=== PATIENT | male | born 1965 | race Caucasian/White ===

== ENCOUNTER 2017-12-31 22:58 | Emergency (ER) | payer OTHER ==
[2017-12-31] MEDS ORDERED: NITROGLYCERIN SL TABS 0.4 MG TAB SUBLINGUAL STA (23:22)
[2017-12-31] MEDS ORDERED: SODIUM CHLORIDE 0.9% 1,000 ML IV STA (23:22)
[2017-12-31] MEDS ORDERED: METOCLOPRAMIDE 5 MG/ML 2 ML VIAL IVP STA (23:22)
[2017-12-31] MEDS ORDERED: GLUCAGON 1 MG/ML VIAL IVP STA (23:23)
--- NOTE | 2017-12-31 23:31 | ED ---
General Adult HPI - General Chief complaint: ENT Stated complaint: food in throat Time Seen by Provider: 12/31/17 23:09 Source: patient, RN notes reviewed Mode of arrival: ambulatory Limitations: no limitations - History of Present Illness Initial comments: Patient is a pleasant 52-year-old male presenting to the emergency department with concern for food being stuck. Patient was eating dinner around 5 PM, chicken. Patient feels like a piece has been stuck since that time. Patient has had similar symptoms previously however generally resolves on its own. Patient has a history of chronic reflux and has had to have scopes and dilation done previously. Patient is unable to drink fluids at this time. Patient is unable to swallow his own secretions without emesis. - Related Data Home Medications Medication Instructions Recorded Confirmed Fluticasone Propionate [Flovent 2 puff INHALATION BID PRN 12/31/17 12/31/17 Hfa 220MCG] Omeprazole [PriLOSEC] 10 mg PO BID 12/31/17 12/31/17 Allergies Allergy/AdvReac Type Severity Reaction Status Date / Time codeine Allergy Unknown Verified 12/31/17 23:18 Review of Systems ROS Statement: Those systems with pertinent positive or pertinent negative responses have been documented in the HPI. ROS Other: All systems not noted in ROS Statement are negative. Constitutional: Denies: fever Eyes: Denies: eye pain ENT: Denies: ear pain Respiratory: Denies: cough, dyspnea Cardiovascular: Denies: palpitations Endocrine: Denies: fatigue Gastrointestinal: Denies: abdominal pain Genitourinary: Denies: dysuria Musculoskeletal: Denies: back pain Skin: Denies: rash Neurological: Denies: weakness Past Medical History Past Medical History: Asthma, GERD/Reflux History of Any Multi-Drug Resistant Organisms: None Reported Past Surgical History: Orthopedic Surgery Past Psychological History: No Psychological Hx Reported Smoking Status: Never smoker Past Alcohol Use History: None Reported Past Drug Use History: None Reported General Exam Limitations: no limitations General appearance: alert, in no apparent distress Head exam: Present: atraumatic ENT exam: Present: normal oropharynx Neck exam: Present: normal inspection Respiratory exam: Present: normal lung sounds bilaterally Cardiovascular Exam: Present: regular rate, normal rhythm GI/Abdominal exam: Present: soft. Absent: distended, tenderness Extremities exam: Present: normal inspection. Absent: calf tenderness Neurological exam: Present: alert Psychiatric exam: Present: normal affect, normal mood Skin exam: Present: normal color Course Vital Signs 12/31/17 01/01/18 01/01/18 23:04 00:47 01:15 Temperature 97.2 F L Pulse Rate 71 74 78 Respiratory 18 15 18 Rate Blood Pressure 160/88 152/68 98/55 O2 Sat by Pulse 96 95 96 Oximetry 01/01/18 01:27 Temperature Pulse Rate 80 Respiratory 18 Rate Blood Pressure 100/61 O2 Sat by Pulse 96 Oximetry - Reevaluation(s) Reevaluation #1: 01/01/18 00:02 No improvement of symptoms with medications. Case was discussed with gastroenterology, Dr. Hammer who will come in. 01/01/18 01:35 Patient underwent endoscopy with removal of foreign body in the esophagus. Patient was reevaluated and alert and appropriate and symptom-free. Patient updated. Disposition Clinical Impression: Esophageal foreign body Disposition: HOME SELF-CARE Condition: Stable Instructions: Esophageal Foreign Body (ED) Additional Instructions: Please follow-up with your primary care physician in the next couple days for recheck. Please also follow-up in the next couple of days with either your ep technologist or Dr. Hammer, number provided. Return for chest pain, difficulty breathing, not tolerating fluids, worsening symptoms or other concerns. Referrals: Cata Amor MD [Primary Care Provider] - 1-2 days Shari Garcia MD [STAFF PHYSICIAN] - 1-2 days Time of Disposition: 01:36
[2018-01-01] MEDS ORDERED: PROPOFOL 10 MG/ML 20 ML VIAL IV ONE (00:57)
[2018-01-01] MEDS ORDERED: LACTATED RINGERS 1,000 ML IV ONE (01:02)
[2018-01-01 01:29] VITALS: RESP 18
[2018-01-01 02:24] VITALS: BP 125/83; PULSE 77; TEMP 97.5
--- NOTE | 2018-01-01 09:18 | PCN ---
PROCEDURE NOTE DATE PROCEDURE PERFORMED: 01/01/2018 REQUESTING PHYSICIAN: Dr. Amor. BRIEF HISTORY: The patient is a 52-year-old white male came into the emergency room with acute food dysphagia. He was eating chicken for dinner, could not swallow any further. He had similar episodes in the past. Last one was 5 years ago at which time he had an upper endoscopy with dilation done at [facility]. He is scheduled for an upper endoscopy on an emergency basis. PROCEDURE PERFORMED: EGD with foreign body removal. PREOPERATIVE DIAGNOSIS: Acute food dysphagia. ANESTHESIA: IV sedation per Anesthesia. PROCEDURE: After informed consent was obtained from the patient, he was brought into the endoscopy unit. IV conscious sedation was administered by Anesthesia under continuous monitoring. Initially the Olympus ITD635 video endoscope was inserted in the mouth. Esophagus intubated without any difficulty and was gradually advanced to the distal esophagus. There was a large piece of meat impacted in the distal esophagus. Using a snare, I was able to remove the piece of meat out of the mouth. Esophagus was re- intubated without any difficulty and was gradually advanced to the distal esophagus. At 42 cm from incisors, there was an esophageal stricture identified, which did not impede the passage of the scope. At this time, I was able to advance the scope into the stomach and duodenum. Bulb and 2nd part of the duodenum appeared normal. The scope was then withdrawn to the stomach, adequately insufflated with air and upon careful examination antrum, body, cardia and fundus appeared normal. Scope was then withdrawn to the esophagus. Once again, the distal esophageal stricture was identified. The rest of the esophagus appeared normal and the patient tolerated the procedure well. IMPRESSION: 1. Impacted food bolus, status post removal as described above. 2. Distal esophageal stricture. RECOMMENDATIONS: Findings of this examination were discussed with the patient briefly. At this time, he will be on a soft diet. He will continue with Protonix 40 mg daily and he will be seen in the office in 2 to 3 weeks for an upper endoscopy with possible dilation on active basis. MMODL / IJN: [id number] /
== END 2018-01-01 02:25 | disposition home or self-care (01) ==
LOC: EC 22:58
DX: T18.128A Food in esophagus causing other injury, initial encounter (principal); K21.9 Gastro-esophageal reflux disease without esophagitis; Z79.899 Other long term (current) drug therapy; Z88.5 Allergy status to narcotic agent; W61.32XA Struck by chicken, initial encounter; Y93.89 Activity, other specified
CPT/HCPCS: 99283 ×2; 96365 ×2; 96375 ×3; 96361 ×2; 43247; J1610; J2765; J2704

== ENCOUNTER 2018-01-09 04:56 | Emergency (ER) | payer OTHER ==
[2018-01-09 05:03] VITALS: RESP 18
[2018-01-09] MEDS ORDERED: IPRATROPIUM-ALBUTEROL 3 ML NEB INHALATION STA (05:27)
--- NOTE | 2018-01-09 05:56 | XR ---
EXAM: XR Chest, 2 Views CLINICAL HISTORY: Reason: cough TECHNIQUE: Frontal and lateral views of the chest. COMPARISON: 01/07/2010 FINDINGS: Lungs: Unremarkable. No consolidation. Pleural space: Unremarkable. No pneumothorax. Heart: Unremarkable. No cardiomegaly. Mediastinum: Unremarkable. Bones/joints: Unremarkable. IMPRESSION: No evidence of acute cardiopulmonary disease.
[2018-01-09 05:59] LABS: Basophils % (A) 1 %; Eosinophils # (A) 0.1 k/uL (0-0.7); Eosinophils % (A) 1 %; HGB 15.3 gm/dL (13.0-17.5); Lymphocytes # (A) 1.6 k/uL (1.0-4.8); Lymphocytes % (A) 36 %; MCH 28.8 pg (25.0-35.0); MCV 84.7 fL (80.0-100.0); Mean Platelet Volume 7.1; Monocytes # (A) 0.4 k/uL (0-1.0); Monocytes % (A) 9 %; Neutrophils # (A) 2.3 k/uL (1.3-7.7); Neutrophils % (A) 51 %; Platelet Count 205 k/uL (150-450); RBC 5.32 m/uL (4.30-5.90); RDW 12.4 % (11.5-15.5); WBC 4.5 k/uL (3.8-10.6)
[2018-01-09 06:13] LABS: ALT 67 U/L (21-72); AST 37 U/L (17-59); Albumin 3.5 g/dL (3.5-5.0); Alkaline Phosphatase 66 U/L (38-126); Amylase 46 U/L (30-110); Anion Gap 11 mmol/L; Blood Urea Nitrogen 17 mg/dL (9-20); Calcium 9.1 mg/dL (8.4-10.2); Carbon Dioxide 28 mmol/L (22-30); Chloride 103 mmol/L (98-107); Glucose 98 mg/dL (74-99); Lipase 62 U/L (23-300); Potassium 4.1 mmol/L (3.5-5.1); Sodium 142 mmol/L (137-145); Total Bilirubin 0.4 mg/dL (0.2-1.3); Total Protein 6.3 g/dL (6.3-8.2)
[2018-01-09 06:15] LABS: Appearance,Urine Clear (Clear); Bilirubin,Urine Negative (Negative); Blood,Urine Negative (Negative); Color,Urine Yellow; Glucose,Urine (UA) Negative (Negative); Ketones,Urine Negative (Negative); Leukocyte Esterase,Urine Negative (Negative); Nitrite,Urine Negative (Negative); PH, Urine 5.5 (5.0-8.0); Protein,Urine Trace (Negative); Specific Gravity,Urine 1.029 (1.001-1.035); Urobilinogen,Urine <2.0 mg/dL (<2.0)
--- NOTE | 2018-01-09 07:00 | ED ---
General Adult HPI - General Source: patient Mode of arrival: ambulatory Limitations: no limitations - History of Present Illness Onset/Timin -: days(s) Location: back, abdomen Radiation: non-radiation Quality: aching Consistency: constant Improves with: none Worsens with: other (Lying supine or palpation) Associated Symptoms: cough, shortness of breath Treatments Prior to Arrival: none <aLne Vargas - Last Filed: 01/09/18 07:00> <Jam Streeter - Last Filed: 01/09/18 07:52> - General Chief complaint: Upper Respiratory Infection Stated complaint: Pnuemonia Time Seen by Provider: 01/09/18 05:04 - History of Present Illness Initial comments: This patient's 52-year-old man who presents to be evaluated for what he suspects is pneumonia. He is complaining of pain to the right flank area that gets worse when he tries to lie supine. He states that he also has been coughing. He relates that the symptoms have been coming on for about 3-4 days. Prior to this he had been seen in the emergency department for having a food impaction. He is not having the symptoms then and states that they started couple days after that procedure. He has not had fevers or chills. No productive cough. He indicates that the pain was preventing him from sleeping tonight so he came to be seen here. Prior to that he was seen by his primary physician who was also concerned that he may have pneumonia and had given him a course of azithromycin. He has taken 2 days of that without any improvement. ( Lane Vargas) - Related Data Home Medications Medication Instructions Recorded Confirmed Fluticasone Propionate [Flovent 2 puff INHALATION BID PRN 12/31/17 12/31/17 Hfa 220MCG] Omeprazole [PriLOSEC] 10 mg PO BID 12/31/17 12/31/17 Allergies Allergy/AdvReac Type Severity Reaction Status Date / Time codeine Allergy Unknown Verified 12/31/17 23:18 Review of Systems ROS Other: All systems not noted in ROS Statement are negative. Constitutional: Denies: fever, chills Respiratory: Reports: cough, dyspnea, wheezes. Denies: hemoptysis Cardiovascular: Denies: chest pain, palpitations, orthopnea, edema, syncope Gastrointestinal: Denies: abdominal pain, nausea, vomiting, diarrhea, constipation Genitourinary: Denies: dysuria, hematuria Musculoskeletal: Reports: back pain Skin: Denies: rash Neurological: Denies: headache <JessicaLane mcfadden - Last Filed: 01/09/18 07:00> ROS Other: All systems not noted in ROS Statement are negative. <Jam Streetre - Last Filed: 01/09/18 07:52> ROS Statement: Those systems with pertinent positive or pertinent negative responses have been documented in the HPI. Past Medical History Past Medical History: Asthma, GERD/Reflux History of Any Multi-Drug Resistant Organisms: None Reported Past Surgical History: Orthopedic Surgery Past Psychological History: No Psychological Hx Reported Smoking Status: Never smoker Past Alcohol Use History: None Reported Past Drug Use History: None Reported <JessicaLane mcfadden - Last Filed: 01/09/18 07:00> General Exam Limitations: no limitations General appearance: alert, in no apparent distress Head exam: Present: atraumatic, normocephalic Eye exam: Present: normal appearance. Absent: scleral icterus, conjunctival injection ENT exam: Present: normal oropharynx Neck exam: Present: normal inspection, full ROM Respiratory exam: Present: wheezes. Absent: respiratory distress, rales, rhonchi, stridor Cardiovascular Exam: Present: regular rate, normal rhythm, normal heart sounds. Absent: systolic murmur, diastolic murmur, rubs, gallop GI/Abdominal exam: Present: soft. Absent: distended, tenderness, guarding, rebound, rigid, mass Extremities exam: Present: normal inspection, normal capillary refill. Absent: pedal edema, calf tenderness Back exam: Present: normal inspection. Absent: CVA tenderness (R), CVA tenderness (L) Neurological exam: Present: alert Skin exam: Present: warm, dry, intact, normal color. Absent: rash <AliciaLane - Last Filed: 01/09/18 07:00> Vital Signs 01/09/18 01/09/18 01/09/18 05:00 05:14 05:44 Temperature 97.7 F Pulse Rate 75 72 Respiratory 18 18 Rate Blood Pressure 161/106 O2 Sat by Pulse 97 Oximetry 01/09/18 01/09/18 01/09/18 05:57 06:42 06:48 Temperature 97.4 F L Pulse Rate 76 78 81 Respiratory 18 18 Rate Blood Pressure 131/80 143/87 O2 Sat by Pulse 97 96 Oximetry 01/09/18 07:47 Temperature Pulse Rate 65 Respiratory 18 Rate Blood Pressure 116/77 O2 Sat by Pulse 95 Oximetry Medical Decision Making - Lab Data Result diagrams: 01/09/18 05:45 01/09/18 05:45 <JessicalesaLane - Last Filed: 01/09/18 07:00> - Lab Data Result diagrams: 01/09/18 05:45 01/09/18 05:45 <aJm Streeter - Last Filed: 01/09/18 07:52> - Medical Decision Making 52-year-old male presenting with right flank pain and cough. Currently being treated for asthma attack and upper respiratory infection. On steroids and antibiotics. Patient's case was signed out at shift change awaiting complete workup. I did reevaluate the patient, pain in his right flank, it is reproducible on exam. He is feeling better at the time of my evaluation. Vital signs are stable. Chest x-ray negative for pneumonia. CBC CMP and urinalysis are all unremarkable , no hematuria. CT is obtained there is some arthritis in the lumbar spine, no nephrolithiasis, no hydronephrosis, no definitive finding to explain the patient 's pain. He will continue his steroids and antibiotics for his upper respiratory tract infection. Follow-up with the primary care physician and return with any worsening or changing symptoms. (Jam Streeter) - Lab Data Lab Results 01/09/18 01/09/18 01/09/18 Range/Units 05:12 05:45 05:45 WBC 4.5 (3.8-10.6) k/uL RBC 5.32 (4.30-5.90) m/uL Hgb 15.3 (13.0-17.5) gm/dL Hct 45.0 (39.0-53.0) % MCV 84.7 (80.0-100.0) fL MCH 28.8 (25.0-35.0) pg MCHC 34.0 (31.0-37.0) g/dL RDW 12.4 (11.5-15.5) % Plt Count 205 (150-450) k/uL Neutrophils % 51 % Lymphocytes % 36 % Monocytes % 9 % Eosinophils % 1 % Basophils % 1 % Neutrophils # 2.3 (1.3-7.7) k/uL Lymphocytes # 1.6 (1.0-4.8) k/uL Monocytes # 0.4 (0-1.0) k/uL Eosinophils # 0.1 (0-0.7) k/uL Basophils # 0.0 (0-0.2) k/uL Sodium 142 (137-145) mmol/L Potassium 4.1 (3.5-5.1) mmol/L Chloride 103 (98-107) mmol/L Carbon Dioxide 28 (22-30) mmol/L Anion Gap 11 mmol/L BUN 17 (9-20) mg/dL Creatinine 0.90 (0.66-1.25) mg/dL Est GFR (CKD-EPI)AfAm >90 (>60 ml/min/1.73 sqM) Est GFR (CKD-EPI)NonAf >90 (>60 ml/min/1.73 sqM) Glucose 98 (74-99) mg/dL Calcium 9.1 (8.4-10.2) mg/dL Total Bilirubin 0.4 (0.2-1.3) mg/dL AST 37 (17-59) U/L ALT 67 (21-72) U/L Alkaline Phosphatase 66 (38-126) U/L Total Protein 6.3 (6.3-8.2) g/dL Albumin 3.5 (3.5-5.0) g/dL Amylase 46 (30-110) U/L Lipase 62 (23-300) U/L Urine Color Urine Appearance (Clear) Urine pH (5.0-8.0) Ur Specific [place] (1.001-1.035) Urine Protein (Negative) Urine Glucose (UA) (Negative) Urine Ketones (Negative) Urine Blood (Negative) Urine Nitrite (Negative) Urine Bilirubin (Negative) Urine Urobilinogen (<2.0) mg/dL Ur Leukocyte Esterase (Negative) Influenza Type A RNA Not Detected (Not Detectd) Influenza Type B (PCR) Not Detected (Not Detectd) 01/09/18 Range/Units 06:00 WBC (3.8-10.6) k/uL RBC (4.30-5.90) m/uL Hgb (13.0-17.5) gm/dL Hct (39.0-53.0) % MCV (80.0-100.0) fL MCH (25.0-35.0) pg MCHC (31.0-37.0) g/dL RDW (11.5-15.5) % Plt Count (150-450) k/uL Neutrophils % % Lymphocytes % % Monocytes % % Eosinophils % % Basophils % % Neutrophils # (1.3-7.7) k/uL Lymphocytes # (1.0-4.8) k/uL Monocytes # (0-1.0) k/uL Eosinophils # (0-0.7) k/uL Basophils # (0-0.2) k/uL Sodium (137-145) mmol/L Potassium (3.5-5.1) mmol/L Chloride (98-107) mmol/L Carbon Dioxide (22-30) mmol/L Anion Gap mmol/L BUN (9-20) mg/dL Creatinine (0.66-1.25) mg/dL Est GFR (CKD-EPI)AfAm (>60 ml/min/1.73 sqM) Est GFR (CKD-EPI)NonAf (>60 ml/min/1.73 sqM) Glucose (74-99) mg/dL Calcium (8.4-10.2) mg/dL Total Bilirubin (0.2-1.3) mg/dL AST (17-59) U/L ALT (21-72) U/L Alkaline Phosphatase (38-126) U/L Total Protein (6.3-8.2) g/dL Albumin (3.5-5.0) g/dL Amylase (30-110) U/L Lipase (23-300) U/L Urine Color Yellow Urine Appearance Clear (Clear) Urine pH 5.5 (5.0-8.0) Ur Specific [place] 1.029 (1.001-1.035) Urine Protein Trace H (Negative) Urine Glucose (UA) Negative (Negative) Urine Ketones Negative (Negative) Urine Blood Negative (Negative) Urine Nitrite Negative (Negative) Urine Bilirubin Negative (Negative) Urine Urobilinogen <2.0 (<2.0) mg/dL Ur Leukocyte Esterase Negative (Negative) Influenza Type A RNA (Not Detectd) Influenza Type B (PCR) (Not Detectd) Disposition <Lane Vargas - Last Filed: 01/09/18 07:00> Time of Disposition: 07:51 <Jam Streeter - Last Filed: 01/09/18 07:52> Clinical Impression: Asthmatic bronchitis, Lumbar strain Disposition: HOME SELF-CARE Condition: Good Instructions: Upper Respiratory Infection (ED), Low Back Strain (ED) Referrals: Cata Amor MD [Primary Care Provider] - 1-2 days
--- NOTE | 2018-01-09 07:34 | CT ---
EXAMINATION TYPE: CT abdomen pelvis wo con DATE OF EXAM: 01/09/2018 COMPARISON: NONE HISTORY: Right flank pain and Pneumonia CT DLP: 952 mGycm Automated exposure control for dose reduction was used. FINDINGS: The visualized portions of the lungs are clear. There is no pleural or pericardial fluid. T he heart is not enlarged. There is a small hiatal hernia. Within the abdomen, the liver is normal in size. There is some increased density in the fundus of the gallbladder. This may represent some sludge. The spleen is normal. Both adrenal glands are normal. There is no evidence of hydronephrosis or nephrolithiasis. Limited views of the pancreas are normal. There is no significant retroperitoneal, iliac or inguinal adenopathy. The bladder is unremarkable. There are scattered diverticula along the left side of the colon. There is no radiographic evidence o f diverticulitis. The appendix is normal. Small bowel loops are normal. There is no free fluid and no free air. There is some fullness in the right inguinal canal without a definite hernia. There is mild hypertrophic spondylosis within the spine. IMPRESSION: 1. NO EVIDENCE OF NEPHROLITHIASIS OR HYDRONEPHROSIS. 2. SMALL HIATAL HERNIA. 3. MILD, UNCOMPLICATED DIVERTICULOSIS OF THE LEFT SIDE OF THE COLON. 4. FULLNESS IN THE RIGHT INGUINAL CANAL WITHOUT A DEFINITE HERNIA. 5. MILD DEGENERATIVE CHANGE WITHIN THE SPINE.
[2018-01-09 07:47] VITALS: BP 116/77; PULSE 65
[2018-01-09 08:06] VITALS: TEMP 97.6
== END 2018-01-09 08:06 | disposition home or self-care (01) ==
LOC: EC 04:56
DX: S39.012A Strain of muscle, fascia and tendon of lower back, initial encounter (principal); J45.909 Unspecified asthma, uncomplicated; M47.896 Other spondylosis, lumbar region; R10.9 Unspecified abdominal pain; K21.9 Gastro-esophageal reflux disease without esophagitis; Z79.899 Other long term (current) drug therapy; Z88.5 Allergy status to narcotic agent
CPT/HCPCS: 36415; 71046; 74176; 80053; 81003; 82150; 83690; 85025; 87502; 94640; 99284

== ENCOUNTER 2020-10-14 09:48 | Inpatient (IN) | payer OTHER ==
[2020-10-14] MEDS ORDERED: ACETAMINOPHEN TAB 500 MG TAB PO STA (10:13)
[2020-10-14] MEDS ORDERED: SODIUM CHLORIDE 0.9% 1,000 ML IV STA (10:14)
[2020-10-14] MEDS ORDERED: ONDANSETRON 4 MG/2 ML VIAL IVP STA (10:16)
--- NOTE | 2020-10-14 10:20 | ED ---
SOB HPI - General Chief Complaint: Shortness of Breath Stated Complaint: COVID+/increased SOB Time Seen by Provider: 10/14/20 10:04 Source: patient Mode of arrival: ambulatory Limitations: no limitations - History of Present Illness Initial Comments: Patient is a 55-year-old male presenting to emergency Department with complaints of increasing shortness of breath over the past week. Patient was diagnosed with Covid 6 days ago. He has completed a course of steroids as well as Z-Douglas. Patient states over the past week he's been fighting fevers, body aches, chills and nausea. Patient states his shortness of breath has been steadily increasing. He gets winded with just walking around his house. He does admit to some chest pain when he is coughing. He does have some production with his cough. He does admit to history of asthma, denies heart disease. He states his last dose of Tylenol was last night. He denies any vomiting, no dysuria. P atient is febrile 100.4, pulse is 96, he is satting 88% on room air. - Related Data Home Medications Medication Instructions Recorded Confirmed Fluticasone Propionate [Flovent 2 puff INHALATION RT-BID 12/31/17 10/14/20 Hfa 220MCG] Albuterol Inhaler [Ventolin Hfa 2 puff INHALATION RT-QID PRN 10/14/20 10/14/20 Inhaler] Albuterol Nebulized [Ventolin 2.5 mg INHALATION RT-QID PRN 10/14/20 10/14/20 Nebulized] Atorvastatin [Lipitor] 40 mg PO DAILY 10/14/20 10/14/20 Azithromycin [Zithromax Z-pack (6 See Taper PO DIRECTED 10/14/20 10/14/20 tabs)] Cholecalciferol [Vitamin D3 (25 2,000 unit PO DAILY 10/14/20 10/14/20 Mcg = 1000 Iu)] Meloxicam 7.5 mg PO DAILY 10/14/20 10/14/20 Montelukast Sodium [Singulair] 10 mg PO HS 10/14/20 10/14/20 Omeprazole 20 mg PO BID 10/14/20 10/14/20 predniSONE 10 mg PO DIRECTED 10/14/20 10/14/20 Allergies Allergy/AdvReac Type Severity Reaction Status Date / Time codeine Allergy Unknown Verified 10/14/20 11:24 Review of Systems ROS Statement: Those systems with pertinent positive or pertinent negative responses have been documented in the HPI. ROS Other: All systems not noted in ROS Statement are negative. Past Medical History Past Medical History: Asthma, GERD/Reflux History of Any Multi-Drug Resistant Organisms: None Reported Past Surgical History: Orthopedic Surgery Past Psychological History: No Psychological Hx Reported Smoking Status: Never smoker Past Alcohol Use History: None Reported Past Drug Use History: None Reported General Exam - General Exam Comments Initial Comments: GENERAL: Patient is well-developed and well-nourished. Patient looks sick, in mild distress. HEAD: Atraumatic, normocephalic. EYES: Pupils equal round and reactive to light, extraocular movements intact, sclera anicteric, conjunctiva are normal. Eyelids were unremarkable. ENT: TMs normal, nares patent, oropharynx clear without exudates. Moist mucous membranes. NECK: Normal range of motion, supple without lymphadenopathy or JVD. LUNGS: Exertion with speaking full sentences, Breath sounds clear to auscultation bilaterally and equal. No wheezes rales or rhonchi. HEART: Tachycardia rate and rhythm without murmurs, rubs or gallops. ABDOMEN: Soft, nontender, normoactive bowel sounds. No guarding, no rebound. No masses appreciated. : Deferred MUSCULOSKELETAL: Normal extremities with adequate strength and normal range of motion, no pitting or edema. No clubbing or cyanosis. NEUROLOGICAL: Patient is alert and oriented x 3. Motor and sensory are also intact. Cranial nerves II through XII grossly intact. Symmetrical smile. Normal speech, normal gait. PSYCH: Normal mood, normal affect. SKIN: Warm, Dry, normal turgor, no rashes or lesions noted. Limitations: no limitations Course Vital Signs 10/14/20 10/14/20 09:56 11:09 Temperature 99.4 F Pulse Rate 96 90 Respiratory 18 18 Rate Blood Pressure 130/80 130/87 O2 Sat by Pulse 88 L 93 L Oximetry Medical Decision Making - Medical Decision Making Patient is a 55-year-old male presenting with increasing shortness breath over the past week. He was diagnosed with Covid 6 days ago. He has completed a course of Z-Douglas and steroids with no improvement of symptoms. He did arrive febrile, tachycardia and satting 88% on room air. EKG shows no acute process. Labs show a normal white count, d-dimer is normal, LDH is 777, troponin is negative, CRP is 134. X-ray shows diffuse bilateral pneumonia. Patient was 88% on room air, he's been satting at 93-94% on 2 L. Patient will be admitted for covert pneumonia, hypoxia. He was given fluids, dose of Decadron, Zofran andTylenol. Patient accepted by Dr. Hauser. Case discussed with Dr. Gallardo. - Lab Data Result diagrams: 10/14/20 10:20 10/14/20 10:20 Lab Results 10/14/20 10/14/20 10/14/20 Range/Units 10:20 10:20 10:20 WBC 4.9 (3.8-10.6) k/uL RBC 4.74 (4.30-5.90) m/uL Hgb 13.9 (13.0-17.5) gm/dL Hct 40.6 (39.0-53.0) % MCV 85.6 (80.0-100.0) fL MCH 29.2 (25.0-35.0) pg MCHC 34.2 (31.0-37.0) g/dL RDW 12.3 (11.5-15.5) % Plt Count 157 (150-450) k/uL MPV 7.0 Neutrophils % 82 % Lymphocytes % 13 % Monocytes % 3 % Eosinophils % 0 % Basophils % 1 % Neutrophils # 4.0 (1.3-7.7) k/uL Lymphocytes # 0.6 L (1.0-4.8) k/uL Monocytes # 0.1 (0-1.0) k/uL Eosinophils # 0.0 (0-0.7) k/uL Basophils # 0.0 (0-0.2) k/uL PT 10.8 (9.0-12.0) sec INR 1.0 (<1.2) APTT 26.1 (22.0-30.0) sec D-Dimer 0.38 (<0.60) mg/L FEU Sodium 134 L (137-145) mmol/L Potassium 3.7 (3.5-5.1) mmol/L Chloride 99 (98-107) mmol/L Carbon Dioxide 31 H (22-30) mmol/L Anion Gap 4 mmol/L BUN 16 (9-20) mg/dL Creatinine 0.79 (0.66-1.25) mg/dL Est GFR (CKD-EPI)AfAm >90 (>60 ml/min/1.73 sqM) Est GFR (CKD-EPI)NonAf >90 (>60 ml/min/1.73 sqM) Glucose 110 H (74-99) mg/dL Plasma Lactic Acid Se (0.7-2.0) mmol/L Calcium 8.1 L (8.4-10.2) mg/dL Magnesium 1.7 (1.6-2.3) mg/dL Total Bilirubin 0.6 (0.2-1.3) mg/dL AST 56 (17-59) U/L ALT 45 (4-49) U/L Alkaline Phosphatase 50 (38-126) U/L Lactate Dehydrogenase 777 H (313-618) U/L Troponin I (0.000-0.034) ng/mL C-Reactive Protein 133.8 H (<10.0) mg/L Total Protein 6.0 L (6.3-8.2) g/dL Albumin 3.1 L (3.5-5.0) g/dL 10/14/20 10/14/20 Range/Units 10:20 10:25 WBC (3.8-10.6) k/uL RBC (4.30-5.90) m/uL Hgb (13.0-17.5) gm/dL Hct (39.0-53.0) % MCV (80.0-100.0) fL MCH (25.0-35.0) pg MCHC (31.0-37.0) g/dL RDW (11.5-15.5) % Plt Count (150-450) k/uL MPV Neutrophils % % Lymphocytes % % Monocytes % % Eosinophils % % Basophils % % Neutrophils # (1.3-7.7) k/uL Lymphocytes # (1.0-4.8) k/uL Monocytes # (0-1.0) k/uL Eosinophils # (0-0.7) k/uL Basophils # (0-0.2) k/uL PT (9.0-12.0) sec INR (<1.2) APTT (22.0-30.0) sec D-Dimer (<0.60) mg/L FEU Sodium (137-145) mmol/L Potassium (3.5-5.1) mmol/L Chloride (98-107) mmol/L Carbon Dioxide (22-30) mmol/L Anion Gap mmol/L BUN (9-20) mg/dL Creatinine (0.66-1.25) mg/dL Est GFR (CKD-EPI)AfAm (>60 ml/min/1.73 sqM) Est GFR (CKD-EPI)NonAf (>60 ml/min/1.73 sqM) Glucose (74-99) mg/dL Plasma Lactic Acid Se 1.2 (0.7-2.0) mmol/L Calcium (8.4-10.2) mg/dL Magnesium (1.6-2.3) mg/dL Total Bilirubin (0.2-1.3) mg/dL AST (17-59) U/L ALT (4-49) U/L Alkaline Phosphatase (38-126) U/L Lactate Dehydrogenase (313-618) U/L Troponin I <0.012 (0.000-0.034) ng/mL C-Reactive Protein (<10.0) mg/L Total Protein (6.3-8.2) g/dL Albumin (3.5-5.0) g/dL - EKG Data EKG Comments: Normal sinus rhythm, left axis deviation, no signs of an acute process. Ventricular rate 97, MI interval 148, QT 330. Disposition Clinical Impression: Pneumonia due to COVID-19 virus, Hypoxia Disposition: ADMITTED IP TO THIS HOSP Condition: Stable Is patient prescribed a controlled substance at d/c from ED?: No Referrals: Bryan Valero DO [Primary Care Provider] - 1-2 days Decision Date: 10/14/20 Decision Time: 11:43
[2020-10-14] MEDS: DEXAMETHASONE SOD PHOSPHATE 10 MG/ML 1 ML VIAL IV SCH (10:27)
[2020-10-14 10:41] LABS: Basophils % (A) 1 %; Eosinophils % (A) 0 %; HCT 40.6 % (39.0-53.0); HGB 13.9 gm/dL (13.0-17.5); Lymphocytes # (A) 0.6 k/uL (1.0-4.8); Lymphocytes % (A) 13 %; MCH 29.2 pg (25.0-35.0); MCHC 34.2 g/dL (31.0-37.0); MCV 85.6 fL (80.0-100.0); Monocytes # (A) 0.1 k/uL (0-1.0); Monocytes % (A) 3 %; Neutrophils % (A) 82 %; Platelet Count 157 k/uL (150-450); RBC 4.74 m/uL (4.30-5.90); RDW 12.3 % (11.5-15.5); WBC 4.9 k/uL (3.8-10.6)
[2020-10-14 10:51] LABS: ALT 45 U/L (4-49); AST 56 U/L (17-59); African American GFR (CKD) >90 (>60 ml/min/1.73 sqM); Albumin 3.1 g/dL (3.5-5.0); Alkaline Phosphatase 50 U/L (38-126); Anion Gap 4 mmol/L; Blood Urea Nitrogen 16 mg/dL (9-20); Calcium 8.1 mg/dL (8.4-10.2); Carbon Dioxide 31 mmol/L (22-30); Chloride 99 mmol/L (98-107); Glucose 110 mg/dL (74-99); LDH 777 U/L (313-618); Magnesium 1.7 mg/dL (1.6-2.3); Non-African American GFR(CKD) >90 (>60 ml/min/1.73 sqM); Potassium 3.7 mmol/L (3.5-5.1); Sodium 134 mmol/L (137-145); Total Bilirubin 0.6 mg/dL (0.2-1.3)
--- NOTE | 2020-10-14 10:54 | XR ---
EXAMINATION TYPE: XR chest 1V portable DATE OF EXAM: 10/14/2020 COMPARISON: 01/09/2018 HISTORY: Versus shortness of breath TECHNIQUE: Single frontal view of the chest is obtained. FINDINGS: Diffuse multifocal areas of bilateral consolidation. No pneumothorax or sizable pleural ef fusion. Heart size at the upper limits of normal. IMPRESSION: Diffuse bilateral pneumonia
[2020-10-14 10:59] LABS: D-Dimer 0.38 mg/L FEU (<0.60); Partial Thromboplastin Time 26.1 sec (22.0-30.0); Prothrombin Time 10.8 sec (9.0-12.0)
[2020-10-14 11:07] LABS: C Reactive Protein 133.8 mg/L (<10.0)
[2020-10-14] MEDS ORDERED: ONDANSETRON 4 MG/2 ML VIAL IVP PRN (11:40)
[2020-10-14] MEDS ORDERED: NALOXONE 0.4 MG/ML 1 ML VIAL IV PRN (11:40)
[2020-10-14] MEDS ORDERED: ACETAMINOPHEN TAB 500 MG TAB PO PRN (11:40)
--- NOTE | 2020-10-14 11:50 | P.HPIM ---
History of Present Illness Patient is a 55-year-old male came in with complaints of increasing shortness of breath over the past week. Patient was diagnosed with Covid 6 days ago. He has completed a course of steroids as well as Z-Douglas. Patient states over the past week he's been fighting fevers, body aches, chills and nausea. Patient states his shortness of breath has been steadily increasing. He gets winded with just walking around his house. He does admit to some chest pain when he is coughing. He does have some production with his cough. He does admit to history of asthma, denies heart disease. He states his last dose of Tylenol was last n ight. He denies any vomiting, no dysuria. Patient is febrile 100.4, pulse is 96, he is satting 88% on room air. Patient had a chest x-ray which showed diffuse bilateral infiltrates. Patient is presently on 2 L of oxygen saturating 93% patient was having fevers at home patient had a low-grade fever here. Patient has elevated inflammatory markers along with the low sodium of 34 Review of Systems REVIEW OF SYSTEMS: CONSTITUTIONAL: As mentioned in HPI HEENT: No recent visual problems or hearing problems. Denied any sore throat. CARDIOVASCULAR: No chest pain, orthopnea, PND, no palpitations, no syncope. PULMONARY: no hemoptysis. GASTROINTESTINAL: No diarrhea, no nausea, no vomiting, no abdominal pain. NEUROLOGICAL: No headaches, no weakness, no numbness. HEMATOLOGICAL: Denies any bleeding or petechiae. GENITOURINARY: Denies any burning micturition, frequency, or urgency. MUSCULOSKELETAL/RHEUMATOLOGICAL: Denies any joint pain, swelling, or any muscle pain. ENDOCRINE: Denies any polyuria or polydipsia. The rest of the 14-point review of systems is negative. Past Medical History Past Medical History: Asthma, GERD/Reflux History of Any Multi-Drug Resistant Organisms: None Reported Past Surgical History: Orthopedic Surgery Past Psychological History: No Psychological Hx Reported Smoking Status: Never smoker Past Alcohol Use History: None Reported Past Drug Use History: None Reported Medications and Allergies Home Medications Medication Instructions Recorded Confirmed Type Fluticasone Propionate [Flovent 2 puff INHALATION RT-BID 12/31/10/14/20 History Hfa 220MCG] Albuterol Inhaler [Ventolin Hfa 2 puff INHALATION RT-QID PRN 10/14/20 10/14/20 History Inhaler] Albuterol Nebulized [Ventolin 2.5 mg INHALATION RT-QID PRN 10/14/20 10/14/20 History Nebulized] Atorvastatin [Lipitor] 40 mg PO DAILY 10/14/20 10/14/20 History Azithromycin [Zithromax Z-pack (6 See Taper PO DIRECTED 10/14/20 10/14/20 History tabs)] Cholecalciferol [Vitamin D3 (25 2,000 unit PO DAILY 10/14/20 10/14/20 History Mcg = 1000 Iu)] Meloxicam 7.5 mg PO DAILY 10/14/20 10/14/20 History Montelukast Sodium [Singulair] 10 mg PO HS 10/14/20 10/14/20 History Omeprazole 20 mg PO BID 10/14/20 10/14/20 History predniSONE 10 mg PO DIRECTED 10/14/20 10/14/20 History Allergies Allergy/AdvReac Type Severity Reaction Status Date / Time codeine Allergy Unknown Verified 10/14/20 11:24 Physical Exam Vitals: Vital Signs Temp Pulse Resp BP Pulse Ox 10/14/20 11:09 90 18 130/87 93 L 10/14/20 09:56 99.4 F 96 18 130/80 88 L Intake and Output 10/13/20 10/14/20 10/14/20 22:59 06:59 14:59 Other: Weight 77.111 kg PHYSICAL EXAMINATION: GENERAL: The patient is alert and oriented x3, is in distress because of severe generalized body aches Well developed, well nourished. HEENT: Pupils are round and equally reacting to light. EOMI. No scleral icterus. No conjunctival pallor. Normocephalic, atraumatic. No pharyngeal erythema. No thyromegaly. CARDIOVASCULAR: S1 and S2 present. No murmurs, rubs, or gallops. PULMONARY: Diffuse bilateral rhonchi in the posterior lung werner. Good air entry into bilateral lung werner. ABDOMEN: Soft, nontender, nondistended, normoactive bowel sounds. No palpable organomegaly. MUSCULOSKELETAL: No joint swelling or deformity. EXTREMITIES: No cyanosis, clubbing, or pedal edema. NEUROLOGICAL: Gross neurological examination did not reveal any focal deficits. SKIN: No rashes. Results CBC & Chem 7: 10/14/20 10:20 10/14/20 10:20 Labs: Abnormal Lab Results - Last 24 Hours (Table) 10/14/20 10/14/20 Range/Units 10:20 10:20 Lymphocytes # 0.6 L (1.0-4.8) k/uL Sodium 134 L (137-145) mmol/L Carbon Dioxide 31 H (22-30) mmol/L Glucose 110 H (74-99) mg/dL Calcium 8.1 L (8.4-10.2) mg/dL Lactate Dehydrogenase 777 H (313-618) U/L C-Reactive Protein 133.8 H (<10.0) mg/L Total Protein 6.0 L (6.3-8.2) g/dL Albumin 3.1 L (3.5-5.0) g/dL Assessment and Plan Plan: - acute hypoxic respiratory failure: Secondary to colvid 19 pneumonia. Patient will be started on Decadron patient will need Remdesivir, patient will be started on Lovenox, patient d-dimer is only 0.38. Pulmonary was consulted. Patient may benefit from plasma -Hyponatremia: Hypotonic hyponatremia patient was started on IV fluids -Asthma without any acute exacerbation at this time gastroesophageal reflux disease -DVT prophylaxis as mentioned above
[2020-10-14] MEDS: SODIUM CHLORIDE 0.9% 1,000 ML IV SCH (12:04)
[2020-10-14] MEDS: ENOXAPARIN 40 MG/0.4 ML SYRINGE SQ SCH (12:04)
[2020-10-14] MEDS: ALBUTEROL HFA INHALER INHALATION PRN ×2 (16:10→20:06)
[2020-10-14 16:28] LABS: Ferritin 592.8 ng/mL (22.0-322.0)
[2020-10-14] MEDS: FLUTICASONE 220 MCG INHALER INHALATION SCH (20:07)
[2020-10-14] MEDS: MONTELUKAST 10 MG TAB PO SCH (20:46)
[2020-10-15] MEDS: SODIUM CHLORIDE 0.9% 1,000 ML IV SCH ×2 (01:43→15:43)
[2020-10-15] MEDS: ALBUTEROL HFA INHALER INHALATION PRN ×3 (05:43→19:50)
[2020-10-15] MEDS: FLUTICASONE 220 MCG INHALER INHALATION SCH ×2 (05:44→19:50)
[2020-10-15] MEDS ORDERED: PANTOPRAZOLE 40 MG TABLET PO SCH (07:30)
[2020-10-15] MEDS ORDERED: PROPOFOL 10 MG/ML 20 ML VIAL IV ONE (08:09)
[2020-10-15] MEDS ORDERED: MIDAZOLAM 1 MG/ML 5 ML VIAL ONE (08:09)
[2020-10-15] MEDS ORDERED: SUCCINYLCHOLINE CHLORIDE VIAL 200 MG/10 ML VIAL IV ONE (08:09)
[2020-10-15] MEDS: ACETAMINOPHEN IV (For NPO) 1,000 MG in EMPTY BAG 1 BAG IVPB SCH ×2 (09:17→15:34)
[2020-10-15 09:38] LABS: HGB 14.7 gm/dL (13.0-17.5); Lymphocytes % (A) 12 %; MCH 28.8 pg (25.0-35.0); MCHC 32.7 g/dL (31.0-37.0); MCV 87.9 fL (80.0-100.0); Mean Platelet Volume 7.4; Neutrophils % (A) 84 %; Platelet Count 162 k/uL (150-450); RBC 5.12 m/uL (4.30-5.90); RDW 12.9 % (11.5-15.5); WBC 6.1 k/uL (3.8-10.6)
[2020-10-15 09:39] LABS: Basophils % (A) 0 %; Eosinophils % (A) 0 %; Lymphocytes # (A) 0.7 k/uL (1.0-4.8); Monocytes # (A) 0.2 k/uL (0-1.0); Monocytes % (A) 3 %; Neutrophils # (A) 5.2 k/uL (1.3-7.7)
[2020-10-15 09:46] LABS: Glucose,Whole Blood 92 mg/dL (75-99)
[2020-10-15] MEDS: DEXAMETHASONE SOD PHOSPHATE 10 MG/ML 1 ML VIAL IV SCH (09:47)
[2020-10-15] MEDS ORDERED: REMDESIVIR 200 MG in SODIUM CHLORIDE 0.9% 250 ML IVPB ONE (10:00)
[2020-10-15] MEDS ORDERED: propofoL 100 ML IV ONE (10:17)
[2020-10-15 10:20] LABS: ALT 39 U/L (4-49); AST 51 U/L (17-59); African American GFR (CKD) >90 (>60 ml/min/1.73 sqM); Albumin 2.9 g/dL (3.5-5.0); Alkaline Phosphatase 53 U/L (38-126); Anion Gap 3 mmol/L; Blood Urea Nitrogen 17 mg/dL (9-20); Calcium 8.2 mg/dL (8.4-10.2); Carbon Dioxide 28 mmol/L (22-30); Chloride 102 mmol/L (98-107); Glucose 99 mg/dL (74-99); LDH 1062 U/L (313-618); Magnesium 1.5 mg/dL (1.6-2.3); Non-African American GFR(CKD) >90 (>60 ml/min/1.73 sqM); Potassium 4.6 mmol/L (3.5-5.1); Sodium 133 mmol/L (137-145); Total Bilirubin 0.6 mg/dL (0.2-1.3); Total Protein 5.6 g/dL (6.3-8.2)
[2020-10-15 10:24] LABS: C Reactive Protein 130.8 mg/L (<10.0)
[2020-10-15 10:40] LABS: ABG Base Excess 1.5 mmol/L; ABG HCO3 25 mmol/L (21-25); ABG Oxygen Saturation 92.8 % (94-97); ABG PCO2 35 mmHg (35-45); ABG PH 7.47 (7.35-7.45); ABG TCO2 26 mmol/L (19-24); Allen Test Performed? Yes
[2020-10-15 10:42] LABS: ABG PO2 58 mmHg (83-108)
[2020-10-15] MEDS ORDERED: CISATRACURIUM 2 MG/ML 5 ML VIAL IV ONE (10:44)
[2020-10-15] MEDS ORDERED: NOREPINEPHRIN 4 MG-0.9% NS PMX 4 MG/250 ML ML IV ONE (11:06)
[2020-10-15 11:54] LABS: ABG HCO3 27 mmol/L (21-25); ABG Oxygen Saturation 87.6 % (94-97); ABG PCO2 44 mmHg (35-45); ABG PH 7.39 (7.35-7.45); ABG TCO2 28 mmol/L (19-24); Allen Test Performed? Yes
[2020-10-15 11:56] LABS: ABG PO2 52 mmHg (83-108)
--- NOTE | 2020-10-15 12:37 | XR ---
EXAMINATION TYPE: XR chest 1V portable DATE OF EXAM: 10/15/2020 COMPARISON: Prior chest x-ray dated 10/14/2020 HISTORY: Endotracheal tube placement TECHNIQUE: Single frontal view of the chest is obtained. FINDINGS: Endotracheal tube is overlying the tracheal air column, distal tip is approximately 1 cm f rom the shirley. Left jugular central venous catheter has been placed in the distal tips in the right atrium. There is an orogastric tube, distal tip is not included on the exam however tube is coursing towards the stomach. There are overlying leads. Bilateral airspace disease is noted. There is no evid ent pneumothorax, there are overlying leads. No evident pleural effusion. Heart size is likely stable . IMPRESSION: Interval tubes and line placement as described
--- NOTE | 2020-10-15 12:44 | CONS ---
CONSULTATION PULMONARY/CRITICAL CARE CONSULTATION: DATE OF CONSULTATION: October 15, 2020. REASON FOR CONSULTATION: Shortness of breath and COVID-19 pneumonia. A 55-year-old male who presents to the emergency department with complaints of increasing shortness of breath over the past week or so. He apparently was diagnosed as having COVID-19 infection maybe 6 days ago on the or . The patient apparently tried to tough it out at home, but he has been getting worse and worse. He apparently completed a course of steroids and a Z-Douglas, but despite that, he just started getting worse. His symptoms included body aches, chills, nausea, fever, and shortness of breath. His shortness of breath especially has gotten much more severe. He was initially admitted to the floor. He came down to the ICU. Dr. Brody moved him down sometime early this morning. He is placed on BiPAP at 20/6 at 100%. He is still quite tachypneic and saturations are in the high 80s. He may end up on the mechanical ventilator. I did discuss that with him. The patient will have a blood gas done in about 45 to 60 minutes and will decide on mechanical ventilation at that time. In the emergency room, his saturations were 88% on room air, his pulse was 96 and his temperature was 100.4. MEDICATIONS: His home medications were reviewed. He is on Flovent inhaler, albuterol inhaler, albuterol updrafts, Lipitor, Zithromax, which he completed, vitamin D3, Mobic, montelukast, omeprazole and prednisone. ALLERGIES: CODEINE. MEDICAL HISTORY: Medical history includes asthma and gastroesophageal reflux disease. He also has a history of hyperlipidemia. SURGICAL HISTORY: Surgical history includes some orthopedic procedures. SOCIAL HISTORY: Negative for tobacco use. Denies any alcohol use or illicit drug use. FAMILY HISTORY: Not noted. REVIEW OF SYSTEMS: CONSTITUTIONAL: Fever, chills, muscle aches, joint aches, weakness. NEUROLOGIC: Negative. HEENT: Negative. CARDIOVASCULAR: Negative. PULMONARY: Shortness of breath, cough. GI: Negative. : Negative. RHEUMATOLOGIC: Negative. IMMUNOLOGIC: Negative. ENDOCRINOLOGIC: Negative. DERMATOLOGIC: Negative. PHYSICAL EXAMINATION: VITAL SIGNS: Current vital signs are reviewed. Temperature is 103.2, heart rate 109, respiratory rate 25-30 breaths per minute, blood pressure 150/94, mean 112 and saturations are in the low 90s and high 80s, that is on BiPAP at 20/6 at 100%. GENERAL: Appears quite tachypneic and dyspneic. HEENT: Examination is grossly unremarkable. BiPAP mask in place. NECK: Supple. Full range of motion. No adenopathy. Neck veins are flat. CARDIOVASCULAR: Examination reveals tachycardia. Heart rate 109. S1, S2 normal. LUNGS: Reveal diffuse coarse rhonchi. Breath sounds equal but diminished. A few scattered crackles. ABDOMEN: Soft. Bowel sounds are heard. EXTREMITIES: Are intact. No cyanosis, clubbing, or edema. SKIN: Without rash. NEUROLOGIC: Examination is nonfocal. LABS: Labs are reviewed. White count 6.1, hemoglobin 14.7, hematocrit 45.0, platelet count is 162,000. PT, INR, PTT normal. D-dimer initially 0.38. Repeat 1.02. Sodium 133, potassium 4.6, chloride 102, CO2 of 28. Anion gap is 3. BUN and creatinine were 17 and 0.79. Calcium 8.2, magnesium 1.5. LDH was 1062. C-reactive protein 131 and procalcitonin 0.14. Microbiology is pending or negative. A chest x-ray shows diffuse infiltrates, greater in the right lung than on the left. MEDICATIONS: Medications are reviewed. He is on Tylenol, albuterol inhaler, Lipitor, vitamin D3, Lovenox, famotidine, Flovent inhaler, Solu-Medrol, Singulair, Narcan, Zofran, remdesivir, and saline IV. ASSESSMENT: 1. Acute hypoxemic respiratory failure secondary to COVID-19 pneumonia. 2. History of hyperlipidemia. 3. History of chronic bronchial asthma. 4. History of gastroesophageal reflux disease. PLAN: The patient may be heading towards intubation and mechanical ventilation. He is currently on BiPAP at 20/6 and 100%. Saturations are in the low 90s, high 80s. He is quite tachypneic and dyspneic. Additional recommendations and suggestions are forthcoming. We will give him some remdesivir and convalescent plasma. We will do a blood gas. We will follow closely. MMODL / IJN: [id number] /
[2020-10-15] MEDS ORDERED: SODIUM CHLORIDE 0.9% 1,000 ML IV ONE ×2 (12:47→13:55)
[2020-10-15] MEDS: CHOLECALCIFEROL 1,000 UNIT TAB PO SCH (12:51)
[2020-10-15] MEDS: ATORVASTATIN 40 MG TAB PO SCH (12:51)
[2020-10-15] MEDS: FAMOTIDINE 20 MG/2 ML VIAL IV SCH ×2 (12:52→20:24)
[2020-10-15] MEDS: ENOXAPARIN 40 MG/0.4 ML SYRINGE SQ SCH (12:52)
[2020-10-15] MEDS: methylPREDNISolone SOD SUCCI 125 MG/2 ML VIAL IV SCH ×2 (12:57→18:09)
[2020-10-15] MEDS ORDERED: NOREPINEPHRINE 8 MG in SODIUM CHLORIDE 0.9% 250 ML IV SCH (13:00)
--- NOTE | 2020-10-15 13:23 | PCN ---
PROCEDURE NOTE PROCEDURE: Left internal jugular triple-lumen catheter. PREOPERATIVE DIAGNOSIS: Administration of fluids and pressors. POSTOPERATIVE DIAGNOSIS: Administration of fluids and pressors. OPERATORS: Dr. Renteria with assistance from Dr. Buenrostro. TRIPLE LUMEN CATHETER PLACEMENT: Indication: Hemodynamic monitoring/Intravenous access. A time-out was completed verifying correct patient, procedure, site, positioning, and implant(s) or special equipment if applicable. The patient was placed in a dependent position appropriate for triple lumen catheter placement based on the vein to be cannulated. The patient's left neck was prepped and draped in sterile fashion. 1% Lidocaine was used to anesthetize the surrounding skin area. A triple lumen 9F Cordis catheter was introduced into the left internal jugular vein using Seldinger technique. The catheter was threaded smoothly over the guide wire and appropriate blood return was obtained. Each lumen of the catheter was evacuated of air and flushed with sterile saline. The catheter was then sutured in place to the skin and a sterile dressing applied. Perfusion to the extremity distal to the point of catheter insertion was checked and found to be adequate. We used the left internal jugular site. We used a posterior approach. There was no immediate complication. There was good blood return from all 3 ports. The patient tolerated the procedure well. The catheter was sutured in place. Sterile dressing was applied by the nurse. The tip of the catheter was seen in the right atrium. A chest x- ray was ordered. There was no immediate complication. MMODL / IJN: [id number] /
--- NOTE | 2020-10-15 13:29 | PCN ---
PROCEDURE NOTE PROCEDURE: Right radial art line. PREOPERATIVE DIAGNOSIS: Frequent blood draws and blood gas monitoring. POSTOPERATIVE DIAGNOSIS: Frequent blood draws and blood gas monitoring. OPERATORS: Dr. Renteria and Dr. Buenrostro. ARTERIAL LINE PLACEMENT: Indications: Hemodynamic monitoring. A time-out was completed verifying correct patient, procedure, site, positioning, and implant(s) or special equipment if applicable. Marco Antonio's test was performed to ensure adequate perfusion. The patient's right wrist was prepped and draped in sterile fashion. 1% Lidocaine was used to anesthetize the area. An 18G Arrow arterial line was introduced into the right radial artery. The catheter was threaded over the guide wire and the needle was removed with appropriate pulsatile blood return. Blood loss was minimal. The catheter was then sutured in place to the skin and a sterile dressing applied. Perfusion to the extremity distal to the point of catheter insertion was checked and found to be adequate. The patient tolerated the procedure well and there were no complications. We used a right radial light site arterial site. There was no immediate complication. The catheter was sutured in place. A sterile dressing applied by the nurse. There was no immediate complication. The patient tolerated procedure well. There was informed consent and universal timeout. MMODL / IJN: [id number] /
[2020-10-15] MEDS ORDERED: ACETAMINOPHEN IV (For NPO) 1,000 MG in EMPTY BAG 1 BAG IVPB ONE (15:45)
[2020-10-15 15:57] LABS: Appearance,Urine Clear (Clear); Bacteria,Urine Rare /hpf; Bilirubin,Urine Negative (Negative); Blood,Urine Negative (Negative); Color,Urine Colorless; Glucose,Urine (UA) Negative (Negative); Ketones,Urine Trace (Negative); Leukocyte Esterase,Urine Small (Negative); Nitrite,Urine Negative (Negative); PH, Urine 5.5 (5.0-8.0); Protein,Urine Negative (Negative); RBC,Urine 2 /hpf (0-5); Specific Gravity,Urine 1.003 (1.001-1.035); Urobilinogen,Urine <2.0 mg/dL (<2.0); WBC,Urine 9 /hpf (0-5)
[2020-10-15 17:03] LABS: Ferritin 624.6 ng/mL (22.0-322.0)
--- NOTE | 2020-10-15 17:47 | P.PN ---
Subjective Progress Note Date: 10/15/20 Principal diagnosis: Acute hypoxic respiratory failure secondary to COVID pneumonia HPI - Patient is a 55-year-old male came in with complaints of increasing shortness of breath over the past week. Patient was diagnosed with Covid 6 days ago. He has completed a course of steroids as well as Z-Douglas. Patient states over the past week he's been fighting fevers, body aches, chills and nausea. Patient states his shortness of breath has been steadily increasing. He gets winded with just walking around his house. He does admit to some chest pain when he is coughing. He does have some production with his cough. He does admit to history of asthma, denies heart disease. He states his last dose of Tylenol was last night. He denies any vomiting, no dysuria. Patient is febrile 100.4, pulse is 96, he is satting 88% on room air. Patient had a chest x-ray which showed diffuse bilateral infiltrates. Patient is presently on 2 L of oxygen saturating 93% patient was having fevers at home patient had a low-grade fever here. Patient has elevated inflammatory markers along with the low sodium. On 10/15/2020 - last night patient became more short of breath, so he was sh ifted to the ICU. Initially the patient was placed on BiPAP, patient was staffed neck and saturating in the high 80s and so eventually he had to be intubated around noon. Currently he is mechanically ventilated and sedated. Reviewing the vitals patient is tachycardic between 100-110, saturating in the low 80s on 100% FiO2, blood pressure 1 50 x 92. Patient has been started on Solu-Medrol, Remdesivir, Lovenox and breathing treatments. On reviewing the labs white count of 6.1, hemoglobin 14.7, platelets 162. Sodium 133, potassium 4.2, chloride 102, bicarb 28, BUN 17, creatinine 0.79. Ferritin 624, magnesium 1.5, albumin 2.9. Active Medications Albuterol Sulfate (Albuterol Hfa Inhaler) 2 puff INHALATION RT-QID PRN PRN Reason: Shortness Of Breath Last Admin: 10/15/20 15:59 Dose: 2 puff Documented by: Atorvastatin Calcium (Atorvastatin 40 Mg Tab) 40 mg PO DAILY [facility] Last Admin: 10/15/20 12:51 Dose: 40 mg Documented by: Chlorhexidine Gluconate (Chlorhexidine Gluconate 15 Ml Cup) 15 ml MUCOUS MEM BID [facility] Cholecalciferol (Cholecalciferol 1,000 Unit Tab) 2,000 unit PO DAILY [facility] Last Admin: 10/15/20 12:51 Dose: 2,000 unit Documented by: Enoxaparin Sodium (Enoxaparin 40 Mg/0.4 Ml Syringe) 40 mg SQ DAILY [facility] Last Admin: 10/15/20 12:52 Dose: 40 mg Documented by: Famotidine (Famotidine 20 Mg/2 Ml Vial) 20 mg IV Q12HR [facility] Last Admin: 10/15/20 12:52 Dose: 20 mg Documented by: Fluticasone Propionate (Fluticasone 220 Mcg Inhaler) 2 puff INHALATION RT-BID [facility] Last Admin: 10/15/20 05:44 Dose: 2 puff Documented by: Sodium Chloride (Saline 0.9%) 1,000 mls @ 75 mls/hr IV .[id number] [facility] Last Admin: 10/15/20 15:43 Dose: 75 mls/hr Documented by: Remdesivir 100 mg/ Sodium (Chloride) 250 mls @ 250 mls/hr IVPB DAILY@1000 [facility] Stop: 10/19/20 10:59 Norepinephrine Bitartrate 8 mg (/ Sodium Chloride) 258 mls @ 11.937 mls/hr IV .[id number] [facility]; Protocol Propofol 1,000 mg/ IV Solution 100 mls @ 0 mls/hr IV .Q0M [facility]; Protocol Last Titration: 10/15/20 17:08 Dose: 65 mcg/kg/min, 30.073 mls/hr Documented by: Methylprednisolone Sodium Succinate (Methylprednisolone Sod Succi 125 Mg/2 Ml Vial) 60 mg IV Q6HR [facility] Last Admin: 10/15/20 12:57 Dose: 60 mg Documented by: Montelukast Sodium (Montelukast 10 Mg Tab) 10 mg PO HS [facility] Last Admin: 10/14/20 20:46 Dose: 10 mg Documented by: Naloxone HCl (Naloxone 0.4 Mg/Ml 1 Ml Vial) 0.2 mg IV Q2M PRN PRN Reason: Opioid Reversal Ondansetron HCl (Ondansetron 4 Mg/2 Ml Vial) 4 mg IVP Q8HR PRN PRN Reason: Nausea And Vomiting Objective - Vital Signs Vital signs: Vital Signs Temp 99 F 10/15/20 12:45 Pulse 71 10/15/20 15:15 Resp 24 10/15/20 15:15 BP 99/58 10/15/20 15:15 Pulse Ox 93 L 10/15/20 15:15 Intake & Output 10/14/20 10/15/20 10/15/20 18:59 06:59 18:59 Intake Total 600 2450 Output Total 675 Balance 600 1775 Weight 77.111 kg Intake: IV 2450 Sodium Chloride 0.9% 1, 2450 000 ml @ 75 mls/hr IV . [id number] [facility] Rx#:[id number] Intake, IV Titration 600 Amount Sodium Chloride 0.9% 1, 600 000 ml @ 75 mls/hr IV . [id number] [facility] Rx#:[id number] Output: Urine 675 Other: Voiding Method Toilet Toilet Indwelling Catheter ABP, PAP, CO, CI - Last Documented Arterial Blood Pressure 107/49 - Exam PHYSICAL EXAMINATION: GENERAL: Intubated and mechanically ventilated. He is sedated HEENT: Pupils are round and equally reacting to light. EOMI. No scleral icterus. No conjunctival pallor. ET tube in place. PULMONARY: Diffuse bilateral rhonchi in all lung werner. ABDOMEN: Soft, nontender, nondistended, normoactive bowel sounds. EXTREMITIES: No cyanosis, clubbing, or pedal edema. NEUROLOGICAL: sedated SKIN: No rashes. - Labs CBC & Chem 7: 10/15/20 09:10 10/15/20 09:10 Labs: Abnormal Lab Results - Last 24 Hours (Table) 10/14/20 10/14/20 10/15/20 Range/Units 10:20 10:20 09:10 Lymphocytes # 0.7 L (1.0-4.8) k/uL D-Dimer (<0.60) mg/L FEU ABG pH (7.35-7.45) ABG pO2 (83-108) mmHg ABG HCO3 (21-25) mmol/L ABG Total CO2 (19-24) mmol/L ABG O2 Saturation (94-97) % Sodium (137-145) mmol/L Calcium (8.4-10.2) mg/dL Magnesium (1.6-2.3) mg/dL Ferritin 592.8 H (22.0-322.0) ng/mL Lactate Dehydrogenase (313-618) U/L C-Reactive Protein (<10.0) mg/L Total Protein (6.3-8.2) g/dL Albumin (3.5-5.0) g/dL Procalcitonin 0.14 H (0.02-0.09) ng/mL 10/15/20 10/15/20 10/15/20 Range/Units 09:10 09:10 10:38 Lymphocytes # (1.0-4.8) k/uL D-Dimer 1.02 H (<0.60) mg/L FEU ABG pH 7.47 H (7.35-7.45) ABG pO2 58 L* (83-108) mmHg ABG HCO3 (21-25) mmol/L ABG Total CO2 26 H (19-24) mmol/L ABG O2 Saturation 92.8 L (94-97) % Sodium 133 L (137-145) mmol/L Calcium 8.2 L (8.4-10.2) mg/dL Magnesium 1.5 L (1.6-2.3) mg/dL Ferritin (22.0-322.0) ng/mL Lactate Dehydrogenase 1062 H (313-618) U/L C-Reactive Protein 130.8 H (<10.0) mg/L Total Protein 5.6 L (6.3-8.2) g/dL Albumin 2.9 L (3.5-5.0) g/dL Procalcitonin (0.02-0.09) ng/mL 10/15/20 Range/Units 11:52 Lymphocytes # (1.0-4.8) k/uL D-Dimer (<0.60) mg/L FEU ABG pH (7.35-7.45) ABG pO2 52 L* (83-108) mmHg ABG HCO3 27 H (21-25) mmol/L ABG Total CO2 28 H (19-24) mmol/L ABG O2 Saturation 87.6 L (94-97) % Sodium (137-145) mmol/L Calcium (8.4-10.2) mg/dL Magnesium (1.6-2.3) mg/dL Ferritin (22.0-322.0) ng/mL Lactate Dehydrogenase (313-618) U/L C-Reactive Protein (<10.0) mg/L Total Protein (6.3-8.2) g/dL Albumin (3.5-5.0) g/dL Procalcitonin (0.02-0.09) ng/mL Microbiology - Last 24 Hours (Table) 10/14/20 10:40 Blood Culture - Preliminary Blood No Growth after 24 hours 10/14/20 10:25 Blood Culture - Preliminary Blood No Growth after 24 hours Assessment and Plan Assessment: ASSESSMENT Acute hypoxic respiratory failure secondary to COVID pneumonia Mechanically ventilated Hypotonic hyponatremia History of asthma GERD GI DVT prophylaxis PLAN: Patient is intubated and mechanically ventilated. He has been started on Decadron, Remdesevir. Patient is maintained on 100% FiO2, his sats are still in the high 80s to low 90s. Overall prognosis seems to be poor. Further recommendations to follow depending on the progress of the patient.
[2020-10-15 18:23] LABS: Glucose,Whole Blood 133 mg/dL (75-99)
[2020-10-15] MEDS: MAGNESIUM SULFATE-D5W PMX 1 GM in DEXTROSE/WATER 1 100ML.BAG IVPB SCH ×2 (20:23→21:58)
[2020-10-15] MEDS: CHLORHEXIDINE GLUCONATE 15 ML CUP MUCOUS MEM SCH (20:24)
[2020-10-15] MEDS: MONTELUKAST 10 MG TAB PO SCH (20:24)
[2020-10-16] MEDS: methylPREDNISolone SOD SUCCI 125 MG/2 ML VIAL IV SCH ×4 (00:17→20:32)
[2020-10-16 00:37] LABS: Glucose,Whole Blood 144 mg/dL (75-99)
[2020-10-16] MEDS: SODIUM CHLORIDE 0.9% 1,000 ML IV SCH (04:00)
[2020-10-16 04:13] LABS: Basophils % (A) 0 %; Eosinophils % (A) 0 %; HCT 38.4 % (39.0-53.0); HGB 13.1 gm/dL (13.0-17.5); Lymphocytes # (A) 0.4 k/uL (1.0-4.8); Lymphocytes % (A) 10 %; MCH 29.5 pg (25.0-35.0); MCHC 34.1 g/dL (31.0-37.0); MCV 86.5 fL (80.0-100.0); Mean Platelet Volume 7.1; Monocytes # (A) 0.2 k/uL (0-1.0); Monocytes % (A) 4 %; Neutrophils # (A) 3.3 k/uL (1.3-7.7); Neutrophils % (A) 85 %; Platelet Count 177 k/uL (150-450); RBC 4.44 m/uL (4.30-5.90); RDW 12.6 % (11.5-15.5); WBC 3.9 k/uL (3.8-10.6)
[2020-10-16 05:13] LABS: ABG Base Excess -0.5 mmol/L; ABG HCO3 25 mmol/L (21-25); ABG Oxygen Saturation 94.7 % (94-97); ABG PCO2 42 mmHg (35-45); ABG PH 7.38 (7.35-7.45); ABG PO2 73 mmHg (83-108); ABG TCO2 26 mmol/L (19-24); Allen Test Performed? Yes
[2020-10-16 06:09] LABS: Glucose,Whole Blood 138 mg/dL (75-99)
[2020-10-16 07:08] LABS: ALT 35 U/L (4-49); AST 45 U/L (17-59); African American GFR (CKD) >90 (>60 ml/min/1.73 sqM); Albumin 2.3 g/dL (3.5-5.0); Alkaline Phosphatase 48 U/L (38-126); Anion Gap 2 mmol/L; Blood Urea Nitrogen 19 mg/dL (9-20); Calcium 7.6 mg/dL (8.4-10.2); Carbon Dioxide 26 mmol/L (22-30); Chloride 110 mmol/L (98-107); Glucose 149 mg/dL (74-99); Non-African American GFR(CKD) >90 (>60 ml/min/1.73 sqM); Potassium 4.3 mmol/L (3.5-5.1); Sodium 138 mmol/L (137-145); Total Bilirubin 0.5 mg/dL (0.2-1.3); Total Protein 4.9 g/dL (6.3-8.2)
[2020-10-16] MEDS: ALBUTEROL HFA INHALER INHALATION PRN ×5 (07:12→19:40)
[2020-10-16] MEDS: FAMOTIDINE 20 MG/2 ML VIAL IV SCH ×2 (08:55→20:30)
[2020-10-16] MEDS: ENOXAPARIN 40 MG/0.4 ML SYRINGE SQ SCH (08:55)
[2020-10-16] MEDS: ATORVASTATIN 40 MG TAB PO SCH (08:55)
[2020-10-16] MEDS: CHLORHEXIDINE GLUCONATE 15 ML CUP MUCOUS MEM SCH ×2 (08:55→20:30)
[2020-10-16] MEDS: CHOLECALCIFEROL 1,000 UNIT TAB PO SCH (08:56)
--- NOTE | 2020-10-16 09:39 | XR ---
EXAMINATION TYPE: XR chest 1V portable DATE OF EXAM: 10/16/2020 Comparison: 10/15/2020 Clinical History: 55-year-old male Tube placement Findings: ET tube satisfactory. NG tube courses below the diaphragm. Left CVC tip in the right atrium. Heart no rmal size. Bilateral multifocal consolidation, right greater left is slightly improving. Impression: 1. ET tube repositioned, now satisfactory. 2. Persistent bilateral consolidation is now showing slight improvement.
[2020-10-16] MEDS: REMDESIVIR 100 MG in SODIUM CHLORIDE 0.9% 250 ML IVPB SCH (10:33)
--- NOTE | 2020-10-16 10:38 | P.PN ---
Subjective Progress Note Date: 10/16/20 Principal diagnosis: COVID 19 pneumonia 55-year-old male who was admitted to the ICU yesterday. He came down to the ICU for acute hypoxemic respiratory failure secondary to COVID 19 pneumonia. Initially, we attempted to maintain him on BiPAP, but unfortunately, the patient's respiratory failure worsened and he required intubation and mechanical ventilation. He was intubated on October 15 and had an arterial line placed and a central line placed on the same day. Remains in the intensive care unit in room 250. Currently, he is on the volume assist control mode with the mechanical ventilation, with a respiratory rate of 24, tidal volume of 450, FiO2 of 80%, and PEEP of 15. The patient is currently getting saline at 75 mL an hour, propofol at 72 mcg/kg/m, norepinephrine 1 mcg/m, and he will start with enteral nutrition today. His arterial blood gases show a PaO2 of 73, PaCO2 of 42, and a pH is 7.38. His peak airway pressure is 35 cm water and his plateau pressure is 33 cm water. His chest x-ray appears to be a bit improved but likely is from the positive pressure ventilation. He received 1 dose of, convalescent plasma, and 1 dose of rendesivir. Objective - Vital Signs Vital signs: Vital Signs Temp 97.2 F L 10/16/20 04:00 Pulse 52 L 10/16/20 09:00 Resp 24 10/16/20 09:00 BP 98/63 10/16/20 09:00 Pulse Ox 90 L 10/16/20 09:00 Intake & Output 10/15/20 10/16/20 10/16/20 18:59 06:59 18:59 Intake Total 2805.453 1494.867 225 Output Total 1470 1043 75 Balance 1335.453 451.867 150 Weight 78.8 kg 78.8 kg Intake: IV 2675 1100 225 Magnesium Sulfate 1gram 200 Sodium Chloride 0.9% 1 2675 900 225 000 ml @ 75 mls/hr IV . [id number] [facility] Rx#:[id number] Intake, IV Titration 130.453 394.867 Amount Norepinephrine 8 mg In 1.691 37.574 Sodium Chloride 0.9% 250 ml @ 0.08 MCG/KG/MIN 11. 937 mls/hr IV .[id number] [facility] Rx#:[id number] propofoL 1,000 mg In 128.762 357.293 Empty Bag 1 bag @ Titrate IV .Q0M [facility] Rx#: [id number] Blood Product 0 Ffp Pher Conval Covid19 0 Acda 2 Unit [id number] Output: Gastric Drainage 50 Urine 1470 993 75 Other: Voiding Method Indwelling Catheter Indwelling Catheter Indwelling Catheter ABP, PAP, CO, CI - Last Documented Arterial Blood Pressure 112/60 - Exam No acute distress, sedated, with an orally placed endotracheal tube and nasogastric tube. HEENT examination is grossly unremarkable. Mucous membranes are moist. The p atient does have a orally placed endotracheal tube. Neck supple. Full range of motion. No adenopathy thyromegaly or neck vein distention. A left internal jugular triple-lumen catheter is noted. Cardiovascular examination reveals regular rhythm rate. S1-S2 normal. No S3 or S4. No discernible murmur noted. Heart rate is 100 bpm and heart sounds are distant. Lungs reveal coarse bilateral inspiratory and expiratory rhonchi and crackles. No wheezes. Breath sounds equal bilaterally but diminished throughout. Abdomen is soft without bowel sounds. No masses are noted. Extremities are intact. No cyanosis clubbing or edema. Skin is without rash or lesion. Neurologic examination is difficult to assess given his current level of sedation. - Labs CBC & Chem 7: 10/16/20 03:55 10/16/20 03:55 Labs: Abnormal Lab Results - Last 24 Hours (Table) 10/15/20 10/15/20 10/15/20 Range/Units 09:10 09:10 10:38 Hct (39.0-53.0) % Lymphocytes # (1.0-4.8) k/uL ABG pH 7.47 H (7.35-7.45) ABG pO2 58 L* (83-108) mmHg ABG HCO3 (21-25) mmol/L ABG Total CO2 26 H (19-24) mmol/L ABG O2 Saturation 92.8 L (94-97) % Sodium 133 L (137-145) mmol/L Chloride (98-107) mmol/L Glucose (74-99) mg/dL POC Glucose (mg/dL) (75-99) mg/dL Calcium 8.2 L (8.4-10.2) mg/dL Magnesium 1.5 L (1.6-2.3) mg/dL Ferritin 624.6 H (22.0-322.0) ng/mL Lactate Dehydrogenase 1062 H (313-618) U/L Total Protein 5.6 L (6.3-8.2) g/dL Albumin 2.9 L (3.5-5.0) g/dL Procalcitonin 0.20 H (0.02-0.09) ng/mL Urine Ketones (Negative) Ur Leukocyte Esterase (Negative) Urine WBC (0-5) /hpf Urine Bacteria (None) /hpf 10/15/20 10/15/20 10/15/20 Range/Units 11:52 15:40 18:22 Hct (39.0-53.0) % Lymphocytes # (1.0-4.8) k/uL ABG pH (7.35-7.45) ABG pO2 52 L* (83-108) mmHg ABG HCO3 27 H (21-25) mmol/L ABG Total CO2 28 H (19-24) mmol/L ABG O2 Saturation 87.6 L (94-97) % Sodium (137-145) mmol/L Chloride (98-107) mmol/L Glucose (74-99) mg/dL POC Glucose (mg/dL) 133 H (75-99) mg/dL Calcium (8.4-10.2) mg/dL Magnesium (1.6-2.3) mg/dL Ferritin (22.0-322.0) ng/mL Lactate Dehydrogenase (313-618) U/L Total Protein (6.3-8.2) g/dL Albumin (3.5-5.0) g/dL Procalcitonin (0.02-0.09) ng/mL Urine Ketones Trace H (Negative) Ur Leukocyte Esterase Small H (Negative) Urine WBC 9 H (0-5) /hpf Urine Bacteria Rare H (None) /hpf 10/16/20 10/16/20 10/16/20 Range/Units 00:33 03:55 03:55 Hct 38.4 L (39.0-53.0) % Lymphocytes # 0.4 L (1.0-4.8) k/uL ABG pH (7.35-7.45) ABG pO2 (83-108) mmHg ABG HCO3 (21-25) mmol/L ABG Total CO2 (19-24) mmol/L ABG O2 Saturation (94-97) % Sodium (137-145) mmol/L Chloride (98-107) mmol/L Glucose (74-99) mg/dL POC Glucose (mg/dL) 144 H (75-99) mg/dL Calcium (8.4-10.2) mg/dL Magnesium 2.6 H (1.6-2.3) mg/dL Ferritin (22.0-322.0) ng/mL Lactate Dehydrogenase (313-618) U/L Total Protein (6.3-8.2) g/dL Albumin (3.5-5.0) g/dL Procalcitonin (0.02-0.09) ng/mL Urine Ketones (Negative) Ur Leukocyte Esterase (Negative) Urine WBC (0-5) /hpf Urine Bacteria (None) /hpf 10/16/20 10/16/20 10/16/20 Range/Units 03:55 05:07 06:05 Hct (39.0-53.0) % Lymphocytes # (1.0-4.8) k/uL ABG pH (7.35-7.45) ABG pO2 73 L (83-108) mmHg ABG HCO3 (21-25) mmol/L ABG Total CO2 26 H (19-24) mmol/L ABG O2 Saturation (94-97) % Sodium (137-145) mmol/L Chloride 110 H (98-107) mmol/L Glucose 149 H (74-99) mg/dL POC Glucose (mg/dL) 138 H (75-99) mg/dL Calcium 7.6 L (8.4-10.2) mg/dL Magnesium (1.6-2.3) mg/dL Ferritin (22.0-322.0) ng/mL Lactate Dehydrogenase (313-618) U/L Total Protein 4.9 L (6.3-8.2) g/dL Albumin 2.3 L (3.5-5.0) g/dL Procalcitonin (0.02-0.09) ng/mL Urine Ketones (Negative) Ur Leukocyte Esterase (Negative) Urine WBC (0-5) /hpf Urine Bacteria (None) /hpf Microbiology - Last 24 Hours (Table) 10/15/20 20:54 Sputum Culture - Preliminary Sputum 10/14/20 10:40 Blood Culture - Preliminary Blood No Growth after 24 hours 10/14/20 10:25 Blood Culture - Preliminary Blood No Growth after 24 hours Assessment and Plan Assessment: Acute hypoxemic respiratory failure secondary to COVID 19 pneumonia. Intubation and mechanical ventilation secondary to #1, on 10/15/2020. History of hyperlipidemia. History of chronic bronchial asthma. History of gastroesophageal reflux disease. Placement of radial art line and central line on 10/15/2020. Plan dated 10/16/2020. Currently, the patient remains on the mechanical ventilator. We will attempt to prone him today for 16 hours. Also, we will talk to dietary about starting enteral nutrition on the patient today. His current medications are reviewed. Everything appears to be appropriate. We will also attempt to wean his FiO2 down to 50%, before a PEEP changes made. Lines were placed yesterday. His overall prognosis remains guarded. We'll continue to follow closely. Respiratory mechanics are stable. Critical care time greater than 30 minutes Time with Patient: Greater than 30
[2020-10-16 12:22] LABS: Glucose,Whole Blood 124 mg/dL (75-99)
--- NOTE | 2020-10-16 19:50 | P.PN ---
Subjective HPI - Patient is a 55-year-old male came in with complaints of increasing shortness of breath over the past week. Patient was diagnosed with Covid 6 days ago. He has completed a course of steroids as well as Z-Douglas. Patient states over the past week he's been fighting fevers, body aches, chills and nausea. Patient states his shortness of breath has been steadily increasing. He gets winded with just walking around his house. He does admit to some chest pain when he is coughing. He does have some production with his cough. He does admit to history of asthma, denies heart disease. He states his last dose of Tylenol was last night. He denies any vomiting, no dysuria. Patient is febrile 100.4, pulse is 96, he is satting 88% on room air. Patient had a chest x-ray which showed diffuse bilateral infiltrates. Patient is presently on 2 L of oxygen saturating 93% patient was having fevers at home patient had a low-grade fever here. Patient has elevated inflammatory markers along with the low sodium. On 10/15/2020 - last night patient became more short of breath, so he was shifted to the ICU. Initially the patient was placed on BiPAP, patient was staffed neck and saturating in the high 80s and so eventually he had to be intu bated around noon. Currently he is mechanically ventilated and sedated. Reviewing the vitals patient is tachycardic between 100-110, saturating in the low 80s on 100% FiO2, blood pressure 1 50 x 92. Patient has been started on Solu-Medrol, Remdesivir, Lovenox and breathing treatments. On reviewing the labs white count of 6.1, hemoglobin 14.7, platelets 162. Sodium 133, potassium 4.2, chloride 102, bicarb 28, BUN 17, creatinine 0.79. Ferritin 624, magnesium 1.5, albumin 2.9. 10/16/2020 Patient is seen and examined in the ICU. He was admitted for Covid bilateral pneumonia. These with acute hypoxic respiratory failure needing intubation and mechanical ventilation with pulmonary/critical care team following the patient closely. He's undergoing prone position for 16 hours per day. Also he is getting Remidsivir and he is a status post convalescent plasma . Patient does not need pressors as his vitals are stable. And he is on tube feeding. Patient is currently sedated. Labs reviewed Objective - Vital Signs Vital signs: Vital Signs Temp 97.2 F L 10/16/20 04:00 Pulse 54 L 10/16/20 12:00 Resp 24 10/16/20 12:00 BP 103/68 10/16/20 12:00 Pulse Ox 95 10/16/20 12:00 Intake & Output 10/15/20 10/16/20 10/16/20 18:59 06:59 18:59 Intake Total 2805.453 1494.867 608.853 Output Total 1470 1043 280 Balance 1335.453 451.867 328.853 Weight 78.8 kg 78.8 kg Intake: IV 2675 1100 450 Magnesium Sulfate 1gram 200 Sodium Chloride 0.9% 1, 2675 900 450 000 ml @ 75 mls/hr IV . [id number] [facility] Rx#:[id number] Intake, IV Titration 130.453 394.867 108.853 Amount Norepinephrine 8 mg In 1.691 37.574 8.853 Sodium Chloride 0.9% 250 ml @ 0.08 MCG/KG/MIN 11. 937 mls/hr IV .[id number] [facility] Rx#:[id number] propofoL 1,000 mg In 128.762 357.293 100 Empty Bag 1 bag @ Titrate IV .Q0M [facility] Rx#: [id number] Tube Feeding 20 Blood Product 0 Ffp Pher Conval Covid19 0 Acda 2 Unit [id number] Other 30 Output: Gastric Drainage 50 Urine 1470 993 280 Other: Voiding Method Indwelling Catheter Indwelling Catheter Indwelling Catheter ABP, PAP, CO, CI - Last Documented Arterial Blood Pressure 117/66 - Exam -GENERAL: The patient is intubated and sedated HEENT: Pupils are round and equally reacting to light. EOMI. No scleral icterus. No conjunctival pallor. Normocephalic, atraumatic. No pharyngeal erythema. No thyromegaly. CARDIOVASCULAR: S1 and S2 present. No murmurs, rubs, or gallops. PULMONARY: Chest is clear to auscultation, no wheezing or crackles. ABDOMEN: Soft, nontender, nondistended, normoactive bowel sounds. No palpable organomegaly. MUSCULOSKELETAL: No joint swelling or deformity. EXTREMITIES: No cyanosis, clubbing, or pedal edema. NEUROLOGICAL: Gross neurological examination did not reveal any focal deficits. SKIN: No rashes. no petechiae. - Labs CBC & Chem 7: 10/16/20 03:55 10/16/20 03:55 Labs: Abnormal Lab Results - Last 24 Hours (Table) 10/15/20 10/15/20 10/15/20 Range/Units 09:10 09:10 15:40 Hct (39.0-53.0) % Lymphocytes # (1.0-4.8) k/uL ABG pO2 (83-108) mmHg ABG Total CO2 (19-24) mmol/L Chloride (98-107) mmol/L Glucose (74-99) mg/dL POC Glucose (mg/dL) (75-99) mg/dL Calcium (8.4-10.2) mg/dL Magnesium (1.6-2.3) mg/dL Ferritin 624.6 H (22.0-322.0) ng/mL Total Protein (6.3-8.2) g/dL Albumin (3.5-5.0) g/dL Procalcitonin 0.20 H (0.02-0.09) ng/mL Urine Ketones Trace H (Negative) Ur Leukocyte Esterase Small H (Negative) Urine WBC 9 H (0-5) /hpf Urine Bacteria Rare H (None) /hpf 10/15/20 10/16/20 10/16/20 Range/Units 18:22 00:33 03:55 Hct 38.4 L (39.0-53.0) % Lymphocytes # 0.4 L (1.0-4.8) k/uL ABG pO2 (83-108) mmHg ABG Total CO2 (19-24) mmol/L Chloride (98-107) mmol/L Glucose (74-99) mg/dL POC Glucose (mg/dL) 133 H 144 H (75-99) mg/dL Calcium (8.4-10.2) mg/dL Magnesium (1.6-2.3) mg/dL Ferritin (22.0-322.0) ng/mL Total Protein (6.3-8.2) g/dL Albumin (3.5-5.0) g/dL Procalcitonin (0.02-0.09) ng/mL Urine Ketones (Negative) Ur Leukocyte Esterase (Negative) Urine WBC (0-5) /hpf Urine Bacteria (None) /hpf 10/16/20 10/16/20 10/16/20 Range/Units 03:55 03:55 05:07 Hct (39.0-53.0) % Lymphocytes # (1.0-4.8) k/uL ABG pO2 73 L (83-108) mmHg ABG Total CO2 26 H (19-24) mmol/L Chloride 110 H (98-107) mmol/L Glucose 149 H (74-99) mg/dL POC Glucose (mg/dL) (75-99) mg/dL Calcium 7.6 L (8.4-10.2) mg/dL Magnesium 2.6 H (1.6-2.3) mg/dL Ferritin (22.0-322.0) ng/mL Total Protein 4.9 L (6.3-8.2) g/dL Albumin 2.3 L (3.5-5.0) g/dL Procalcitonin (0.02-0.09) ng/mL Urine Ketones (Negative) Ur Leukocyte Esterase (Negative) Urine WBC (0-5) /hpf Urine Bacteria (None) /hpf 10/16/20 10/16/20 Range/Units 06:05 12:21 Hct (39.0-53.0) % Lymphocytes # (1.0-4.8) k/uL ABG pO2 (83-108) mmHg ABG Total CO2 (19-24) mmol/L Chloride (98-107) mmol/L Glucose (74-99) mg/dL POC Glucose (mg/dL) 138 H 124 H (75-99) mg/dL Calcium (8.4-10.2) mg/dL Magnesium (1.6-2.3) mg/dL Ferritin (22.0-322.0) ng/mL Total Protein (6.3-8.2) g/dL Albumin (3.5-5.0) g/dL Procalcitonin (0.02-0.09) ng/mL Urine Ketones (Negative) Ur Leukocyte Esterase (Negative) Urine WBC (0-5) /hpf Urine Bacteria (None) /hpf Microbiology - Last 24 Hours (Table) 10/14/20 10:40 Blood Culture - Preliminary Blood No Growth after 48 hours 10/14/20 10:25 Blood Culture - Preliminary Blood No Growth after 48 hours 10/15/20 20:54 Sputum Culture - Preliminary Sputum Assessment and Plan Assessment: Acute hypoxic respiratory failure secondary to COVID pneumonia Mechanically ventilated Hypotonic hyponatremia History of asthma GERD Plan: This is a pleasant 55 years old male admitted with bilateral covid pneumonia. Continue with intubation and mechanical ventilation as per pulmonary/critical care team. Continue with steroids, gentle hydration and remdisvir as per pulmonary consultation and recommendation . Labs and medication were reviewed.. Continue same treatment. Continue with symptomatic treatment. Resume home medication. Monitor lytes and vitals. DVT and GI prophylaxis. Further recommendationsas per clinical course of the patient DVT prophylaxis: Subcutaneous Lovenox GI Prophylaxis: Pepcid Prognosis is guarded
[2020-10-17] MEDS: methylPREDNISolone SOD SUCCI 125 MG/2 ML VIAL IV SCH ×4 (00:01→18:44)
[2020-10-17 00:15] LABS: Glucose,Whole Blood 146 mg/dL (75-99)
[2020-10-17 04:43] LABS: ABG Base Excess 0.3 mmol/L; ABG HCO3 25 mmol/L (21-25); ABG Oxygen Saturation 95.7 % (94-97); ABG PCO2 41 mmHg (35-45); ABG PH 7.39 (7.35-7.45); ABG PO2 76 mmHg (83-108); ABG TCO2 27 mmol/L (19-24); Allen Test Performed? Yes
[2020-10-17 04:51] LABS: Basophils % (A) 0 %; Eosinophils % (A) 0 %; HCT 36.2 % (39.0-53.0); HGB 12.4 gm/dL (13.0-17.5); Lymphocytes # (A) 0.4 k/uL (1.0-4.8); Lymphocytes % (A) 6 %; MCH 29.8 pg (25.0-35.0); MCHC 34.3 g/dL (31.0-37.0); MCV 86.8 fL (80.0-100.0); Mean Platelet Volume 7.6; Monocytes # (A) 0.3 k/uL (0-1.0); Monocytes % (A) 5 %; Neutrophils # (A) 5.9 k/uL (1.3-7.7); Neutrophils % (A) 88 %; Platelet Count 183 k/uL (150-450); RBC 4.17 m/uL (4.30-5.90); RDW 12.6 % (11.5-15.5); WBC 6.7 k/uL (3.8-10.6)
[2020-10-17 05:02] LABS: Magnesium 2.6 mg/dL (1.6-2.3)
[2020-10-17 05:13] LABS: C Reactive Protein 125.2 mg/L (<10.0)
[2020-10-17 05:14] LABS: D-Dimer 1.21 mg/L FEU (<0.60); Partial Thromboplastin Time 23.9 sec (22.0-30.0); Prothrombin Time 10.5 sec (9.0-12.0)
[2020-10-17 05:22] LABS: ALT 33 U/L (4-49); AST 41 U/L (17-59); African American GFR (CKD) >90 (>60 ml/min/1.73 sqM); Albumin 2.1 g/dL (3.5-5.0); Alkaline Phosphatase 45 U/L (38-126); Anion Gap 2 mmol/L; Blood Urea Nitrogen 28 mg/dL (9-20); Calcium 7.6 mg/dL (8.4-10.2); Carbon Dioxide 25 mmol/L (22-30); Chloride 111 mmol/L (98-107); Glucose 167 mg/dL (74-99); Non-African American GFR(CKD) >90 (>60 ml/min/1.73 sqM); Potassium 4.4 mmol/L (3.5-5.1); Sodium 138 mmol/L (137-145); Total Bilirubin 0.4 mg/dL (0.2-1.3); Total Protein 4.6 g/dL (6.3-8.2)
[2020-10-17 06:04] LABS: Glucose,Whole Blood 186 mg/dL (75-99)
[2020-10-17] MEDS: ALBUTEROL HFA INHALER INHALATION PRN ×3 (07:23→14:39)
--- NOTE | 2020-10-17 07:53 | XR ---
EXAMINATION TYPE: XR chest 1V portable DATE OF EXAM: 10/17/2020 Comparison: 10/16/2020 Clinical History: 55-year-old male Tube placement Findings: ET tube satisfactory. NG tube present below the diaphragm. Left CVC tip in the right atrium. Heart up per limits of normal in size. Bilateral patchy confluent consolidation, right greater than left relat ively unchanged. No sizable effusion. Impression: Bilateral patchy and confluent consolidation, right greater than left, not significantly changed.
[2020-10-17] MEDS: ATORVASTATIN 40 MG TAB PO SCH (09:15)
[2020-10-17] MEDS: CHLORHEXIDINE GLUCONATE 15 ML CUP MUCOUS MEM SCH ×2 (09:15→22:28)
[2020-10-17] MEDS: CHOLECALCIFEROL 1,000 UNIT TAB PO SCH (09:15)
[2020-10-17] MEDS: ENOXAPARIN 40 MG/0.4 ML SYRINGE SQ SCH (09:15)
[2020-10-17] MEDS: FAMOTIDINE 20 MG/2 ML VIAL IV SCH ×2 (09:15→22:28)
--- NOTE | 2020-10-17 09:30 | P.PN ---
Subjective Progress Note Date: 10/17/20 Principal diagnosis: COVID 19 pneumonia 55-year-old male who was admitted to the ICU yesterday. He came down to the ICU for acute hypoxemic respiratory failure secondary to COVID 19 pneumonia. Initially, we attempted to maintain him on BiPAP, but unfortunately, the patient's respiratory failure worsened and he required intubation and mechanical ventilation. He was intubated on October 15 and had an arterial line placed and a central line placed on the same day. Remains in the intensive care unit in room 250. Currently, he is on the volume assist control mode with the mechanical ventilation, with a respiratory rate of 24, tidal volume of 450, FiO2 of 80%, and PEEP of 15. The patient is currently getting saline at 75 mL an hour, propofol at 72 mcg/kg/m, norepinephrine 1 mcg/m, and he will start with enteral nutrition today. His arterial blood gases show a PaO2 of 73, PaCO2 of 42, and a pH is 7.38. His peak airway pressure is 35 cm water and his plateau pressure is 33 cm water. His chest x-ray appears to be a bit improved but likely is from the positive pressure ventilation. He received 1 dose of, convalescent plasma, and 1 dose of rendesivir. Progress note dated 10/17/2020. 55-year-old male admitted couple days ago in to the ICU. He came down from the floor. He developed acute hypoxemic respiratory failure, secondary to COVID 19 pneumonia. Initially, we attempted BiPAP therapy on him but unfortunate, his hypoxemia worsened, his respiratory status declined, and he was intubated and mechanically ventilated on 10/15/2020. On that same day, we placed a right radial art line and a left internal jugular triple-lumen catheter. Currently, he remains on the mechanical ventilator. He is on the volume assist control modality, rate 24, tidal volume 450, FiO2 65%, 15. Arterial blood gases show a PaO2 of 76, a PaCO2 of 41 and a pH of 7.39. The blood gases were actually done on 70%. Yesterday, he was prone for 16 hours. He is getting propofol at 60 g per kilogram per minute, normal saline at 75 mL an hour, and vital high protein at 33 mL an hour which is goal. The goal today, is to hopefully get him down to 50% at which time, we can consider making PEEP changes. Thus far microbiology is negative. Chest x-ray continues to show bilateral patchy infiltrates. The patient did receive 1 unit convalescent plasma, and 1 dose of remdesivir. Objective - Vital Signs Vital signs: Vital Signs Temp 97.9 F 10/17/20 08:00 Pulse 55 L 10/17/20 08:00 Resp 26 H 10/17/20 08:00 BP 106/63 10/17/20 08:00 Pulse Ox 89 L 10/17/20 08:00 Intake & Output 10/16/20 10/17/20 10/17/20 18:59 06:59 18:59 Intake Total 3479.734 7810.916 246 Output Total 600 422 90 Balance 962.705 0428.916 156 Weight 78.8 kg 78.5 kg Intake: IV 900 900 150 Sodium Chloride 0.9% 1, 900 900 150 000 ml @ 75 mls/hr IV . [id number] [facility] Rx#:[id number] Intake, IV Titration 291.561 395.916 Amount Norepinephrine 8 mg In 8.853 Sodium Chloride 0.9% 250 ml @ 0.08 MCG/KG/MIN 11. 937 mls/hr IV .[id number] [facility] Rx#:[id number] propofoL 1,000 mg In 282.708 395.916 Empty Bag 1 bag @ Titrate IV .Q0M [facility] Rx#: [id number] Tube Feeding 100 370 66 Other 60 90 30 Output: Urine 600 422 90 Other: Voiding Method Indwelling Catheter Indwelling Catheter ABP, PAP, CO, CI - Last Documented Arterial Blood Pressure 115/57 - Exam No acute distress, sedated, with an orally placed endotracheal tube and nasogastric tube. HEENT examination is grossly unremarkable. Mucous membranes are moist. The patient does have a orally placed endotracheal tube. Neck supple. Full range of motion. No adenopathy thyromegaly or neck vein distention. A left internal jugular triple-lumen catheter is noted. Cardiovascular examination reveals regular rhythm rate. S1-S2 normal. No S3 or S4. No discernible murmur noted. Heart rate is 52 bpm and heart sounds are distant. Lungs reveal diminished breath sounds bilaterally. Breath sounds are coarse. Crackles are noted. There are no wheezes. Abdomen is soft without bowel sounds. No masses are noted. Extremities are intact. No cyanosis clubbing or edema. Skin is without rash or lesion. Neurologic examination is difficult to assess given his current level of sedatio n. - Labs CBC & Chem 7: 10/17/20 04:30 10/17/20 04:30 Labs: Abnormal Lab Results - Last 24 Hours (Table) 10/16/20 10/17/20 10/17/20 Range/Units 12: 00: 04:30 RBC 4.17 L (4.30-5.90) m/uL Hgb 12.4 L (13.0-17.5) gm/dL Hct 36.2 L (39.0-53.0) % Lymphocytes # 0.4 L (1.0-4.8) k/uL Fibrinogen (200-500) mg/dL D-Dimer (<0.60) mg/L FEU ABG pO2 (83-108) mmHg ABG Total CO2 (19-24) mmol/L Chloride (98-107) mmol/L BUN (9-20) mg/dL Creatinine (0.66-1.25) mg/dL Glucose (74-99) mg/dL POC Glucose (mg/dL) 124 H 146 H (75-99) mg/dL Calcium (8.4-10.2) mg/dL Magnesium (1.6-2.3) mg/dL Lactate Dehydrogenase (313-618) U/L Creatine Kinase (55-170) U/L C-Reactive Protein (<10.0) mg/L Total Protein (6.3-8.2) g/dL Albumin (3.5-5.0) g/dL 10/17/20 10/17/20 10/17/20 Range/Units 04:30 04:30 04:30 RBC (4.30-5.90) m/uL Hgb (13.0-17.5) gm/dL Hct (39.0-53.0) % Lymphocytes # (1.0-4.8) k/uL Fibrinogen 523 H (200-500) mg/dL D-Dimer 1.21 H (<0.60) mg/L FEU ABG pO2 (83-108) mmHg ABG Total CO2 (19-24) mmol/L Chloride 111 H (98-107) mmol/L BUN 28 H (9-20) mg/dL Creatinine 0.65 L (0.66-1.25) mg/dL Glucose 167 H (74-99) mg/dL POC Glucose (mg/dL) (75-99) mg/dL Calcium 7.6 L (8.4-10.2) mg/dL Magnesium 2.6 H (1.6-2.3) mg/dL Lactate Dehydrogenase 1240 H (313-618) U/L Creatine Kinase 218 H (55-170) U/L C-Reactive Protein 125.2 H (<10.0) mg/L Total Protein 4.6 L (6.3-8.2) g/dL Albumin 2.1 L (3.5-5.0) g/dL 10/17/20 10/17/20 Range/Units 04:38 06:02 RBC (4.30-5.90) m/uL Hgb (13.0-17.5) gm/dL Hct (39.0-53.0) % Lymphocytes # (1.0-4.8) k/uL Fibrinogen (200-500) mg/dL D-Dimer (<0.60) mg/L FEU ABG pO2 76 L (83-108) mmHg ABG Total CO2 27 H (19-24) mmol/L Chloride (98-107) mmol/L BUN (9-20) mg/dL Creatinine (0.66-1.25) mg/dL Glucose (74-99) mg/dL POC Glucose (mg/dL) 186 H (75-99) mg/dL Calcium (8.4-10.2) mg/dL Magnesium (1.6-2.3) mg/dL Lactate Dehydrogenase (313-618) U/L Creatine Kinase (55-170) U/L C-Reactive Protein (<10.0) mg/L Total Protein (6.3-8.2) g/dL Albumin (3.5-5.0) g/dL Microbiology - Last 24 Hours (Table) 10/14/20 10:40 Blood Culture - Preliminary Blood No Growth after 48 hours 10/14/20 10:25 Blood Culture - Preliminary Blood No Growth after 48 hours Assessment and Plan Assessment: Acute hypoxemic respiratory failure secondary to COVID 19 pneumonia. Intubation and mechanical ventilation secondary to #1, on 10/15/2020. History of hyperlipidemia. History of chronic bronchial asthma. History of gastroesophageal reflux disease. Placement of radial art line and central line on 10/15/2020. Plan: Plan dated 10/17/2020. The patient remains on enteral nutrition at goal. No ventilator changes at this time. The arterial blood gases were done on 70%. The respiratory therapist drop the FiO2 down to 65%. The patient is being sedated with propofol. We will again prone the patient for 16 hours today. Additional recommendations and suggestions are forthcoming. Prognosis is guarded. The patient does have a right radial art line and a left internal jugular triple-lumen catheter. No additional recommendations are made. Prognosis again is guarded. Time with Patient: Greater than 30
[2020-10-17] MEDS: SODIUM CHLORIDE 0.9% 1,000 ML IV SCH ×2 (09:31→22:10)
[2020-10-17 10:14] LABS: Ferritin 1248.7 ng/mL (22.0-322.0)
[2020-10-17] MEDS: REMDESIVIR 100 MG in SODIUM CHLORIDE 0.9% 250 ML IVPB SCH (11:27)
[2020-10-17 13:15] LABS: Glucose,Whole Blood 162 mg/dL (75-99)
[2020-10-17] MEDS: INSULIN ASPART (NovoLOG) 100 UNIT/ML VIAL SQ SCH ×2 (13:34→18:44)
--- NOTE | 2020-10-17 18:13 | P.PN ---
Subjective HPI - Patient is a 55-year-old male came in with complaints of increasing shortness of breath over the past week. Patient was diagnosed with Covid 6 days ago. He has completed a course of steroids as well as Z-Douglas. Patient states over the past week he's been fighting fevers, body aches, chills and nausea. Patient states his shortness of breath has been steadily increasing. He gets winded with just walking around his house. He does admit to some chest pain when he is coughing. He does have some production with his cough. He does admit to history of asthma, denies heart disease. He states his last dose of Tylenol was last night. He denies any vomiting, no dysuria. Patient is febrile 100.4, pulse is 96, he is satting 88% on room air. Patient had a chest x-ray which showed diffuse bilateral infiltrates. Patient is presently on 2 L of oxygen saturating 93% patient was having fevers at home patient had a low-grade fever here. Patient has elevated inflammatory markers along with the low sodium. On 10/15/2020 - last night patient became more short of breath, so he was shifted to the ICU. Initially the patient was placed on BiPAP, patient was staffed neck and saturating in the high 80s and so eventually he had to be intu bated around noon. Currently he is mechanically ventilated and sedated. Reviewing the vitals patient is tachycardic between 100-110, saturating in the low 80s on 100% FiO2, blood pressure 1 50 x 92. Patient has been started on Solu-Medrol, Remdesivir, Lovenox and breathing treatments. On reviewing the labs white count of 6.1, hemoglobin 14.7, platelets 162. Sodium 133, potassium 4.2, chloride 102, bicarb 28, BUN 17, creatinine 0.79. Ferritin 624, magnesium 1.5, albumin 2.9. 10/16/2020 Patient is seen and examined in the ICU. He was admitted for Covid bilateral pneumonia. These with acute hypoxic respiratory failure needing intubation and mechanical ventilation with pulmonary/critical care team following the patient closely. He's undergoing prone position for 16 hours per day. Also he is getting Remidsivir and he is a status post convalescent plasma . Patient does not need pressors as his vitals are stable. And he is on tube feeding. Patient is currently sedated. Labs reviewed 10/17/2020 Patient remains in the ICU sedated and intubated. He is undergoing prone position with the goal 16 hours per day. He is febrile but tachypneic. Labs reviewed including CBC and BMP showing no significant changes. And sputum culture is growing Kay albicans. Chest x-ray showing the same bilateral infiltrates with right more than left related to his covid pneumonia. And he remains on Solu-Medrol 60 mg, remdisvir and normal saline at 75 mL/h. Pulmonary/critical care team R following the patient closely and the recommend to continue the current management and keep monitoring Objective - Vital Signs Vital signs: Vital Signs Temp 97.9 F 10/17/20 08:00 Pulse 52 L 10/17/20 09:00 Resp 28 H 10/17/20 09:00 BP 106/66 10/17/20 09:00 Pulse Ox 90 L 10/17/20 09:00 Intake & Output 10/16/20 10/17/20 10/17/20 18:59 06:59 18:59 Intake Total 9768.100 8510.916 354 Output Total 600 422 123 Balance 931.458 4404.916 231 Weight 78.8 kg 78.5 kg Intake: IV 900 900 225 Sodium Chloride 0.9% 1, 900 900 225 000 ml @ 75 mls/hr IV . [id number] [facility] Rx#:[id number] Intake, IV Titration 291.561 395.916 Amount Norepinephrine 8 mg In 8.853 Sodium Chloride 0.9% 250 ml @ 0.08 MCG/KG/MIN 11. 937 mls/hr IV .[id number] [facility] Rx#:[id number] propofoL 1,000 mg In 282.708 395.916 Empty Bag 1 bag @ Titrate IV .Q0M [facility] Rx#: [id number] Tube Feeding 100 370 99 Other 60 90 30 Output: Urine 600 422 123 Other: Voiding Method Indwelling Catheter Indwelling Catheter Indwelling Catheter ABP, PAP, CO, CI - Last Documented Arterial Blood Pressure 126/52 - Exam -GENERAL: The patient is intubated and sedated HEENT: Pupils are round and equally reacting to light. EOMI. No scleral icterus. No conjunctival pallor. Normocephalic, atraumatic. No pharyngeal erythema. No thyromegaly. CARDIOVASCULAR: S1 and S2 present. No murmurs, rubs, or gallops. PULMONARY: Chest is clear to auscultation, no wheezing or crackles. ABDOMEN: Soft, nontender, nondistended, normoactive bowel sounds. No palpable organomegaly. MUSCULOSKELETAL: No joint swelling or deformity. EXTREMITIES: No cyanosis, clubbing, or pedal edema. NEUROLOGICAL: Gross neurological examination did not reveal any focal deficits. SKIN: No rashes. no petechiae. - Labs CBC & Chem 7: 10/17/20 04:30 10/17/20 04:30 Labs: Abnormal Lab Results - Last 24 Hours (Table) 10/16/20 10/17/20 10/17/20 Range/Units 12:: 04:30 RBC 4.17 L (4.30-5.90) m/uL Hgb 12.4 L (13.0-17.5) gm/dL Hct 36.2 L (39.0-53.0) % Lymphocytes # 0.4 L (1.0-4.8) k/uL Fibrinogen (200-500) mg/dL D-Dimer (<0.60) mg/L FEU ABG pO2 (83-108) mmHg ABG Total CO2 (19-24) mmol/L Chloride (98-107) mmol/L BUN (9-20) mg/dL Creatinine (0.66-1.25) mg/dL Glucose (74-99) mg/dL POC Glucose (mg/dL) 124 H 146 H (75-99) mg/dL Calcium (8.4-10.2) mg/dL Magnesium (1.6-2.3) mg/dL Ferritin (22.0-322.0) ng/mL Lactate Dehydrogenase (313-618) U/L Creatine Kinase (55-170) U/L C-Reactive Protein (<10.0) mg/L Total Protein (6.3-8.2) g/dL Albumin (3.5-5.0) g/dL 10/17/20 10/17/20 10/17/20 Range/Units 04:30 04:30 04:30 RBC (4.30-5.90) m/uL Hgb (13.0-17.5) gm/dL Hct (39.0-53.0) % Lymphocytes # (1.0-4.8) k/uL Fibrinogen 523 H (200-500) mg/dL D-Dimer 1.21 H (<0.60) mg/L FEU ABG pO2 (83-108) mmHg ABG Total CO2 (19-24) mmol/L Chloride 111 H (98-107) mmol/L BUN 28 H (9-20) mg/dL Creatinine 0.65 L (0.66-1.25) mg/dL Glucose 167 H (74-99) mg/dL POC Glucose (mg/dL) (75-99) mg/dL Calcium 7.6 L (8.4-10.2) mg/dL Magnesium 2.6 H (1.6-2.3) mg/dL Ferritin 1248.7 H (22.0-322.0) ng/mL Lactate Dehydrogenase 1240 H (313-618) U/L Creatine Kinase 218 H (55-170) U/L C-Reactive Protein 125.2 H (<10.0) mg/L Total Protein 4.6 L (6.3-8.2) g/dL Albumin 2.1 L (3.5-5.0) g/dL 10/17/20 10/17/20 Range/Units 04:38 06:02 RBC (4.30-5.90) m/uL Hgb (13.0-17.5) gm/dL Hct (39.0-53.0) % Lymphocytes # (1.0-4.8) k/uL Fibrinogen (200-500) mg/dL D-Dimer (<0.60) mg/L FEU ABG pO2 76 L (83-108) mmHg ABG Total CO2 27 H (19-24) mmol/L Chloride (98-107) mmol/L BUN (9-20) mg/dL Creatinine (0.66-1.25) mg/dL Glucose (74-99) mg/dL POC Glucose (mg/dL) 186 H (75-99) mg/dL Calcium (8.4-10.2) mg/dL Magnesium (1.6-2.3) mg/dL Ferritin (22.0-322.0) ng/mL Lactate Dehydrogenase (313-618) U/L Creatine Kinase (55-170) U/L C-Reactive Protein (<10.0) mg/L Total Protein (6.3-8.2) g/dL Albumin (3.5-5.0) g/dL Microbiology - Last 24 Hours (Table) 10/14/20 10:40 Blood Culture - Preliminary Blood No Growth after 48 hours 10/14/20 10:25 Blood Culture - Preliminary Blood No Growth after 48 hours Assessment and Plan Assessment: Acute hypoxic respiratory failure secondary to COVID pneumonia Mechanically ventilated Hypotonic hyponatremia History of asthma GERD Plan: This is a pleasant 55 years old male admitted with bilateral covid pneumonia. Continue with intubation and mechanical ventilation as per pulmonary/critical care team. Continue with steroids, gentle hydration and remdisvir as per pulmonary consultation and recommendation . Labs and medication were reviewed.. Continue same treatment. Continue with symptomatic treatment. Resume home medication. Monitor lytes and vitals. DVT and GI prophylaxis. Further recommendationsas per clinical course of the patient DVT prophylaxis: Subcutaneous Lovenox GI Prophylaxis: Pepcid Prognosis is guarded
[2020-10-17 18:37] LABS: Glucose,Whole Blood 143 mg/dL (75-99)
[2020-10-18 00:04] LABS: Glucose,Whole Blood 140 mg/dL (75-99)
[2020-10-18] MEDS: INSULIN ASPART (NovoLOG) 100 UNIT/ML VIAL SQ SCH ×4 (01:29→17:26)
[2020-10-18] MEDS: methylPREDNISolone SOD SUCCI 125 MG/2 ML VIAL IV SCH ×4 (01:29→17:27)
[2020-10-18 04:42] LABS: Basophils % (A) 0 %; Eosinophils % (A) 0 %; HCT 37.4 % (39.0-53.0); HGB 12.6 gm/dL (13.0-17.5); Lymphocytes # (A) 0.4 k/uL (1.0-4.8); Lymphocytes % (A) 4 %; MCH 29.4 pg (25.0-35.0); MCHC 33.8 g/dL (31.0-37.0); MCV 87.1 fL (80.0-100.0); Mean Platelet Volume 7.8; Monocytes # (A) 0.4 k/uL (0-1.0); Monocytes % (A) 3 %; Neutrophils # (A) 9.6 k/uL (1.3-7.7); Neutrophils % (A) 92 %; Platelet Count 185 k/uL (150-450); RBC 4.29 m/uL (4.30-5.90); RDW 12.7 % (11.5-15.5); WBC 10.4 k/uL (3.8-10.6)
[2020-10-18 05:00] LABS: ABG Base Excess 1.3 mmol/L; ABG HCO3 26 mmol/L (21-25); ABG Oxygen Saturation 92.4 % (94-97); ABG PCO2 40 mmHg (35-45); ABG PH 7.42 (7.35-7.45); ABG PO2 61 mmHg (83-108); ABG TCO2 27 mmol/L (19-24); Allen Test Performed? Yes
[2020-10-18 05:14] LABS: ALT 57 U/L (4-49); AST 62 U/L (17-59); African American GFR (CKD) >90 (>60 ml/min/1.73 sqM); Albumin 2.2 g/dL (3.5-5.0); Alkaline Phosphatase 58 U/L (38-126); Anion Gap 0 mmol/L; Blood Urea Nitrogen 32 mg/dL (9-20); Calcium 7.5 mg/dL (8.4-10.2); Carbon Dioxide 27 mmol/L (22-30); Chloride 114 mmol/L (98-107); Glucose 160 mg/dL (74-99); Non-African American GFR(CKD) >90 (>60 ml/min/1.73 sqM); Potassium 4.8 mmol/L (3.5-5.1); Sodium 141 mmol/L (137-145); Total Bilirubin 0.5 mg/dL (0.2-1.3); Total Protein 4.6 g/dL (6.3-8.2)
[2020-10-18 05:59] LABS: Glucose,Whole Blood 162 mg/dL (75-99)
--- NOTE | 2020-10-18 07:11 | XR ---
EXAMINATION TYPE: XR chest 1V portable DATE OF EXAM: 10/18/2020 CLINICAL HISTORY: Difficulty breathing progress study. TECHNIQUE: Single AP portable semiupright view of the chest is obtained. COMPARISON: Chest x-ray from one day earlier and older studies. FINDINGS: Stable endotracheal and orogastric tubes. Stable left internal jugular central venous cath eter. Heart size stable and upper limits of normal. Persistent bilateral multifocal opacities and armando ewhat low lung volumes. Tiny bilateral pleural effusions are present currently. Osseous structures ar e intact. IMPRESSION: New tiny bilateral pleural effusions otherwise no significant interval change. Low lung v olumes with multifocal bilateral acute infiltrates and organizing basilar consolidations consistent w ith known covid-19 infection.
[2020-10-18] MEDS: ALBUTEROL HFA INHALER INHALATION PRN ×4 (07:39→18:57)
[2020-10-18] MEDS ORDERED: FUROSEMIDE 10 MG/ML 4 ML VIAL IV STA (07:58)
[2020-10-18] MEDS: SODIUM CHLORIDE 0.9% 1,000 ML IV SCH ×3 (08:49→09:01)
[2020-10-18] MEDS: CHOLECALCIFEROL 1,000 UNIT TAB PO SCH (08:57)
[2020-10-18] MEDS: ENOXAPARIN 40 MG/0.4 ML SYRINGE SQ SCH (08:57)
[2020-10-18] MEDS: CHLORHEXIDINE GLUCONATE 15 ML CUP MUCOUS MEM SCH ×2 (08:57→21:25)
[2020-10-18] MEDS: FAMOTIDINE 20 MG/2 ML VIAL IV SCH ×2 (08:58→21:25)
[2020-10-18] MEDS: ATORVASTATIN 40 MG TAB PO SCH (08:58)
[2020-10-18] MEDS: REMDESIVIR 100 MG in SODIUM CHLORIDE 0.9% 250 ML IVPB SCH (09:03)
--- NOTE | 2020-10-18 10:10 | P.PN ---
Subjective Progress Note Date: 10/18/20 Principal diagnosis: COVID 19 pneumonia 55-year-old male who was admitted to the ICU yesterday. He came down to the ICU for acute hypoxemic respiratory failure secondary to COVID 19 pneumonia. Initially, we attempted to maintain him on BiPAP, but unfortunately, the patient's respiratory failure worsened and he required intubation and mechanical ventilation. He was intubated on October 15 and had an arterial line placed and a central line placed on the same day. Remains in the intensive care unit in room 250. Currently, he is on the volume assist control mode with the mechanical ventilation, with a respiratory rate of 24, tidal volume of 450, FiO2 of 80%, and PEEP of 15. The patient is currently getting saline at 75 mL an hour, propofol at 72 mcg/kg/m, norepinephrine 1 mcg/m, and he will start with enteral nutrition today. His arterial blood gases show a PaO2 of 73, PaCO2 of 42, and a pH is 7.38. His peak airway pressure is 35 cm water and his plateau pressure is 33 cm water. His chest x-ray appears to be a bit improved but likely is from the positive pressure ventilation. He received 1 dose of, convalescent plasma, and 1 dose of rendesivir. Progress note dated 10/17/2020. 55-year-old male admitted couple days ago in to the ICU. He came down from the floor. He developed acute hypoxemic respiratory failure, secondary to COVID 19 pneumonia. Initially, we attempted BiPAP therapy on him but unfortunate, his hypoxemia worsened, his respiratory status declined, and he was intubated and mechanically ventilated on 10/15/2020. On that same day, we placed a right radial art line and a left internal jugular triple-lumen catheter. Currently, he remains on the mechanical ventilator. He is on the volume assist control modality, rate 24, tidal volume 450, FiO2 65%, 15. Arterial blood gases show a PaO2 of 76, a PaCO2 of 41 and a pH of 7.39. The blood gases were actually done on 70%. Yesterday, he was prone for 16 hours. He is getting propofol at 60 g per kilogram per minute, normal saline at 75 mL an hour, and vital high protein at 33 mL an hour which is goal. The goal today, is to hopefully get him down to 50% at which time, we can consider making PEEP changes. Thus far microbiology is negative. Chest x-ray continues to show bilateral patchy infiltrates. The patient did receive 1 unit convalescent plasma, and 1 dose of remdesivir. Progress note dated 10/18/2020. 55-year-old male who was admitted to the intensive care unit on October 15. He was intubated and mechanically ventilated on the same day for COVID 19 p neumonia, with acute hypoxemic respiratory failure. Currently, he remains on the mechanical ventilator. He is on the volume assist control mode, with a rate of 24, tidal volume 450, FiO2 50%, and PEEP of 15. Arterial blood gases show a PaO2 of 61, a PaCO2 of 40, pH 7.42. The patient's on propofol at 70 mcg/kg/m, normal saline at 75 mL an hour, and vital high protein at goal, which is 33 mL an hour. Today's plan is to give the patient Lasix 40 mg IV push, the IV back to 40 mL an hour, and prone the patient again for 16 hours a day. His chest x- rays essentially unchanged. His oxygenation has improved. We have been able to wean him down from 100% down to 50%. He still remains on PEEP of 15. No PEEP changes until oxygenation improves. Objective - Vital Signs Vital signs: Vital Signs Temp 98 F 10/18/20 08:00 Pulse 62 10/18/20 10:00 Resp 31 H 10/18/20 10:00 BP 129/86 10/18/20 10:00 Pulse Ox 90 L 10/18/20 10:00 Intake & Output 10/17/20 10/18/20 10/18/20 18:59 06:59 18:59 Intake Total 1573 1773.92 289 Output Total 673 500 150 Balance 900 1273.92 139 Intake: IV 1150 900 190 Remdesivir 100 mg In 325 75 Sodium Chloride 0.9% 250 ml @ 250 mls/hr IVPB DAILY@1000 [facility] Rx#: [id number] Sodium Chloride 0.9% 1, 825 825 190 000 ml @ 75 mls/hr IV . [id number] [facility] Rx#:[id number] Intake, IV Titration 387.92 Amount propofoL 1,000 mg In 387.92 Empty Bag 1 bag @ Titrate IV .Q0M [facility] Rx#: [id number] Tube Feeding 363 396 99 Other 60 90 Output: Urine 673 500 150 Other: Voiding Method Indwelling Catheter Indwelling Catheter Indwelling Catheter ABP, PAP, CO, CI - Last Documented Arterial Blood Pressure 155/86 - Exam No acute distress, sedated, with an orally placed endotracheal tube and nasogastric tube. HEENT examination is grossly unremarkable. Mucous membranes are moist. The patient does have a orally placed endotracheal tube. Neck supple. Full range of motion. No adenopathy thyromegaly or neck vein distention. A left internal jugular triple-lumen catheter is noted. Cardiovascular examination reveals regular rhythm rate. S1-S2 normal. No S3 or S4. No discernible murmur noted. Heart rate is 62 bpm and heart sounds are distant. Lungs reveal diminished breath sounds bilaterally. Breath sounds are coarse. Crackles are noted. Breath sounds are equal bilaterally. No wheezes are appreciated.. Abdomen is soft without bowel sounds. No masses are noted. Extremities are intact. No cyanosis clubbing or edema. Skin is without rash or lesion. Neurologic examination is difficult to assess given his current level of sedation. - Labs CBC & Chem 7: 10/18/20 04:30 10/18/20 04:30 Labs: Abnormal Lab Results - Last 24 Hours (Table) 10/17/20 10/17/20 10/17/20 Range/Units 04:30 13:12 18:35 RBC (4.30-5.90) m/uL Hgb (13.0-17.5) gm/dL Hct (39.0-53.0) % Neutrophils # (1.3-7.7) k/uL Lymphocytes # (1.0-4.8) k/uL ABG pO2 (83-108) mmHg ABG HCO3 (21-25) mmol/L ABG Total CO2 (19-24) mmol/L ABG O2 Saturation (94-97) % Chloride (98-107) mmol/L BUN (9-20) mg/dL Creatinine (0.66-1.25) mg/dL Glucose (74-99) mg/dL POC Glucose (mg/dL) 162 H 143 H (75-99) mg/dL Calcium (8.4-10.2) mg/dL Ferritin 1248.7 H (22.0-322.0) ng/mL AST (17-59) U/L ALT (4-49) U/L Total Protein (6.3-8.2) g/dL Albumin (3.5-5.0) g/dL 10/18/20 10/18/20 10/18/20 Range/Units 00:02 04:30 04:30 RBC 4.29 L (4.30-5.90) m/uL Hgb 12.6 L (13.0-17.5) gm/dL Hct 37.4 L (39.0-53.0) % Neutrophils # 9.6 H (1.3-7.7) k/uL Lymphocytes # 0.4 L (1.0-4.8) k/uL ABG pO2 (83-108) mmHg ABG HCO3 (21-25) mmol/L ABG Total CO2 (19-24) mmol/L ABG O2 Saturation (94-97) % Chloride 114 H (98-107) mmol/L BUN 32 H (9-20) mg/dL Creatinine 0.59 L (0.66-1.25) mg/dL Glucose 160 H (74-99) mg/dL POC Glucose (mg/dL) 140 H (75-99) mg/dL Calcium 7.5 L (8.4-10.2) mg/dL Ferritin (22.0-322.0) ng/mL AST 62 H (17-59) U/L ALT 57 H (4-49) U/L Total Protein 4.6 L (6.3-8.2) g/dL Albumin 2.2 L (3.5-5.0) g/dL 10/18/20 10/18/20 Range/Units 04:57 05:58 RBC (4.30-5.90) m/uL Hgb (13.0-17.5) gm/dL Hct (39.0-53.0) % Neutrophils # (1.3-7.7) k/uL Lymphocytes # (1.0-4.8) k/uL ABG pO2 61 L (83-108) mmHg ABG HCO3 26 H (21-25) mmol/L ABG Total CO2 27 H (19-24) mmol/L ABG O2 Saturation 92.4 L (94-97) % Chloride (98-107) mmol/L BUN (9-20) mg/dL Creatinine (0.66-1.25) mg/dL Glucose (74-99) mg/dL POC Glucose (mg/dL) 162 H (75-99) mg/dL Calcium (8.4-10.2) mg/dL Ferritin (22.0-322.0) ng/mL AST (17-59) U/L ALT (4-49) U/L Total Protein (6.3-8.2) g/dL Albumin (3.5-5.0) g/dL Microbiology - Last 24 Hours (Table) 10/15/20 20:54 Gram Stain - Preliminary Sputum Sputum Culture - Preliminary Kay albicans 10/14/20 10:25 Blood Culture - Preliminary Blood No Growth after 72 hours 10/14/20 10:40 Blood Culture - Preliminary Blood No Growth after 72 hours Assessment and Plan Assessment: Acute hypoxemic respiratory failure secondary to COVID 19 pneumonia. Intubation and mechanical ventilation secondary to #1, on 10/15/2020. Acute respiratory distress syndrome (ARDS). History of hyperlipidemia. History of chronic bronchial asthma. History of gastroesophageal reflux disease. Placement of radial art line and central line on 10/15/2020. Plan: Plan dated 10/18/2020. The patient will again be prolonged for 16 hours. In addition, we reduce his IV down to 40 mL now her. He is being enterally nurse at goal. We'll give him Lasix 40 mg IV push times one. Additional recommendations and suggestions are forthcoming. No PEEP changes at this time, we need to see an improvement in the patient's level of oxygenation. His overall prognosis is guarded. We will continue to follow. Medications are reviewed. Everything seems appropriate. Current microbiology is negative. The patient remains on Lovenox, and high-dose corticosteroids. Time with Patient: Greater than 30
[2020-10-18 11:51] LABS: Glucose,Whole Blood 156 mg/dL (75-99)
[2020-10-18 12:17] LABS: Hemoglobin A1C 6.2 % (4.0-6.0)
[2020-10-18] MEDS ORDERED: CISATRACURIUM 2 MG/ML 5 ML VIAL IV ONE (13:13)
[2020-10-18] MEDS: CISATRACURIUM 200 MG in SODIUM CHLORIDE 0.9% 180 ML IV SCH (13:56)
[2020-10-18 17:25] LABS: Glucose,Whole Blood 116 mg/dL (75-99)
[2020-10-18] MEDS: ARTIFICIAL TEARS-HYPROMELLOSE DROPS 15 ML BTL BOTH EYES SCH ×2 (17:25→20:10)
--- NOTE | 2020-10-18 18:16 | P.PN ---
Subjective HPI - Patient is a 55-year-old male came in with complaints of increasing shortness of breath over the past week. Patient was diagnosed with Covid 6 days ago. He has completed a course of steroids as well as Z-Douglas. Patient states over the past week he's been fighting fevers, body aches, chills and nausea. Patient states his shortness of breath has been steadily increasing. He gets winded with just walking around his house. He does admit to some chest pain when he is coughing. He does have some production with his cough. He does admit to history of asthma, denies heart disease. He states his last dose of Tylenol was last night. He denies any vomiting, no dysuria. Patient is febrile 100.4, pulse is 96, he is satting 88% on room air. Patient had a chest x-ray which showed diffuse bilateral infiltrates. Patient is presently on 2 L of oxygen saturating 93% patient was having fevers at home patient had a low-grade fever here. Patient has elevated inflammatory markers along with the low sodium. On 10/15/2020 - last night patient became more short of breath, so he was shifted to the ICU. Initially the patient was placed on BiPAP, patient was staffed neck and saturating in the high 80s and so eventually he had to be intu bated around noon. Currently he is mechanically ventilated and sedated. Reviewing the vitals patient is tachycardic between 100-110, saturating in the low 80s on 100% FiO2, blood pressure 1 50 x 92. Patient has been started on Solu-Medrol, Remdesivir, Lovenox and breathing treatments. On reviewing the labs white count of 6.1, hemoglobin 14.7, platelets 162. Sodium 133, potassium 4.2, chloride 102, bicarb 28, BUN 17, creatinine 0.79. Ferritin 624, magnesium 1.5, albumin 2.9. 10/16/2020 Patient is seen and examined in the ICU. He was admitted for Covid bilateral pneumonia. These with acute hypoxic respiratory failure needing intubation and mechanical ventilation with pulmonary/critical care team following the patient closely. He's undergoing prone position for 16 hours per day. Also he is getting Remidsivir and he is a status post convalescent plasma . Patient does not need pressors as his vitals are stable. And he is on tube feeding. Patient is currently sedated. Labs reviewed 10/17/2020 Patient remains in the ICU sedated and intubated. He is undergoing prone position with the goal 16 hours per day. He is febrile but tachypneic. Labs reviewed including CBC and BMP showing no significant changes. And sputum culture is growing Kay albicans. Chest x-ray showing the same bilateral infiltrates with right more than left related to his covid pneumonia. And he remains on Solu-Medrol 60 mg, remdisvir and normal saline at 75 mL/h. Pulmonary/critical care team R following the patient closely and the recommend to continue the current management and keep monitoring 10/18/2020 pt jana in ICU intubated sedated , with critical care team following him closely and adjusting his vent setting, he is currently needing high doseo f PEEP at 15 cxr from today showing small new bilateral pleural effusion , with basilar consolidation consistent wiht known covid 19 infection tomorrow is last dose of Remdisvir he remains on solumedrol 60 mg and gentl hydration Objective - Vital Signs Vital signs: Vital Signs Temp 98 F 10/18/20 08:00 Pulse 62 10/18/20 10:00 Resp 31 H 10/18/20 10:00 BP 129/86 10/18/20 10:00 Pulse Ox 90 L 10/18/20 10:00 Intake & Output 10/17/20 10/18/20 10/18/20 18:59 06:59 18:59 Intake Total 1573 1773.92 429 Output Total 716 153 4203 Balance 900 1273.92 -821 Intake: IV 1150 900 230 Remdesivir 100 mg In 325 75 Sodium Chloride 0.9% 250 ml @ 250 mls/hr IVPB DAILY@1000 [facility] Rx#: [id number] Sodium Chloride 0.9% 1, 825 825 230 000 ml @ 75 mls/hr IV . [id number] [facility] Rx#:[id number] Intake, IV Titration 387.92 100 Amount propofoL 1,000 mg In 387.92 100 Empty Bag 1 bag @ Titrate IV .Q0M [facility] Rx#: [id number] Tube Feeding 363 396 99 Other 60 90 Output: Urine 625 087 1865 Other: Voiding Method Indwelling Catheter Indwelling Catheter Indwelling Catheter ABP, PAP, CO, CI - Last Documented Arterial Blood Pressure 155/86 - Exam -GENERAL: The patient is intubated and sedated HEENT: Pupils are round and equally reacting to light. EOMI. No scleral icterus. No conjunctival pallor. Normocephalic, atraumatic. No pharyngeal erythema. No thyromegaly. CARDIOVASCULAR: S1 and S2 present. No murmurs, rubs, or gallops. PULMONARY: Chest is clear to auscultation, no wheezing or crackles. ABDOMEN: Soft, nontender, nondistended, normoactive bowel sounds. No palpable organomegaly. MUSCULOSKELETAL: No joint swelling or deformity. EXTREMITIES: No cyanosis, clubbing, or pedal edema. NEUROLOGICAL: Gross neurological examination did not reveal any focal deficits. SKIN: No rashes. no petechiae. - Labs CBC & Chem 7: 10/18/20 04:30 10/18/20 04:30 Labs: Abnormal Lab Results - Last 24 Hours (Table) 10/17/20 10/17/20 10/18/20 Range/Units 13:12 18:35 00:02 RBC (4.30-5.90) m/uL Hgb (13.0-17.5) gm/dL Hct (39.0-53.0) % Neutrophils # (1.3-7.7) k/uL Lymphocytes # (1.0-4.8) k/uL ABG pO2 (83-108) mmHg ABG HCO3 (21-25) mmol/L ABG Total CO2 (19-24) mmol/L ABG O2 Saturation (94-97) % Chloride (98-107) mmol/L BUN (9-20) mg/dL Creatinine (0.66-1.25) mg/dL Glucose (74-99) mg/dL POC Glucose (mg/dL) 162 H 143 H 140 H (75-99) mg/dL Calcium (8.4-10.2) mg/dL AST (17-59) U/L ALT (4-49) U/L Total Protein (6.3-8.2) g/dL Albumin (3.5-5.0) g/dL 10/18/20 10/18/20 10/18/20 Range/Units 04:30 04:30 04:57 RBC 4.29 L (4.30-5.90) m/uL Hgb 12.6 L (13.0-17.5) gm/dL Hct 37.4 L (39.0-53.0) % Neutrophils # 9.6 H (1.3-7.7) k/uL Lymphocytes # 0.4 L (1.0-4.8) k/uL ABG pO2 61 L (83-108) mmHg ABG HCO3 26 H (21-25) mmol/L ABG Total CO2 27 H (19-24) mmol/L ABG O2 Saturation 92.4 L (94-97) % Chloride 114 H (98-107) mmol/L BUN 32 H (9-20) mg/dL Creatinine 0.59 L (0.66-1.25) mg/dL Glucose 160 H (74-99) mg/dL POC Glucose (mg/dL) (75-99) mg/dL Calcium 7.5 L (8.4-10.2) mg/dL AST 62 H (17-59) U/L ALT 57 H (4-49) U/L Total Protein 4.6 L (6.3-8.2) g/dL Albumin 2.2 L (3.5-5.0) g/dL 10/18/20 10/18/20 Range/Units 05:58 11:48 RBC (4.30-5.90) m/uL Hgb (13.0-17.5) gm/dL Hct (39.0-53.0) % Neutrophils # (1.3-7.7) k/uL Lymphocytes # (1.0-4.8) k/uL ABG pO2 (83-108) mmHg ABG HCO3 (21-25) mmol/L ABG Total CO2 (19-24) mmol/L ABG O2 Saturation (94-97) % Chloride (98-107) mmol/L BUN (9-20) mg/dL Creatinine (0.66-1.25) mg/dL Glucose (74-99) mg/dL POC Glucose (mg/dL) 162 H 156 H (75-99) mg/dL Calcium (8.4-10.2) mg/dL AST (17-59) U/L ALT (4-49) U/L Total Protein (6.3-8.2) g/dL Albumin (3.5-5.0) g/dL Microbiology - Last 24 Hours (Table) 10/15/20 20:54 Gram Stain - Preliminary Sputum Sputum Culture - Preliminary Kay albicans 10/14/20 10:25 Blood Culture - Preliminary Blood No Growth after 72 hours 10/14/20 10:40 Blood Culture - Preliminary Blood No Growth after 72 hours Assessment and Plan Assessment: Acute hypoxic respiratory failure secondary to COVID pneumonia Mechanically ventilated Hypotonic hyponatremia History of asthma GERD Plan: This is a pleasant 55 years old male admitted with bilateral covid pneumonia. Continue with intubation and mechanical ventilation as per pulmonary/critical care team. Continue with steroids, gentle hydration and remdisvir as per pulmonary consultation and recommendation . Labs and medication were reviewed.. Continue same treatment. Continue with sym ptomatic treatment. Resume home medication. Monitor lytes and vitals. DVT and GI prophylaxis. Further recommendationsas per clinical course of the patient DVT prophylaxis: Subcutaneous Lovenox GI Prophylaxis: Pepcid Prognosis is guarded
[2020-10-19] MEDS: methylPREDNISolone SOD SUCCI 125 MG/2 ML VIAL IV SCH ×4 (00:42→17:22)
[2020-10-19] MEDS: ARTIFICIAL TEARS-HYPROMELLOSE DROPS 15 ML BTL BOTH EYES SCH ×6 (00:43→20:15)
[2020-10-19 01:50] LABS: Glucose,Whole Blood 127 mg/dL (75-99)
[2020-10-19] MEDS: INSULIN ASPART (NovoLOG) 100 UNIT/ML VIAL SQ SCH ×4 (03:57→17:45)
[2020-10-19 05:27] LABS: ABG Base Excess 3.2 mmol/L; ABG HCO3 28 mmol/L (21-25); ABG Oxygen Saturation 96.2 % (94-97); ABG PCO2 43 mmHg (35-45); ABG PH 7.42 (7.35-7.45); ABG PO2 78 mmHg (83-108); ABG TCO2 29 mmol/L (19-24); Allen Test Performed? Yes
[2020-10-19 05:45] LABS: C Reactive Protein 40.1 mg/L (<10.0); Magnesium 2.6 mg/dL (1.6-2.3)
[2020-10-19 05:48] LABS: Glucose,Whole Blood 140 mg/dL (75-99)
[2020-10-19 05:53] LABS: D-Dimer >34.10 mg/L FEU (<0.60); Fibrinogen 311 mg/dL (200-500); INR 1.1 (<1.2); Prothrombin Time 11.2 sec (9.0-12.0)
[2020-10-19 06:05] LABS: Partial Thromboplastin Time 21.4 sec (22.0-30.0)
[2020-10-19] MEDS: ALBUTEROL HFA INHALER INHALATION PRN ×3 (08:01→18:49)
--- NOTE | 2020-10-19 08:03 | XR ---
EXAMINATION TYPE: XR chest 1V portable DATE OF EXAM: 10/19/2020 CLINICAL HISTORY: Difficulty breathing progress study. TECHNIQUE: Single AP portable upright view of the chest is obtained. COMPARISON: Chest x-ray from one day earlier and older studies. FINDINGS: Stable endotracheal and orogastric tubes. Stable left internal jugular central venous cath eter. Heart size stable and upper limits of normal. Persistent bilateral multifocal opacities greatest in t he lower lumbar lungs. Tiny left pleural effusion redemonstrated. Osseous structures remain intact. IMPRESSION: Multifocal bilateral acute infiltrates and organizing basilar consolidations consistent w ith known covid-19 infection redemonstrated. Slight improvement from most recent x-ray noted.
[2020-10-19] MEDS: CHOLECALCIFEROL 1,000 UNIT TAB PO SCH (09:40)
[2020-10-19] MEDS: FAMOTIDINE 20 MG/2 ML VIAL IV SCH ×2 (09:40→20:15)
[2020-10-19] MEDS: ENOXAPARIN 80 MG/0.8 ML SYRINGE SQ SCH ×2 (09:40→20:14)
[2020-10-19] MEDS: CHLORHEXIDINE GLUCONATE 15 ML CUP MUCOUS MEM SCH ×2 (09:40→20:14)
[2020-10-19] MEDS: ATORVASTATIN 40 MG TAB PO SCH (09:40)
[2020-10-19] MEDS: CISATRACURIUM 200 MG in SODIUM CHLORIDE 0.9% 180 ML IV SCH (09:40)
[2020-10-19] MEDS: REMDESIVIR 100 MG in SODIUM CHLORIDE 0.9% 250 ML IVPB SCH (09:42)
[2020-10-19] MEDS: SODIUM CHLORIDE 0.9% 1,000 ML IV SCH (09:42)
[2020-10-19 09:48] LABS: HGB 12.9 gm/dL (13.0-17.5); MCH 29.7 pg (25.0-35.0); MCHC 33.9 g/dL (31.0-37.0); MCV 87.8 fL (80.0-100.0); Mean Platelet Volume 7.6; Platelet Count 128 k/uL (150-450); RBC 4.33 m/uL (4.30-5.90); WBC 12.2 k/uL (3.8-10.6)
--- NOTE | 2020-10-19 09:48 | PCN ---
PROCEDURE NOTE PROCEDURE: Left radial arterial line placement. PREOPERATIVE DIAGNOSIS: COVID-19 pneumonitis, hypoxic respiratory failure. POSTOPERATIVE DIAGNOSIS: COVID-19 pneumonitis, hypoxic respiratory failure. ARTERIAL LINE PLACEMENT: Indications: Hemodynamic monitoring. A time-out was completed verifying correct patient, procedure, site, positioning, and implant(s) or special equipment if applicable. Amrco Antonio's test was performed to ensure adequate perfusion. The patient's left wrist was prepped and draped in sterile fashion. 1% Lidocaine was used to anesthetize the area. An 18G Arrow arterial line was introduced into the left radial artery. The catheter was threaded over the guide wire and the needle was removed with appropriate pulsatile blood return. Blood loss was minimal. The catheter was then sutured in place to the skin and a sterile dressing applied. Perfusion to the extremity distal to the point of catheter insertion was checked and found to be adequate. The patient tolerated the procedure well and there were no complications. The patient tolerated the procedure well. A left radial arterial line was inserted. A good waveform was noted. Line was flushed, sutured in place. Sterile dressing was applied by the nursing staff. No immediate complications. MMODL / IJN: [id number] /
[2020-10-19 09:52] LABS: Ferritin 1033.1 ng/mL (22.0-322.0)
[2020-10-19 09:59] LABS: ALT 92 U/L (4-49); AST 63 U/L (17-59); African American GFR (CKD) >90 (>60 ml/min/1.73 sqM); Albumin 2.3 g/dL (3.5-5.0); Alkaline Phosphatase 63 U/L (38-126); Anion Gap 1 mmol/L; Blood Urea Nitrogen 45 mg/dL (9-20); Calcium 7.5 mg/dL (8.4-10.2); Carbon Dioxide 29 mmol/L (22-30); Chloride 112 mmol/L (98-107); Glucose 202 mg/dL (74-99); Non-African American GFR(CKD) >90 (>60 ml/min/1.73 sqM); Potassium 4.7 mmol/L (3.5-5.1); Sodium 142 mmol/L (137-145); Total Bilirubin 0.9 mg/dL (0.2-1.3); Total Protein 4.9 g/dL (6.3-8.2)
--- NOTE | 2020-10-19 10:53 | P.PN ---
Subjective Progress Note Date: 10/19/20 Principal diagnosis: COVID 19 pneumonia 55-year-old male who was admitted to the ICU yesterday. He came down to the ICU for acute hypoxemic respiratory failure secondary to COVID 19 pneumonia. Initially, we attempted to maintain him on BiPAP, but unfortunately, the patient's respiratory failure worsened and he required intubation and mechanical ventilation. He was intubated on October 15 and had an arterial line placed and a central line placed on the same day. Remains in the intensive care unit in room 250. Currently, he is on the volume assist control mode with the mechanical ventilation, with a respiratory rate of 24, tidal volume of 450, FiO2 of 80%, and PEEP of 15. The patient is currently getting saline at 75 mL an hour, propofol at 72 mcg/kg/m, norepinephrine 1 mcg/m, and he will start with enteral nutrition today. His arterial blood gases show a PaO2 of 73, PaCO2 of 42, and a pH is 7.38. His peak airway pressure is 35 cm water and his plateau pressure is 33 cm water. His chest x-ray appears to be a bit improved but likely is from the positive pressure ventilation. He received 1 dose of, convalescent plasma, and 1 dose of rendesivir. Progress note dated 10/17/2020. 55-year-old male admitted couple days ago in to the ICU. He came down from the floor. He developed acute hypoxemic respiratory failure, secondary to COVID 19 pneumonia. Initially, we attempted BiPAP therapy on him but unfortunate, his hypoxemia worsened, his respiratory status declined, and he was intubated and mechanically ventilated on 10/15/2020. On that same day, we placed a right radial art line and a left internal jugular triple-lumen catheter. Currently, he remains on the mechanical ventilator. He is on the volume assist control modality, rate 24, tidal volume 450, FiO2 65%, 15. Arterial blood gases show a PaO2 of 76, a PaCO2 of 41 and a pH of 7.39. The blood gases were actually done on 70%. Yesterday, he was prone for 16 hours. He is getting propofol at 60 g per kilogram per minute, normal saline at 75 mL an hour, and vital high protein at 33 mL an hour which is goal. The goal today, is to hopefully get him down to 50% at which time, we can consider making PEEP changes. Thus far microbiology is negative. Chest x-ray continues to show bilateral patchy infiltrates. The patient did receive 1 unit convalescent plasma, and 1 dose of remdesivir. Progress note dated 10/18/2020. 55-year-old male who was admitted to the intensive care unit on October 15. He was intubated and mechanically ventilated on the same day for COVID 19 p neumonia, with acute hypoxemic respiratory failure. Currently, he remains on the mechanical ventilator. He is on the volume assist control mode, with a rate of 24, tidal volume 450, FiO2 50%, and PEEP of 15. Arterial blood gases show a PaO2 of 61, a PaCO2 of 40, pH 7.42. The patient's on propofol at 70 mcg/kg/m, normal saline at 75 mL an hour, and vital high protein at goal, which is 33 mL an hour. Today's plan is to give the patient Lasix 40 mg IV push, the IV back to 40 mL an hour, and prone the patient again for 16 hours a day. His chest x- rays essentially unchanged. His oxygenation has improved. We have been able to wean him down from 100% down to 50%. He still remains on PEEP of 15. No PEEP changes until oxygenation improves. Progress note dated 10/19/2020. 55-year-old male, who was admitted to the intensive care unit on October 15. He was intubated and mechanically ventilated on the same day for COVID 19 pneumonia. The patient had developed acute hypoxemic respiratory failure. Currently, he is on the volume assist control modality, rate 24, tidal volume 450, FiO2 50%, and a PEEP of 15. Arterial blood gases show a PaO2 of 78, a PaCO2 of 43, and a pH is 7.42. We are going to drop his PEEP from 15 to 12 today. Over the last couple of days, he has been prone to up to 16 hours per day. He does need a new radial art line. The other one came out. We've incre ase his Lovenox up to 80 mg subcu twice a day because of an elevated dimer. In addition, the patient's getting saline at 80 mL an hour, propofol at 70 mcg/kg/m, Nimbex at 1.5 mcg/kg/m, with [id number] monitoring, and vital high protein at 45 mL an hour with a goal of 64 mL an hour. The patient has made improvements over the last couple of days, and my opinion, related to being proned 16 hours a day. Objective - Vital Signs Vital signs: Vital Signs Temp 98.2 F 10/19/20 08:00 Pulse 58 L 10/19/20 10:00 Resp 29 H 10/19/20 10:00 BP 159/90 10/19/20 10:00 Pulse Ox 94 L 10/19/20 10:00 Intake & Output 10/18/20 10/19/20 10/19/20 18:59 06:59 18:59 Intake Total 1165.673 987.612 596.491 Output Total 2475 795 130 Balance -1309.327 192.612 466.491 Weight 78.5 kg 81.1 kg Intake: IV 760 480 166 0.9 Normal Saline 6 Pressure Bag @ 3mL/hr Remdesivir 100 mg In 250 Sodium Chloride 0.9% 250 ml @ 250 mls/hr IVPB DAILY@1000 [facility] Rx#: [id number] Sodium Chloride 0.9% 1, 440 160 000 ml @ 40 mls/hr IV . Q24H [facility] Rx#:[id number] Sodium Chloride 0.9% 1, 510 40 000 ml @ 75 mls/hr IV . [id number] [facility] Rx#:[id number] Intake, IV Titration 306.673 417.612 220.491 Amount Cisatracurium 200 mg In 6.673 138.474 28.967 Sodium Chloride 0.9% 180 ml @ 1 MCG/KG/MIN 4.71 mls/hr IV .Q24H [facility] Rx#: [id number] propofoL 1,000 mg In 300 279.138 191.524 Empty Bag 1 bag @ Titrate IV .Q0M [facility] Rx#: [id number] Tube Feeding 99 90 180 Other 30 Output: Urine 2475 795 130 Other: Voiding Method Indwelling Catheter Indwelling Catheter # Bowel Movements 1 ABP, PAP, CO, CI - Last Documented Arterial Blood Pressure 125/72 - Exam No acute distress, sedated and paralyzed, with an orally placed endotracheal tube and nasogastric tube. HEENT examination is grossly unremarkable. Mucous membranes are moist. The patient does have a orally placed endotracheal tube. Neck supple. Full range of motion. No adenopathy thyromegaly or neck vein distention. A left internal jugular triple-lumen catheter is noted. Cardiovascular examination reveals regular rhythm rate. S1-S2 normal. No S3 or S4. No discernible murmur noted. Heart rate is 58 bpm and heart sounds are distant. Lungs reveal diminished breath sounds bilaterally. Breath sounds are coarse. Crackles are noted. Breath sounds are equal bilaterally. No wheezes are appreciated.. Abdomen is soft without bowel sounds. No masses are noted. Extremities are intact. No cyanosis clubbing or edema. He now has a left radial arterial line. Skin is without rash or lesion. Neurologic examination is difficult to assess given his current level of sedation and paralysis. - Labs CBC & Chem 7: 10/19/20 09:30 10/19/20 09:30 Labs: Abnormal Lab Results - Last 24 Hours (Table) 10/18/20 10/18/20 10/18/20 Range/Units 04:30 11:48 17:24 WBC (3.8-10.6) k/uL Hgb (13.0-17.5) gm/dL Hct (39.0-53.0) % Plt Count (150-450) k/uL APTT (22.0-30.0) sec D-Dimer (<0.60) mg/L FEU ABG pO2 (83-108) mmHg ABG HCO3 (21-25) mmol/L ABG Total CO2 (19-24) mmol/L Chloride (98-107) mmol/L BUN (9-20) mg/dL Glucose (74-99) mg/dL POC Glucose (mg/dL) 156 H 116 H (75-99) mg/dL Hemoglobin A1c 6.2 H (4.0-6.0) % Calcium (8.4-10.2) mg/dL Magnesium (1.6-2.3) mg/dL Ferritin (22.0-322.0) ng/mL AST (17-59) U/L ALT (4-49) U/L Lactate Dehydrogenase (313-618) U/L Creatine Kinase (55-170) U/L C-Reactive Protein (<10.0) mg/L Total Protein (6.3-8.2) g/dL Albumin (3.5-5.0) g/dL 10/19/20 10/19/20 10/19/20 Range/Units 01:48 05:05 05:05 WBC (3.8-10.6) k/uL Hgb (13.0-17.5) gm/dL Hct (39.0-53.0) % Plt Count (150-450) k/uL APTT 21.4 L (22.0-30.0) sec D-Dimer >34.10 H (<0.60) mg/L FEU ABG pO2 (83-108) mmHg ABG HCO3 (21-25) mmol/L ABG Total CO2 (19-24) mmol/L Chloride (98-107) mmol/L BUN (9-20) mg/dL Glucose (74-99) mg/dL POC Glucose (mg/dL) 127 H (75-99) mg/dL Hemoglobin A1c (4.0-6.0) % Calcium (8.4-10.2) mg/dL Magnesium 2.6 H (1.6-2.3) mg/dL Ferritin 1033.1 H (22.0-322.0) ng/mL AST (17-59) U/L ALT (4-49) U/L Lactate Dehydrogenase 1455 H (313-618) U/L Creatine Kinase 244 H (55-170) U/L C-Reactive Protein 40.1 H (<10.0) mg/L Total Protein (6.3-8.2) g/dL Albumin (3.5-5.0) g/dL 10/19/20 10/19/20 10/19/20 Range/Units 05:25 05:46 09:30 WBC 12.2 H (3.8-10.6) k/uL Hgb 12.9 L (13.0-17.5) gm/dL Hct 38.0 L (39.0-53.0) % Plt Count 128 L (150-450) k/uL APTT (22.0-30.0) sec D-Dimer (<0.60) mg/L FEU ABG pO2 78 L (83-108) mmHg ABG HCO3 28 H (21-25) mmol/L ABG Total CO2 29 H (19-24) mmol/L Chloride (98-107) mmol/L BUN (9-20) mg/dL Glucose (74-99) mg/dL POC Glucose (mg/dL) 140 H (75-99) mg/dL Hemoglobin A1c (4.0-6.0) % Calcium (8.4-10.2) mg/dL Magnesium (1.6-2.3) mg/dL Ferritin (22.0-322.0) ng/mL AST (17-59) U/L ALT (4-49) U/L Lactate Dehydrogenase (313-618) U/L Creatine Kinase (55-170) U/L C-Reactive Protein (<10.0) mg/L Total Protein (6.3-8.2) g/dL Albumin (3.5-5.0) g/dL 10/19/20 Range/Units 09:30 WBC (3.8-10.6) k/uL Hgb (13.0-17.5) gm/dL Hct (39.0-53.0) % Plt Count (150-450) k/uL APTT (22.0-30.0) sec D-Dimer (<0.60) mg/L FEU ABG pO2 (83-108) mmHg ABG HCO3 (21-25) mmol/L ABG Total CO2 (19-24) mmol/L Chloride 112 H (98-107) mmol/L BUN 45 H (9-20) mg/dL Glucose 202 H (74-99) mg/dL POC Glucose (mg/dL) (75-99) mg/dL Hemoglobin A1c (4.0-6.0) % Calcium 7.5 L (8.4-10.2) mg/dL Magnesium (1.6-2.3) mg/dL Ferritin (22.0-322.0) ng/mL AST 63 H (17-59) U/L ALT 92 H (4-49) U/L Lactate Dehydrogenase (313-618) U/L Creatine Kinase (55-170) U/L C-Reactive Protein (<10.0) mg/L Total Protein 4.9 L (6.3-8.2) g/dL Albumin 2.3 L (3.5-5.0) g/dL Microbiology - Last 24 Hours (Table) 10/14/20 10:25 Blood Culture - Preliminary Blood No Growth after 96 hours 10/14/20 10:40 Blood Culture - Preliminary Blood No Growth after 96 hours 10/15/20 20:54 Gram Stain - Preliminary Sputum Sputum Culture - Preliminary Kay albicans Assessment and Plan Assessment: Acute hypoxemic respiratory failure secondary to COVID 19 pneumonia. Intubation and mechanical ventilation secondary to #1, on 10/15/2020. Acute respiratory distress syndrome (ARDS). History of hyperlipidemia. History of chronic bronchial asthma. History of gastroesophageal reflux disease. Placement of radial art line and central line on 10/15/2020. New left radial arterial line placed on 10/19/2020. Plan: Plan dated 10/19/2020. Currently, the patient seems be doing a bit better. He had a new left radial art line placed today. The other R line went back. His Lovenox was increased to 80 mg subcutaneously, twice a day, because his d-dimer was elevated. Because his arterial blood gases were improved, we dropped his peak level from 15 down to 12. He remains on propofol at 70 mcg/kg/m, and Nimbex at 1.5 g kilogram per minute, with [id number] monitoring. He is getting enteral nutrition. We'll advance it to goal levels. Additional recommendations suggestions are forthcoming. Prognosis is guarded. The patient will be proned for 16 hours today again. Time with Patient: Greater than 30
[2020-10-19 13:01] LABS: Glucose,Whole Blood 156 mg/dL (75-99)
[2020-10-19 17:43] LABS: Glucose,Whole Blood 137 mg/dL (75-99)
--- NOTE | 2020-10-19 21:48 | P.PN ---
Subjective HPI - Patient is a 55-year-old male came in with complaints of increasing shortness of breath over the past week. Patient was diagnosed with Covid 6 days ago. He has completed a course of steroids as well as Z-Douglas. Patient states over the past week he's been fighting fevers, body aches, chills and nausea. Patient states his shortness of breath has been steadily increasing. He gets winded with just walking around his house. He does admit to some chest pain when he is coughing. He does have some production with his cough. He does admit to history of asthma, denies heart disease. He states his last dose of Tylenol was last night. He denies any vomiting, no dysuria. Patient is febrile 100.4, pulse is 96, he is satting 88% on room air. Patient had a chest x-ray which showed diffuse bilateral infiltrates. Patient is presently on 2 L of oxygen saturating 93% patient was having fevers at home patient had a low-grade fever here. Patient has elevated inflammatory markers along with the low sodium. On 10/15/2020 - last night patient became more short of breath, so he was shifted to the ICU. Initially the patient was placed on BiPAP, patient was staffed neck and saturating in the high 80s and so eventually he had to be intu bated around noon. Currently he is mechanically ventilated and sedated. Reviewing the vitals patient is tachycardic between 100-110, saturating in the low 80s on 100% FiO2, blood pressure 1 50 x 92. Patient has been started on Solu-Medrol, Remdesivir, Lovenox and breathing treatments. On reviewing the labs white count of 6.1, hemoglobin 14.7, platelets 162. Sodium 133, potassium 4.2, chloride 102, bicarb 28, BUN 17, creatinine 0.79. Ferritin 624, magnesium 1.5, albumin 2.9. 10/16/2020 Patient is seen and examined in the ICU. He was admitted for Covid bilateral pneumonia. These with acute hypoxic respiratory failure needing intubation and mechanical ventilation with pulmonary/critical care team following the patient closely. He's undergoing prone position for 16 hours per day. Also he is getting Remidsivir and he is a status post convalescent plasma . Patient does not need pressors as his vitals are stable. And he is on tube feeding. Patient is currently sedated. Labs reviewed 10/17/2020 Patient remains in the ICU sedated and intubated. He is undergoing prone position with the goal 16 hours per day. He is febrile but tachypneic. Labs reviewed including CBC and BMP showing no significant changes. And sputum culture is growing Kay albicans. Chest x-ray showing the same bilateral infiltrates with right more than left related to his covid pneumonia. And he remains on Solu-Medrol 60 mg, remdisvir and normal saline at 75 mL/h. Pulmonary/critical care team R following the patient closely and the recommend to continue the current management and keep monitoring 10/18/2020 pt jana in ICU intubated sedated , with critical care team following him closely and adjusting his vent setting, he is currently needing high doseo f PEEP at 15 cxr from today showing small new bilateral pleural effusion , with basilar consolidation consistent wiht known covid 19 infection tomorrow is last dose of Remdisvir he remains on solumedrol 60 mg and gentl hydration Objective - Vital Signs Vital signs: Vital Signs Temp 98.2 F 10/19/20 12:00 Pulse 69 10/19/20 19:00 Resp 25 H 10/19/20 19:00 BP 150/86 10/19/20 19:00 Pulse Ox 95 10/19/20 19:00 Intake & Output 10/19/20 10/19/20 10/20/20 06:59 18:59 06:59 Intake Total 762.714 7502.020 43 Output Total 795 605 40 Balance 192.612 616.020 3 Weight 81.1 kg 81.1 kg Intake: IV 480 510 43 0.9 Normal Saline 30 3 Pressure Bag @ 3mL/hr Sodium Chloride 0.9% 1, 440 480 40 000 ml @ 40 mls/hr IV . Q24H [facility] Rx#:[id number] Sodium Chloride 0.9% 1, 40 000 ml @ 75 mls/hr IV . [id number] [facility] Rx#:[id number] Intake, IV Titration 417.612 501.020 Amount Cisatracurium 200 mg In 138.474 28.967 Sodium Chloride 0.9% 180 ml @ 1 MCG/KG/MIN 4.71 mls/hr IV .Q24H [facility] Rx#: [id number] propofoL 1,000 mg In 279.138 472.053 Empty Bag 1 bag @ Titrate IV .Q0M [facility] Rx#: [id number] Tube Feeding 90 180 Other 30 Output: Urine 795 605 40 Other: Voiding Method Indwelling Catheter Indwelling Catheter # Bowel Movements 1 ABP, PAP, CO, CI - Last Documented Arterial Blood Pressure 103/93 - Labs CBC & Chem 7: 10/19/20 09:30 10/19/20 09:30 Labs: Abnormal Lab Results - Last 24 Hours (Table) 10/19/20 10/19/20 10/19/20 Range/Units 01:48 05:05 05:05 WBC (3.8-10.6) k/uL Hgb (13.0-17.5) gm/dL Hct (39.0-53.0) % Plt Count (150-450) k/uL APTT 21.4 L (22.0-30.0) sec D-Dimer >34.10 H (<0.60) mg/L FEU ABG pO2 (83-108) mmHg ABG HCO3 (21-25) mmol/L ABG Total CO2 (19-24) mmol/L Chloride (98-107) mmol/L BUN (9-20) mg/dL Glucose (74-99) mg/dL POC Glucose (mg/dL) 127 H (75-99) mg/dL Calcium (8.4-10.2) mg/dL Magnesium 2.6 H (1.6-2.3) mg/dL Ferritin 1033.1 H (22.0-322.0) ng/mL AST (17-59) U/L ALT (4-49) U/L Lactate Dehydrogenase 1455 H (313-618) U/L Creatine Kinase 244 H (55-170) U/L C-Reactive Protein 40.1 H (<10.0) mg/L Total Protein (6.3-8.2) g/dL Albumin (3.5-5.0) g/dL 10/19/20 10/19/20 10/19/20 Range/Units 05:25 05:46 09:30 WBC 12.2 H (3.8-10.6) k/uL Hgb 12.9 L (13.0-17.5) gm/dL Hct 38.0 L (39.0-53.0) % Plt Count 128 L (150-450) k/uL APTT (22.0-30.0) sec D-Dimer (<0.60) mg/L FEU ABG pO2 78 L (83-108) mmHg ABG HCO3 28 H (21-25) mmol/L ABG Total CO2 29 H (19-24) mmol/L Chloride (98-107) mmol/L BUN (9-20) mg/dL Glucose (74-99) mg/dL POC Glucose (mg/dL) 140 H (75-99) mg/dL Calcium (8.4-10.2) mg/dL Magnesium (1.6-2.3) mg/dL Ferritin (22.0-322.0) ng/mL AST (17-59) U/L ALT (4-49) U/L Lactate Dehydrogenase (313-618) U/L Creatine Kinase (55-170) U/L C-Reactive Protein (<10.0) mg/L Total Protein (6.3-8.2) g/dL Albumin (3.5-5.0) g/dL 10/19/20 10/19/20 10/19/20 Range/Units 09:30 12:59 17:42 WBC (3.8-10.6) k/uL Hgb (13.0-17.5) gm/dL Hct (39.0-53.0) % Plt Count (150-450) k/uL APTT (22.0-30.0) sec D-Dimer (<0.60) mg/L FEU ABG pO2 (83-108) mmHg ABG HCO3 (21-25) mmol/L ABG Total CO2 (19-24) mmol/L Chloride 112 H (98-107) mmol/L BUN 45 H (9-20) mg/dL Glucose 202 H (74-99) mg/dL POC Glucose (mg/dL) 156 H 137 H (75-99) mg/dL Calcium 7.5 L (8.4-10.2) mg/dL Magnesium (1.6-2.3) mg/dL Ferritin (22.0-322.0) ng/mL AST 63 H (17-59) U/L ALT 92 H (4-49) U/L Lactate Dehydrogenase (313-618) U/L Creatine Kinase (55-170) U/L C-Reactive Protein (<10.0) mg/L Total Protein 4.9 L (6.3-8.2) g/dL Albumin 2.3 L (3.5-5.0) g/dL Microbiology - Last 24 Hours (Table) 10/14/20 10:25 Blood Culture - Preliminary Blood No Growth after 120 hours 10/14/20 10:40 Blood Culture - Preliminary Blood No Growth after 120 hours Assessment and Plan Assessment: Acute hypoxic respiratory failure secondary to COVID pneumonia Mechanically ventilated Hypotonic hyponatremia History of asthma GERD Plan: This is a pleasant 55 years old male admitted with bilateral covid pneumonia. Continue with intubation and mechanical ventilation as per pulmonary/critical care team. Continue with steroids, gentle hydration and Lovenox as per pulmonary consultation and recommendation . He finished remdesivir Labs and medication were reviewed.. Continue same treatment. Continue with symptomatic treatment. Resume home medication. Monitor lytes and vitals. DVT and GI prophylaxis. Further recommendations as per clinical course of the patient DVT prophylaxis: Subcutaneous Lovenox GI Prophylaxis: Pepcid Prognosis is guarded
[2020-10-20 00:11] LABS: Glucose,Whole Blood 139 mg/dL (75-99)
[2020-10-20] MEDS: INSULIN ASPART (NovoLOG) 100 UNIT/ML VIAL SQ SCH ×5 (00:11→23:57)
[2020-10-20] MEDS: methylPREDNISolone SOD SUCCI 125 MG/2 ML VIAL IV SCH ×5 (00:12→23:50)
[2020-10-20] MEDS: ARTIFICIAL TEARS-HYPROMELLOSE DROPS 15 ML BTL BOTH EYES SCH ×7 (00:12→23:50)
[2020-10-20] MEDS: SODIUM CHLORIDE 0.9% 1,000 ML IV SCH (01:09)
[2020-10-20] MEDS: CISATRACURIUM 200 MG in SODIUM CHLORIDE 0.9% 180 ML IV SCH (03:05)
[2020-10-20 05:07] LABS: HCT 37.1 % (39.0-53.0); HGB 12.8 gm/dL (13.0-17.5); MCHC 34.5 g/dL (31.0-37.0); Mean Platelet Volume 8.3; Platelet Count 143 k/uL (150-450); RBC 4.26 m/uL (4.30-5.90); RDW 13.1 % (11.5-15.5); WBC 13.1 k/uL (3.8-10.6)
[2020-10-20 05:16] LABS: ALT 76 U/L (4-49); AST 37 U/L (17-59); African American GFR (CKD) >90 (>60 ml/min/1.73 sqM); Albumin 2.2 g/dL (3.5-5.0); Alkaline Phosphatase 62 U/L (38-126); Anion Gap 0 mmol/L; Blood Urea Nitrogen 44 mg/dL (9-20); Calcium 7.5 mg/dL (8.4-10.2); Carbon Dioxide 27 mmol/L (22-30); Chloride 113 mmol/L (98-107); Glucose 151 mg/dL (74-99); Non-African American GFR(CKD) >90 (>60 ml/min/1.73 sqM); Potassium 5.1 mmol/L (3.5-5.1); Sodium 140 mmol/L (137-145); Total Bilirubin 0.8 mg/dL (0.2-1.3); Total Protein 4.9 g/dL (6.3-8.2)
[2020-10-20 05:37] LABS: ABG Base Excess 2.9 mmol/L; ABG HCO3 27 mmol/L (21-25); ABG Oxygen Saturation 96.8 % (94-97); ABG PCO2 41 mmHg (35-45); ABG PH 7.43 (7.35-7.45); ABG PO2 87 mmHg (83-108); ABG TCO2 29 mmol/L (19-24); Allen Test Performed? Yes
[2020-10-20] MEDS: ALBUTEROL HFA INHALER INHALATION PRN ×4 (07:33→20:00)
--- NOTE | 2020-10-20 07:46 | XR ---
EXAMINATION TYPE: XR chest 1V portable DATE OF EXAM: 10/20/2020 COMPARISON: Prior chest x-ray 10/19/2020 HISTORY: Intubated TECHNIQUE: Single frontal view of the chest is obtained. FINDINGS: Endotracheal tube, orogastric tube, left jugular central venous catheter are stable and ov erlying appropriate positions. Bilateral groundglass opacity, airspace disease again noted. No eviden t pneumothorax or pleural effusion. Cardiac mediastinal silhouette is stable. IMPRESSION: Stable findings consistent with edema versus pneumonia.
[2020-10-20] MEDS ORDERED: FUROSEMIDE 10 MG/ML 4 ML VIAL IV STA (08:07)
[2020-10-20] MEDS: ENOXAPARIN 80 MG/0.8 ML SYRINGE SQ SCH ×2 (08:42→20:26)
[2020-10-20] MEDS: FAMOTIDINE 20 MG/2 ML VIAL IV SCH ×2 (08:42→20:25)
[2020-10-20] MEDS: CHLORHEXIDINE GLUCONATE 15 ML CUP MUCOUS MEM SCH ×2 (08:42→20:25)
[2020-10-20] MEDS: CHOLECALCIFEROL 1,000 UNIT TAB PO SCH (08:42)
[2020-10-20] MEDS: ATORVASTATIN 40 MG TAB PO SCH (08:42)
[2020-10-20 12:17] LABS: Glucose,Whole Blood 190 mg/dL (75-99)
[2020-10-20] MEDS: fentaNYL (PF) 1,000 MCG in SODIUM CHLORIDE 0.9% 80 ML IV SCH (12:40)
--- NOTE | 2020-10-20 12:41 | P.PN ---
Subjective Progress Note Date: 10/20/20 Principal diagnosis: COVID 19 pneumonia 55-year-old male who was admitted to the ICU yesterday. He came down to the ICU for acute hypoxemic respiratory failure secondary to COVID 19 pneumonia. Initially, we attempted to maintain him on BiPAP, but unfortunately, the patient's respiratory failure worsened and he required intubation and mechanical ventilation. He was intubated on October 15 and had an arterial line placed and a central line placed on the same day. Remains in the intensive care unit in room 250. Currently, he is on the volume assist control mode with the mechanical ventilation, with a respiratory rate of 24, tidal volume of 450, FiO2 of 80%, and PEEP of 15. The patient is currently getting saline at 75 mL an hour, propofol at 72 mcg/kg/m, norepinephrine 1 mcg/m, and he will start with enteral nutrition today. His arterial blood gases show a PaO2 of 73, PaCO2 of 42, and a pH is 7.38. His peak airway pressure is 35 cm water and his plateau pressure is 33 cm water. His chest x-ray appears to be a bit improved but likely is from the positive pressure ventilation. He received 1 dose of, convalescent plasma, and 1 dose of rendesivir. Progress note dated 10/17/2020. 55-year-old male admitted couple days ago in to the ICU. He came down from the floor. He developed acute hypoxemic respiratory failure, secondary to COVID 19 pneumonia. Initially, we attempted BiPAP therapy on him but unfortunate, his hypoxemia worsened, his respiratory status declined, and he was intubated and mechanically ventilated on 10/15/2020. On that same day, we placed a right radial art line and a left internal jugular triple-lumen catheter. Currently, he remains on the mechanical ventilator. He is on the volume assist control modality, rate 24, tidal volume 450, FiO2 65%, 15. Arterial blood gases show a PaO2 of 76, a PaCO2 of 41 and a pH of 7.39. The blood gases were actually done on 70%. Yesterday, he was prone for 16 hours. He is getting propofol at 60 g per kilogram per minute, normal saline at 75 mL an hour, and vital high protein at 33 mL an hour which is goal. The goal today, is to hopefully get him down to 50% at which time, we can consider making PEEP changes. Thus far microbiology is negative. Chest x-ray continues to show bilateral patchy infiltrates. The patient did receive 1 unit convalescent plasma, and 1 dose of remdesivir. Progress note dated 10/18/2020. 55-year-old male who was admitted to the intensive care unit on October 15. He was intubated and mechanically ventilated on the same day for COVID 19 p neumonia, with acute hypoxemic respiratory failure. Currently, he remains on the mechanical ventilator. He is on the volume assist control mode, with a rate of 24, tidal volume 450, FiO2 50%, and PEEP of 15. Arterial blood gases show a PaO2 of 61, a PaCO2 of 40, pH 7.42. The patient's on propofol at 70 mcg/kg/m, normal saline at 75 mL an hour, and vital high protein at goal, which is 33 mL an hour. Today's plan is to give the patient Lasix 40 mg IV push, the IV back to 40 mL an hour, and prone the patient again for 16 hours a day. His chest x- rays essentially unchanged. His oxygenation has improved. We have been able to wean him down from 100% down to 50%. He still remains on PEEP of 15. No PEEP changes until oxygenation improves. Progress note dated 10/19/2020. 55-year-old male, who was admitted to the intensive care unit on October 15. He was intubated and mechanically ventilated on the same day for COVID 19 pneumonia. The patient had developed acute hypoxemic respiratory failure. Currently, he is on the volume assist control modality, rate 24, tidal volume 450, FiO2 50%, and a PEEP of 15. Arterial blood gases show a PaO2 of 78, a PaCO2 of 43, and a pH is 7.42. We are going to drop his PEEP from 15 to 12 today. Over the last couple of days, he has been prone to up to 16 hours per day. He does need a new radial art line. The other one came out. We've incre ase his Lovenox up to 80 mg subcu twice a day because of an elevated dimer. In addition, the patient's getting saline at 80 mL an hour, propofol at 70 mcg/kg/m, Nimbex at 1.5 mcg/kg/m, with [id number] monitoring, and vital high protein at 45 mL an hour with a goal of 64 mL an hour. The patient has made improvements over the last couple of days, and my opinion, related to being proned 16 hours a day. Progress note dated 10/20/2020. 55-year-old male, who was admitted to the intensive care unit on October 15. He was intubated and mechanically ventilated on the same day, for acute hypoxemic respiratory failure, secondary to COVID 19 pneumonia. Initially, the patient required a PEEP of 15, and 100%, but, with proning, 16 hours a day, the patient has been weaned down to 50% FiO2, and we will drop his PEEP from 12 to 8 cm water. We will discontinue his Nimbex today. He will not have proning today. He will get Lasix 40 mg IV push today. In addition, we will start the patient on a fentanyl drip. He is on the volume assist control modality, rate 24, tidal volume 450, FiO2 50%, and a PEEP of 12, which be dropped to 8 cm water. His blood gases show a PaO2 of 87, PaCO2 41, and a pH is 7.43. He is getting saline at 40 mL an hour, Nimbex, at 2 mcg/kg/m, propofol 70 mcg/kg/m, and vital high protein at goal, which is 64 mL an hour. We will discontinue his Nimbex today in favor of fentanyl. His chest x-ray continues to show bilateral patchy infiltrates. Objective - Vital Signs Vital signs: Vital Signs Temp 97.9 F 10/20/20 12:00 Pulse 61 10/20/20 12:00 Resp 29 H 10/20/20 12:00 BP 136/80 10/20/20 12:00 Pulse Ox 92 L 10/20/20 12:00 Intake & Output 10/19/20 10/20/20 10/20/20 18:59 06:59 18:59 Intake Total 1680.810 5697.512 991.723 Output Total 408 834 4109 Balance 616.020 507.512 -1358.277 Weight 81.1 kg 80.9 kg Intake: IV 510 516 258 0.9 Normal Saline 30 36 18 Pressure Bag @ 3mL/hr Sodium Chloride 0.9% 1, 480 480 240 000 ml @ 40 mls/hr IV . Q24H [facility] Rx#:[id number] Intake, IV Titration 501.020 459.512 185.723 Amount Cisatracurium 200 mg In 28.967 159.512 Sodium Chloride 0.9% 180 ml @ 1 MCG/KG/MIN 4.71 mls/hr IV .Q24H [facility] Rx#: [id number] propofoL 1,000 mg In 472.053 300 185.723 Empty Bag 1 bag @ Titrate IV .Q0M [facility] Rx#: [id number] Tube Feeding 180 192 448 Other 30 30 100 Output: Urine 601 631 5120 Other: Voiding Method Indwelling Catheter Indwelling Catheter Indwelling Catheter # Bowel Movements 1 ABP, PAP, CO, CI - Last Documented Arterial Blood Pressure 103/93 - Exam No acute distress, sedated and paralyzed, with an orally placed endotracheal tube and nasogastric tube. HEENT examination is grossly unremarkable. Mucous membranes are moist. The patient does have a orally placed endotracheal tube. Neck supple. Full range of motion. No adenopathy thyromegaly or neck vein distention. A left internal jugular triple-lumen catheter is noted. Cardiovascular examination reveals regular rhythm rate. S1-S2 normal. No S3 or S4. No discernible murmur noted. Heart rate is 61 bpm and heart sounds are distant. Lungs reveal diminished breath sounds bilaterally. Breath sounds are coarse. Crackles are noted. Breath sounds are equal bilaterally. No wheezes are appreciated.. Abdomen is soft without bowel sounds. No masses are noted. Extremities are intact. No cyanosis clubbing or edema. He now has a left radial arterial line. Skin is without rash or lesion. Neurologic examination is difficult to assess given his current level of sedation and paralysis. - Labs CBC & Chem 7: 10/20/20 04:16 10/20/20 04:16 Labs: Abnormal Lab Results - Last 24 Hours (Table) 10/19/20 10/19/20 10/20/20 Range/Units 12:59 17:42 00:09 WBC (3.8-10.6) k/uL RBC (4.30-5.90) m/uL Hgb (13.0-17.5) gm/dL Hct (39.0-53.0) % Plt Count (150-450) k/uL ABG HCO3 (21-25) mmol/L ABG Total CO2 (19-24) mmol/L Chloride (98-107) mmol/L BUN (9-20) mg/dL Creatinine (0.66-1.25) mg/dL Glucose (74-99) mg/dL POC Glucose (mg/dL) 156 H 137 H 139 H (75-99) mg/dL Calcium (8.4-10.2) mg/dL ALT (4-49) U/L Total Protein (6.3-8.2) g/dL Albumin (3.5-5.0) g/dL 10/20/20 10/20/20 10/20/20 Range/Units 04:16 04:16 05:32 WBC 13.1 H (3.8-10.6) k/uL RBC 4.26 L (4.30-5.90) m/uL Hgb 12.8 L (13.0-17.5) gm/dL Hct 37.1 L (39.0-53.0) % Plt Count 143 L (150-450) k/uL ABG HCO3 27 H (21-25) mmol/L ABG Total CO2 29 H (19-24) mmol/L Chloride 113 H (98-107) mmol/L BUN 44 H (9-20) mg/dL Creatinine 0.49 L (0.66-1.25) mg/dL Glucose 151 H (74-99) mg/dL POC Glucose (mg/dL) (75-99) mg/dL Calcium 7.5 L (8.4-10.2) mg/dL ALT 76 H (4-49) U/L Total Protein 4.9 L (6.3-8.2) g/dL Albumin 2.2 L (3.5-5.0) g/dL 10/20/20 Range/Units 12:15 WBC (3.8-10.6) k/uL RBC (4.30-5.90) m/uL Hgb (13.0-17.5) gm/dL Hct (39.0-53.0) % Plt Count (150-450) k/uL ABG HCO3 (21-25) mmol/L ABG Total CO2 (19-24) mmol/L Chloride (98-107) mmol/L BUN (9-20) mg/dL Creatinine (0.66-1.25) mg/dL Glucose (74-99) mg/dL POC Glucose (mg/dL) 190 H (75-99) mg/dL Calcium (8.4-10.2) mg/dL ALT (4-49) U/L Total Protein (6.3-8.2) g/dL Albumin (3.5-5.0) g/dL Microbiology - Last 24 Hours (Table) 10/15/20 20:54 Gram Stain - Final Sputum Sputum Culture - Final Kay albicans 10/14/20 10:25 Blood Culture - Preliminary Blood No Growth after 120 hours 10/14/20 10:40 Blood Culture - Preliminary Blood No Growth after 120 hours Assessment and Plan Assessment: Acute hypoxemic respiratory failure secondary to COVID 19 pneumonia. Intubation and mechanical ventilation secondary to #1, on 10/15/2020. Acute respiratory distress syndrome (ARDS). History of hyperlipidemia. History of chronic bronchial asthma. History of gastroesophageal reflux disease. Placement of radial art line and central line on 10/15/2020. New left radial arterial line placed on 10/19/2020. Plan: Plan dated 10/20/2020. The patient's PEEP level we drop from 12 cm water to 8 cm water. His blood gases today show a PaO2 of 87, a PaCO2 41, and a pH is 7.43. We will discontinue the Nimbex, in favor of fentanyl. The patient will continue on propofol at 70 mcg/kg/m. He is getting enterally nourished. In addition, the patient will not have any proning today. The patient will get Lasix 40 mg IV push today. Chest x-ray is essentially unchanged. His overall prognosis remains guarded. He has shown improvement which is positive. Additional recommendations and suggestions are forthcoming. We will continue to follow him closely. Time with Patient: Greater than 30
[2020-10-20 18:30] LABS: Glucose,Whole Blood 195 mg/dL (75-99)
--- NOTE | 2020-10-20 22:17 | P.PN ---
Subjective HPI - Patient is a 55-year-old male came in with complaints of increasing shortness of breath over the past week. Patient was diagnosed with Covid 6 days ago. He has completed a course of steroids as well as Z-Douglas. Patient states over the past week he's been fighting fevers, body aches, chills and nausea. Patient states his shortness of breath has been steadily increasing. He gets winded with just walking around his house. He does admit to some chest pain when he is coughing. He does have some production with his cough. He does admit to history of asthma, denies heart disease. He states his last dose of Tylenol was last night. He denies any vomiting, no dysuria. Patient is febrile 100.4, pulse is 96, he is satting 88% on room air. Patient had a chest x-ray which showed diffuse bilateral infiltrates. Patient is presently on 2 L of oxygen saturating 93% patient was having fevers at home patient had a low-grade fever here. Patient has elevated inflammatory markers along with the low sodium. On 10/15/2020 - last night patient became more short of breath, so he was shifted to the ICU. Initially the patient was placed on BiPAP, patient was staffed neck and saturating in the high 80s and so eventually he had to be intu bated around noon. Currently he is mechanically ventilated and sedated. Reviewing the vitals patient is tachycardic between 100-110, saturating in the low 80s on 100% FiO2, blood pressure 1 50 x 92. Patient has been started on Solu-Medrol, Remdesivir, Lovenox and breathing treatments. On reviewing the labs white count of 6.1, hemoglobin 14.7, platelets 162. Sodium 133, potassium 4.2, chloride 102, bicarb 28, BUN 17, creatinine 0.79. Ferritin 624, magnesium 1.5, albumin 2.9. 10/16/2020 Patient is seen and examined in the ICU. He was admitted for Covid bilateral pneumonia. These with acute hypoxic respiratory failure needing intubation and mechanical ventilation with pulmonary/critical care team following the patient closely. He's undergoing prone position for 16 hours per day. Also he is getting Remidsivir and he is a status post convalescent plasma . Patient does not need pressors as his vitals are stable. And he is on tube feeding. Patient is currently sedated. Labs reviewed 10/17/2020 Patient remains in the ICU sedated and intubated. He is undergoing prone position with the goal 16 hours per day. He is febrile but tachypneic. Labs reviewed including CBC and BMP showing no significant changes. And sputum culture is growing Kay albicans. Chest x-ray showing the same bilateral infiltrates with right more than left related to his covid pneumonia. And he remains on Solu-Medrol 60 mg, remdisvir and normal saline at 75 mL/h. Pulmonary/critical care team R following the patient closely and the recommend to continue the current management and keep monitoring 10/18/2020 pt jana in ICU intubated sedated , with critical care team following him closely and adjusting his vent setting, he is currently needing high doseo f PEEP at 15 cxr from today showing small new bilateral pleural effusion , with basilar consolidation consistent wiht known covid 19 infection tomorrow is last dose of Remdisvir he remains on solumedrol 60 mg and gentl hydration 10/20/2020 Patient in ICU intubated on mechanical ventilation for several days now with pulmonary/critical care team managing the patient and monitoring him closely. Patient under going weaning for his PEEP and FiO2 down to 8 cm and 50% Chest x-ray showing stable findings consistent with edema versus pneumonia Patient on the same treatment of submental 60 mg normal saline at 50 mg and Lovenox 80 mg twice daily Review of systems: N/a Active Medications Generic Name Dose Route Start Last Admin Trade Name Freq PRN Reason Stop Dose Admin Albuterol Sulfate 2 puff 10/14/20 11:44 10/20/20 20:00 Albuterol Hfa Inhaler INHALATION 2 puff RT-QID PRN Administration Shortness Of Breath Artificial Tears 2 drops 10/18/20 16:00 10/20/20 20:25 Artificial Tears-Hypromellose Drops 15 Ml Btl BOTH EYES 2 drops Q4HR VINNY Administration Atorvastatin Calcium 40 mg 10/15/20 09:00 10/20/20 08:42 Atorvastatin 40 Mg Tab PO 40 mg DAILY VINNY Administration Chlorhexidine Gluconate 15 ml 10/15/20 21:00 10/20/20 20:25 Chlorhexidine Gluconate 15 Ml Cup MUCOUS MEM 15 ml BID VINNY Administration Cholecalciferol 2,000 unit 10/15/20 09:00 10/20/20 08:42 Cholecalciferol 1,000 Unit Tab PO 2,000 unit DAILY VINNY Administration Enoxaparin Sodium 80 mg 10/19/20 09:00 10/20/20 20:26 Enoxaparin 80 Mg/0.8 Ml Syringe SQ 80 mg BID VINNY Administration Famotidine 20 mg 10/15/20 10:00 10/20/20 20:25 Famotidine 20 Mg/2 Ml Vial IV 20 mg Q12HR VINNY Administration Propofol 1,000 mg/ IV Solution 100 mls @ 0 mls/hr 10/15/20 14:00 10/20/20 21:51 IV 60 mcg/kg/min .Q0M VINNY 29.124 mls/hr Administration Protocol Titrate Sodium Chloride 1,000 mls @ 40 mls/hr 10/18/20 07:58 10/20/20 01:09 Saline 0.9% IV 40 mls/hr .Q24H VINNY Administration Cisatracurium Besylate 200 mg/ 200 mls @ 4.71 mls/hr 10/18/20 13:15 10/20/20 09:05 Sodium Chloride IV 0 mcg/kg/min .Q24H VINNY 0 mls/hr Titration Protocol 1 MCG/KG/MIN Fentanyl Citrate 1,000 mcg/ 100 mls @ 0 mls/hr 10/20/20 12:15 10/20/20 12:40 Sodium Chloride IV 0.5 mcg/min .Q0M VINNY 3 mls/hr Administration Protocol Per Protocol Insulin Aspart 0 unit 10/17/20 13:30 10/20/20 18:32 Insulin Aspart (Novolog) 100 Unit/Ml Vial SQ 5 unit Q6HR VINNY Administration Protocol Methylprednisolone Sodium Succinate 60 mg 10/15/20 12:00 10/20/20 18:11 Methylprednisolone Sod Succi 125 Mg/2 Ml Vial IV 60 mg Q6HR VINNY Administration Naloxone HCl 0.2 mg 10/14/20 11:40 Naloxone 0.4 Mg/Ml 1 Ml Vial IV Q2M PRN Opioid Reversal Ondansetron HCl 4 mg 10/14/20 11:40 Ondansetron 4 Mg/2 Ml Vial IVP Q8HR PRN Nausea And Vomiting Objective - Vital Signs Vital signs: Vital Signs Temp 97.8 F 10/20/20 16:00 Pulse 51 L 10/20/20 18:00 Resp 24 10/20/20 18:00 BP 124/72 10/20/20 18:00 Pulse Ox 89 L 10/20/20 18:00 Intake & Output 10/19/20 10/20/20 10/20/20 18:59 06:59 18:59 Intake Total 9699.641 5419.512 1978.815 Output Total 015 741 3387 Balance 616.020 507.512 -846.185 Weight 81.1 kg 80.9 kg Intake: IV 510 516 516 0.9 Normal Saline 30 36 36 Pressure Bag @ 3mL/hr Sodium Chloride 0.9% 1, 480 480 480 000 ml @ 40 mls/hr IV . Q24H VINNY Rx#:[id number] Intake, IV Titration 501.020 459.512 436.815 Amount Cisatracurium 200 mg In 28.967 159.512 56.52 Sodium Chloride 0.9% 180 ml @ 1 MCG/KG/MIN 4.71 mls/hr IV .Q24H VINNY Rx#: [id number] propofoL 1,000 mg In 472.053 300 380.295 Empty Bag 1 bag @ Titrate IV .Q0M VINNY Rx#: [id number] Tube Feeding 180 192 896 Other 30 30 130 Output: Urine 231 209 2054 Other: Voiding Method Indwelling Catheter Indwelling Catheter Indwelling Catheter # Bowel Movements 1 ABP, PAP, CO, CI - Last Documented Arterial Blood Pressure 103/93 - Exam -GENERAL: The patient is intubated and sedated HEENT: Pupils are round and equally reacting to light. EOMI. No scleral icterus. No conjunctival pallor. Normocephalic, atraumatic. No pharyngeal erythema. No thyromegaly. CARDIOVASCULAR: S1 and S2 present. No murmurs, rubs, or gallops. PULMONARY: Chest is clear to auscultation, no wheezing or crackles. ABDOMEN: Soft, nontender, nondistended, normoactive bowel sounds. No palpable organomegaly. MUSCULOSKELETAL: No joint swelling or deformity. EXTREMITIES: No cyanosis, clubbing, or pedal edema. NEUROLOGICAL: Gross neurological examination did not reveal any focal deficits. SKIN: No rashes. no petechiae. - Labs CBC & Chem 7: 10/20/20 04:16 10/20/20 04:16 Labs: Abnormal Lab Results - Last 24 Hours (Table) 10/20/20 10/20/20 10/20/20 Range/Units 00:09 04:16 04:16 WBC 13.1 H (3.8-10.6) k/uL RBC 4.26 L (4.30-5.90) m/uL Hgb 12.8 L (13.0-17.5) gm/dL Hct 37.1 L (39.0-53.0) % Plt Count 143 L (150-450) k/uL ABG HCO3 (21-25) mmol/L ABG Total CO2 (19-24) mmol/L Chloride 113 H (98-107) mmol/L BUN 44 H (9-20) mg/dL Creatinine 0.49 L (0.66-1.25) mg/dL Glucose 151 H (74-99) mg/dL POC Glucose (mg/dL) 139 H (75-99) mg/dL Calcium 7.5 L (8.4-10.2) mg/dL ALT 76 H (4-49) U/L Total Protein 4.9 L (6.3-8.2) g/dL Albumin 2.2 L (3.5-5.0) g/dL 10/20/20 10/20/20 10/20/20 Range/Units 05:32 12:15 18:28 WBC (3.8-10.6) k/uL RBC (4.30-5.90) m/uL Hgb (13.0-17.5) gm/dL Hct (39.0-53.0) % Plt Count (150-450) k/uL ABG HCO3 27 H (21-25) mmol/L ABG Total CO2 29 H (19-24) mmol/L Chloride (98-107) mmol/L BUN (9-20) mg/dL Creatinine (0.66-1.25) mg/dL Glucose (74-99) mg/dL POC Glucose (mg/dL) 190 H 195 H (75-99) mg/dL Calcium (8.4-10.2) mg/dL ALT (4-49) U/L Total Protein (6.3-8.2) g/dL Albumin (3.5-5.0) g/dL Microbiology - Last 24 Hours (Table) 10/14/20 10:40 Blood Culture - Final Blood No Growth after 144 hours 10/14/20 10:25 Blood Culture - Final Blood No Growth after 144 hours 10/15/20 20:54 Gram Stain - Final Sputum Sputum Culture - Final Kay albicans Assessment and Plan Assessment: Acute hypoxic respiratory failure secondary to COVID pneumonia Mechanically ventilated Hypotonic hyponatremia History of asthma GERD Plan: This is a pleasant 55 years old male admitted with bilateral covid pneumonia. Continue with intubation and mechanical ventilation as per pulmonary/critical care team. Continue with steroids, gentle hydration and Lovenox as per pulmonary consultation and recommendation . He finished remdesivir Labs and medication were reviewed.. Continue same treatment. Continue with symptomatic treatment. Resume home medication. Monitor lytes and vitals. DVT and GI prophylaxis. Further recommendations as per clinical course of the patient DVT prophylaxis: Subcutaneous Lovenox GI Prophylaxis: Pepcid Prognosis is guarded
[2020-10-20 23:56] LABS: Glucose,Whole Blood 204 mg/dL (75-99)
[2020-10-21] MEDS: ARTIFICIAL TEARS-HYPROMELLOSE DROPS 15 ML BTL BOTH EYES SCH ×3 (04:15→11:59)
[2020-10-21 04:52] LABS: ABG Base Excess 5.6 mmol/L; ABG HCO3 30 mmol/L (21-25); ABG Oxygen Saturation 91.5 % (94-97); ABG PCO2 46 mmHg (35-45); ABG PH 7.43 (7.35-7.45); ABG PO2 61 mmHg (83-108); ABG TCO2 31 mmol/L (19-24)
[2020-10-21 05:43] LABS: Glucose,Whole Blood 229 mg/dL (75-99)
[2020-10-21 05:48] LABS: Allen Test Performed? no
[2020-10-21] MEDS: INSULIN ASPART (NovoLOG) 100 UNIT/ML VIAL SQ SCH ×4 (05:50→23:36)
[2020-10-21] MEDS: methylPREDNISolone SOD SUCCI 125 MG/2 ML VIAL IV SCH ×4 (05:50→23:36)
[2020-10-21 06:02] LABS: HCT 39.1 % (39.0-53.0); HGB 12.8 gm/dL (13.0-17.5); MCHC 32.6 g/dL (31.0-37.0); Mean Platelet Volume 8.1; Platelet Count 158 k/uL (150-450); RBC 4.39 m/uL (4.30-5.90); RDW 13.2 % (11.5-15.5); WBC 14.5 k/uL (3.8-10.6)
[2020-10-21] MEDS: fentaNYL (PF) 1,000 MCG in SODIUM CHLORIDE 0.9% 80 ML IV SCH (06:20)
[2020-10-21 06:21] LABS: ALT 58 U/L (4-49); AST 26 U/L (17-59); African American GFR (CKD) >90 (>60 ml/min/1.73 sqM); Albumin 2.2 g/dL (3.5-5.0); Alkaline Phosphatase 62 U/L (38-126); Anion Gap 0 mmol/L; Blood Urea Nitrogen 47 mg/dL (9-20); C Reactive Protein 33.4 mg/L (<10.0); Calcium 7.5 mg/dL (8.4-10.2); Carbon Dioxide 30 mmol/L (22-30); Chloride 110 mmol/L (98-107); Creatine Kinase 82 U/L (55-170); Glucose 232 mg/dL (74-99); LDH 1282 U/L (313-618); Magnesium 2.6 mg/dL (1.6-2.3); Non-African American GFR(CKD) >90 (>60 ml/min/1.73 sqM); Potassium 4.6 mmol/L (3.5-5.1); Sodium 140 mmol/L (137-145); Total Bilirubin 0.7 mg/dL (0.2-1.3); Total Protein 4.9 g/dL (6.3-8.2)
[2020-10-21] MEDS: ALBUTEROL HFA INHALER INHALATION PRN ×3 (07:38→16:42)
--- NOTE | 2020-10-21 08:14 | XR ---
EXAMINATION TYPE: XR chest 1V portable DATE OF EXAM: 10/21/2020 COMPARISON: Chest x-ray 10/20/2020 HISTORY: Intubated TECHNIQUE: Single frontal view of the chest is obtained. FINDINGS: Endotracheal tube and NG tube, left jugular central venous catheter are stable. Bilateral airspace disease is noted, there is an interval obscured left hemidiaphragm. There is overlying cardi ac leads. Heart size is likely stable. IMPRESSION: Correlate for pneumonia, edema, ARDS.
[2020-10-21] MEDS: ENOXAPARIN 80 MG/0.8 ML SYRINGE SQ SCH ×2 (08:19→20:42)
[2020-10-21] MEDS: CHOLECALCIFEROL 1,000 UNIT TAB PO SCH (08:20)
[2020-10-21] MEDS: ATORVASTATIN 40 MG TAB PO SCH (08:20)
[2020-10-21] MEDS: FAMOTIDINE 20 MG/2 ML VIAL IV SCH ×2 (08:20→20:22)
[2020-10-21] MEDS: CHLORHEXIDINE GLUCONATE 15 ML CUP MUCOUS MEM SCH ×2 (08:20→20:22)
[2020-10-21] MEDS: SODIUM CHLORIDE 0.9% 1,000 ML IV SCH (08:24)
[2020-10-21 08:40] LABS: ABG Base Excess 5.3 mmol/L; ABG HCO3 30 mmol/L (21-25); ABG Oxygen Saturation 85.8 % (94-97); ABG PCO2 45 mmHg (35-45); ABG PH 7.43 (7.35-7.45); ABG TCO2 31 mmol/L (19-24)
[2020-10-21 08:43] LABS: ABG PO2 51 mmHg (83-108); Allen Test Performed? no
[2020-10-21 09:44] LABS: Ferritin 737.9 ng/mL (22.0-322.0)
[2020-10-21 11:52] LABS: Glucose,Whole Blood 189 mg/dL (75-99)
--- NOTE | 2020-10-21 12:59 | P.PN ---
Subjective Progress Note Date: 10/21/20 Principal diagnosis: COVID 19 pneumonia 55-year-old male who was admitted to the ICU yesterday. He came down to the ICU for acute hypoxemic respiratory failure secondary to COVID 19 pneumonia. Initially, we attempted to maintain him on BiPAP, but unfortunately, the patient's respiratory failure worsened and he required intubation and mechanical ventilation. He was intubated on October 15 and had an arterial line placed and a central line placed on the same day. Remains in the intensive care unit in room 250. Currently, he is on the volume assist control mode with the mechanical ventilation, with a respiratory rate of 24, tidal volume of 450, FiO2 of 80%, and PEEP of 15. The patient is currently getting saline at 75 mL an hour, propofol at 72 mcg/kg/m, norepinephrine 1 mcg/m, and he will start with enteral nutrition today. His arterial blood gases show a PaO2 of 73, PaCO2 of 42, and a pH is 7.38. His peak airway pressure is 35 cm water and his plateau pressure is 33 cm water. His chest x-ray appears to be a bit improved but likely is from the positive pressure ventilation. He received 1 dose of, convalescent plasma, and 1 dose of rendesivir. Progress note dated 10/17/2020. 55-year-old male admitted couple days ago in to the ICU. He came down from the floor. He developed acute hypoxemic respiratory failure, secondary to COVID 19 pneumonia. Initially, we attempted BiPAP therapy on him but unfortunate, his hypoxemia worsened, his respiratory status declined, and he was intubated and mechanically ventilated on 10/15/2020. On that same day, we placed a right radial art line and a left internal jugular triple-lumen catheter. Currently, he remains on the mechanical ventilator. He is on the volume assist control modality, rate 24, tidal volume 450, FiO2 65%, 15. Arterial blood gases show a PaO2 of 76, a PaCO2 of 41 and a pH of 7.39. The blood gases were actually done on 70%. Yesterday, he was prone for 16 hours. He is getting propofol at 60 g per kilogram per minute, normal saline at 75 mL an hour, and vital high protein at 33 mL an hour which is goal. The goal today, is to hopefully get him down to 50% at which time, we can consider making PEEP changes. Thus far microbiology is negative. Chest x-ray continues to show bilateral patchy infiltrates. The patient did receive 1 unit convalescent plasma, and 1 dose of remdesivir. Progress note dated 10/18/2020. 55-year-old male who was admitted to the intensive care unit on October 15. He was intubated and mechanically ventilated on the same day for COVID 19 p neumonia, with acute hypoxemic respiratory failure. Currently, he remains on the mechanical ventilator. He is on the volume assist control mode, with a rate of 24, tidal volume 450, FiO2 50%, and PEEP of 15. Arterial blood gases show a PaO2 of 61, a PaCO2 of 40, pH 7.42. The patient's on propofol at 70 mcg/kg/m, normal saline at 75 mL an hour, and vital high protein at goal, which is 33 mL an hour. Today's plan is to give the patient Lasix 40 mg IV push, the IV back to 40 mL an hour, and prone the patient again for 16 hours a day. His chest x- rays essentially unchanged. His oxygenation has improved. We have been able to wean him down from 100% down to 50%. He still remains on PEEP of 15. No PEEP changes until oxygenation improves. Progress note dated 10/19/2020. 55-year-old male, who was admitted to the intensive care unit on October 15. He was intubated and mechanically ventilated on the same day for COVID 19 pneumonia. The patient had developed acute hypoxemic respiratory failure. Currently, he is on the volume assist control modality, rate 24, tidal volume 450, FiO2 50%, and a PEEP of 15. Arterial blood gases show a PaO2 of 78, a PaCO2 of 43, and a pH is 7.42. We are going to drop his PEEP from 15 to 12 today. Over the last couple of days, he has been prone to up to 16 hours per day. He does need a new radial art line. The other one came out. We've incre ase his Lovenox up to 80 mg subcu twice a day because of an elevated dimer. In addition, the patient's getting saline at 80 mL an hour, propofol at 70 mcg/kg/m, Nimbex at 1.5 mcg/kg/m, with [id number] monitoring, and vital high protein at 45 mL an hour with a goal of 64 mL an hour. The patient has made improvements over the last couple of days, and my opinion, related to being proned 16 hours a day. Progress note dated 10/20/2020. 55-year-old male, who was admitted to the intensive care unit on October 15. He was intubated and mechanically ventilated on the same day, for acute hypoxemic respiratory failure, secondary to COVID 19 pneumonia. Initially, the patient required a PEEP of 15, and 100%, but, with proning, 16 hours a day, the patient has been weaned down to 50% FiO2, and we will drop his PEEP from 12 to 8 cm water. We will discontinue his Nimbex today. He will not have proning today. He will get Lasix 40 mg IV push today. In addition, we will start the patient on a fentanyl drip. He is on the volume assist control modality, rate 24, tidal volume 450, FiO2 50%, and a PEEP of 12, which be dropped to 8 cm water. His blood gases show a PaO2 of 87, PaCO2 41, and a pH is 7.43. He is getting saline at 40 mL an hour, Nimbex, at 2 mcg/kg/m, propofol 70 mcg/kg/m, and vital high protein at goal, which is 64 mL an hour. We will discontinue his Nimbex today in favor of fentanyl. His chest x-ray continues to show bilateral patchy infiltrates. Progress note dated 10/21/2020. 55-year-old male admitted to the hospital on October 14, 2020, and transferred to the intensive care unit on October 15. The patient came in with acute hypoxemic respiratory failure, secondary to COVID 19 pneumonia. The patient was intubated on October 15 remains on mechanical ventilator. He is on the volume assist control modality, rate 24, tidal volume 450, FiO2 50%, and PEEP of 12. His blood gases show a pO2 of 61, PaCO2 of 46, and a pH of 7.43. He is getting saline at 40 mL an hour, a fentanyl drip at 0.5 mcg/kg/h, propofol at 60 mcg/kg/m, and vital high protein at 64 mL an hour which is goal. The patient is doing reasonably well and has made progress since coming to the intensive care unit. The patient's white count is 14.5, hemoglobin 12.8, hematocrit 39.1, and platelet count 158,000. Sodium 140, potassium 4.6, chloride 110, CO2 30, and BUN and creatinine were 47 and 0.59. The patient was paralyzed with Nimbex up until October 20. Objective - Vital Signs Vital signs: Vital Signs Temp 98.1 F 10/21/20 08:00 Pulse 56 L 10/21/20 12:00 Resp 24 10/21/20 12:00 BP 133/74 10/21/20 12:00 Pulse Ox 90 L 10/21/20 12:00 Intake & Output 10/20/20 10/21/20 10/21/20 18:59 06:59 18:59 Intake Total 9367.214 0002.595 635.985 Output Total 2825 650 475 Balance -487.140 9116.595 160.985 Weight 78.7 kg 78.7 kg Intake: IV 516 516 243 0.9 Normal Saline 36 36 3 Pressure Bag @ 3mL/hr Sodium Chloride 0.9% 1, 480 480 240 000 ml @ 40 mls/hr IV . Q24H VINNY Rx#:[id number] Intake, IV Titration 436.815 349.595 166.985 Amount Cisatracurium 200 mg In 56.52 Sodium Chloride 0.9% 180 ml @ 1 MCG/KG/MIN 4.71 mls/hr IV .Q24H VINNY Rx#: [id number] fentaNYL (PF) 1,000 mcg 53 In Sodium Chloride 0.9% 80 ml @ Per Protocol IV . Q0M VINNY Rx#:[id number] propofoL 1,000 mg In 380.295 296.595 166.985 Empty Bag 1 bag @ Titrate IV .Q0M VINNY Rx#: [id number] Tube Feeding 896 832 196 Other 130 90 30 Output: Urine 2825 650 475 Other: Voiding Method Indwelling Catheter Indwelling Catheter Indwelling Catheter ABP, PAP, CO, CI - Last Documented Arterial Blood Pressure 103/93 - Exam No acute distress, sedated, with an orally placed endotracheal tube and NG tube. HEENT examination is grossly unremarkable. Mucous membranes are moist. The patient does have a orally placed endotracheal tube. Neck supple. Full range of motion. No adenopathy thyromegaly or neck vein distention. A left internal jugular triple-lumen catheter is noted. Cardiovascular examination reveals regular rhythm rate. S1-S2 normal. No S3 or S4. No discernible murmur noted. Heart rate is 56 bpm and heart sounds are distant. Lungs reveal diminished breath sounds bilaterally. Breath sounds are coarse. Crackles are noted. Breath sounds are equal bilaterally. No wheezes are appreciated.. Abdomen is soft without bowel sounds. No masses are noted. Extremities are intact. No cyanosis clubbing or edema. He now has a left radial arterial line. Skin is without rash or lesion. Neurologic examination is difficult to assess given his current level of sedation. - Labs CBC & Chem 7: 10/21/20 05:45 10/21/20 05:45 Labs: Abnormal Lab Results - Last 24 Hours (Table) 10/20/20 10/20/20 10/21/20 Range/Units 18:28 23:54 04:51 WBC (3.8-10.6) k/uL Hgb (13.0-17.5) gm/dL ABG pCO2 46 H (35-45) mmHg ABG pO2 61 L (83-108) mmHg ABG HCO3 30 H (21-25) mmol/L ABG Total CO2 31 H (19-24) mmol/L ABG O2 Saturation 91.5 L (94-97) % Chloride (98-107) mmol/L BUN (9-20) mg/dL Creatinine (0.66-1.25) mg/dL Glucose (74-99) mg/dL POC Glucose (mg/dL) 195 H 204 H (75-99) mg/dL Calcium (8.4-10.2) mg/dL Magnesium (1.6-2.3) mg/dL Ferritin (22.0-322.0) ng/mL ALT (4-49) U/L Lactate Dehydrogenase (313-618) U/L C-Reactive Protein (<10.0) mg/L Total Protein (6.3-8.2) g/dL Albumin (3.5-5.0) g/dL 10/21/20 10/21/20 10/21/20 Range/Units 05:41 05:45 05:45 WBC 14.5 H (3.8-10.6) k/uL Hgb 12.8 L (13.0-17.5) gm/dL ABG pCO2 (35-45) mmHg ABG pO2 (83-108) mmHg ABG HCO3 (21-25) mmol/L ABG Total CO2 (19-24) mmol/L ABG O2 Saturation (94-97) % Chloride 110 H (98-107) mmol/L BUN 47 H (9-20) mg/dL Creatinine 0.59 L (0.66-1.25) mg/dL Glucose 232 H (74-99) mg/dL POC Glucose (mg/dL) 229 H (75-99) mg/dL Calcium 7.5 L (8.4-10.2) mg/dL Magnesium 2.6 H (1.6-2.3) mg/dL Ferritin 737.9 H (22.0-322.0) ng/mL ALT 58 H (4-49) U/L Lactate Dehydrogenase 1282 H (313-618) U/L C-Reactive Protein 33.4 H (<10.0) mg/L Total Protein 4.9 L (6.3-8.2) g/dL Albumin 2.2 L (3.5-5.0) g/dL 10/21/20 10/21/20 Range/Units 08:38 11:50 WBC (3.8-10.6) k/uL Hgb (13.0-17.5) gm/dL ABG pCO2 (35-45) mmHg ABG pO2 51 L* (83-108) mmHg ABG HCO3 30 H (21-25) mmol/L ABG Total CO2 31 H (19-24) mmol/L ABG O2 Saturation 85.8 L (94-97) % Chloride (98-107) mmol/L BUN (9-20) mg/dL Creatinine (0.66-1.25) mg/dL Glucose (74-99) mg/dL POC Glucose (mg/dL) 189 H (75-99) mg/dL Calcium (8.4-10.2) mg/dL Magnesium (1.6-2.3) mg/dL Ferritin (22.0-322.0) ng/mL ALT (4-49) U/L Lactate Dehydrogenase (313-618) U/L C-Reactive Protein (<10.0) mg/L Total Protein (6.3-8.2) g/dL Albumin (3.5-5.0) g/dL Microbiology - Last 24 Hours (Table) 10/14/20 10:40 Blood Culture - Final Blood No Growth after 144 hours 10/14/20 10:25 Blood Culture - Final Blood No Growth after 144 hours 10/15/20 20:54 Gram Stain - Final Sputum Sputum Culture - Final Kay albicans Assessment and Plan Assessment: Acute hypoxemic respiratory failure secondary to COVID 19 pneumonia. Intubation and mechanical ventilation secondary to #1, on 10/15/2020. Acute respiratory distress syndrome (ARDS). History of hyperlipidemia. History of chronic bronchial asthma. History of gastroesophageal reflux disease. Placement of radial art line and central line on 10/15/2020. New left radial arterial line placed on 10/19/2020. Plan: Plan dated 10/21/2020. The patient appears to be reasonable he stable. He still very critically ill. The patient remains on the mechanical ventilator. His PEEP was increased from 8-12 today. This was based on the morning blood gas. He remains on propofol 60 mcg/kg/m, and fentanyl 0.5 mcg/kg/h. He is getting enteral nutrition at goal, which is 64 mL an hour. Microbiologic studies have been negative. Chest x-ray continues to show diffuse bilateral patchy infiltrates consistent with COVID 19 pneumonia. Medications are reviewed. They are appropriate. He remains on vitamin C, vitamin D3, zinc, and high-dose corticosteroids. In addition, he remains on Lovenox, at 80 mg subcu twice a day. Prognosis is guarded. We will continue to follow. Time with Patient: Greater than 30
--- NOTE | 2020-10-21 13:29 | P.PN ---
Subjective HPI - Patient is a 55-year-old male came in with complaints of increasing shortness of breath over the past week. Patient was diagnosed with Covid 6 days ago. He has completed a course of steroids as well as Z-Douglas. Patient states over the past week he's been fighting fevers, body aches, chills and nausea. Patient states his shortness of breath has been steadily increasing. He gets winded with just walking around his house. He does admit to some chest pain when he is coughing. He does have some production with his cough. He does admit to history of asthma, denies heart disease. He states his last dose of Tylenol was last night. He denies any vomiting, no dysuria. Patient is febrile 100.4, pulse is 96, he is satting 88% on room air. Patient had a chest x-ray which showed diffuse bilateral infiltrates. Patient is presently on 2 L of oxygen saturating 93% patient was having fevers at home patient had a low-grade fever here. Patient has elevated inflammatory markers along with the low sodium. On 10/15/2020 - last night patient became more short of breath, so he was shifted to the ICU. Initially the patient was placed on BiPAP, patient was staffed neck and saturating in the high 80s and so eventually he had to be intu bated around noon. Currently he is mechanically ventilated and sedated. Reviewing the vitals patient is tachycardic between 100-110, saturating in the low 80s on 100% FiO2, blood pressure 1 50 x 92. Patient has been started on Solu-Medrol, Remdesivir, Lovenox and breathing treatments. On reviewing the labs white count of 6.1, hemoglobin 14.7, platelets 162. Sodium 133, potassium 4.2, chloride 102, bicarb 28, BUN 17, creatinine 0.79. Ferritin 624, magnesium 1.5, albumin 2.9. 10/16/2020 Patient is seen and examined in the ICU. He was admitted for Covid bilateral pneumonia. These with acute hypoxic respiratory failure needing intubation and mechanical ventilation with pulmonary/critical care team following the patient closely. He's undergoing prone position for 16 hours per day. Also he is getting Remidsivir and he is a status post convalescent plasma . Patient does not need pressors as his vitals are stable. And he is on tube feeding. Patient is currently sedated. Labs reviewed 10/17/2020 Patient remains in the ICU sedated and intubated. He is undergoing prone position with the goal 16 hours per day. He is febrile but tachypneic. Labs reviewed including CBC and BMP showing no significant changes. And sputum culture is growing Kay albicans. Chest x-ray showing the same bilateral infiltrates with right more than left related to his covid pneumonia. And he remains on Solu-Medrol 60 mg, remdisvir and normal saline at 75 mL/h. Pulmonary/critical care team R following the patient closely and the recommend to continue the current management and keep monitoring 10/18/2020 pt jana in ICU intubated sedated , with critical care team following him closely and adjusting his vent setting, he is currently needing high doseo f PEEP at 15 cxr from today showing small new bilateral pleural effusion , with basilar consolidation consistent wiht known covid 19 infection tomorrow is last dose of Remdisvir he remains on solumedrol 60 mg and gentl hydration 10/20/2020 Patient in ICU intubated on mechanical ventilation for several days now with pulmonary/critical care team managing the patient and monitoring him closely. Patient under going weaning for his PEEP and FiO2 down to 8 cm and 50% Chest x-ray showing stable findings consistent with edema versus pneumonia Patient on the same treatment of submental 60 mg normal saline at 50 mg and Lovenox 80 mg twice daily 10/21/2020 Patient remains in the ICU intubated and sedated, distal and a critical condition. Pulmonary/critical team R following the case closely and managing his vent. His PEEP was increased today to 12 from 8 because was desaturating during the night. FiO2 was kept at 50%. Blood pressure is 133/74, oxygen saturation is 90%, breathing rates 24 and is still slightly bradycardic at 56. Creatinine is normal at 0.5, magnesium 2.6, inflammatory markers including ferritin, LDH, C-reactive protein are slightly trending down He is on therapeutic dose of Lovenox for high d-dimer i called the and discussed the case her and all her question were answered and tried to explain the situation for her in a language she can understand Review of systems: N/a Active Medications Generic Name Dose Route Start Last Admin Trade Name Freq PRN Reason Stop Dose Admin Albuterol Sulfate 2 puff 10/14/20 11:44 10/21/20 11:30 Albuterol Hfa Inhaler INHALATION 2 puff RT-QID PRN Administration Shortness Of Breath Atorvastatin Calcium 40 mg 10/15/20 09:00 10/21/20 08:20 Atorvastatin 40 Mg Tab PO 40 mg DAILY VINNY Administration Chlorhexidine Gluconate 15 ml 10/15/20 21:00 10/21/20 08:20 Chlorhexidine Gluconate 15 Ml Cup MUCOUS MEM 15 ml BID VINNY Administration Cholecalciferol 2,000 unit 10/15/20 09:00 10/21/20 08:20 Cholecalciferol 1,000 Unit Tab PO 2,000 unit DAILY VINNY Administration Enoxaparin Sodium 80 mg 10/19/20 09:00 10/21/20 08:19 Enoxaparin 80 Mg/0.8 Ml Syringe SQ 80 mg BID VINNY Administration Famotidine 20 mg 10/15/20 10:00 10/21/20 08:20 Famotidine 20 Mg/2 Ml Vial IV 20 mg Q12HR VINNY Administration Propofol 1,000 mg/ IV Solution 100 mls @ 0 mls/hr 10/15/20 14:00 10/21/20 11:58 IV 60 mcg/kg/min .Q0M VINNY 28.332 mls/hr Administration Protocol Titrate Sodium Chloride 1,000 mls @ 40 mls/hr 10/18/20 07:58 10/21/20 08:24 Saline 0.9% IV 40 mls/hr .Q24H VINNY Administration Fentanyl Citrate 1,000 mcg/ 100 mls @ 0 mls/hr 10/20/20 12:15 10/21/20 06:20 Sodium Chloride IV 0.5 mcg/min .Q0M VINNY 3 mls/hr Administration Protocol Per Protocol Insulin Aspart 0 unit 10/17/20 13:30 10/21/20 12:03 Insulin Aspart (Novolog) 100 Unit/Ml Vial SQ 4 unit Q6HR VINNY Administration Protocol Methylprednisolone Sodium Succinate 60 mg 10/15/20 12:00 10/21/20 12:03 Methylprednisolone Sod Succi 125 Mg/2 Ml Vial IV 60 mg Q6HR VINNY Administration Naloxone HCl 0.2 mg 10/14/20 11:40 Naloxone 0.4 Mg/Ml 1 Ml Vial IV Q2M PRN Opioid Reversal Ondansetron HCl 4 mg 10/14/20 11:40 Ondansetron 4 Mg/2 Ml Vial IVP Q8HR PRN Nausea And Vomiting Objective - Vital Signs Vital signs: Vital Signs Temp 98.1 F 10/21/20 08:00 Pulse 56 L 10/21/20 12:00 Resp 24 10/21/20 12:00 BP 133/74 10/21/20 12:00 Pulse Ox 90 L 10/21/20 12:00 Intake & Output 10/20/20 10/21/20 10/21/20 18:59 06:59 18:59 Intake Total 2633.104 6114.595 635.985 Output Total 2825 650 475 Balance -748.116 1457.595 160.985 Weight 78.7 kg 78.7 kg Intake: IV 516 516 243 0.9 Normal Saline 36 36 3 Pressure Bag @ 3mL/hr Sodium Chloride 0.9% 1, 480 480 240 000 ml @ 40 mls/hr IV . Q24H VINNY Rx#:[id number] Intake, IV Titration 436.815 349.595 166.985 Amount Cisatracurium 200 mg In 56.52 Sodium Chloride 0.9% 180 ml @ 1 MCG/KG/MIN 4.71 mls/hr IV .Q24H VINNY Rx#: [id number] fentaNYL (PF) 1,000 mcg 53 In Sodium Chloride 0.9% 80 ml @ Per Protocol IV . Q0M VINNY Rx#:[id number] propofoL 1,000 mg In 380.295 296.595 166.985 Empty Bag 1 bag @ Titrate IV .Q0M VINNY Rx#: [id number] Tube Feeding 896 832 196 Other 130 90 30 Output: Urine 2825 650 475 Other: Voiding Method Indwelling Catheter Indwelling Catheter Indwelling Catheter ABP, PAP, CO, CI - Last Documented Arterial Blood Pressure 103/93 - Exam -GENERAL: The patient is intubated and sedated HEENT: Pupils are round and equally reacting to light. EOMI. No scleral icterus. No conjunctival pallor. Normocephalic, atraumatic. No pharyngeal erythema. No thyromegaly. CARDIOVASCULAR: S1 and S2 present. No murmurs, rubs, or gallops. PULMONARY: Chest is clear to auscultation, no wheezing or crackles. ABDOMEN: Soft, nontender, nondistended, normoactive bowel sounds. No palpable organomegaly. MUSCULOSKELETAL: No joint swelling or deformity. EXTREMITIES: No cyanosis, clubbing, or pedal edema. NEUROLOGICAL: Gross neurological examination did not reveal any focal deficits. SKIN: No rashes. no petechiae. - Labs CBC & Chem 7: 10/21/20 05:45 10/21/20 05:45 Labs: Abnormal Lab Results - Last 24 Hours (Table) 10/20/20 10/20/20 10/21/20 Range/Units 18:28 23:54 04:51 WBC (3.8-10.6) k/uL Hgb (13.0-17.5) gm/dL ABG pCO2 46 H (35-45) mmHg ABG pO2 61 L (83-108) mmHg ABG HCO3 30 H (21-25) mmol/L ABG Total CO2 31 H (19-24) mmol/L ABG O2 Saturation 91.5 L (94-97) % Chloride (98-107) mmol/L BUN (9-20) mg/dL Creatinine (0.66-1.25) mg/dL Glucose (74-99) mg/dL POC Glucose (mg/dL) 195 H 204 H (75-99) mg/dL Calcium (8.4-10.2) mg/dL Magnesium (1.6-2.3) mg/dL Ferritin (22.0-322.0) ng/mL ALT (4-49) U/L Lactate Dehydrogenase (313-618) U/L C-Reactive Protein (<10.0) mg/L Total Protein (6.3-8.2) g/dL Albumin (3.5-5.0) g/dL 10/21/20 10/21/20 10/21/20 Range/Units 05:41 05:45 05:45 WBC 14.5 H (3.8-10.6) k/uL Hgb 12.8 L (13.0-17.5) gm/dL ABG pCO2 (35-45) mmHg ABG pO2 (83-108) mmHg ABG HCO3 (21-25) mmol/L ABG Total CO2 (19-24) mmol/L ABG O2 Saturation (94-97) % Chloride 110 H (98-107) mmol/L BUN 47 H (9-20) mg/dL Creatinine 0.59 L (0.66-1.25) mg/dL Glucose 232 H (74-99) mg/dL POC Glucose (mg/dL) 229 H (75-99) mg/dL Calcium 7.5 L (8.4-10.2) mg/dL Magnesium 2.6 H (1.6-2.3) mg/dL Ferritin 737.9 H (22.0-322.0) ng/mL ALT 58 H (4-49) U/L Lactate Dehydrogenase 1282 H (313-618) U/L C-Reactive Protein 33.4 H (<10.0) mg/L Total Protein 4.9 L (6.3-8.2) g/dL Albumin 2.2 L (3.5-5.0) g/dL 10/21/20 10/21/20 Range/Units 08:38 11:50 WBC (3.8-10.6) k/uL Hgb (13.0-17.5) gm/dL ABG pCO2 (35-45) mmHg ABG pO2 51 L* (83-108) mmHg ABG HCO3 30 H (21-25) mmol/L ABG Total CO2 31 H (19-24) mmol/L ABG O2 Saturation 85.8 L (94-97) % Chloride (98-107) mmol/L BUN (9-20) mg/dL Creatinine (0.66-1.25) mg/dL Glucose (74-99) mg/dL POC Glucose (mg/dL) 189 H (75-99) mg/dL Calcium (8.4-10.2) mg/dL Magnesium (1.6-2.3) mg/dL Ferritin (22.0-322.0) ng/mL ALT (4-49) U/L Lactate Dehydrogenase (313-618) U/L C-Reactive Protein (<10.0) mg/L Total Protein (6.3-8.2) g/dL Albumin (3.5-5.0) g/dL Microbiology - Last 24 Hours (Table) 10/14/20 10:40 Blood Culture - Final Blood No Growth after 144 hours 10/14/20 10:25 Blood Culture - Final Blood No Growth after 144 hours 01/11/21 20:54 Gram Stain - Final Sputum Sputum Culture - Final Kay albicans Assessment and Plan Assessment: Acute hypoxic respiratory failure secondary to COVID pneumonia possible acute respiratory distress syndrome ARDS, per pulmonary team Acute hypoxic respiratory failure needing Mechanically ventilated Hyperlipidemia History of asthma GERD Plan: This is a pleasant 55 years old male admitted with bilateral covid pneumonia. Continue with intubation and mechanical ventilation as per pulmonary/critical care team. Continue with steroids, gentle hydration and Lovenox as per pulmonary team consultation and recommendation . He finished remdesivir therapy Labs and medication were reviewed.. Continue same treatment. Continue with symptomatic treatment. Resume home medication. Monitor lytes and vitals. DVT and GI prophylaxis. Further recommendations as per clinical course of the patient DVT prophylaxis: Subcutaneous Lovenox GI Prophylaxis: Pepcid Prognosis is guarded
[2020-10-21 18:10] LABS: Glucose,Whole Blood 180 mg/dL (75-99)
[2020-10-21 23:35] LABS: Glucose,Whole Blood 148 mg/dL (75-99)
[2020-10-22 05:02] LABS: ABG Base Excess 6.1 mmol/L; ABG HCO3 30 mmol/L (21-25); ABG Oxygen Saturation 97.1 % (94-97); ABG PCO2 42 mmHg (35-45); ABG PH 7.46 (7.35-7.45); ABG PO2 81 mmHg (83-108); ABG TCO2 31 mmol/L (19-24); Allen Test Performed? Yes
[2020-10-22] MEDS: fentaNYL (PF) 1,000 MCG in SODIUM CHLORIDE 0.9% 80 ML IV SCH (05:16)
[2020-10-22 05:25] LABS: Glucose,Whole Blood 151 mg/dL (75-99)
[2020-10-22] MEDS: methylPREDNISolone SOD SUCCI 125 MG/2 ML VIAL IV SCH ×4 (05:43→23:54)
[2020-10-22] MEDS: INSULIN ASPART (NovoLOG) 100 UNIT/ML VIAL SQ SCH ×4 (05:43→23:54)
[2020-10-22 05:49] LABS: HCT 37.3 % (39.0-53.0); HGB 12.3 gm/dL (13.0-17.5); Mean Platelet Volume 8.1; Platelet Count 168 k/uL (150-450); RBC 4.24 m/uL (4.30-5.90); WBC 13.6 k/uL (3.8-10.6)
[2020-10-22 06:00] LABS: ALT 47 U/L (4-49); AST 23 U/L (17-59); African American GFR (CKD) >90 (>60 ml/min/1.73 sqM); Albumin 2.1 g/dL (3.5-5.0); Alkaline Phosphatase 55 U/L (38-126); Anion Gap -2 mmol/L; Blood Urea Nitrogen 44 mg/dL (9-20); Calcium 7.6 mg/dL (8.4-10.2); Carbon Dioxide 31 mmol/L (22-30); Chloride 110 mmol/L (98-107); Creatine Kinase 57 U/L (55-170); Glucose 166 mg/dL (74-99); LDH 1214 U/L (313-618); Non-African American GFR(CKD) >90 (>60 ml/min/1.73 sqM); Potassium 4.8 mmol/L (3.5-5.1); Sodium 139 mmol/L (137-145); Total Bilirubin 0.7 mg/dL (0.2-1.3); Total Protein 4.9 g/dL (6.3-8.2)
[2020-10-22 06:04] LABS: D-Dimer 6.2 mg/L FEU (<0.60); Prothrombin Time 11.1 sec (9.0-12.0)
[2020-10-22 06:33] LABS: Glucose,Whole Blood 144 mg/dL (75-99)
[2020-10-22] MEDS: ALBUTEROL HFA INHALER INHALATION PRN ×4 (07:49→19:16)
--- NOTE | 2020-10-22 08:12 | P.PN ---
Subjective Progress Note Date: 10/22/20 55-year-old male who was admitted to the ICU yesterday. He came down to the ICU for acute hypoxemic respiratory failure secondary to COVID 19 pneumonia. Initially, we attempted to maintain him on BiPAP, but unfortunately, the patient's respiratory failure worsened and he required intubation and mechanical ventilation. He was intubated on 10/15/2020.. He is on the volume assist control modality, rate 24, tidal volume 450, FiO2 50%, and PEEP of 12. His blood gases show a pO2 of 81, PaCO2 of 42, and a pH of 7.46. He is getting saline at 40 mL an hour, a fentanyl drip at 0.5 mcg/kg/h, propofol at 60 mcg/kg/m, and vital high protein at 64 mL an hour which is goal. He was also paralyzed and is currently off paralytics.. He received 1 dose of, convalescent plasma, and 1 dose of remdesivir. He is receiving Solumedrol at 60 mg IV q 6 hours. On today's evaluation, the patient is being seen on follow-up. The patient's peak airway pressures around 30 on the above-mentioned ventilator setting. The patient is afebrile. The white cell count today is 13.6 with a hemoglobin of 12. Rest of the blood work and electrodes are all within normal limits. The chest x-ray from today still showing diffuse bilateral pulmonary infiltrates ET tube is in a good location. The patient also has a left IJ triple-lumen catheter in place. The patient's hemodynamically stable. He is on no pressors. He is producing adequate amount of urine output. He is on Lovenox 80 mg subcu every 12 hours.A d-dimer level is up to 2 and this is essentially gone compared to few days back with a d-dimer was up to 34.. Objective - Vital Signs Vital signs: Vital Signs Temp 98.1 F 10/22/20 04:00 Pulse 45 L 10/22/20 07:00 Resp 24 10/22/20 07:00 BP 145/85 10/22/20 07:00 Pulse Ox 93 L 10/22/20 07:00 Intake & Output 10/21/20 10/22/20 10/22/20 18:59 06:59 18:59 Intake Total 0816.861 1668.513 Output Total 925 685 Balance 290.176 542.513 Weight 78.7 kg 83.5 kg Intake: IV 483 556 0.9 Normal Saline 3 36 Pressure Bag @ 3mL/hr Sodium Chloride 0.9% 1, 480 520 000 ml @ 40 mls/hr IV . Q24H VINNY Rx#:[id number] Intake, IV Titration 340.176 360.513 Amount fentaNYL (PF) 1,000 mcg 68.8 In Sodium Chloride 0.9% 80 ml @ Per Protocol IV . Q0M VINNY Rx#:[id number] propofoL 1,000 mg In 340.176 291.713 Empty Bag 1 bag @ Titrate IV .Q0M VINNY Rx#: [id number] Tube Feeding 332 221 Other 60 90 Output: Urine 925 685 Other: Voiding Method Indwelling Catheter Indwelling Catheter ABP, PAP, CO, CI - Last Documented Arterial Blood Pressure 103/93 - Exam No acute distress, sedated, with an orally placed endotracheal tube and NG tube. HEENT examination is grossly unremarkable. Mucous membranes are moist. The patient does have a orally placed endotracheal tube. Neck supple. Full range of motion. No adenopathy thyromegaly or neck vein distention. A left internal jugular triple-lumen catheter is noted. Cardiovascular examination reveals regular rhythm rate. S1-S2 normal. No S3 or S4. No discernible murmur noted. Heart rate is 56 bpm and heart sounds are distant. Lungs reveal diminished breath sounds bilaterally. Breath sounds are coarse. Crackles are noted. Breath sounds are equal bilaterally. No wheezes are appreciated.. Abdomen is soft without bowel sounds. No masses are noted. Extremities are intact. No cyanosis clubbing or edema. He now has a left radial arterial line. Skin is without rash or lesion. Neurologic examination is difficult to assess given his current level of sedation. - Labs CBC & Chem 7: 10/22/20 05:00 10/22/20 05:00 Labs: Abnormal Lab Results - Last 24 Hours (Table) 10/21/20 10/21/20 10/21/20 Range/Units 05:45 08:38 11:50 WBC (3.8-10.6) k/uL RBC (4.30-5.90) m/uL Hgb (13.0-17.5) gm/dL Hct (39.0-53.0) % D-Dimer (<0.60) mg/L FEU ABG pH (7.35-7.45) ABG pO2 51 L* (83-108) mmHg ABG HCO3 30 H (21-25) mmol/L ABG Total CO2 31 H (19-24) mmol/L ABG O2 Saturation 85.8 L (94-97) % Chloride (98-107) mmol/L Carbon Dioxide (22-30) mmol/L BUN (9-20) mg/dL Creatinine (0.66-1.25) mg/dL Glucose (74-99) mg/dL POC Glucose (mg/dL) 189 H (75-99) mg/dL Calcium (8.4-10.2) mg/dL Ferritin 737.9 H (22.0-322.0) ng/mL Lactate Dehydrogenase (313-618) U/L C-Reactive Protein (<10.0) mg/L Total Protein (6.3-8.2) g/dL Albumin (3.5-5.0) g/dL 10/21/20 10/21/20 10/22/20 Range/Units 18:09 23:23 04:54 WBC (3.8-10.6) k/uL RBC (4.30-5.90) m/uL Hgb (13.0-17.5) gm/dL Hct (39.0-53.0) % D-Dimer (<0.60) mg/L FEU ABG pH 7.46 H (7.35-7.45) ABG pO2 81 L (83-108) mmHg ABG HCO3 30 H (21-25) mmol/L ABG Total CO2 31 H (19-24) mmol/L ABG O2 Saturation 97.1 H (94-97) % Chloride (98-107) mmol/L Carbon Dioxide (22-30) mmol/L BUN (9-20) mg/dL Creatinine (0.66-1.25) mg/dL Glucose (74-99) mg/dL POC Glucose (mg/dL) 180 H 148 H (75-99) mg/dL Calcium (8.4-10.2) mg/dL Ferritin (22.0-322.0) ng/mL Lactate Dehydrogenase (313-618) U/L C-Reactive Protein (<10.0) mg/L Total Protein (6.3-8.2) g/dL Albumin (3.5-5.0) g/dL 10/22/20 10/22/20 10/22/20 Range/Units 05:00 05:00 05:00 WBC 13.6 H (3.8-10.6) k/uL RBC 4.24 L (4.30-5.90) m/uL Hgb 12.3 L (13.0-17.5) gm/dL Hct 37.3 L (39.0-53.0) % D-Dimer 6.20 H (<0.60) mg/L FEU ABG pH (7.35-7.45) ABG pO2 (83-108) mmHg ABG HCO3 (21-25) mmol/L ABG Total CO2 (19-24) mmol/L ABG O2 Saturation (94-97) % Chloride 110 H (98-107) mmol/L Carbon Dioxide 31 H (22-30) mmol/L BUN 44 H (9-20) mg/dL Creatinine 0.55 L (0.66-1.25) mg/dL Glucose 166 H (74-99) mg/dL POC Glucose (mg/dL) (75-99) mg/dL Calcium 7.6 L (8.4-10.2) mg/dL Ferritin (22.0-322.0) ng/mL Lactate Dehydrogenase 1214 H (313-618) U/L C-Reactive Protein 33.0 H (<10.0) mg/L Total Protein 4.9 L (6.3-8.2) g/dL Albumin 2.1 L (3.5-5.0) g/dL 10/22/20 10/22/20 Range/Units 05:24 06:32 WBC (3.8-10.6) k/uL RBC (4.30-5.90) m/uL Hgb (13.0-17.5) gm/dL Hct (39.0-53.0) % D-Dimer (<0.60) mg/L FEU ABG pH (7.35-7.45) ABG pO2 (83-108) mmHg ABG HCO3 (21-25) mmol/L ABG Total CO2 (19-24) mmol/L ABG O2 Saturation (94-97) % Chloride (98-107) mmol/L Carbon Dioxide (22-30) mmol/L BUN (9-20) mg/dL Creatinine (0.66-1.25) mg/dL Glucose (74-99) mg/dL POC Glucose (mg/dL) 151 H 144 H (75-99) mg/dL Calcium (8.4-10.2) mg/dL Ferritin (22.0-322.0) ng/mL Lactate Dehydrogenase (313-618) U/L C-Reactive Protein (<10.0) mg/L Total Protein (6.3-8.2) g/dL Albumin (3.5-5.0) g/dL Assessment and Plan Plan: 1 Acute hypoxemic respiratory failure secondary to COVID 19 pneumonia, Intubation and mechanical ventilation on 10/15/2020. The patient received convalescent plasma. The patient received Remdesivir the patient is also on IV Solu Medrol 60 mg every 6 hours. Remains intubated on mechanical ventilator. He remains sedated. No paralytics for now. The blood gases from today shows adequate oxygenation with a pO2 of 81 which is improved compared to yesterday. 2 Acute respiratory distress syndrome (ARDS) secondary to above and the patient currently is in a non-thrombotic position. He was being phoned earlier. He is currently on a PEEP of 12 and airway pressures are not significantly elevated. 3 History of hyperlipidemia. 4 History of chronic bronchial asthma. 5 History of gastroesophageal reflux disease. Plan: The patient remains on the mechanical ventilator. Drop the PEEP down to 7 later on down to a possible Continue vitamin C, vitamin D3, zinc, and high-dose corticosteroids. Lovenox, at 80 mg subcu twice a day. Repeat D-dimer test tomorrow Check triglyceride levels She is a combination of sedation with propofol and fentanyl Check fluid balance, and given a dose of Lasix 40 mg IV push 1, and then 40 every 24 hours Continue the supportive care including the enteral feeding for nutritional support Prognosis is guarded. We will continue to follow. Critically care evaluation was done and more than 30 minutes. Time with Patient: Greater than 30
[2020-10-22] MEDS: FUROSEMIDE 10 MG/ML 4 ML VIAL IV SCH (08:18)
[2020-10-22] MEDS: ATORVASTATIN 40 MG TAB PO SCH (08:19)
[2020-10-22] MEDS: FAMOTIDINE 20 MG/2 ML VIAL IV SCH ×2 (08:19→20:49)
[2020-10-22] MEDS: ENOXAPARIN 80 MG/0.8 ML SYRINGE SQ SCH ×2 (08:19→20:13)
[2020-10-22] MEDS: CHOLECALCIFEROL 1,000 UNIT TAB PO SCH (08:19)
[2020-10-22] MEDS: CHLORHEXIDINE GLUCONATE 15 ML CUP MUCOUS MEM SCH ×2 (08:19→20:13)
--- NOTE | 2020-10-22 08:19 | XR ---
EXAMINATION TYPE: XR chest 1V portable DATE OF EXAM: 10/22/2020 Comparison: 10/21/2020 Clinical History: 55 year-old male tube placement Findings: ET and NG tubes are satisfactory. Heart upper limits of normal in size. Continued diffuse interstitia l opacity and dense retrocardiac opacity. Progressive consolidation in the right lower lobe. No sizab le effusion. Left IJ CVC tip at the cavoatrial junction. Impression: Continued bilateral diffuse interstitial infiltrates and retrocardiac opacity. Developing consolidati on in the right lower lobe suggests overall worsening.
[2020-10-22 09:43] LABS: Ferritin 667.1 ng/mL (22.0-322.0)
[2020-10-22 11:51] LABS: Glucose,Whole Blood 153 mg/dL (75-99)
[2020-10-22] MEDS: SODIUM CHLORIDE 0.9% 1,000 ML IV SCH (11:56)
[2020-10-22 17:54] LABS: Glucose,Whole Blood 152 mg/dL (75-99)
--- NOTE | 2020-10-22 21:07 | P.PN ---
Subjective HPI - Patient is a 55-year-old male came in with complaints of increasing shortness of breath over the past week. Patient was diagnosed with Covid 6 days ago. He has completed a course of steroids as well as Z-Douglas. Patient states over the past week he's been fighting fevers, body aches, chills and nausea. Patient states his shortness of breath has been steadily increasing. He gets winded with just walking around his house. He does admit to some chest pain when he is coughing. He does have some production with his cough. He does admit to history of asthma, denies heart disease. He states his last dose of Tylenol was last night. He denies any vomiting, no dysuria. Patient is febrile 100.4, pulse is 96, he is satting 88% on room air. Patient had a chest x-ray which showed diffuse bilateral infiltrates. Patient is presently on 2 L of oxygen saturating 93% patient was having fevers at home patient had a low-grade fever here. Patient has elevated inflammatory markers along with the low sodium. On 10/15/2020 - last night patient became more short of breath, so he was shifted to the ICU. Initially the patient was placed on BiPAP, patient was staffed neck and saturating in the high 80s and so eventually he had to be intu bated around noon. Currently he is mechanically ventilated and sedated. Reviewing the vitals patient is tachycardic between 100-110, saturating in the low 80s on 100% FiO2, blood pressure 1 50 x 92. Patient has been started on Solu-Medrol, Remdesivir, Lovenox and breathing treatments. On reviewing the labs white count of 6.1, hemoglobin 14.7, platelets 162. Sodium 133, potassium 4.2, chloride 102, bicarb 28, BUN 17, creatinine 0.79. Ferritin 624, magnesium 1.5, albumin 2.9. 10/16/2020 Patient is seen and examined in the ICU. He was admitted for Covid bilateral pneumonia. These with acute hypoxic respiratory failure needing intubation and mechanical ventilation with pulmonary/critical care team following the patient closely. He's undergoing prone position for 16 hours per day. Also he is getting Remidsivir and he is a status post convalescent plasma . Patient does not need pressors as his vitals are stable. And he is on tube feeding. Patient is currently sedated. Labs reviewed 10/17/2020 Patient remains in the ICU sedated and intubated. He is undergoing prone position with the goal 16 hours per day. He is febrile but tachypneic. Labs reviewed including CBC and BMP showing no significant changes. And sputum culture is growing Kay albicans. Chest x-ray showing the same bilateral infiltrates with right more than left related to his covid pneumonia. And he remains on Solu-Medrol 60 mg, remdisvir and normal saline at 75 mL/h. Pulmonary/critical care team R following the patient closely and the recommend to continue the current management and keep monitoring 10/18/2020 pt jana in ICU intubated sedated , with critical care team following him closely and adjusting his vent setting, he is currently needing high doseo f PEEP at 15 cxr from today showing small new bilateral pleural effusion , with basilar consolidation consistent wiht known covid 19 infection tomorrow is last dose of Remdisvir he remains on solumedrol 60 mg and gentl hydration 10/20/2020 Patient in ICU intubated on mechanical ventilation for several days now with pulmonary/critical care team managing the patient and monitoring him closely. Patient under going weaning for his PEEP and FiO2 down to 8 cm and 50% Chest x-ray showing stable findings consistent with edema versus pneumonia Patient on the same treatment of submental 60 mg normal saline at 50 mg and Lovenox 80 mg twice daily 10/21/2020 Patient remains in the ICU intubated and sedated, distal and a critical condition. Pulmonary/critical team R following the case closely and managing his vent. His PEEP was increased today to 12 from 8 because was desaturating during the night. FiO2 was kept at 50%. Blood pressure is 133/74, oxygen saturation is 90%, breathing rates 24 and is still slightly bradycardic at 56. Creatinine is normal at 0.5, magnesium 2.6, inflammatory markers including ferritin, LDH, C-reactive protein are slightly trending down He is on therapeutic dose of Lovenox for high d-dimer i called the and discussed the case her and all her question were answered and tried to explain the situation for her in a language she can understand 10/22/2020 Patient remains in the ICU intubated and sedated, today his PEEP was lowered to 10 in the morning, he remains on FiO2 of 50% He is hemodynamically stable. Sugar is controlled. WBC stable at 13.6 K results of CBC is unremarkable. Creatinine is normal at 0.5. Repeat chest x- ray today showing continued bilateral diffuse interstitial infiltrates and retrocardiac opacity. Development consolidation in the right lower lobe suggestive overall worsening Medications salmeterol 60 mg of normal saline at 40, continue with Lovenox with the same dose Prognosis remains guarded Review of systems: N/a Active Medications Albuterol Sulfate (Albuterol Hfa Inhaler) 2 puff INHALATION RT-QID PRN Atorvastatin Calcium (Atorvastatin 40 Mg Tab) 40 mg PO DAILY VINNY Chlorhexidine Gluconate (Chlorhexidine Gluconate 15 Ml Cup) 15 ml MUCOUS MEM BID VINNY Cholecalciferol (Cholecalciferol 1,000 Unit Tab) 2,000 unit PO DAILY VINNY Enoxaparin Sodium (Enoxaparin 80 Mg/0.8 Ml Syringe) 80 mg SQ BID VINNY Famotidine (Famotidine 20 Mg/2 Ml Vial) 20 mg IV Q12HR [facility]NY Furosemide (Furosemide 10 Mg/Ml 4 Ml Vial) 40 mg IV DAILY VINNY Propofol 1,000 mg/ IV Solution 100 mls @ 0 mls/hr IV .Q0M VINNY; Protocol Sodium Chloride (Saline 0.9%) 1,000 mls @ 40 mls/hr IV .Q24H V[facility]NY Fentanyl Citrate 1,000 mcg/ (Sodium Chloride) 100 mls @ 0 mls/hr IV .Q0M VINNY; Protocol Insulin Aspart (Insulin Aspart (Novolog) 100 Unit/Ml Vial) 0 unit SQ Q6HR VINNY; Protocol Methylprednisolone Sodium Succinate (Methylprednisolone Sod Succi 125 Mg/2 Ml Vial) 60 mg IV Q6HR VINNY Naloxone HCl (Naloxone 0.4 Mg/Ml 1 Ml Vial) 0.2 mg IV Q2M PRN Ondansetron HCl (Ondansetron 4 Mg/2 Ml Vial) 4 mg IVP Q8HR PRN Objective - Vital Signs Vital signs: Vital Signs Temp 98 F 10/22/20 12:00 Pulse 63 10/22/20 13:00 Resp 24 10/22/20 13:00 BP 163/100 10/22/20 13:00 Pulse Ox 90 L 10/22/20 13:00 Intake & Output 10/21/20 10/22/20 10/22/20 18:59 06:59 18:59 Intake Total 0339.018 2869.513 685.393 Output Total 637 398 1395 Balance 290.176 542.513 -789.607 Weight 78.7 kg 83.5 kg Intake: IV 483 556 301 0.9 Normal Saline 3 36 21 Pressure Bag @ 3mL/hr Sodium Chloride 0.9% 1, 480 520 280 000 ml @ 40 mls/hr IV . Q24H [facility] Rx#:[id number] Intake, IV Titration 340.176 360.513 171.393 Amount fentaNYL (PF) 1,000 mcg 68.8 In Sodium Chloride 0.9% 80 ml @ Per Protocol IV . Q0M [facility] Rx#:[id number] propofoL 1,000 mg In 340.176 291.713 171.393 Empty Bag 1 bag @ Titrate IV .Q0M [facility] Rx#: [id number] Tube Feeding 332 221 153 Other 60 90 60 Output: Urine 625 025 7697 Other: Voiding Method Indwelling Catheter Indwelling Catheter Indwelling Catheter ABP, PAP, CO, CI - Last Documented Arterial Blood Pressure 103/93 - Exam -GENERAL: The patient is intubated and sedated HEENT: Pupils are round and equally reacting to light. EOMI. No scleral icterus. No conjunctival pallor. Normocephalic, atraumatic. No pharyngeal erythema. No thyromegaly. CARDIOVASCULAR: S1 and S2 present. No murmurs, rubs, or gallops. PULMONARY: Chest is clear to auscultation, no wheezing or crackles. ABDOMEN: Soft, nontender, nondistended, normoactive bowel sounds. No palpable organomegaly. MUSCULOSKELETAL: No joint swelling or deformity. EXTREMITIES: No cyanosis, clubbing, or pedal edema. NEUROLOGICAL: Gross neurological examination did not reveal any focal deficits. SKIN: No rashes. no petechiae. - Labs CBC & Chem 7: 10/22/20 05:00 10/22/20 05:00 Labs: Abnormal Lab Results - Last 24 Hours (Table) 10/21/20 10/21/20 10/22/20 Range/Units 18:09 23:23 04:54 WBC (3.8-10.6) k/uL RBC (4.30-5.90) m/uL Hgb (13.0-17.5) gm/dL Hct (39.0-53.0) % D-Dimer (<0.60) mg/L FEU ABG pH 7.46 H (7.35-7.45) ABG pO2 81 L (83-108) mmHg ABG HCO3 30 H (21-25) mmol/L ABG Total CO2 31 H (19-24) mmol/L ABG O2 Saturation 97.1 H (94-97) % Chloride (98-107) mmol/L Carbon Dioxide (22-30) mmol/L BUN (9-20) mg/dL Creatinine (0.66-1.25) mg/dL Glucose (74-99) mg/dL POC Glucose (mg/dL) 180 H 148 H (75-99) mg/dL Calcium (8.4-10.2) mg/dL Ferritin (22.0-322.0) ng/mL Lactate Dehydrogenase (313-618) U/L C-Reactive Protein (<10.0) mg/L Total Protein (6.3-8.2) g/dL Albumin (3.5-5.0) g/dL Triglycerides (<150) mg/dL 10/22/20 10/22/20 10/22/20 Range/Units 05:00 05:00 05:00 WBC 13.6 H (3.8-10.6) k/uL RBC 4.24 L (4.30-5.90) m/uL Hgb 12.3 L (13.0-17.5) gm/dL Hct 37.3 L (39.0-53.0) % D-Dimer 6.20 H (<0.60) mg/L FEU ABG pH (7.35-7.45) ABG pO2 (83-108) mmHg ABG HCO3 (21-25) mmol/L ABG Total CO2 (19-24) mmol/L ABG O2 Saturation (94-97) % Chloride 110 H (98-107) mmol/L Carbon Dioxide 31 H (22-30) mmol/L BUN 44 H (9-20) mg/dL Creatinine 0.55 L (0.66-1.25) mg/dL Glucose 166 H (74-99) mg/dL POC Glucose (mg/dL) (75-99) mg/dL Calcium 7.6 L (8.4-10.2) mg/dL Ferritin 667.1 H (22.0-322.0) ng/mL Lactate Dehydrogenase 1214 H (313-618) U/L C-Reactive Protein 33.0 H (<10.0) mg/L Total Protein 4.9 L (6.3-8.2) g/dL Albumin 2.1 L (3.5-5.0) g/dL Triglycerides (<150) mg/dL 10/22/20 10/22/20 10/22/20 Range/Units 05:24 06:32 11:49 WBC (3.8-10.6) k/uL RBC (4.30-5.90) m/uL Hgb (13.0-17.5) gm/dL Hct (39.0-53.0) % D-Dimer (<0.60) mg/L FEU ABG pH (7.35-7.45) ABG pO2 (83-108) mmHg ABG HCO3 (21-25) mmol/L ABG Total CO2 (19-24) mmol/L ABG O2 Saturation (94-97) % Chloride (98-107) mmol/L Carbon Dioxide (22-30) mmol/L BUN (9-20) mg/dL Creatinine (0.66-1.25) mg/dL Glucose (74-99) mg/dL POC Glucose (mg/dL) 151 H 144 H 153 H (75-99) mg/dL Calcium (8.4-10.2) mg/dL Ferritin (22.0-322.0) ng/mL Lactate Dehydrogenase (313-618) U/L C-Reactive Protein (<10.0) mg/L Total Protein (6.3-8.2) g/dL Albumin (3.5-5.0) g/dL Triglycerides (<150) mg/dL 10/22/20 Range/Units 14:05 WBC (3.8-10.6) k/uL RBC (4.30-5.90) m/uL Hgb (13.0-17.5) gm/dL Hct (39.0-53.0) % D-Dimer (<0.60) mg/L FEU ABG pH (7.35-7.45) ABG pO2 (83-108) mmHg ABG HCO3 (21-25) mmol/L ABG Total CO2 (19-24) mmol/L ABG O2 Saturation (94-97) % Chloride (98-107) mmol/L Carbon Dioxide (22-30) mmol/L BUN (9-20) mg/dL Creatinine (0.66-1.25) mg/dL Glucose (74-99) mg/dL POC Glucose (mg/dL) (75-99) mg/dL Calcium (8.4-10.2) mg/dL Ferritin (22.0-322.0) ng/mL Lactate Dehydrogenase (313-618) U/L C-Reactive Protein (<10.0) mg/L Total Protein (6.3-8.2) g/dL Albumin (3.5-5.0) g/dL Triglycerides 300 H (<150) mg/dL Assessment and Plan Assessment: Acute hypoxic respiratory failure secondary to COVID pneumonia possible acute respiratory distress syndrome ARDS, per pulmonary team Acute hypoxic respiratory failure needing Mechanically ventilated Hyperlipidemia History of asthma GERD Plan: This is a pleasant 55 years old male admitted with bilateral covid pneumonia. Continue with intubation and mechanical ventilation as per pulmonary/critical care team. Continue with steroids, gentle hydration and Lovenox as per pulmonary team consultation and recommendation . He finished remdesivir therapy Labs and medication were reviewed.. Continue same treatment. Continue with symptomatic treatment. Resume home medication. Monitor lytes and vitals. DVT and GI prophylaxis. Further recommendations as per clinical course of the patient DVT prophylaxis: Subcutaneous Lovenox GI Prophylaxis: Pepcid Prognosis is guarded
[2020-10-22 23:46] LABS: Glucose,Whole Blood 140 mg/dL (75-99)
[2020-10-23 03:48] LABS: Basophils % (A) 0 %; Eosinophils % (A) 0 %; HCT 37.4 % (39.0-53.0); HGB 12.8 gm/dL (13.0-17.5); Lymphocytes # (A) 0.5 k/uL (1.0-4.8); Lymphocytes % (A) 4 %; MCH 29.8 pg (25.0-35.0); MCHC 34.3 g/dL (31.0-37.0); MCV 86.9 fL (80.0-100.0); Mean Platelet Volume 8.4; Monocytes # (A) 0.6 k/uL (0-1.0); Monocytes % (A) 5 %; Neutrophils # (A) 11.8 k/uL (1.3-7.7); Neutrophils % (A) 90 %; Platelet Count 193 k/uL (150-450); WBC 13.1 k/uL (3.8-10.6)
[2020-10-23 04:17] LABS: Chloride 108 mmol/L (98-107)
[2020-10-23 04:18] LABS: Potassium 4.7 mmol/L (3.5-5.1); Sodium 139 mmol/L (137-145)
[2020-10-23 04:22] LABS: ALT 50 U/L (4-49); AST 27 U/L (17-59); African American GFR (CKD) >90 (>60 ml/min/1.73 sqM); Albumin 2.2 g/dL (3.5-5.0); Alkaline Phosphatase 57 U/L (38-126); Anion Gap 0 mmol/L; Blood Urea Nitrogen 45 mg/dL (9-20); C Reactive Protein 28.7 mg/L (<10.0); Calcium 7.8 mg/dL (8.4-10.2); Carbon Dioxide 31 mmol/L (22-30); Creatine Kinase 55 U/L (55-170); Glucose 159 mg/dL (74-99); LDH 1179 U/L (313-618); Non-African American GFR(CKD) >90 (>60 ml/min/1.73 sqM); Total Bilirubin 0.9 mg/dL (0.2-1.3)
[2020-10-23 04:56] LABS: ABG Base Excess 7.4 mmol/L; ABG HCO3 31 mmol/L (21-25); ABG Oxygen Saturation 95.8 % (94-97); ABG PCO2 40 mmHg (35-45); ABG PH 7.49 (7.35-7.45); ABG PO2 74 mmHg (83-108); ABG TCO2 32 mmol/L (19-24); Allen Test Performed? Yes
[2020-10-23 05:12] LABS: Glucose,Whole Blood 141 mg/dL (75-99)
[2020-10-23] MEDS: INSULIN ASPART (NovoLOG) 100 UNIT/ML VIAL SQ SCH ×3 (05:13→19:04)
[2020-10-23] MEDS: methylPREDNISolone SOD SUCCI 125 MG/2 ML VIAL IV SCH ×3 (05:13→19:04)
[2020-10-23] MEDS: SODIUM CHLORIDE 0.9% 1,000 ML IV SCH (05:15)
--- NOTE | 2020-10-23 07:25 | XR ---
EXAMINATION TYPE: XR chest 1V portable DATE OF EXAM: 10/23/2020 COMPARISON: Prior chest x-ray 10/22/2020 HISTORY: Intubated TECHNIQUE: Single frontal view of the chest is obtained. FINDINGS: Endotracheal tube, NG tube, left jugular central venous catheter are overlying appropriate positions, patient is rotated. No evident pneumothorax or pleural effusion. Bilateral airspace disea se persists. IMPRESSION: Correlate for pneumonia, edema, ARDS
[2020-10-23] MEDS: ALBUTEROL HFA INHALER INHALATION PRN ×3 (07:44→15:26)
--- NOTE | 2020-10-23 07:59 | P.PN ---
Subjective Progress Note Date: 10/23/20 55-year-old male who was admitted to the ICU yesterday. He came down to the ICU for acute hypoxemic respiratory failure secondary to COVID 19 pneumonia. Initially, we attempted to maintain him on BiPAP, but unfortunately, the patient's respiratory failure worsened and he required intubation and mechanical ventilation. He was intubated on 10/15/2020.. He is on the volume assist control modality, rate 24, tidal volume 450, FiO2 50%, and PEEP of 12. His blood gases show a pO2 of 81, PaCO2 of 42, and a pH of 7.46. He is getting saline at 40 mL an hour, a fentanyl drip at 0.5 mcg/kg/h, propofol at 60 mcg/kg/m, and vital high protein at 64 mL an hour which is goal. He was also paralyzed and is currently off paralytics.. He received 1 dose of, convalescent plasma, and 1 dose of remdesivir. He is receiving Solumedrol at 60 mg IV q 6 hours. On today's evaluation, the patient is being seen on follow-up. The patient's peak airway pressures around 30 on the above-mentioned ventilator setting. The patient is afebrile. The white cell count today is 13.6 with a hemoglobin of 12. Rest of the blood work and electrodes are all within normal limits. The chest x-ray from today still showing diffuse bilateral pulmonary infiltrates ET tube is in a good location. The patient also has a left IJ triple-lumen catheter in place. The patient's hemodynamically stable. He is on no pressors. He is producing adequate amount of urine output. He is on Lovenox 80 mg subcu every 12 hours.A d-dimer level is up to 2 and this is essentially gone compared to few days back with a d-dimer was up to 34.. On today's evaluation of 10/23/2020 seeing the patient for a follow-up. The patient remains sedated and the patient is on propofol running at 50 mcg/kg per minute and the patient is also on fentanyl at 1.0 mcg/kg/h. She remains on a mechanical ventilator and essentially the ventilator settings currently is at a rate of 24 with a tidal volume of 450, an FiO2 of 50% with a PEEP of 8. His is improved compared to yesterday. The blood gases from today shows a pH of 7.49 with a pCO2 of 40 and pO2 of 74. Chest x-ray stable, probably some improvement in the right lower lobe area. ET tube is in a good location. NG tube is in also good location. He is afebrile. Note that the patient has received convalescent plasma, Remrukhsanaivir is also on IV Solu Medrol 60 mg every 6 hours. His inflammatory markers show a drop in his CRP down to 28 and his LDH is also dropping down to 1179. His net fluid balance has been -68 mL and the patient is receiving Lasix 40 mg IV on a daily basis. His triglyceride level is at 300. Is tolerating enteral feeding for nutritional support. The d-dimer today is at X.2 from yesterday and the repeat levels are pending for today. Meanwhile, the patient remains on therapeutic dose of Lovenox at a dose of 80 mg subcu every 12 hours. Objective - Vital Signs Vital signs: Vital Signs Temp 97.8 F 10/23/20 04:00 Pulse 46 L 10/23/20 07:00 Resp 24 10/23/20 07:00 BP 154/85 10/23/20 07:00 Pulse Ox 92 L 10/23/20 07:00 Intake & Output 10/22/20 10/23/20 10/23/20 18:59 06:59 18:59 Intake Total 3899.612 6491.211 126.045 Output Total 1675 610 35 Balance -554.485 486.211 91.045 Weight 71.4 kg Intake: IV 473 516 43 0.9 Normal Saline 33 36 3 Pressure Bag @ 3mL/hr Sodium Chloride 0.9% 1, 440 480 40 000 ml @ 40 mls/hr IV . Q24H [facility] Rx#:[id number] Intake, IV Titration 336.515 320.211 66.045 Amount fentaNYL (PF) 1,000 mcg 57.05 In Sodium Chloride 0.9% 80 ml @ Per Protocol IV . Q0M [facility] Rx#:[id number] propofoL 1,000 mg In 336.515 263.161 66.045 Empty Bag 1 bag @ Titrate IV .Q0M [facility] Rx#: [id number] Tube Feeding 221 170 17 Other 90 90 Output: Urine 1675 610 35 Other: Voiding Method Indwelling Catheter Indwelling Catheter Indwelling Catheter ABP, PAP, CO, CI - Last Documented Arterial Blood Pressure 103/93 - Exam No acute distress, sedated, with an orally placed endotracheal tube and NG tube . HEENT examination is grossly unremarkable. Mucous membranes are moist. The patient does have a orally placed endotracheal tube. Neck supple. Full range of motion. No adenopathy thyromegaly or neck vein distention. A left internal jugular triple-lumen catheter is noted. Cardiovascular examination reveals regular rhythm rate. S1-S2 normal. No S3 or S4. No discernible murmur noted. Heart rate is 56 bpm and heart sounds are distant. Lungs reveal diminished breath sounds bilaterally. Breath sounds are coarse. Crackles are noted. Breath sounds are equal bilaterally. No wheezes are appreciated.. Abdomen is soft without bowel sounds. No masses are noted. Extremities are intact. No cyanosis clubbing or edema. He now has a left radial arterial line. Skin is without rash or lesion. Neurologic examination is difficult to assess given his current level of sedation. - Labs CBC & Chem 7: 10/23/20 03:35 10/23/20 03:35 Labs: Abnormal Lab Results - Last 24 Hours (Table) 10/22/20 10/22/20 10/22/20 Range/Units 05:00 11:49 14:05 WBC (3.8-10.6) k/uL Hgb (13.0-17.5) gm/dL Hct (39.0-53.0) % Neutrophils # (1.3-7.7) k/uL Lymphocytes # (1.0-4.8) k/uL ABG pH (7.35-7.45) ABG pO2 (83-108) mmHg ABG HCO3 (21-25) mmol/L ABG Total CO2 (19-24) mmol/L Chloride (98-107) mmol/L Carbon Dioxide (22-30) mmol/L BUN (9-20) mg/dL Creatinine (0.66-1.25) mg/dL Glucose (74-99) mg/dL POC Glucose (mg/dL) 153 H (75-99) mg/dL Calcium (8.4-10.2) mg/dL Ferritin 667.1 H (22.0-322.0) ng/mL ALT (4-49) U/L Lactate Dehydrogenase (313-618) U/L C-Reactive Protein (<10.0) mg/L Total Protein (6.3-8.2) g/dL Albumin (3.5-5.0) g/dL Triglycerides 300 H (<150) mg/dL 10/22/20 10/22/20 10/23/20 Range/Units 17:53 23:45 03:35 WBC (3.8-10.6) k/uL Hgb (13.0-17.5) gm/dL Hct (39.0-53.0) % Neutrophils # (1.3-7.7) k/uL Lymphocytes # (1.0-4.8) k/uL ABG pH (7.35-7.45) ABG pO2 (83-108) mmHg ABG HCO3 (21-25) mmol/L ABG Total CO2 (19-24) mmol/L Chloride 108 H (98-107) mmol/L Carbon Dioxide 31 H (22-30) mmol/L BUN 45 H (9-20) mg/dL Creatinine 0.52 L (0.66-1.25) mg/dL Glucose 159 H (74-99) mg/dL POC Glucose (mg/dL) 152 H 140 H (75-99) mg/dL Calcium 7.8 L (8.4-10.2) mg/dL Ferritin (22.0-322.0) ng/mL ALT 50 H (4-49) U/L Lactate Dehydrogenase 1179 H (313-618) U/L C-Reactive Protein 28.7 H (<10.0) mg/L Total Protein 5.0 L (6.3-8.2) g/dL Albumin 2.2 L (3.5-5.0) g/dL Triglycerides (<150) mg/dL 10/23/20 10/23/20 10/23/20 Range/Units 03:35 04:52 05:10 WBC 13.1 H (3.8-10.6) k/uL Hgb 12.8 L (13.0-17.5) gm/dL Hct 37.4 L (39.0-53.0) % Neutrophils # 11.8 H (1.3-7.7) k/uL Lymphocytes # 0.5 L (1.0-4.8) k/uL ABG pH 7.49 H (7.35-7.45) ABG pO2 74 L (83-108) mmHg ABG HCO3 31 H (21-25) mmol/L ABG Total CO2 32 H (19-24) mmol/L Chloride (98-107) mmol/L Carbon Dioxide (22-30) mmol/L BUN (9-20) mg/dL Creatinine (0.66-1.25) mg/dL Glucose (74-99) mg/dL POC Glucose (mg/dL) 141 H (75-99) mg/dL Calcium (8.4-10.2) mg/dL Ferritin (22.0-322.0) ng/mL ALT (4-49) U/L Lactate Dehydrogenase (313-618) U/L C-Reactive Protein (<10.0) mg/L Total Protein (6.3-8.2) g/dL Albumin (3.5-5.0) g/dL Triglycerides (<150) mg/dL Assessment and Plan Plan: 1 Acute hypoxemic respiratory failure secondary to COVID 19 pneumonia, Intubation and mechanical ventilation on 10/15/2020. The patient received convalescent plasma. The patient received Remdesivir the patient is also on IV Solu Medrol 60 mg every 6 hours. Remains intubated on mechanical ventilator. Able to cut down the PEEP down to 8 and earlier this morning a consent PEEP down to 6 and the patient's FiO2 to 50% and a peak airway pressures is in the mid 20s . I think overall, the patient's condition is improving and he may be potentially extubated but over the next 24-48 hours depending on his progress. 2 Acute respiratory distress syndrome (ARDS) secondary to above and the patient currently is in a non-thrombotic position. He was being phoned earlier. He is currently on a PEEP of 7 and airway pressures are not significantly elevated. 3 History of hyperlipidemia. The triglyceride level is at 300 while on propofol 4 History of chronic bronchial asthma. 5 History of gastroesophageal reflux disease. 6 elevated d-dimer, currently on therapeutic dose of Lovenox 7 Deep tissue injury to her left cheek related to [place] and pronating. Si milarly, tissue injury is also present on the tip of his Plan: The patient remains on the mechanical ventilator. Drop the PEEP down to 6, proceed with spontaneous awakening trial and spontaneous breathing trial today, with the goal of extubation, may need BiPAP support extubation. Also need high flow oxygen post extubation and this will largely depend on his progress, weaning parameters and post extubation status Continue vitamin C, vitamin D3, zinc, and high-dose corticosteroids. Inflammatory markers are improving, d-dimer is improving, Lovenox, at 80 mg subcu twice a day. D-dimer and Lovenox dose adjusted accordingly. Check triglyceride levels and the level is at 300. We'll continue the propofol for now and hopefully the patient will come off the propofol over the next 24 hours She is a combination of sedation with propofol and fentanyl Continue with Lasix 40 every 24 hours him IV Continue the supportive care including the enteral feeding for nutritional support Prognosis is guarded. We will continue to follow. Critically care evaluation was done and more than 30 minutes. Time with Patient: Greater than 30 Time with Patient: Greater than 30
[2020-10-23] MEDS: CHLORHEXIDINE GLUCONATE 15 ML CUP MUCOUS MEM SCH (08:02)
[2020-10-23] MEDS: FUROSEMIDE 10 MG/ML 4 ML VIAL IV SCH (08:02)
[2020-10-23] MEDS: CHOLECALCIFEROL 1,000 UNIT TAB PO SCH (08:02)
[2020-10-23] MEDS: FAMOTIDINE 20 MG/2 ML VIAL IV SCH ×2 (08:02→21:32)
[2020-10-23] MEDS: ENOXAPARIN 80 MG/0.8 ML SYRINGE SQ SCH ×2 (08:02→21:32)
[2020-10-23] MEDS: ATORVASTATIN 40 MG TAB PO SCH (08:02)
[2020-10-23 09:41] LABS: Ferritin 742.9 ng/mL (22.0-322.0)
[2020-10-23 13:02] LABS: Glucose,Whole Blood 126 mg/dL (75-99)
[2020-10-23] MEDS: CLEVIDIPINE BUTYRATE 25 MG in EMPTY BAG 1 BAG IV SCH (15:51)
[2020-10-23 17:31] LABS: Glucose,Whole Blood 105 mg/dL (75-99)
[2020-10-23 23:40] LABS: Glucose,Whole Blood 96 mg/dL (75-99)
[2020-10-24] MEDS: INSULIN ASPART (NovoLOG) 100 UNIT/ML VIAL SQ SCH ×4 (00:03→17:23)
[2020-10-24] MEDS: CLEVIDIPINE BUTYRATE 25 MG in EMPTY BAG 1 BAG IV SCH ×2 (00:16→05:51)
[2020-10-24] MEDS: methylPREDNISolone SOD SUCCI 125 MG/2 ML VIAL IV SCH ×4 (00:16→17:23)
--- NOTE | 2020-10-24 01:07 | P.PN ---
Subjective HPI - Patient is a 55-year-old male came in with complaints of increasing shortness of breath over the past week. Patient was diagnosed with Covid 6 days ago. He has completed a course of steroids as well as Z-Douglas. Patient states over the past week he's been fighting fevers, body aches, chills and nausea. Patient states his shortness of breath has been steadily increasing. He gets winded with just walking around his house. He does admit to some chest pain when he is coughing. He does have some production with his cough. He does admit to history of asthma, denies heart disease. He states his last dose of Tylenol was last night. He denies any vomiting, no dysuria. Patient is febrile 100.4, pulse is 96, he is satting 88% on room air. Patient had a chest x-ray which showed diffuse bilateral infiltrates. Patient is presently on 2 L of oxygen saturating 93% patient was having fevers at home patient had a low-grade fever here. Patient has elevated inflammatory markers along with the low sodium. On 10/15/2020 - last night patient became more short of breath, so he was shifted to the ICU. Initially the patient was placed on BiPAP, patient was staffed neck and saturating in the high 80s and so eventually he had to be intu bated around noon. Currently he is mechanically ventilated and sedated. Reviewing the vitals patient is tachycardic between 100-110, saturating in the low 80s on 100% FiO2, blood pressure 1 50 x 92. Patient has been started on Solu-Medrol, Remdesivir, Lovenox and breathing treatments. On reviewing the labs white count of 6.1, hemoglobin 14.7, platelets 162. Sodium 133, potassium 4.2, chloride 102, bicarb 28, BUN 17, creatinine 0.79. Ferritin 624, magnesium 1.5, albumin 2.9. 10/16/2020 Patient is seen and examined in the ICU. He was admitted for Covid bilateral pneumonia. These with acute hypoxic respiratory failure needing intubation and mechanical ventilation with pulmonary/critical care team following the patient closely. He's undergoing prone position for 16 hours per day. Also he is getting Remidsivir and he is a status post convalescent plasma . Patient does not need pressors as his vitals are stable. And he is on tube feeding. Patient is currently sedated. Labs reviewed 10/17/2020 Patient remains in the ICU sedated and intubated. He is undergoing prone position with the goal 16 hours per day. He is febrile but tachypneic. Labs reviewed including CBC and BMP showing no significant changes. And sputum culture is growing Kay albicans. Chest x-ray showing the same bilateral infiltrates with right more than left related to his covid pneumonia. And he remains on Solu-Medrol 60 mg, remdisvir and normal saline at 75 mL/h. Pulmonary/critical care team R following the patient closely and the recommend to continue the current management and keep monitoring 10/18/2020 pt jana in ICU intubated sedated , with critical care team following him closely and adjusting his vent setting, he is currently needing high doseo f PEEP at 15 cxr from today showing small new bilateral pleural effusion , with basilar consolidation consistent wiht known covid 19 infection tomorrow is last dose of Remdisvir he remains on solumedrol 60 mg and gentl hydration 10/20/2020 Patient in ICU intubated on mechanical ventilation for several days now with pulmonary/critical care team managing the patient and monitoring him closely. Patient under going weaning for his PEEP and FiO2 down to 8 cm and 50% Chest x-ray showing stable findings consistent with edema versus pneumonia Patient on the same treatment of submental 60 mg normal saline at 50 mg and Lovenox 80 mg twice daily 10/21/2020 Patient remains in the ICU intubated and sedated, distal and a critical condition. Pulmonary/critical team R following the case closely and managing his vent. His PEEP was increased today to 12 from 8 because was desaturating during the night. FiO2 was kept at 50%. Blood pressure is 133/74, oxygen saturation is 90%, breathing rates 24 and is still slightly bradycardic at 56. Creatinine is normal at 0.5, magnesium 2.6, inflammatory markers including ferritin, LDH, C-reactive protein are slightly trending down He is on therapeutic dose of Lovenox for high d-dimer i called the and discussed the case her and all her question were answered and tried to explain the situation for her in a language she can understand 10/22/2020 Patient remains in the ICU intubated and sedated, today his PEEP was lowered to 10 in the morning, he remains on FiO2 of 50% He is hemodynamically stable. Sugar is controlled. WBC stable at 13.6 K results of CBC is unremarkable. Creatinine is normal at 0.5. Repeat chest x- ray today showing continued bilateral diffuse interstitial infiltrates and retrocardiac opacity. Development consolidation in the right lower lobe suggestive overall worsening Medications salmeterol 60 mg of normal saline at 40, continue with Lovenox with the same dose Prognosis remains guarded 10/23/2020 This is a pleasant 74 years old male who presents with bilateral: With pneumonia and his been in the ICU intubated and sedated, pulmonary/critical care team helped with vent management, it looks like his respiratory function is improving as there is a troponin PEEP down to 67 and he's undergoing sedation holiday and possible when in a trial with the call to get him extubated. WBC count 13,000, creatinine normal 0.500 glucose control. Elevated inflammatory markers Patient remains on Solu-Medrol, normocephalic 40 mL/h and Lovenox 80 mg twice daily, he was started on Lasix 40 mg daily Review of systems: N/a Active Medications Albuterol Sulfate (Albuterol Hfa Inhaler) 2 puff INHALATION RT-QID PRN Atorvastatin Calcium (Atorvastatin 40 Mg Tab) 40 mg PO DAILY VINNY Chlorhexidine Gluconate (Chlorhexidine Gluconate 15 Ml Cup) 15 ml MUCOUS MEM BID VINNY Cholecalciferol (Cholecalciferol 1,000 Unit Tab) 2,000 unit PO DAILY VINNY Enoxaparin Sodium (Enoxaparin 80 Mg/0.8 Ml Syringe) 80 mg SQ BID VINNY Famotidine (Famotidine 20 Mg/2 Ml Vial) 20 mg IV Q12HR VINNY Furosemide (Furosemide 10 Mg/Ml 4 Ml Vial) 40 mg IV DAILY VINNY Propofol 1,000 mg/ IV Solution 100 mls @ 0 mls/hr IV .Q0M VINNY; Protocol Sodium Chloride (Saline 0.9%) 1,000 mls @ 40 mls/hr IV .Q24H VINNY Fentanyl Citrate 1,000 mcg/ (Sodium Chloride) 100 mls @ 0 mls/hr IV .Q0M VINNY; Protocol Insulin Aspart (Insulin Aspart (Novolog) 100 Unit/Ml Vial) 0 unit SQ Q6HR VINNY; Protocol Methylprednisolone Sodium Succinate (Methylprednisolone Sod Succi 125 Mg/2 Ml Vial) 60 mg IV Q6HR VINNY Naloxone HCl (Naloxone 0.4 Mg/Ml 1 Ml Vial) 0.2 mg IV Q2M PRN Ondansetron HCl (Ondansetron 4 Mg/2 Ml Vial) 4 mg IVP Q8HR PRN Objective - Vital Signs Vital signs: Vital Signs Temp 97.8 F 10/23/20 16:00 Pulse 82 10/23/20 19:00 Resp 11 L 10/23/20 19:00 BP 142/86 10/23/20 19:00 Pulse Ox 93 L 10/23/20 20:08 Intake & Output 10/23/20 10/23/20 10/24/20 06:59 18:59 06:59 Intake Total 1096.211 884.340 Output Total 610 2455 Balance 486.211 -1570.660 Weight 71.4 kg 71.4 kg Intake: IV 516 559 0.9 Normal Saline 36 39 Pressure Bag @ 3mL/hr Sodium Chloride 0.9% 1, 480 520 000 ml @ 40 mls/hr IV . Q24H [facility] Rx#:[id number] Intake, IV Titration 320.211 176.340 Amount Clevidipine Butyrate 25 1.3 mg In Empty Bag 1 bag @ 1 MG/HR 2 mls/hr IV .Q24H [facility] Rx#:[id number] fentaNYL (PF) 1,000 mcg 57.05 42.95 In Sodium Chloride 0.9% 80 ml @ Per Protocol IV . Q0M [facility] Rx#:[id number] propofoL 1,000 mg In 263.161 132.090 Empty Bag 1 bag @ Titrate IV .Q0M [facility]NY Rx#: [id number] Tube Feeding 170 119 Other 90 30 Output: Urine 610 2455 Other: Voiding Method Indwelling Catheter Indwelling Catheter ABP, PAP, CO, CI - Last Documented Arterial Blood Pressure 103/93 - Exam -GENERAL: The patient is intubated and sedated HEENT: Pupils are round and equally reacting to light. EOMI. No scleral icterus. No conjunctival pallor. Normocephalic, atraumatic. No pharyngeal erythema. No thyromegaly. CARDIOVASCULAR: S1 and S2 present. No murmurs, rubs, or gallops. PULMONARY: Chest is clear to auscultation, no wheezing or crackles. ABDOMEN: Soft, nontender, nondistended, normoactive bowel sounds. No palpable organomegaly. MUSCULOSKELETAL: No joint swelling or deformity. EXTREMITIES: No cyanosis, clubbing, or pedal edema. NEUROLOGICAL: Gross neurological examination did not reveal any focal deficits. SKIN: No rashes. no petechiae. - Labs CBC & Chem 7: 10/23/20 03:35 10/23/20 03:35 Labs: Abnormal Lab Results - Last 24 Hours (Table) 10/22/20 10/23/20 10/23/20 Range/Units 23:45 03:35 03:35 WBC 13.1 H (3.8-10.6) k/uL Hgb 12.8 L (13.0-17.5) gm/dL Hct 37.4 L (39.0-53.0) % Neutrophils # 11.8 H (1.3-7.7) k/uL Lymphocytes # 0.5 L (1.0-4.8) k/uL ABG pH (7.35-7.45) ABG pO2 (83-108) mmHg ABG HCO3 (21-25) mmol/L ABG Total CO2 (19-24) mmol/L Chloride 108 H (98-107) mmol/L Carbon Dioxide 31 H (22-30) mmol/L BUN 45 H (9-20) mg/dL Creatinine 0.52 L (0.66-1.25) mg/dL Glucose 159 H (74-99) mg/dL POC Glucose (mg/dL) 140 H (75-99) mg/dL Calcium 7.8 L (8.4-10.2) mg/dL Ferritin 742.9 H (22.0-322.0) ng/mL ALT 50 H (4-49) U/L Lactate Dehydrogenase 1179 H (313-618) U/L C-Reactive Protein 28.7 H (<10.0) mg/L Total Protein 5.0 L (6.3-8.2) g/dL Albumin 2.2 L (3.5-5.0) g/dL 10/23/20 10/23/20 10/23/20 Range/Units 04:52 05:10 13:00 WBC (3.8-10.6) k/uL Hgb (13.0-17.5) gm/dL Hct (39.0-53.0) % Neutrophils # (1.3-7.7) k/uL Lymphocytes # (1.0-4.8) k/uL ABG pH 7.49 H (7.35-7.45) ABG pO2 74 L (83-108) mmHg ABG HCO3 31 H (21-25) mmol/L ABG Total CO2 32 H (19-24) mmol/L Chloride (98-107) mmol/L Carbon Dioxide (22-30) mmol/L BUN (9-20) mg/dL Creatinine (0.66-1.25) mg/dL Glucose (74-99) mg/dL POC Glucose (mg/dL) 141 H 126 H (75-99) mg/dL Calcium (8.4-10.2) mg/dL Ferritin (22.0-322.0) ng/mL ALT (4-49) U/L Lactate Dehydrogenase (313-618) U/L C-Reactive Protein (<10.0) mg/L Total Protein (6.3-8.2) g/dL Albumin (3.5-5.0) g/dL 10/23/20 Range/Units 17:30 WBC (3.8-10.6) k/uL Hgb (13.0-17.5) gm/dL Hct (39.0-53.0) % Neutrophils # (1.3-7.7) k/uL Lymphocytes # (1.0-4.8) k/uL ABG pH (7.35-7.45) ABG pO2 (83-108) mmHg ABG HCO3 (21-25) mmol/L ABG Total CO2 (19-24) mmol/L Chloride (98-107) mmol/L Carbon Dioxide (22-30) mmol/L BUN (9-20) mg/dL Creatinine (0.66-1.25) mg/dL Glucose (74-99) mg/dL POC Glucose (mg/dL) 105 H (75-99) mg/dL Calcium (8.4-10.2) mg/dL Ferritin (22.0-322.0) ng/mL ALT (4-49) U/L Lactate Dehydrogenase (313-618) U/L C-Reactive Protein (<10.0) mg/L Total Protein (6.3-8.2) g/dL Albumin (3.5-5.0) g/dL Assessment and Plan Assessment: Acute hypoxic respiratory failure secondary to COVID pneumonia possible acute respiratory distress syndrome ARDS, per pulmonary team Acute hypoxic respiratory failure needing Mechanically ventilated Hyperlipidemia History of asthma GERD Plan: This is a pleasant 55 years old male admitted with bilateral covid pneumonia. Continue with intubation and mechanical ventilation as per pulmonary/critical ca re team. Continue with steroids, gentle hydration and Lovenox as per pulmonary team consultation and recommendation . He finished remdesivir therapy Labs and medication were reviewed.. Continue same treatment. Continue with symptomatic treatment. Resume home medication. Monitor lytes and vitals. DVT and GI prophylaxis. Further recommendations as per clinical course of the patient DVT prophylaxis: Subcutaneous Lovenox GI Prophylaxis: Pepcid Prognosis is guarded
[2020-10-24 04:08] LABS: Basophils # (A) 0.1 k/uL (0-0.2); Basophils % (A) 1 %; Eosinophils % (A) 0 %; Lymphocytes # (A) 0.4 k/uL (1.0-4.8); Lymphocytes % (A) 3 %; MCH 29.3 pg (25.0-35.0); MCHC 34.1 g/dL (31.0-37.0); MCV 85.8 fL (80.0-100.0); Mean Platelet Volume 7.9; Monocytes # (A) 0.5 k/uL (0-1.0); Monocytes % (A) 4 %; Neutrophils # (A) 12.4 k/uL (1.3-7.7); Neutrophils % (A) 92 %; Platelet Count 209 k/uL (150-450); RBC 4.78 m/uL (4.30-5.90); RDW 12.8 % (11.5-15.5); WBC 13.5 k/uL (3.8-10.6)
[2020-10-24 04:20] LABS: ALT 61 U/L (4-49); AST 49 U/L (17-59); African American GFR (CKD) >90 (>60 ml/min/1.73 sqM); Albumin 2.3 g/dL (3.5-5.0); Alkaline Phosphatase 68 U/L (38-126); Anion Gap 0 mmol/L; Blood Urea Nitrogen 39 mg/dL (9-20); Calcium 7.9 mg/dL (8.4-10.2); Carbon Dioxide 31 mmol/L (22-30); Chloride 108 mmol/L (98-107); Glucose 110 mg/dL (74-99); Non-African American GFR(CKD) >90 (>60 ml/min/1.73 sqM); Potassium 4.5 mmol/L (3.5-5.1); Sodium 139 mmol/L (137-145); Total Bilirubin 1.6 mg/dL (0.2-1.3); Total Protein 5.5 g/dL (6.3-8.2)
[2020-10-24 04:57] LABS: Glucose,Whole Blood 110 mg/dL (75-99)
[2020-10-24] MEDS: CHOLECALCIFEROL 25 MCG (1000 IU) TABLET PO SCH (08:02)
[2020-10-24] MEDS: ATORVASTATIN 40 MG TAB PO SCH (08:02)
[2020-10-24] MEDS: FAMOTIDINE 20 MG/2 ML VIAL IV SCH ×2 (08:06→21:12)
[2020-10-24] MEDS: ENOXAPARIN 80 MG/0.8 ML SYRINGE SQ SCH ×2 (08:06→21:12)
[2020-10-24] MEDS: SODIUM CHLORIDE 0.9% 1,000 ML IV SCH ×2 (08:07→23:24)
[2020-10-24] MEDS: FUROSEMIDE 10 MG/ML 4 ML VIAL IV SCH (08:07)
[2020-10-24] MEDS: ALBUTEROL HFA INHALER INHALATION PRN ×4 (08:08→19:24)
--- NOTE | 2020-10-24 08:11 | P.PN ---
Subjective Progress Note Date: 10/24/20 55-year-old male who was admitted to the ICU yesterday. He came down to the ICU for acute hypoxemic respiratory failure secondary to COVID 19 pneumonia. Initially, we attempted to maintain him on BiPAP, but unfortunately, the patient's respiratory failure worsened and he required intubation and mechanical ventilation. He was intubated on 10/15/2020.. He is on the volume assist control modality, rate 24, tidal volume 450, FiO2 50%, and PEEP of 12. His blood gases show a pO2 of 81, PaCO2 of 42, and a pH of 7.46. He is getting saline at 40 mL an hour, a fentanyl drip at 0.5 mcg/kg/h, propofol at 60 mcg/kg/m, and vital high protein at 64 mL an hour which is goal. He was also paralyzed and is currently off paralytics.. He received 1 dose of, convalescent plasma, and 1 dose of remdesivir. He is receiving Solumedrol at 60 mg IV q 6 hours. On today's evaluation, the patient is being seen on follow-up. The patient's peak airway pressures around 30 on the above-mentioned ventilator setting. The patient is afebrile. The white cell count today is 13.6 with a hemoglobin of 12. Rest of the blood work and electrodes are all within normal limits. The chest x-ray from today still showing diffuse bilateral pulmonary infiltrates ET tube is in a good location. The patient also has a left IJ triple-lumen catheter in place. The patient's hemodynamically stable. He is on no pressors. He is producing adequate amount of urine output. He is on Lovenox 80 mg subcu every 12 hours.A d-dimer level is up to 2 and this is essentially gone compared to few days back with a d-dimer was up to 34.. On today's evaluation of 10/23/2020 seeing the patient for a follow-up. The patient remains sedated and the patient is on propofol running at 50 mcg/kg per minute and the patient is also on fentanyl at 1.0 mcg/kg/h. She remains on a mechanical ventilator and essentially the ventilator settings currently is at a rate of 24 with a tidal volume of 450, an FiO2 of 50% with a PEEP of 8. His is improved compared to yesterday. The blood gases from today shows a pH of 7.49 with a pCO2 of 40 and pO2 of 74. Chest x-ray stable, probably some improvement in the right lower lobe area. ET tube is in a good location. NG tube is in also good location. He is afebrile. Note that the patient has received convalescent plasma, Larissaivir is also on IV Solu Medrol 60 mg every 6 hours. His inflammatory markers show a drop in his CRP down to 28 and his LDH is also dropping down to 1179. His net fluid balance has been -68 mL and the patient is receiving Lasix 40 mg IV on a daily basis. His triglyceride level is at 300. Is tolerating enteral feeding for nutritional support. The d-dimer today is at X.2 from yesterday and the repeat levels are pending for today. Meanwhile, the patient remains on therapeutic dose of Lovenox at a dose of 80 mg subcu every 12 hours. On 10/24/2020, the patient is extubated. The patient is currently on high flow oxygen at 6 L. His pulse ox is ranging between 90-94%. He is hemodynamically stable on no pressors. His blood pressure was running on the higher side and the patient was given side effects and is currently on 2 mg an hour and he has an adequate blood pressure control. D-dimer remains elevated at 6.67, his CRP is at 28 from yesterday, his LDH was 1179 from yesterday and inflammatory markers are not obtained from today. He is awake. He is following simple commands and answering questions. He is on IV Solu Medrol 60 mg every 6 hours. He is on Lovenox therapeutic doses of 80 mg subcu every 12 hours. He is afebrile. Cultures are all negative other than some Kay and his sputum. As mentioned, the patient was extubated successfully yesterday. He is a week. He has a weak cough. He has generalized motor weakness in all 4 extremities. No other significant events overnight. Neurologically intact and currently on no sedation. The chest x-ray from today showed essentially stable bilateral pulmonary infiltrates, probably slightly worse compared to yesterday, nevertheless this can be an effective positive pressure delivered by the mechanical ventilator. He does have a triple lumen catheter in his left IJ which is still in place. Left hemidiaphragm is slightly elevated. The patient will be encouraged to use incentive spirometer. The patient is in a negative fluid balance of 2.6 hours and the patient remains on IV Lasix 40 mg every 24 hours. Objective - Vital Signs Vital signs: Vital Signs Temp 99.4 F 10/24/20 04:00 Pulse 78 10/24/20 07:00 Resp 16 10/24/20 07:00 BP 145/86 10/24/20 07:00 Pulse Ox 92 L 10/24/20 07:00 Intake & Output 10/23/20 10/24/20 10/24/20 18:59 06:59 18:59 Intake Total 884.340 526.401 43 Output Total 2455 1550 125 Balance -1570.660 -1023.599 -82 Weight 71.4 kg 69 kg Intake: IV 559 473 43 0.9 Normal Saline 39 33 3 Pressure Bag @ 3mL/hr Sodium Chloride 0.9% 1, 520 440 40 000 ml @ 40 mls/hr IV . Q24H [facility] Rx#:[id number] Intake, IV Titration 176.340 53.401 Amount Clevidipine Butyrate 25 1.3 53.401 mg In Empty Bag 1 bag @ 1 MG/HR 2 mls/hr IV .Q24H [facility] Rx#:[id number] fentaNYL (PF) 1,000 mcg 42.95 In Sodium Chloride 0.9% 80 ml @ Per Protocol IV . Q0M [facility] Rx#:[id number] propofoL 1,000 mg In 132.090 Empty Bag 1 bag @ Titrate IV .Q0M [facility] Rx#: [id number] Tube Feeding 119 Other 30 Output: Urine 2455 1550 125 Other: Voiding Method Indwelling Catheter Indwelling Catheter Indwelling Catheter ABP, PAP, CO, CI - Last Documented Arterial Blood Pressure 103/93 - Exam No acute distress, sedated, with an orally placed endotracheal tube and NG tube. HEENT examination is grossly unremarkable. Mucous membranes are moist. The patient is extubated to high flow oxygen at 60 L per minute cannula Neck supple. Full range of motion. No adenopathy thyromegaly or neck vein distention. A left internal jugular triple-lumen catheter is noted. Cardiovascular examination reveals regular rhythm rate. S1-S2 normal. No S3 or S4. No discernible murmur noted. Heart rate is 56 bpm and heart sounds are distant. Lungs reveal diminished breath sounds bilaterally. Breath sounds are coarse. Crackles are noted. Breath sounds are equal bilaterally. No wheezes are appreciated.. Abdomen is soft without bowel sounds. No masses are noted. Extremities are intact. No cyanosis clubbing or edema. He now has a left radial arterial line. Skin is without rash or lesion. Neurologic examination reveals global generalized weakness, and the patient is awake and oriented 3 and is moving all 4 extremities without any limitation. - Labs CBC & Chem 7: 10/24/20 03:35 10/24/20 03:35 Labs: Abnormal Lab Results - Last 24 Hours (Table) 10/23/20 10/23/20 10/23/20 Range/Units 03:35 13:00 17:30 WBC (3.8-10.6) k/uL Neutrophils # (1.3-7.7) k/uL Lymphocytes # (1.0-4.8) k/uL D-Dimer (<0.60) mg/L FEU Chloride (98-107) mmol/L Carbon Dioxide (22-30) mmol/L BUN (9-20) mg/dL Creatinine (0.66-1.25) mg/dL Glucose (74-99) mg/dL POC Glucose (mg/dL) 126 H 105 H (75-99) mg/dL Calcium (8.4-10.2) mg/dL Ferritin 742.9 H (22.0-322.0) ng/mL Total Bilirubin (0.2-1.3) mg/dL ALT (4-49) U/L Total Protein (6.3-8.2) g/dL Albumin (3.5-5.0) g/dL 10/24/20 10/24/20 10/24/20 Range/Units 03:35 03:35 04:45 WBC 13.5 H (3.8-10.6) k/uL Neutrophils # 12.4 H (1.3-7.7) k/uL Lymphocytes # 0.4 L (1.0-4.8) k/uL D-Dimer 6.67 H (<0.60) mg/L FEU Chloride 108 H (98-107) mmol/L Carbon Dioxide 31 H (22-30) mmol/L BUN 39 H (9-20) mg/dL Creatinine 0.57 L (0.66-1.25) mg/dL Glucose 110 H (74-99) mg/dL POC Glucose (mg/dL) (75-99) mg/dL Calcium 7.9 L (8.4-10.2) mg/dL Ferritin (22.0-322.0) ng/mL Total Bilirubin 1.6 H (0.2-1.3) mg/dL ALT 61 H (4-49) U/L Total Protein 5.5 L (6.3-8.2) g/dL Albumin 2.3 L (3.5-5.0) g/dL 10/24/20 Range/Units 04:46 WBC (3.8-10.6) k/uL Neutrophils # (1.3-7.7) k/uL Lymphocytes # (1.0-4.8) k/uL D-Dimer (<0.60) mg/L FEU Chloride (98-107) mmol/L Carbon Dioxide (22-30) mmol/L BUN (9-20) mg/dL Creatinine (0.66-1.25) mg/dL Glucose (74-99) mg/dL POC Glucose (mg/dL) 110 H (75-99) mg/dL Calcium (8.4-10.2) mg/dL Ferritin (22.0-322.0) ng/mL Total Bilirubin (0.2-1.3) mg/dL ALT (4-49) U/L Total Protein (6.3-8.2) g/dL Albumin (3.5-5.0) g/dL Assessment and Plan Plan: 1 Acute hypoxemic respiratory failure secondary to COVID 19 pneumonia, Intubation and mechanical ventilation on 10/15/2020. The patient received convalescent plasma. The patient received Remdesivir the patient is also on IV Solu Medrol 60 mg every 6 hours. The patient was extubated on 10/23/2020 and he is currently on high flow oxygen at 60 L per nasal cannula 2 Acute respiratory distress syndrome (ARDS) secondary to above , extubated and a chest x-ray findings are essentially stable 3 History of hyperlipidemia. The triglyceride level is at 300 while on propofol 4 History of chronic bronchial asthma. 5 History of gastroesophageal reflux disease. 6 elevated d-dimer, currently on therapeutic dose of Lovenox 7 Deep tissue injury to her left cheek related to [place] and pronating. Similarly, tissue injury is also present on the tip of his Plan: Encourage deep breathing and coughing, provide incentive spirometry, with daily dose of Lasix, patient is maintaining negative fluid balance. Continue vitamin C, vitamin D3, zinc, and high-dose corticosteroids. Inflammatory markers are improving, d-dimer is stable, continue the same dose Lovenox Obtain follow-up inflammatory markers tomorrow we will obtain follow-up d-dimer, will adjust lovenox accordingly Past bedside swallow evaluation, we'll start patient on full liquid diet, maintain aspiration precautions, physical therapy consultation. Prognosis is guarded. We will continue to follow. Critically care evaluation was done and more than 30 minutes. Time with Patient: Greater than 30 Time with Patient: Greater than 30
--- NOTE | 2020-10-24 09:17 | XR ---
EXAMINATION TYPE: XR chest 1V DATE OF EXAM: 10/24/2020 COMPARISON: 10/23/2020 INDICATION: Covid TECHNIQUE: Single frontal view of the chest is obtained. Patient is rotated towards the left. FINDINGS: The heart size is normal. The pulmonary vasculature is somewhat prominent. Patchy consolidations are present in the mid and lower lung werner. Left central venous catheter is present with tip in the superior vena cava region. IMPRESSION: 1. Worsening bilateral mid and lower lung field infiltrates can be compatible with atypical pneumonia .
[2020-10-24] MEDS: ALPRAZolam 0.5 MG TAB PO PRN ×2 (10:12→23:24)
[2020-10-24] MEDS: ZINC SULFATE 220 MG CAP PO SCH (10:12)
[2020-10-24] MEDS: ASCORBIC ACID 500 MG TAB PO SCH ×2 (10:12→21:12)
[2020-10-24] MEDS ORDERED: CHLORHEXIDINE GLUCONATE 15 ML CUP MUCOUS MEM ONE ×2 (15:23→16:26)
[2020-10-24 17:20] LABS: Glucose,Whole Blood 93 mg/dL (75-99)
[2020-10-24] MEDS ORDERED: propofoL 100 ML IV ONE (17:53)
[2020-10-24] MEDS: MELATONIN 5 MG TABLET PO SCH (21:11)
[2020-10-24] MEDS: TEMAZEPAM 15 MG CAP PO SCH (21:12)
--- NOTE | 2020-10-24 22:46 | P.PN ---
Subjective HPI - Patient is a 55-year-old male came in with complaints of increasing shortness of breath over the past week. Patient was diagnosed with Covid 6 days ago. He has completed a course of steroids as well as Z-Douglas. Patient states over the past week he's been fighting fevers, body aches, chills and nausea. Patient states his shortness of breath has been steadily increasing. He gets winded with just walking around his house. He does admit to some chest pain when he is coughing. He does have some production with his cough. He does admit to history of asthma, denies heart disease. He states his last dose of Tylenol was last night. He denies any vomiting, no dysuria. Patient is febrile 100.4, pulse is 96, he is satting 88% on room air. Patient had a chest x-ray which showed diffuse bilateral infiltrates. Patient is presently on 2 L of oxygen saturating 93% patient was having fevers at home patient had a low-grade fever here. Patient has elevated inflammatory markers along with the low sodium. On 10/15/2020 - last night patient became more short of breath, so he was shifted to the ICU. Initially the patient was placed on BiPAP, patient was staffed neck and saturating in the high 80s and so eventually he had to be intu bated around noon. Currently he is mechanically ventilated and sedated. Reviewing the vitals patient is tachycardic between 100-110, saturating in the low 80s on 100% FiO2, blood pressure 1 50 x 92. Patient has been started on Solu-Medrol, Remdesivir, Lovenox and breathing treatments. On reviewing the labs white count of 6.1, hemoglobin 14.7, platelets 162. Sodium 133, potassium 4.2, chloride 102, bicarb 28, BUN 17, creatinine 0.79. Ferritin 624, magnesium 1.5, albumin 2.9. 10/16/2020 Patient is seen and examined in the ICU. He was admitted for Covid bilateral pneumonia. These with acute hypoxic respiratory failure needing intubation and mechanical ventilation with pulmonary/critical care team following the patient closely. He's undergoing prone position for 16 hours per day. Also he is getting Remidsivir and he is a status post convalescent plasma . Patient does not need pressors as his vitals are stable. And he is on tube feeding. Patient is currently sedated. Labs reviewed 10/17/2020 Patient remains in the ICU sedated and intubated. He is undergoing prone position with the goal 16 hours per day. He is febrile but tachypneic. Labs reviewed including CBC and BMP showing no significant changes. And sputum culture is growing Kay albicans. Chest x-ray showing the same bilateral infiltrates with right more than left related to his covid pneumonia. And he remains on Solu-Medrol 60 mg, remdisvir and normal saline at 75 mL/h. Pulmonary/critical care team R following the patient closely and the recommend to continue the current management and keep monitoring 10/18/2020 pt jana in ICU intubated sedated , with critical care team following him closely and adjusting his vent setting, he is currently needing high doseo f PEEP at 15 cxr from today showing small new bilateral pleural effusion , with basilar consolidation consistent wiht known covid 19 infection tomorrow is last dose of Remdisvir he remains on solumedrol 60 mg and gentl hydration 10/20/2020 Patient in ICU intubated on mechanical ventilation for several days now with pulmonary/critical care team managing the patient and monitoring him closely. Patient under going weaning for his PEEP and FiO2 down to 8 cm and 50% Chest x-ray showing stable findings consistent with edema versus pneumonia Patient on the same treatment of submental 60 mg normal saline at 50 mg and Lovenox 80 mg twice daily 10/21/2020 Patient remains in the ICU intubated and sedated, distal and a critical condition. Pulmonary/critical team R following the case closely and managing his vent. His PEEP was increased today to 12 from 8 because was desaturating during the night. FiO2 was kept at 50%. Blood pressure is 133/74, oxygen saturation is 90%, breathing rates 24 and is still slightly bradycardic at 56. Creatinine is normal at 0.5, magnesium 2.6, inflammatory markers including ferritin, LDH, C-reactive protein are slightly trending down He is on therapeutic dose of Lovenox for high d-dimer i called the and discussed the case her and all her question were answered and tried to explain the situation for her in a language she can understand 10/22/2020 Patient remains in the ICU intubated and sedated, today his PEEP was lowered to 10 in the morning, he remains on FiO2 of 50% He is hemodynamically stable. Sugar is controlled. WBC stable at 13.6 K results of CBC is unremarkable. Creatinine is normal at 0.5. Repeat chest x- ray today showing continued bilateral diffuse interstitial infiltrates and retrocardiac opacity. Development consolidation in the right lower lobe suggestive overall worsening Medications salmeterol 60 mg of normal saline at 40, continue with Lovenox with the same dose Prognosis remains guarded 10/23/2020 This is a pleasant 74 years old male who presents with bilateral: With pneumonia and his been in the ICU intubated and sedated, pulmonary/critical care team helped with vent management, it looks like his respiratory function is improving as there is a troponin PEEP down to 67 and he's undergoing sedation holiday and possible when in a trial with the call to get him extubated. WBC count 13,000, creatinine normal 0.500 glucose control. Elevated inflammatory markers Patient remains on Solu-Medrol, normocephalic 40 mL/h and Lovenox 80 mg twice daily, he was started on Lasix 40 mg daily 10/24/2020 Patient is a status post extubation and is currently on high flow nasal cannula with an FiO2 of 60-63% saturated on the low 90s. Patient looks dyspneic and could not provide information because of his dyspnea. Chest x-ray showing worsening bilateral middle and lower infiltrates WBC is stable at 13.5 K. BMP is unremarkable. Zinc and vitamin C were added, patient continue on some epidural 60 mg, at 40 and lasix 40 mg daily and lovenox 80 mg twice daily. Physical therapy evaluation is warranted as well as a swallow evaluation Review of systems: N/a, patient looks tired and could not provide information although he is extubated today Active Medications Albuterol Sulfate (Albuterol Hfa Inhaler) 2 puff INHALATION RT-QID PRN Atorvastatin Calcium (Atorvastatin 40 Mg Tab) 40 mg PO DAILY [facility] Chlorhexidine Gluconate (Chlorhexidine Gluconate 15 Ml Cup) 15 ml MUCOUS MEM BID [facility] Cholecalciferol (Cholecalciferol 1,000 Unit Tab) 2,000 unit PO DAILY [facility] Enoxaparin Sodium (Enoxaparin 80 Mg/0.8 Ml Syringe) 80 mg SQ BID [facility] Famotidine (Famotidine 20 Mg/2 Ml Vial) 20 mg IV Q12HR [facility] Furosemide (Furosemide 10 Mg/Ml 4 Ml Vial) 40 mg IV DAILY [facility] Propofol 1,000 mg/ IV Solution 100 mls @ 0 mls/hr IV .Q0M [facility]; Protocol Sodium Chloride (Saline 0.9%) 1,000 mls @ 40 mls/hr IV .Q24H [facility] Fentanyl Citrate 1,000 mcg/ (Sodium Chloride) 100 mls @ 0 mls/hr IV .Q0M [facility]; Protocol Insulin Aspart (Insulin Aspart (Novolog) 100 Unit/Ml Vial) 0 unit SQ Q6HR [facility]; Protocol Methylprednisolone Sodium Succinate (Methylprednisolone Sod Succi 125 Mg/2 Ml Vial) 60 mg IV Q6HR [facility] Naloxone HCl (Naloxone 0.4 Mg/Ml 1 Ml Vial) 0.2 mg IV Q2M PRN Ondansetron HCl (Ondansetron 4 Mg/2 Ml Vial) 4 mg IVP Q8HR PRN Objective - Vital Signs Vital signs: Vital Signs Temp 99.4 F 10/24/20 04:00 Pulse 78 10/24/20 07:00 Resp 16 10/24/20 07:00 BP 145/86 10/24/20 07:00 Pulse Ox 91 L 10/24/20 08:17 Intake & Output 10/23/20 10/24/20 10/24/20 18:59 06:59 18:59 Intake Total 884.340 526.401 43 Output Total 2455 1550 125 Balance -1570.660 -1023.599 -82 Weight 71.4 kg 69 kg Intake: IV 559 473 43 0.9 Normal Saline 39 33 3 Pressure Bag @ 3mL/hr Sodium Chloride 0.9% 1, 520 440 40 000 ml @ 40 mls/hr IV . Q24H [facility] Rx#:[id number] Intake, IV Titration 176.340 53.401 Amount Clevidipine Butyrate 25 1.3 53.401 mg In Empty Bag 1 bag @ 1 MG/HR 2 mls/hr IV .Q24H [facility] Rx#:[id number] fentaNYL (PF) 1,000 mcg 42.95 In Sodium Chloride 0.9% 80 ml @ Per Protocol IV . Q0M [facility] Rx#:[id number] propofoL 1,000 mg In 132.090 Empty Bag 1 bag @ Titrate IV .Q0M [facility] Rx#: [id number] Tube Feeding 119 Other 30 Output: Urine 2455 1550 125 Other: Voiding Method Indwelling Catheter Indwelling Catheter Indwelling Catheter ABP, PAP, CO, CI - Last Documented Arterial Blood Pressure 103/93 - Exam -GENERAL: The patient is awake, he is in respiratory distress and could not provide information HEENT: Pupils are round and equally reacting to light. EOMI. No scleral icterus. No conjunctival pallor. Normocephalic, atraumatic. No pharyngeal erythema. No thyromegaly. CARDIOVASCULAR: S1 and S2 present. No murmurs, rubs, or gallops. -PULMONARY: Chest is clear to auscultation, no wheezing or crackles. Bilateral coarse crepitation ABDOMEN: Soft, nontender, nondistended, normoactive bowel sounds. No palpable organomegaly. MUSCULOSKELETAL: No joint swelling or deformity. EXTREMITIES: No cyanosis, clubbing, or pedal edema. NEUROLOGICAL: Gross neurological examination did not reveal any focal deficits. SKIN: No rashes. no petechiae. - Labs CBC & Chem 7: 10/24/20 03:35 10/24/20 03:35 Labs: Abnormal Lab Results - Last 24 Hours (Table) 10/23/20 10/23/20 10/23/20 Range/Units 03:35 13:00 17:30 WBC (3.8-10.6) k/uL Neutrophils # (1.3-7.7) k/uL Lymphocytes # (1.0-4.8) k/uL D-Dimer (<0.60) mg/L FEU Chloride (98-107) mmol/L Carbon Dioxide (22-30) mmol/L BUN (9-20) mg/dL Creatinine (0.66-1.25) mg/dL Glucose (74-99) mg/dL POC Glucose (mg/dL) 126 H 105 H (75-99) mg/dL Calcium (8.4-10.2) mg/dL Ferritin 742.9 H (22.0-322.0) ng/mL Total Bilirubin (0.2-1.3) mg/dL ALT (4-49) U/L Total Protein (6.3-8.2) g/dL Albumin (3.5-5.0) g/dL 10/24/20 10/24/20 10/24/20 Range/Units 03:35 03:35 04:45 WBC 13.5 H (3.8-10.6) k/uL Neutrophils # 12.4 H (1.3-7.7) k/uL Lymphocytes # 0.4 L (1.0-4.8) k/uL D-Dimer 6.67 H (<0.60) mg/L FEU Chloride 108 H (98-107) mmol/L Carbon Dioxide 31 H (22-30) mmol/L BUN 39 H (9-20) mg/dL Creatinine 0.57 L (0.66-1.25) mg/dL Glucose 110 H (74-99) mg/dL POC Glucose (mg/dL) (75-99) mg/dL Calcium 7.9 L (8.4-10.2) mg/dL Ferritin (22.0-322.0) ng/mL Total Bilirubin 1.6 H (0.2-1.3) mg/dL ALT 61 H (4-49) U/L Total Protein 5.5 L (6.3-8.2) g/dL Albumin 2.3 L (3.5-5.0) g/dL 10/24/20 Range/Units 04:46 WBC (3.8-10.6) k/uL Neutrophils # (1.3-7.7) k/uL Lymphocytes # (1.0-4.8) k/uL D-Dimer (<0.60) mg/L FEU Chloride (98-107) mmol/L Carbon Dioxide (22-30) mmol/L BUN (9-20) mg/dL Creatinine (0.66-1.25) mg/dL Glucose (74-99) mg/dL POC Glucose (mg/dL) 110 H (75-99) mg/dL Calcium (8.4-10.2) mg/dL Ferritin (22.0-322.0) ng/mL Total Bilirubin (0.2-1.3) mg/dL ALT (4-49) U/L Total Protein (6.3-8.2) g/dL Albumin (3.5-5.0) g/dL Assessment and Plan Assessment: Acute hypoxic respiratory failure secondary to COVID pneumonia possible acute respiratory distress syndrome ARDS, per pulmonary team Acute hypoxic respiratory failure needing Mechanically ventilated, status post extubation on 10/23 Hyperlipidemia History of asthma GERD Plan: This is a pleasant 55 years old male admitted with bilateral covid pneumonia. Continue with recommendation. pulmonary/critical care team. Continue with steroids, gentle hydration and Lovenox as per pulmonary team consultation and recommendation . He finished remdesivir therapy Check swallow evaluation at physical therapy evaluation Labs and medication were reviewed.. Continue same treatment. Continue with symptomatic treatment. Resume home medication. Monitor lytes and vitals. DVT and GI prophylaxis. Further recommendations as per clinical course of the patient DVT prophylaxis: Subcutaneous Lovenox GI Prophylaxis: Pepcid Prognosis is guarded
[2020-10-24 23:31] LABS: Glucose,Whole Blood 129 mg/dL (75-99)
[2020-10-25] MEDS: methylPREDNISolone SOD SUCCI 125 MG/2 ML VIAL IV SCH ×4 (00:04→18:08)
[2020-10-25] MEDS: INSULIN ASPART (NovoLOG) 100 UNIT/ML VIAL SQ SCH ×4 (00:13→17:09)
[2020-10-25 05:18] LABS: Basophils % (A) 0 %; Eosinophils % (A) 0 %; HCT 42.2 % (39.0-53.0); HGB 13.7 gm/dL (13.0-17.5); Lymphocytes # (A) 0.5 k/uL (1.0-4.8); Lymphocytes % (A) 5 %; MCH 28.4 pg (25.0-35.0); MCHC 32.4 g/dL (31.0-37.0); MCV 87.8 fL (80.0-100.0); Mean Platelet Volume 8.1; Monocytes # (A) 0.4 k/uL (0-1.0); Monocytes % (A) 4 %; Neutrophils # (A) 9.5 k/uL (1.3-7.7); Neutrophils % (A) 91 %; Platelet Count 195 k/uL (150-450); RBC 4.81 m/uL (4.30-5.90); WBC 10.5 k/uL (3.8-10.6)
[2020-10-25 05:58] LABS: ALT 105 U/L (4-49); AST 55 U/L (17-59); African American GFR (CKD) >90 (>60 ml/min/1.73 sqM); Albumin 2.3 g/dL (3.5-5.0); Alkaline Phosphatase 62 U/L (38-126); Anion Gap -1 mmol/L; Blood Urea Nitrogen 45 mg/dL (9-20); C Reactive Protein 44.4 mg/L (<10.0); Calcium 7.8 mg/dL (8.4-10.2); Carbon Dioxide 31 mmol/L (22-30); Chloride 106 mmol/L (98-107); Glucose 134 mg/dL (74-99); LDH 1924 U/L (313-618); Non-African American GFR(CKD) >90 (>60 ml/min/1.73 sqM); Potassium 4.8 mmol/L (3.5-5.1); Sodium 136 mmol/L (137-145); Total Bilirubin 1.9 mg/dL (0.2-1.3); Total Protein 5.2 g/dL (6.3-8.2)
[2020-10-25 06:12] LABS: Glucose,Whole Blood 109 mg/dL (75-99)
[2020-10-25] MEDS: CLEVIDIPINE BUTYRATE 25 MG in EMPTY BAG 1 BAG IV SCH (06:41)
[2020-10-25] MEDS: ALBUTEROL HFA INHALER INHALATION PRN ×4 (07:12→19:05)
--- NOTE | 2020-10-25 08:01 | XR ---
EXAMINATION TYPE: XR chest 1V DATE OF EXAM: 10/25/2020 COMPARISON: 10/24/2020 INDICATION: Short of breath TECHNIQUE: Single frontal view of the chest is obtained. FINDINGS: The heart size is normal. The pulmonary vasculature is indistinct. Patchy infiltrates are present bilaterally. Correlate for atypical pneumonia. Findings are similar. L eft central venous catheter is present with the tip in the right atrium. IMPRESSION: 1. Scattered infiltrates, stable
[2020-10-25] MEDS: ALPRAZolam 0.5 MG TAB PO PRN ×2 (08:09→21:34)
--- NOTE | 2020-10-25 08:22 | P.PN ---
Subjective Progress Note Date: 10/25/20 55-year-old male who was admitted to the ICU yesterday. He came down to the ICU for acute hypoxemic respiratory failure secondary to COVID 19 pneumonia. Initially, we attempted to maintain him on BiPAP, but unfortunately, the patient's respiratory failure worsened and he required intubation and mechanical ventilation. He was intubated on 10/15/2020.. He is on the volume assist control modality, rate 24, tidal volume 450, FiO2 50%, and PEEP of 12. His blood gases show a pO2 of 81, PaCO2 of 42, and a pH of 7.46. He is getting saline at 40 mL an hour, a fentanyl drip at 0.5 mcg/kg/h, propofol at 60 mcg/kg/m, and vital high protein at 64 mL an hour which is goal. He was also paralyzed and is currently off paralytics.. He received 1 dose of, convalescent plasma, and 1 dose of remdesivir. He is receiving Solumedrol at 60 mg IV q 6 hours. On today's evaluation, the patient is being seen on follow-up. The patient's peak airway pressures around 30 on the above-mentioned ventilator setting. The patient is afebrile. The white cell count today is 13.6 with a hemoglobin of 12. Rest of the blood work and electrodes are all within normal limits. The chest x-ray from today still showing diffuse bilateral pulmonary infiltrates ET tube is in a good location. The patient also has a left IJ triple-lumen catheter in place. The patient's hemodynamically stable. He is on no pressors. He is producing adequate amount of urine output. He is on Lovenox 80 mg subcu every 12 hours.A d-dimer level is up to 2 and this is essentially gone compared to few days back with a d-dimer was up to 34.. On today's evaluation of 10/23/2020 seeing the patient for a follow-up. The patient remains sedated and the patient is on propofol running at 50 mcg/kg per minute and the patient is also on fentanyl at 1.0 mcg/kg/h. She remains on a mechanical ventilator and essentially the ventilator settings currently is at a rate of 24 with a tidal volume of 450, an FiO2 of 50% with a PEEP of 8. His is improved compared to yesterday. The blood gases from today shows a pH of 7.49 with a pCO2 of 40 and pO2 of 74. Chest x-ray stable, probably some improvement in the right lower lobe area. ET tube is in a good location. NG tube is in also good location. He is afebrile. Note that the patient has received convalescent plasma, Larissaivir is also on IV Solu Medrol 60 mg every 6 hours. His inflammatory markers show a drop in his CRP down to 28 and his LDH is also dropping down to 1179. His net fluid balance has been -68 mL and the patient is receiving Lasix 40 mg IV on a daily basis. His triglyceride level is at 300. Is tolerating enteral feeding for nutritional support. The d-dimer today is at X.2 from yesterday and the repeat levels are pending for today. Meanwhile, the patient remains on therapeutic dose of Lovenox at a dose of 80 mg subcu every 12 hours. On 10/24/2020, the patient is extubated. The patient is currently on high flow oxygen at 60 L. His pulse ox is ranging between 90-94%. He is hemodynamically stable on no pressors. His blood pressure was running on the higher side and the patient was given side effects and is currently on 2 mg an hour and he has an adequate blood pressure control. D-dimer remains elevated at 6.67, his CRP is at 28 from yesterday, his LDH was 1179 from yesterday and inflammatory markers are not obtained from today. He is awake. He is following simple commands and answering questions. He is on IV Solu Medrol 60 mg every 6 hours. He is on Lovenox therapeutic doses of 80 mg subcu every 12 hours. He is afebrile. Cultures are all negative other than some Kay and his sputum. As mentioned, the patient was extubated successfully yesterday. He is a week. He has a weak cough. He has generalized motor weakness in all 4 extremities. No other significant events overnight. Neurologically intact and currently on no s edation. The chest x-ray from today showed essentially stable bilateral pulmonary infiltrates, probably slightly worse compared to yesterday, nevertheless this can be an effective positive pressure delivered by the mechanical ventilator. He does have a triple lumen catheter in his left IJ which is still in place. Left hemidiaphragm is slightly elevated. The patient will be encouraged to use incentive spirometer. The patient is in a negative fluid balance of 2.6 hours and the patient remains on IV Lasix 40 mg every 24 hours. On 10/25/2020 patient remains extubated. He currently on the AirVo 60 L and 65% FiO2 also says just above 90% and the patient is also utilizing 100% on a beta facemasks. A chest x-ray from today shows some limited improvement on the right. There is still dense bilateral pulmonary infiltrates. The patient was extubated on 10/23/2020. He remains on IV Solu-Medrol 60 mg every 6 hours. Inflammatory markers from today show a d-dimer of 4.5 which is lower compared to yesterday, he also had a LDH level of 1924, higher and his CRP level is 44, higher. He is afebrile. He is hemodynamically stable. He is taking some limited oral intake mainly in the form of clear liquids. He is weak. He is anxious. He has a decent cough. He remains on IV Lasix every 24 hours in the neck fluid balance has been in the order of 3.1 L. He remains on Lovenox 80 mg subcutaneous every 12 hours. No sedatives. No delirium. No confusion. Family has been updated. He is on Celebrex 100 mg an hour Objective - Vital Signs Vital signs: Vital Signs Temp 98.5 F 10/25/20 04:00 Pulse 85 10/25/20 07:00 Resp 19 10/25/20 07:00 BP 133/84 10/25/20 07:00 Pulse Ox 90 L 10/25/20 07:13 Intake & Output 10/24/20 10/25/20 10/25/20 18:59 06:59 18:59 Intake Total 733 480 40 Output Total 3540 775 55 Balance -2807 -295 -15 Weight 65.8 kg Intake: IV 483 480 40 0.9 Normal Saline 3 Pressure Bag @ 3mL/hr Sodium Chloride 0.9% 1, 480 480 40 000 ml @ 40 mls/hr IV . Q24H [facility] Rx#:[id number] Intake, IV Titration 50 Amount Clevidipine Butyrate 25 50 mg In Empty Bag 1 bag @ 1 MG/HR 2 mls/hr IV .Q24H [facility] Rx#:[id number] Oral 200 Output: Urine 3540 775 55 Other: Voiding Method Indwelling Catheter Indwelling Catheter ABP, PAP, CO, CI - Last Documented Arterial Blood Pressure 103/93 - Exam No acute distress, sedated, with an orally placed endotracheal tube and NG tube. HEENT examination is grossly unremarkable. Mucous membranes are moist. The patient is extubated to high flow oxygen at 60 L per minute cannula and the patient is also utilizing 100% nonrebreather facemask. His communicating. He is awake. He is profoundly weak. His voice is somewhat muffled and he does have areas of dry crust from previous skin aberrations. Neck supple. Full range of motion. No adenopathy thyromegaly or neck vein distention. A left internal jugular triple-lumen catheter is noted. Cardiovascular examination reveals regular rhythm rate. S1-S2 normal. No S3 or S4. No discernible murmur noted. Heart rate is 56 bpm and heart sounds are distant. Lungs reveal diminished breath sounds bilaterally. Breath sounds are coarse. Crackles are noted. Breath sounds are equal bilaterally. No wheezes are appreciated.. Abdomen is soft without bowel sounds. No masses are noted. Extremities are intact. No cyanosis clubbing or edema. He now has a left radial arterial line. Skin is without rash or lesion. Neurologic examination reveals global generalized weakness, and the patient is awake and oriented 3 and is moving all 4 extremities without any limitation. - Labs CBC & Chem 7: 10/25/20 04:50 10/25/20 04:50 Labs: Abnormal Lab Results - Last 24 Hours (Table) 10/24/20 10/25/20 10/25/20 Range/Units 23:29 04:50 04:50 Neutrophils # (1.3-7.7) k/uL Lymphocytes # (1.0-4.8) k/uL D-Dimer 4.50 H (<0.60) mg/L FEU Sodium 136 L (137-145) mmol/L Carbon Dioxide 31 H (22-30) mmol/L BUN 45 H (9-20) mg/dL Creatinine 0.64 L (0.66-1.25) mg/dL Glucose 134 H (74-99) mg/dL POC Glucose (mg/dL) 129 H (75-99) mg/dL Calcium 7.8 L (8.4-10.2) mg/dL Total Bilirubin 1.9 H (0.2-1.3) mg/dL ALT 105 H (4-49) U/L Lactate Dehydrogenase 1924 H (313-618) U/L C-Reactive Protein 44.4 H (<10.0) mg/L Total Protein 5.2 L (6.3-8.2) g/dL Albumin 2.3 L (3.5-5.0) g/dL 10/25/20 10/25/20 Range/Units 04:50 06:10 Neutrophils # 9.5 H (1.3-7.7) k/uL Lymphocytes # 0.5 L (1.0-4.8) k/uL D-Dimer (<0.60) mg/L FEU Sodium (137-145) mmol/L Carbon Dioxide (22-30) mmol/L BUN (9-20) mg/dL Creatinine (0.66-1.25) mg/dL Glucose (74-99) mg/dL POC Glucose (mg/dL) 109 H (75-99) mg/dL Calcium (8.4-10.2) mg/dL Total Bilirubin (0.2-1.3) mg/dL ALT (4-49) U/L Lactate Dehydrogenase (313-618) U/L C-Reactive Protein (<10.0) mg/L Total Protein (6.3-8.2) g/dL Albumin (3.5-5.0) g/dL Assessment and Plan Plan: 1 Acute hypoxemic respiratory failure secondary to COVID 19 pneumonia, Intubation and mechanical ventilation on 10/15/2020. The patient received convalescent plasma. The patient received Remdesivir the patient is also on IV Solu Medrol 60 mg every 6 hours. The patient was extubated on 10/23/2020 and he is currently on high flow oxygen at 60 L per nasal cannula, the patient is also on 100% nonrebreather facemask in addition to the high flow oxygen. Chest x-ray essentially stable, probably slightly improved compared to yesterday. Nevertheless, no further improvement in his oxygenation. He is trying to use incentive spirometer. He is quite debilitated and weak following a prolonged intubation mechanical ventilation. 2 Acute respiratory distress syndrome (ARDS) secondary to above , extubated and a chest x-ray findings are essentially stable 3 History of hyperlipidemia. The triglyceride level is at 300, and the patient is currently off propofol 4 History of chronic bronchial asthma. 5 History of gastroesophageal reflux disease. 6 elevated d-dimer, currently on therapeutic dose of Lovenox in 30 milligrams subcu every 12 hours 7 Deep tissue injury to her left cheek related to Roselia and pronating. Similarly, tissue injury is also present on the tip of his 8 generalized motor weakness, muscle weakness secondary to prolonged intubation mechanical ventilation use of steroids and paralytics. 9 hypertension and patient is currently on clevidipine drip1 mg an hour Plan: Encourage deep breathing and coughing, provide incentive spirometry, with daily dose of Lasix, patient is maintaining negative fluid balance. Continue vitamin C, vitamin D3, zinc, and high-dose corticosteroids. Inflammatory markers are improving, d-dimer is down to 4 going to reduce the Lovenox dose to 30 mg subcu every 12 hours which is half a therapeutic dose Obtain follow-up inflammatory markers tomorrow we will obtain follow-up d-dimer, will adjust lovenox accordingly, unfortunately the d-dimer is still elevated above 4 and the LDH and a CRP are also higher compared to yesterday. We'll continue the IV Solu-Medrol to high-dose. We'll monitor the inflammatory markers. Gradually advance diet as tolerated Discontinue the Plavix prophylaxis with this patient to Norvasc 5 mg by mouth daily Prognosis is guarded. We will continue to follow.
[2020-10-25] MEDS ORDERED: ENOXAPARIN 80 MG/0.8 ML SYRINGE SQ SCH (09:00)
[2020-10-25 09:19] LABS: Ferritin 1103.8 ng/mL (22.0-322.0)
[2020-10-25] MEDS: ATORVASTATIN 40 MG TAB PO SCH (09:52)
[2020-10-25] MEDS: FAMOTIDINE 20 MG/2 ML VIAL IV SCH ×2 (09:52→21:34)
[2020-10-25] MEDS: ASCORBIC ACID 500 MG TAB PO SCH ×2 (09:52→21:35)
[2020-10-25] MEDS: amLODIPine 5 MG TAB PO SCH (09:52)
[2020-10-25] MEDS: ZINC SULFATE 220 MG CAP PO SCH (09:52)
[2020-10-25] MEDS: ENOXAPARIN 30 MG/0.3 ML SYRINGE SQ SCH ×2 (09:52→21:35)
[2020-10-25] MEDS: CHOLECALCIFEROL 25 MCG (1000 IU) TABLET PO SCH (09:52)
[2020-10-25] MEDS: FUROSEMIDE 10 MG/ML 4 ML VIAL IV SCH (09:53)
[2020-10-25 11:59] LABS: Glucose,Whole Blood 109 mg/dL (75-99)
[2020-10-25 17:01] LABS: Glucose,Whole Blood 122 mg/dL (75-99)
--- NOTE | 2020-10-25 18:20 | P.PN ---
Subjective HPI - Patient is a 55-year-old male came in with complaints of increasing shortness of breath over the past week. Patient was diagnosed with Covid 6 days ago. He has completed a course of steroids as well as Z-Douglas. Patient states over the past week he's been fighting fevers, body aches, chills and nausea. Patient states his shortness of breath has been steadily increasing. He gets winded with just walking around his house. He does admit to some chest pain when he is coughing. He does have some production with his cough. He does admit to history of asthma, denies heart disease. He states his last dose of Tylenol was last night. He denies any vomiting, no dysuria. Patient is febrile 100.4, pulse is 96, he is satting 88% on room air. Patient had a chest x-ray which showed diffuse bilateral infiltrates. Patient is presently on 2 L of oxygen saturating 93% patient was having fevers at home patient had a low-grade fever here. Patient has elevated inflammatory markers along with the low sodium. On 10/15/2020 - last night patient became more short of breath, so he was shifted to the ICU. Initially the patient was placed on BiPAP, patient was staffed neck and saturating in the high 80s and so eventually he had to be intu bated around noon. Currently he is mechanically ventilated and sedated. Reviewing the vitals patient is tachycardic between 100-110, saturating in the low 80s on 100% FiO2, blood pressure 1 50 x 92. Patient has been started on Solu-Medrol, Remdesivir, Lovenox and breathing treatments. On reviewing the labs white count of 6.1, hemoglobin 14.7, platelets 162. Sodium 133, potassium 4.2, chloride 102, bicarb 28, BUN 17, creatinine 0.79. Ferritin 624, magnesium 1.5, albumin 2.9. 10/16/2020 Patient is seen and examined in the ICU. He was admitted for Covid bilateral pneumonia. These with acute hypoxic respiratory failure needing intubation and mechanical ventilation with pulmonary/critical care team following the patient closely. He's undergoing prone position for 16 hours per day. Also he is getting Remidsivir and he is a status post convalescent plasma . Patient does not need pressors as his vitals are stable. And he is on tube feeding. Patient is currently sedated. Labs reviewed 10/17/2020 Patient remains in the ICU sedated and intubated. He is undergoing prone position with the goal 16 hours per day. He is febrile but tachypneic. Labs reviewed including CBC and BMP showing no significant changes. And sputum culture is growing Kay albicans. Chest x-ray showing the same bilateral infiltrates with right more than left related to his covid pneumonia. And he remains on Solu-Medrol 60 mg, remdisvir and normal saline at 75 mL/h. Pulmonary/critical care team R following the patient closely and the recommend to continue the current management and keep monitoring 10/18/2020 pt jana in ICU intubated sedated , with critical care team following him closely and adjusting his vent setting, he is currently needing high doseo f PEEP at 15 cxr from today showing small new bilateral pleural effusion , with basilar consolidation consistent wiht known covid 19 infection tomorrow is last dose of Remdisvir he remains on solumedrol 60 mg and gentl hydration 10/20/2020 Patient in ICU intubated on mechanical ventilation for several days now with pulmonary/critical care team managing the patient and monitoring him closely. Patient under going weaning for his PEEP and FiO2 down to 8 cm and 50% Chest x-ray showing stable findings consistent with edema versus pneumonia Patient on the same treatment of submental 60 mg normal saline at 50 mg and Lovenox 80 mg twice daily 10/21/2020 Patient remains in the ICU intubated and sedated, distal and a critical condition. Pulmonary/critical team R following the case closely and managing his vent. His PEEP was increased today to 12 from 8 because was desaturating during the night. FiO2 was kept at 50%. Blood pressure is 133/74, oxygen saturation is 90%, breathing rates 24 and is still slightly bradycardic at 56. Creatinine is normal at 0.5, magnesium 2.6, inflammatory markers including ferritin, LDH, C-reactive protein are slightly trending down He is on therapeutic dose of Lovenox for high d-dimer i called the and discussed the case her and all her question were answered and tried to explain the situation for her in a language she can understand 10/22/2020 Patient remains in the ICU intubated and sedated, today his PEEP was lowered to 10 in the morning, he remains on FiO2 of 50% He is hemodynamically stable. Sugar is controlled. WBC stable at 13.6 K results of CBC is unremarkable. Creatinine is normal at 0.5. Repeat chest x- ray today showing continued bilateral diffuse interstitial infiltrates and retrocardiac opacity. Development consolidation in the right lower lobe suggestive overall worsening Medications salmeterol 60 mg of normal saline at 40, continue with Lovenox with the same dose Prognosis remains guarded 10/23/2020 This is a pleasant 74 years old male who presents with bilateral: With pneumonia and his been in the ICU intubated and sedated, pulmonary/critical care team helped with vent management, it looks like his respiratory function is improving as there is a troponin PEEP down to 67 and he's undergoing sedation holiday and possible when in a trial with the call to get him extubated. WBC count 13,000, creatinine normal 0.500 glucose control. Elevated inflammatory markers Patient remains on Solu-Medrol, normocephalic 40 mL/h and Lovenox 80 mg twice daily, he was started on Lasix 40 mg daily 10/24/2020 Patient is a status post extubation and is currently on high flow nasal cannula with an FiO2 of 60-63% saturated on the low 90s. Patient looks dyspneic and could not provide information because of his dyspnea. Chest x-ray showing worsening bilateral middle and lower infiltrates WBC is stable at 13.5 K. BMP is unremarkable. Zinc and vitamin C were added, patient continue on some epidural 60 mg, at 40 and lasix 40 mg daily and lovenox 80 mg twice daily. Physical therapy evaluation is warranted as well as a swallow evaluation 10/25/2020 Patient is monitored in the ICU currently is status post extubation 2 days ago. He is quite dyspneic and on airvo at 60 L and 65% FiO2. Chest x-ray showing scattered infiltrates but stable. CBC is unremarkable. Creatinine 0.6. But all inflammatory markers including ferritin, LDH and C-reactive protein are increased. His sugar is controlled Medication-lewis he remains on Solu-Medrol 60 mg #40 mg and Lasix 40 mg daily. Lasix was lowered today to 30 mg twice daily as there is trending down and his d-dimer from 6.6 down to 4.5. Review of systems: N/a, patient looks tired and could not provide information although he is extubated today Active Medications Generic Name Dose Route Start Last Admin Trade Name Mera PRN Reason Stop Dose Admin Albuterol Sulfate 2 puff 10/14/20 11:44 10/25/20 11:14 Albuterol Hfa Inhaler INHALATION 2 puff RT-QID PRN Administration Shortness Of Breath Alprazolam 0.5 mg 10/24/20 08:32 10/25/20 08:09 Alprazolam 0.5 Mg Tab PO 0.5 mg TID PRN Administration Anxiety Amlodipine Besylate 5 mg 10/25/20 09:00 10/25/20 09:52 Amlodipine 5 Mg Tab PO 5 mg DAILY VINNY Administration Ascorbic Acid 500 mg 10/24/20 09:00 10/25/20 09:52 Ascorbic Acid 500 Mg Tab PO 500 mg BID VINNY Administration Atorvastatin Calcium 40 mg 10/15/20 09:00 10/25/20 09:52 Atorvastatin 40 Mg Tab PO 40 mg DAILY VINNY Administration Cholecalciferol 50 mcg 10/24/20 09:00 10/25/20 09:52 Cholecalciferol 25 Mcg (1000 Iu) Tablet PO 50 mcg DAILY VINNY Administration Enoxaparin Sodium 30 mg 10/25/20 09:00 10/25/20 09:52 Enoxaparin 30 Mg/0.3 Ml Syringe SQ 30 mg BID VINNY Administration Famotidine 20 mg 10/15/20 10:00 10/25/20 09:52 Famotidine 20 Mg/2 Ml Vial IV 20 mg Q12HR VINNY Administration Furosemide 40 mg 10/22/20 09:00 10/25/20 09:53 Furosemide 10 Mg/Ml 4 Ml Vial IV 40 mg DAILY VINNY Administration Sodium Chloride 1,000 mls @ 40 mls/hr 10/18/20 07:58 10/24/20 23:24 Saline 0.9% IV 40 mls/hr .Q24H VINNY Administration Insulin Aspart 0 unit 10/17/20 13:30 10/25/20 12:12 Insulin Aspart (Novolog) 100 Unit/Ml Vial SQ Not Given Q6HR [facility] Protocol Melatonin 5 mg 10/24/20 21:00 10/24/20 21:11 Melatonin 5 Mg Tablet PO 5 mg HS VINNY Administration Methylprednisolone Sodium Succinate 60 mg 10/15/20 12:00 10/25/20 11:51 Methylprednisolone Sod Succi 125 Mg/2 Ml Vial IV 60 mg Q6HR VINNY Administration Naloxone HCl 0.2 mg 10/14/20 11:40 Naloxone 0.4 Mg/Ml 1 Ml Vial IV Q2M PRN Opioid Reversal Ondansetron HCl 4 mg 10/14/20 11:40 Ondansetron 4 Mg/2 Ml Vial IVP Q8HR PRN Nausea And Vomiting Temazepam 15 mg 10/24/20 21:00 10/24/20 21:12 Temazepam 15 Mg Cap PO 15 mg HS VINNY Administration Zinc Sulfate 220 mg 10/24/20 09:00 10/25/20 09:52 Zinc Sulfate 220 Mg Cap PO 220 mg DAILY VINNY Administration Objective - Vital Signs Vital signs: Vital Signs Temp 99.0 F 10/25/20 12:00 Pulse 85 10/25/20 12:00 Resp 26 H 10/25/20 12:00 BP 127/76 10/25/20 12:00 Pulse Ox 90 L 10/25/20 12:00 Intake & Output 10/24/20 10/25/20 10/25/20 18:59 06:59 18:59 Intake Total 733 480 280 Output Total 3540 775 1405 Balance -2807 -295 -1125 Weight 65.8 kg Intake: IV 483 480 280 0.9 Normal Saline 3 Pressure Bag @ 3mL/hr Sodium Chloride 0.9% 1, 480 480 280 000 ml @ 40 mls/hr IV . Q24H [facility] Rx#:[id number] Intake, IV Titration 50 Amount Clevidipine Butyrate 25 50 mg In Empty Bag 1 bag @ 1 MG/HR 2 mls/hr IV .Q24H [facility] Rx#:[id number] Oral 200 Output: Urine 3540 775 1405 Other: Voiding Method Indwelling Catheter Indwelling Catheter Indwelling Catheter ABP, PAP, CO, CI - Last Documented Arterial Blood Pressure 103/93 - Exam -GENERAL: The patient is awake, he is in respiratory distress and could not provide information HEENT: Pupils are round and equally reacting to light. EOMI. No scleral icterus. No conjunctival pallor. Normocephalic, atraumatic. No pharyngeal erythema. No thyromegaly. CARDIOVASCULAR: S1 and S2 present. No murmurs, rubs, or gallops. -PULMONARY: Chest is clear to auscultation, no wheezing or crackles. Bilateral coarse crepitation ABDOMEN: Soft, nontender, nondistended, normoactive bowel sounds. No palpable organomegaly. MUSCULOSKELETAL: No joint swelling or deformity. EXTREMITIES: No cyanosis, clubbing, or pedal edema. NEUROLOGICAL: Gross neurological examination did not reveal any focal deficits. SKIN: No rashes. no petechiae. - Labs CBC & Chem 7: 10/25/20 04:50 10/25/20 04:50 Labs: Abnormal Lab Results - Last 24 Hours (Table) 10/24/20 10/25/20 10/25/20 Range/Units 23:29 04:50 04:50 Neutrophils # (1.3-7.7) k/uL Lymphocytes # (1.0-4.8) k/uL D-Dimer 4.50 H (<0.60) mg/L FEU Sodium 136 L (137-145) mmol/L Carbon Dioxide 31 H (22-30) mmol/L BUN 45 H (9-20) mg/dL Creatinine 0.64 L (0.66-1.25) mg/dL Glucose 134 H (74-99) mg/dL POC Glucose (mg/dL) 129 H (75-99) mg/dL Calcium 7.8 L (8.4-10.2) mg/dL Ferritin 1103.8 H (22.0-322.0) ng/mL Total Bilirubin 1.9 H (0.2-1.3) mg/dL ALT 105 H (4-49) U/L Lactate Dehydrogenase 1924 H (313-618) U/L C-Reactive Protein 44.4 H (<10.0) mg/L Total Protein 5.2 L (6.3-8.2) g/dL Albumin 2.3 L (3.5-5.0) g/dL 10/25/20 10/25/20 10/25/20 Range/Units 04:50 06:10 11:57 Neutrophils # 9.5 H (1.3-7.7) k/uL Lymphocytes # 0.5 L (1.0-4.8) k/uL D-Dimer (<0.60) mg/L FEU Sodium (137-145) mmol/L Carbon Dioxide (22-30) mmol/L BUN (9-20) mg/dL Creatinine (0.66-1.25) mg/dL Glucose (74-99) mg/dL POC Glucose (mg/dL) 109 H 109 H (75-99) mg/dL Calcium (8.4-10.2) mg/dL Ferritin (22.0-322.0) ng/mL Total Bilirubin (0.2-1.3) mg/dL ALT (4-49) U/L Lactate Dehydrogenase (313-618) U/L C-Reactive Protein (<10.0) mg/L Total Protein (6.3-8.2) g/dL Albumin (3.5-5.0) g/dL Assessment and Plan Assessment: Acute hypoxic respiratory failure secondary to COVID pneumonia possible acute respiratory distress syndrome ARDS, per pulmonary team Acute hypoxic respiratory failure needing Mechanically ventilated, status post extubation on 10/23 Hyperlipidemia History of asthma GERD Plan: This is a pleasant 55 years old male admitted with bilateral covid pneumonia. Continue with recommendation. pulmonary/critical care team. Continue with steroids, gentle hydration and Lovenox as per pulmonary team consultation and recommendation . He finished remdesivir therapy Check swallow evaluation Labs and medication were reviewed.. Continue same treatment. Continue with symptomatic treatment. Resume home medication. Monitor lytes and vitals. DVT and GI prophylaxis. Further recommendations as per clinical course of the patient DVT prophylaxis: Subcutaneous Lovenox GI Prophylaxis: Pepcid Physical therapy rehabilitation recommended subacute rehab versus inpatient rehab Prognosis is guarded
[2020-10-25] MEDS: SODIUM CHLORIDE 0.9% 1,000 ML IV SCH (21:35)
[2020-10-25] MEDS: MELATONIN 5 MG TABLET PO SCH (21:35)
[2020-10-25] MEDS: TEMAZEPAM 15 MG CAP PO SCH (21:35)
[2020-10-26] MEDS: methylPREDNISolone SOD SUCCI 125 MG/2 ML VIAL IV SCH ×5 (00:07→23:11)
[2020-10-26 00:16] LABS: Glucose,Whole Blood 125 mg/dL (75-99)
[2020-10-26] MEDS: INSULIN ASPART (NovoLOG) 100 UNIT/ML VIAL SQ SCH ×4 (00:17→20:04)
[2020-10-26 05:45] LABS: Basophils % (A) 0 %; Eosinophils % (A) 0 %; HCT 40.3 % (39.0-53.0); HGB 13.7 gm/dL (13.0-17.5); Lymphocytes # (A) 0.5 k/uL (1.0-4.8); Lymphocytes % (A) 4 %; MCH 29.2 pg (25.0-35.0); MCHC 34.1 g/dL (31.0-37.0); MCV 85.7 fL (80.0-100.0); Monocytes # (A) 0.4 k/uL (0-1.0); Monocytes % (A) 4 %; Neutrophils # (A) 10.3 k/uL (1.3-7.7); Neutrophils % (A) 92 %; Platelet Count 189 k/uL (150-450); RBC 4.71 m/uL (4.30-5.90); RDW 12.5 % (11.5-15.5); WBC 11.2 k/uL (3.8-10.6)
[2020-10-26 06:03] LABS: ALT 149 U/L (4-49); AST 52 U/L (17-59); African American GFR (CKD) >90 (>60 ml/min/1.73 sqM); Albumin 2.3 g/dL (3.5-5.0); Alkaline Phosphatase 62 U/L (38-126); Anion Gap -1 mmol/L; Blood Urea Nitrogen 47 mg/dL (9-20); C Reactive Protein 24.9 mg/L (<10.0); Carbon Dioxide 30 mmol/L (22-30); Chloride 107 mmol/L (98-107); Glucose 128 mg/dL (74-99); LDH 1676 U/L (313-618); Non-African American GFR(CKD) >90 (>60 ml/min/1.73 sqM); Potassium 4.7 mmol/L (3.5-5.1); Sodium 136 mmol/L (137-145); Total Bilirubin 1.6 mg/dL (0.2-1.3); Total Protein 5.3 g/dL (6.3-8.2)
[2020-10-26 06:13] LABS: Glucose,Whole Blood 111 mg/dL (75-99)
--- NOTE | 2020-10-26 07:12 | XR ---
EXAMINATION TYPE: XR chest 1V DATE OF EXAM: 10/26/2020 COMPARISON: 10/25/2020 HISTORY: Shortness of breath TECHNIQUE: Single frontal view of the chest is obtained. FINDINGS: Central line and heart size stable. Bilateral patchy infiltrate stable. Tiny bilateral eff usions. No pneumothorax. IMPRESSION: Stable patchy bilateral infiltrate.
[2020-10-26] MEDS: ALBUTEROL HFA INHALER INHALATION PRN ×4 (07:38→19:54)
[2020-10-26] MEDS: ALPRAZolam 0.5 MG TAB PO PRN ×2 (08:48→15:52)
[2020-10-26] MEDS: amLODIPine 5 MG TAB PO SCH (08:48)
[2020-10-26] MEDS: ENOXAPARIN 30 MG/0.3 ML SYRINGE SQ SCH ×2 (08:48→20:08)
[2020-10-26] MEDS: CHOLECALCIFEROL 25 MCG (1000 IU) TABLET PO SCH (08:48)
[2020-10-26] MEDS: FAMOTIDINE 20 MG/2 ML VIAL IV SCH (08:48)
[2020-10-26] MEDS: FUROSEMIDE 10 MG/ML 4 ML VIAL IV SCH (08:48)
[2020-10-26] MEDS: ZINC SULFATE 220 MG CAP PO SCH (08:48)
[2020-10-26] MEDS: ASCORBIC ACID 500 MG TAB PO SCH ×2 (08:48→20:08)
[2020-10-26] MEDS: ATORVASTATIN 40 MG TAB PO SCH (08:48)
[2020-10-26 10:39] LABS: Ferritin 968.7 ng/mL (22.0-322.0)
--- NOTE | 2020-10-26 12:08 | P.PN ---
Subjective Progress Note Date: 10/26/20 HPI - Patient is a 55-year-old male came in with complaints of increasing shortness of breath over the past week. Patient was diagnosed with Covid 6 days ago. He has completed a course of steroids as well as Z-Douglas. Patient states over the past week he's been fighting fevers, body aches, chills and nausea. Patient states his shortness of breath has been steadily increasing. He gets winded with just walking around his house. He does admit to some chest pain when he is coughing. He does have some production with his cough. He does admit to history of asthma, denies heart disease. He states his last dose of Tylenol was last night. He denies any vomiting, no dysuria. Patient is febrile 100.4, pulse is 96, he is satting 88% on room air. Patient had a chest x-ray which showed diffuse bilateral infiltrates. Patient is presently on 2 L of oxygen saturating 93% patient was having fevers at home patient had a low-grade fever here. Patient has elevated inflammatory markers along with the low sodium. On 10/15/2020 - last night patient became more short of breath, so he was shifted to the ICU. Initially the patient was placed on BiPAP, patient was staffed neck and saturating in the high 80s and so eventually he had to be intubated around noon. Currently he is mechanically ventilated and sedated. Reviewing the vitals patient is tachycardic between 100-110, saturating in the low 80s on 100% FiO2, blood pressure 1 50 x 92. Patient has been started on Solu-Medrol, Remdesivir, Lovenox and breathing treatments. On reviewing the labs white count of 6.1, hemoglobin 14.7, platelets 162. Sodium 133, potassium 4.2, chloride 102, bicarb 28, BUN 17, creatinine 0.79. Ferritin 624, magnesium 1.5, albumin 2.9. 10/16/2020 Patient is seen and examined in the ICU. He was admitted for Covid bilateral pneumonia. These with acute hypoxic respiratory failure needing intubation and mechanical ventilation with pulmonary/critical care team following the patient closely. He's undergoing prone position for 16 hours per day. Also he is getting Remidsivir and he is a status post convalescent plasma . Patient does not need pressors as his vitals are stable. And he is on tube feeding. Patient is currently sedated. Labs reviewed 10/17/2020 Patient remains in the ICU sedated and intubated. He is undergoing prone position with the goal 16 hours per day. He is febrile but tachypneic. Labs reviewed including CBC and BMP showing no significant changes. And sputum culture is growing Kay albicans. Chest x-ray showing the same bilateral infiltrates with right more than left related to his covid pneumonia. And he remains on Solu-Medrol 60 mg, remdisvir and normal saline at 75 mL/h. Pulmonary/critical care team R following the patient closely and the recommend to continue the current management and keep monitoring 10/18/2020 pt jana in ICU intubated sedated , with critical care team following him closely and adjusting his vent setting, he is currently needing high doseo f PEEP at 15 cxr from today showing small new bilateral pleural effusion , with basilar c onsolidation consistent wiht known covid 19 infection tomorrow is last dose of Remdisvir he remains on solumedrol 60 mg and gentl hydration 10/20/2020 Patient in ICU intubated on mechanical ventilation for several days now with pulmonary/critical care team managing the patient and monitoring him closely. Patient under going weaning for his PEEP and FiO2 down to 8 cm and 50% Chest x-ray showing stable findings consistent with edema versus pneumonia Patient on the same treatment of submental 60 mg normal saline at 50 mg and Lovenox 80 mg twice daily 10/21/2020 Patient remains in the ICU intubated and sedated, distal and a critical condition. Pulmonary/critical team R following the case closely and managing his vent. His PEEP was increased today to 12 from 8 because was desaturating d uring the night. FiO2 was kept at 50%. Blood pressure is 133/74, oxygen saturation is 90%, breathing rates 24 and is still slightly bradycardic at 56. Creatinine is normal at 0.5, magnesium 2.6, inflammatory markers including ferritin, LDH, C-reactive protein are slightly trending down He is on therapeutic dose of Lovenox for high d-dimer i called the and discussed the case her and all her question were answered and tried to explain the situation for her in a language she can un derstand 10/22/2020 Patient remains in the ICU intubated and sedated, today his PEEP was lowered to 10 in the morning, he remains on FiO2 of 50% He is hemodynamically stable. Sugar is controlled. WBC stable at 13.6 K results of CBC is unremarkable. Creatinine is normal at 0.5. Repeat chest x-ray today showing continued bilateral diffuse interstitial infiltrates and retrocardiac opacity. Development consolidation in the right lower lobe suggestive overall worsening Medications salmeterol 60 mg of normal saline at 40, continue with Lovenox with the same dose Prognosis remains guarded 10/23/2020 This is a pleasant 74 years old male who presents with bilateral: With pneumonia and his been in the ICU intubated and sedated, pulmonary/critical care team helped with vent management, it looks like his respiratory function is improving as there is a troponin PEEP down to 67 and he's undergoing sedation holiday and possible when in a trial with the call to get him extubated. WBC count 13,000, creatinine normal 0.500 glucose control. Elevated inflammatory markers Patient remains on Solu-Medrol, normocephalic 40 mL/h and Lovenox 80 mg twice daily, he was started on Lasix 40 mg daily 10/24/2020 Patient is a status post extubation and is currently on high flow nasal cannula with an FiO2 of 60-63% saturated on the low 90s. Patient looks dyspneic and could not provide information because of his dyspnea. Chest x-ray showing worsening bilateral middle and lower infiltrates WBC is stable at 13.5 K. BMP is unremarkable. Zinc and vitamin C were added, patient continue on some epidural 60 mg, at 40 and lasix 40 mg daily and lovenox 80 mg twice daily. Physical therapy evaluation is warranted as well as a swallow evaluation 10/25/2020 Patient is monitored in the ICU currently is status post extubation 2 days ago. He is quite dyspneic and on airvo at 60 L and 65% FiO2. Chest x-ray showing scattered infiltrates but stable. CBC is unremarkable. Creatinine 0.6. But all inflammatory markers including ferritin, LDH and C-reactive protein are increased. His sugar is controlled Medication-lewis he remains on Solu-Medrol 60 mg #40 mg and Lasix 40 mg daily. Lasix was lowered today to 30 mg twice daily as there is trending down and his d-dimer from 6.6 down to 4.5. 10/26/2020 Patient is seen and evaluated and follow-up continues to be closely monitored in the ICU. Patient currently working with physical therapy as he continues to be quite weak and attempts to sit at the bedside and possibility of in the chair. Patient is a 2 person assist due to weakness. Patient continues to be short of breath and dyspneic with exertion and is maintained on airvo at 60 L with an F iO2 of 70%. No real improvement on chest x-ray and infiltrates remain stable. D-dimer elevated at 5.63, sodium is 136, potassium is 4.7, current creatinine is 0.57. Inflammatory markers elevated as well. Patient is maintained on IV Solu- Medrol, vitamin C and D supplements along with zinc and Lovenox and will continue. Patient's blood sugars on the lower end and will continue with Accu- Cheks and every 6 hours sliding scale as needed. Patient is on a full liquid diet and tolerating. Review of systems: Constitutional: reports fatigue, no reports of fever, or chills Cardiovascular: No reports of chest pain or palpitations Respiratory: Reports continued shortness of breath with minimal exertion GI: No reports of nausea, vomiting, or diarrhea : No reports of dysuria or retention Neurovascular: Reports extreme weakness All medications have been reviewed Objective - Vital Signs Vital signs: Vital Signs Temp 98.1 F 10/26/20 04:00 Pulse 61 10/26/20 07:00 Resp 21 10/26/20 07:00 BP 141/93 10/26/20 07:00 Pulse Ox 94 L 10/26/20 07:00 Intake & Output 10/25/20 10/26/20 10/26/20 18:59 06:59 18:59 Intake Total 500 220 20 Output Total 2080 700 45 Balance -1580 -480 -25 Weight 74.5 kg Intake: IV 500 220 20 Sodium Chloride 0.9% 1, 500 220 20 000 ml @ 40 mls/hr IV . Q24H [facility] Rx#:[id number] Output: Urine 0 700 45 Other: Voiding Method Indwelling Catheter Indwelling Catheter ABP, PAP, CO, CI - Last Documented Arterial Blood Pressure 103/93 - Exam GENERAL: The patient is awake, anxious, alert and oriented 3, well-developed, well-nourished, sitting at the bedside with physical therapy HEENT: Pupils are round and equally reacting to light. EOMI. No scleral icterus. No conjunctival pallor. Normocephalic, atraumatic. No pharyngeal erythema. No thyromegaly. Airvo nasal cannula noted on exam CARDIOVASCULAR: S1 and S2 present. No murmurs, rubs, or gallops. PULMONARY: Chest is clear to auscultation, no wheezing or crackles. Bilateral coarse crepitation noted ABDOMEN: Soft, nontender, nondistended, normoactive bowel sounds. No palpable organomegaly. MUSCULOSKELETAL: No joint swelling or deformity. EXTREMITIES: No cyanosis, clubbing, or pedal edema. NEUROLOGICAL: Gross neurological examination did not reveal any focal deficits. Diffuse weakness SKIN: No rashes. no petechiae. - Labs CBC & Chem 7: 10/26/20 05:22 10/26/20 05:22 Labs: Abnormal Lab Results - Last 24 Hours (Table) 10/25/20 10/25/20 10/26/20 Range/Units 11:57 16:59 00:15 WBC (3.8-10.6) k/uL Neutrophils # (1.3-7.7) k/uL Lymphocytes # (1.0-4.8) k/uL D-Dimer (<0.60) mg/L FEU Sodium (137-145) mmol/L BUN (9-20) mg/dL Creatinine (0.66-1.25) mg/dL Glucose (74-99) mg/dL POC Glucose (mg/dL) 109 H 122 H 125 H (75-99) mg/dL Calcium (8.4-10.2) mg/dL Total Bilirubin (0.2-1.3) mg/dL ALT (4-49) U/L Lactate Dehydrogenase (313-618) U/L C-Reactive Protein (<10.0) mg/L Total Protein (6.3-8.2) g/dL Albumin (3.5-5.0) g/dL 10/26/20 10/26/20 10/26/20 Range/Units 05:22 05:22 05:22 WBC 11.2 H (3.8-10.6) k/uL Neutrophils # 10.3 H (1.3-7.7) k/uL Lymphocytes # 0.5 L (1.0-4.8) k/uL D-Dimer 5.63 H (<0.60) mg/L FEU Sodium 136 L (137-145) mmol/L BUN 47 H (9-20) mg/dL Creatinine 0.57 L (0.66-1.25) mg/dL Glucose 128 H (74-99) mg/dL POC Glucose (mg/dL) (75-99) mg/dL Calcium 8.0 L (8.4-10.2) mg/dL Total Bilirubin 1.6 H (0.2-1.3) mg/dL ALT 149 H (4-49) U/L Lactate Dehydrogenase 1676 H (313-618) U/L C-Reactive Protein 24.9 H (<10.0) mg/L Total Protein 5.3 L (6.3-8.2) g/dL Albumin 2.3 L (3.5-5.0) g/dL 10/26/20 Range/Units 06:10 WBC (3.8-10.6) k/uL Neutrophils # (1.3-7.7) k/uL Lymphocytes # (1.0-4.8) k/uL D-Dimer (<0.60) mg/L FEU Sodium (137-145) mmol/L BUN (9-20) mg/dL Creatinine (0.66-1.25) mg/dL Glucose (74-99) mg/dL POC Glucose (mg/dL) 111 H (75-99) mg/dL Calcium (8.4-10.2) mg/dL Total Bilirubin (0.2-1.3) mg/dL ALT (4-49) U/L Lactate Dehydrogenase (313-618) U/L C-Reactive Protein (<10.0) mg/L Total Protein (6.3-8.2) g/dL Albumin (3.5-5.0) g/dL Assessment and Plan Assessment: Acute hypoxic respiratory failure secondary to COVID pneumonia possible acute respiratory distress syndrome ARDS, per pulmonary team Acute hypoxic respiratory failure needing mechanical ventilation, status post e xtubation on 10/23 Hyperlipidemia History of asthma GERD DVT prophylaxis: Subcutaneous Lovenox GI prophylaxis: Pepcid Full code Plan: This is a pleasant 55 years old male admitted with bilateral covid pneumonia. Patient continues to be closely monitored in the ICU and being followed closely by pulmonary/critical care team. Patient is maintained on IV steroids along wi th Lovenox, vitamin C and E supplements, and zinc supplements and will continue at this time. Patient has completed the Remdesivir treatment and currently remains on Airvo with a flow rate of 60 and an FiO2 of 70%. Patient was recently extubated 3 days ago and continues to be closely monitored. Patient's diet has been advanced to full liquids although continues to have poor oral intake requiring assistance with feeding. Will continue to monitor closely and encourage oral intake. D-dimer slightly elevated at 5.63 from previous inflammatory markers elevated as well. Current sodium today is 136 with a potassium of 4.7 and creatinine is 0.57. Patient continues on Accu-Cheks every 6 and will continue with sliding scale as needed. Will continue to monitor vital signs and labs closely and continue to follow along closely with pulmonary. Further recommendations to follow based on the clinical course of the patient. PT/OT is following and continues to recommend subacute rehab once more stable and discharged. Case management and social work is following. Prognosis remains guarded.
[2020-10-26 12:10] LABS: Glucose,Whole Blood 131 mg/dL (75-99)
--- NOTE | 2020-10-26 12:38 | P.PN ---
Subjective Progress Note Date: 10/26/20 55-year-old male who was admitted to the ICU yesterday. He came down to the ICU for acute hypoxemic respiratory failure secondary to COVID 19 pneumonia. Initially, we attempted to maintain him on BiPAP, but unfortunately, the patient's respiratory failure worsened and he required intubation and mechanical ventilation. He was intubated on 10/15/2020.. He is on the volume assist control modality, rate 24, tidal volume 450, FiO2 50%, and PEEP of 12. His blood gases show a pO2 of 81, PaCO2 of 42, and a pH of 7.46. He is getting saline at 40 mL an hour, a fentanyl drip at 0.5 mcg/kg/h, propofol at 60 mcg/kg/m, and vital high protein at 64 mL an hour which is goal. He was also paralyzed and is currently off paralytics.. He received 1 dose of, convalescent plasma, and 1 dose of remdesivir. He is receiving Solumedrol at 60 mg IV q 6 hours. On today's evaluation, the patient is being seen on follow-up. The patient's peak airway pressures around 30 on the above-mentioned ventilator setting. The patient is afebrile. The white cell count today is 13.6 with a hemoglobin of 12. Rest of the blood work and electrodes are all within normal limits. The chest x-ray from today still showing diffuse bilateral pulmonary infiltrates ET tube is in a good location. The patient also has a left IJ triple-lumen catheter in place. The patient's hemodynamically stable. He is on no pressors. He is producing adequate amount of urine output. He is on Lovenox 80 mg subcu every 12 hours.A d-dimer level is up to 2 and this is essentially gone compared to few days back with a d-dimer was up to 34.. On today's evaluation of 10/23/2020 seeing the patient for a follow-up. The patient remains sedated and the patient is on propofol running at 50 mcg/kg per minute and the patient is also on fentanyl at 1.0 mcg/kg/h. She remains on a mechanical ventilator and essentially the ventilator settings currently is at a rate of 24 with a tidal volume of 450, an FiO2 of 50% with a PEEP of 8. His is improved compared to yesterday. The blood gases from today shows a pH of 7.49 with a pCO2 of 40 and pO2 of 74. Chest x-ray stable, probably some improvement in the right lower lobe area. ET tube is in a good location. NG tube is in also good location. He is afebrile. Note that the patient has received convalescent plasma, Larissaivir is also on IV Solu Medrol 60 mg every 6 hours. His inflammatory markers show a drop in his CRP down to 28 and his LDH is also dropping down to 1179. His net fluid balance has been -68 mL and the patient is receiving Lasix 40 mg IV on a daily basis. His triglyceride level is at 300. Is tolerating enteral feeding for nutritional support. The d-dimer today is at X.2 from yesterday and the repeat levels are pending for today. Meanwhile, the patient remains on therapeutic dose of Lovenox at a dose of 80 mg subcu every 12 hours. On 10/24/2020, the patient is extubated. The patient is currently on high flow oxygen at 60 L. His pulse ox is ranging between 90-94%. He is hemodynamically stable on no pressors. His blood pressure was running on the higher side and the patient was given side effects and is currently on 2 mg an hour and he has an adequate blood pressure control. D-dimer remains elevated at 6.67, his CRP is at 28 from yesterday, his LDH was 1179 from yesterday and inflammatory markers are not obtained from today. He is awake. He is following simple commands and answering questions. He is on IV Solu Medrol 60 mg every 6 hours. He is on Lovenox therapeutic doses of 80 mg subcu every 12 hours. He is afebrile. Cultures are all negative other than some Kay and his sputum. As mentioned, the patient was extubated successfully yesterday. He is a week. He has a weak cough. He has generalized motor weakness in all 4 extremities. No other significant events overnight. Neurologically intact and currently on no s edation. The chest x-ray from today showed essentially stable bilateral pulmonary infiltrates, probably slightly worse compared to yesterday, nevertheless this can be an effective positive pressure delivered by the mechanical ventilator. He does have a triple lumen catheter in his left IJ which is still in place. Left hemidiaphragm is slightly elevated. The patient will be encouraged to use incentive spirometer. The patient is in a negative fluid balance of 2.6 hours and the patient remains on IV Lasix 40 mg every 24 hours. On 10/25/2020 patient remains extubated. He currently on the AirVo 60 L and 65% FiO2 also says just above 90% and the patient is also utilizing 100% on a beta facemasks. A chest x-ray from today shows some limited improvement on the right. There is still dense bilateral pulmonary infiltrates. The patient was extubated on 10/23/2020. He remains on IV Solu-Medrol 60 mg every 6 hours. Inflammatory markers from today show a d-dimer of 4.5 which is lower compared to yesterday, he also had a LDH level of 1924, higher and his CRP level is 44, higher. He is afebrile. He is hemodynamically stable. He is taking some limited oral intake mainly in the form of clear liquids. He is weak. He is anxious. He has a decent cough. He remains on IV Lasix every 24 hours in the neck fluid balance has been in the order of 3.1 L. He remains on Lovenox 80 mg subcutaneous every 12 hours. No sedatives. No delirium. No confusion. Family has been updated. He is on Celebrex 100 mg an hour On 10/26/2020, the patient remains extubated. The patient remains on high flow oxygen 60 L and the FiO2 is at 70%. The pulse is currently is ranging between 88 and 91%. He remains in high spirits 50 once recovered. On and off is also utilizing 100% nonrebreather facemask. Nevertheless, for the most part, he is using the high flow oxygen. He is on IV fluids with normal saline at the rate of 20 mL an hour. The patient is being diuresis and a daily basis of a negative fluid balance is in the order of -2.060 liters over the past 24 hours. The patient is is otherwise doing well. LDH level is at 1676 which is lower compared to yesterday. CRP is also 24.5 which is essentially lower than yesterday. The BUN is at 47 with a creatinine of 0.57. He remains on Lovenox 80 mg subcu every 12 hours. The d-dimer is still elevated at 5.63. On today's evaluation, it was noted that the patient has a cold left foot. Doppler pulses will be also obtained and vascular surgery will be involved in the case and there are no pulses. The right lower extremity and the right foot is within normal limits. The patient denies having any pain in his left foot. No other s ignificant events otherwise for now. Is tolerating his diet. He is gradually increasing his oral intake. Objective - Vital Signs Vital signs: Vital Signs Temp 98.1 F 10/26/20 08:00 Pulse 92 10/26/20 11:00 Resp 28 H 10/26/20 11:00 BP 136/85 10/26/20 11:00 Pulse Ox 91 L 10/26/20 11:00 Intake & Output 10/25/20 10/26/20 10/26/20 18:59 06:59 18:59 Intake Total 500 220 340 Output Total 2080 700 1235 Balance -1580 -480 -895 Weight 74.5 kg 74.5 kg Intake: IV 500 220 100 Sodium Chloride 0.9% 1, 500 220 100 000 ml @ 40 mls/hr IV . Q24H [facility] Rx#:[id number] Oral 240 Output: Urine 2080 700 1235 Other: Voiding Method Indwelling Catheter Indwelling Catheter Indwelling Catheter ABP, PAP, CO, CI - Last Documented Arterial Blood Pressure 103/93 - Exam No acute distress, sedated, with an orally placed endotracheal tube and NG tube. HEENT examination is grossly unremarkable. Mucous membranes are moist. The patient is extubated to high flow oxygen at 60 L per minute cannula His communicating. He is awake. He is profoundly weak. His voice is somewhat muffled and he does have areas of dry crust from previous skin aberrations. Neck supple. Full range of motion. No adenopathy thyromegaly or neck vein distention. A left internal jugular triple-lumen catheter is noted. Cardiovascular examination reveals regular rhythm rate. S1-S2 normal. No S3 or S4. No discernible murmur noted. Heart rate is 56 bpm and heart sounds are distant. Lungs reveal diminished breath sounds bilaterally. Breath sounds are coarse. Crackles are noted. Breath sounds are equal bilaterally. No wheezes are appreciated.. Abdomen is soft without bowel sounds. No masses are noted. Extremities are intact. No cyanosis clubbing or edema. He now has a left radial arterial line.The left foot is cold and there are no pulses obtained on the regular palpation including the dorsalis pedis and posterior tibialis. Doppler signal needs to be checked. Skin is without rash or lesion. Neurologic examination reveals global generalized weakness, and the patient is awake and oriented 3 and is moving all 4 extremities without any limitation. - Labs CBC & Chem 7: 10/26/20 05:22 10/26/20 05:22 Labs: Abnormal Lab Results - Last 24 Hours (Table) 10/25/20 10/26/20 10/26/20 Range/Units 16:59 00:15 05:22 WBC (3.8-10.6) k/uL Neutrophils # (1.3-7.7) k/uL Lymphocytes # (1.0-4.8) k/uL D-Dimer 5.63 H (<0.60) mg/L FEU Sodium (137-145) mmol/L BUN (9-20) mg/dL Creatinine (0.66-1.25) mg/dL Glucose (74-99) mg/dL POC Glucose (mg/dL) 122 H 125 H (75-99) mg/dL Calcium (8.4-10.2) mg/dL Ferritin (22.0-322.0) ng/mL Total Bilirubin (0.2-1.3) mg/dL ALT (4-49) U/L Lactate Dehydrogenase (313-618) U/L C-Reactive Protein (<10.0) mg/L Total Protein (6.3-8.2) g/dL Albumin (3.5-5.0) g/dL 10/26/20 10/26/20 10/26/20 Range/Units 05:22 05:22 06:10 WBC 11.2 H (3.8-10.6) k/uL Neutrophils # 10.3 H (1.3-7.7) k/uL Lymphocytes # 0.5 L (1.0-4.8) k/uL D-Dimer (<0.60) mg/L FEU Sodium 136 L (137-145) mmol/L BUN 47 H (9-20) mg/dL Creatinine 0.57 L (0.66-1.25) mg/dL Glucose 128 H (74-99) mg/dL POC Glucose (mg/dL) 111 H (75-99) mg/dL Calcium 8.0 L (8.4-10.2) mg/dL Ferritin 968.7 H (22.0-322.0) ng/mL Total Bilirubin 1.6 H (0.2-1.3) mg/dL ALT 149 H (4-49) U/L Lactate Dehydrogenase 1676 H (313-618) U/L C-Reactive Protein 24.9 H (<10.0) mg/L Total Protein 5.3 L (6.3-8.2) g/dL Albumin 2.3 L (3.5-5.0) g/dL 10/26/20 Range/Units 12:09 WBC (3.8-10.6) k/uL Neutrophils # (1.3-7.7) k/uL Lymphocytes # (1.0-4.8) k/uL D-Dimer (<0.60) mg/L FEU Sodium (137-145) mmol/L BUN (9-20) mg/dL Creatinine (0.66-1.25) mg/dL Glucose (74-99) mg/dL POC Glucose (mg/dL) 131 H (75-99) mg/dL Calcium (8.4-10.2) mg/dL Ferritin (22.0-322.0) ng/mL Total Bilirubin (0.2-1.3) mg/dL ALT (4-49) U/L Lactate Dehydrogenase (313-618) U/L C-Reactive Protein (<10.0) mg/L Total Protein (6.3-8.2) g/dL Albumin (3.5-5.0) g/dL Assessment and Plan Plan: 1 Acute hypoxemic respiratory failure secondary to COVID 19 pneumonia, Intu bation and mechanical ventilation on 10/15/2020. The patient received convalescent plasma. The patient received Remdesivir the patient is also on IV Solu Medrol 60 mg every 6 hours. The patient was extubated on 10/23/2020 and he is currently on high flow oxygen at 60 L per nasal cannula, the patient is also on 100% nonrebreather facemask in addition to the high flow oxygen. Chest x-ray essentially stable, probably slightly improved compared to yesterday. Clinically, the patient is still looking well and he seems to be slightly improved compared to yesterday. He is not using his 100% on a consistent basis. He remains on IV Solu-Medrol. He remains on zinc. He remains on vitamin C and vitamin D and Pepcid for now. He is also on melatonin. We are doing daily chest x-ray and inflammatory markers. Noted the markers including LDH and CRP are lower. D-dimer is still elevated. 2 Acute respiratory distress syndrome (ARDS) secondary to above , extubated and a chest x-ray findings are essentially stable 3 History of hyperlipidemia. The triglyceride level is at 300, and the patient is currently off propofol 4 History of chronic bronchial asthma. 5 History of gastroesophageal reflux disease. 6 elevated d-dimer, currently on therapeutic dose of Lovenox in 30 milligrams subcu every 12 hours 7 Deep tissue injury to her left cheek related to Roselia and pronating. Similarly, tissue injury is also present on the tip of his 8 generalized motor weakness, muscle weakness secondary to prolonged intubation mechanical ventilation use of steroids and paralytics. 9 hypertension and patient is currently on clevidipine drip1 mg an hour 10 left foot, cold, likely ischemic. Plan: Encourage deep breathing and coughing, provide incentive spirometry Discontinue the Lasix for now Continue vitamin C, vitamin D3, zinc, and high-dose corticosteroids. Inflammatory markers are improving, and Lovenox dose to 30 mg subcu every 12 hours which is half a therapeutic dose Obtain follow-up inflammatory markers tomorrow and We'll monitor the inflammatory markers. Gradually advance diet as tolerated Norvasc 5 mg by mouth daily and the BP is under better control and the clevidipine drip has been discontinued Consulted vascular surgery regarding a cold left ischemic foot Prognosis is guarded. We will continue to follow.
[2020-10-26] MEDS ORDERED: HEPARIN SODIUM,PORCINE 5,000 UNIT/ML 1 ML VIAL IV PRN (13:19)
[2020-10-26] MEDS ORDERED: HEPARIN SOD,PORK IN 0.45% NACL 25,000 UNIT in 0.45% NACL 1 250ML.BAG IV SCH (13:30)
[2020-10-26 14:10] LABS: INR 1.1 (<1.2); Prothrombin Time 11.4 sec (9.0-12.0)
[2020-10-26 14:15] LABS: Partial Thromboplastin Time 21.2 sec (22.0-30.0)
--- NOTE | 2020-10-26 16:38 | P.GSCN ---
History of Present Illness Consult date: 10/26/20 History of present illness: Clarence is a 55-year-old male who was initially admitted on 10/14/2020 with severe covert pneumonia requiring intubation and significant other supportive measures. We are asked to see him today regarding an increased coolness to his left foot. He was extubated yesterday and remained on high flow oxygen. He has been maintained on prophylactic doses of Lovenox. He denies any pain numbness or tingling in his foot. He denies any changes overall. Past Medical History Past Medical History: Asthma, GERD/Reflux History of Any Multi-Drug Resistant Organisms: None Reported Past Surgical History: Orthopedic Surgery Past Anesthesia/Blood Transfusion Reactions: No Reported Reaction Past Psychological History: No Psychological Hx Reported Smoking Status: Never smoker Past Alcohol Use History: None Reported Past Drug Use History: None Reported Medications and Allergies Home Medications Medication Instructions Recorded Confirmed Type Fluticasone Propionate [Flovent 2 puff INHALATION RT-BID 12/31/17 10/14/20 History Hfa 220MCG] Albuterol Inhaler [Ventolin Hfa 2 puff INHALATION RT-QID PRN 10/14/20 10/14/20 History Inhaler] Albuterol Nebulized [Ventolin 2.5 mg INHALATION RT-QID PRN 10/14/20 10/14/20 History Nebulized] Atorvastatin [Lipitor] 40 mg PO DAILY 10/14/20 10/14/20 History Azithromycin [Zithromax Z-pack (6 See Taper PO DIRECTED 10/14/20 10/14/20 History tabs)] Cholecalciferol [Vitamin D3 (25 2,000 unit PO DAILY 10/14/20 10/14/20 History Mcg = 1000 Iu)] Montelukast Sodium [Singulair] 10 mg PO HS 10/14/20 10/14/20 History RX: Meloxicam 7.5 mg PO DAILY 10/14/20 10/14/20 History RX: Omeprazole 20 mg PO BID 10/14/20 10/14/20 History RX: predniSONE See Taper PO DAILY 10/14/20 10/15/20 History Allergies Allergy/AdvReac Type Severity Reaction Status Date / Time codeine Allergy Unknown Verified 10/14/20 11:24 Surgical - Exam Vital Signs Temp Pulse Resp BP Pulse Ox 99.4 F 96 18 130/80 88 L 10/14/20 09:56 10/14/20 09:56 10/14/20 09:56 10/14/20 09:56 10/14/20 09:56 Gen. is a pleasant and cooperative critically ill male although no immediate acute distress. HEENT is normocephalic, atraumatic, extraocular motion intact. Heart appears regular. Lungs with very coarse breath sounds and rhonchi. Abdomen is soft, nontender and nondistended. Extremity show no clubbing, cyanosis or edema. He is tolerating radial and femoral pulses bilaterally. Right sided palpable DP and PT. Palpable left PT, strong mono to biphasic DP. Adequate capillary refill. Motor sensory intact. Normal mood and affect. Results Arterial Doppler with ABIs is reviewed. Essentially normal-appearing waveforms with ABIs greater than 1 - Labs 10/26/20 05:22 10/26/20 05:22 Abnormal Lab Results - Last 24 Hours (Table) 10/25/20 10/26/20 10/26/20 Range/Units 16:59 00:15 05:22 WBC (3.8-10.6) k/uL Neutrophils # (1.3-7.7) k/uL Lymphocytes # (1.0-4.8) k/uL APTT (22.0-30.0) sec D-Dimer 5.63 H (<0.60) mg/L FEU Sodium (137-145) mmol/L BUN (9-20) mg/dL Creatinine (0.66-1.25) mg/dL Glucose (74-99) mg/dL POC Glucose (mg/dL) 122 H 125 H (75-99) mg/dL Calcium (8.4-10.2) mg/dL Ferritin (22.0-322.0) ng/mL Total Bilirubin (0.2-1.3) mg/dL ALT (4-49) U/L Lactate Dehydrogenase (313-618) U/L C-Reactive Protein (<10.0) mg/L Total Protein (6.3-8.2) g/dL Albumin (3.5-5.0) g/dL 10/26/20 10/26/20 10/26/20 Range/Units 05:22 05:22 06:10 WBC 11.2 H (3.8-10.6) k/uL Neutrophils # 10.3 H (1.3-7.7) k/uL Lymphocytes # 0.5 L (1.0-4.8) k/uL APTT (22.0-30.0) sec D-Dimer (<0.60) mg/L FEU Sodium 136 L (137-145) mmol/L BUN 47 H (9-20) mg/dL Creatinine 0.57 L (0.66-1.25) mg/dL Glucose 128 H (74-99) mg/dL POC Glucose (mg/dL) 111 H (75-99) mg/dL Calcium 8.0 L (8.4-10.2) mg/dL Ferritin 968.7 H (22.0-322.0) ng/mL Total Bilirubin 1.6 H (0.2-1.3) mg/dL ALT 149 H (4-49) U/L Lactate Dehydrogenase 1676 H (313-618) U/L C-Reactive Protein 24.9 H (<10.0) mg/L Total Protein 5.3 L (6.3-8.2) g/dL Albumin 2.3 L (3.5-5.0) g/dL 10/26/20 10/26/20 Range/Units 12:09 13:41 WBC (3.8-10.6) k/uL Neutrophils # (1.3-7.7) k/uL Lymphocytes # (1.0-4.8) k/uL APTT 21.2 L (22.0-30.0) sec D-Dimer (<0.60) mg/L FEU Sodium (137-145) mmol/L BUN (9-20) mg/dL Creatinine (0.66-1.25) mg/dL Glucose (74-99) mg/dL POC Glucose (mg/dL) 131 H (75-99) mg/dL Calcium (8.4-10.2) mg/dL Ferritin (22.0-322.0) ng/mL Total Bilirubin (0.2-1.3) mg/dL ALT (4-49) U/L Lactate Dehydrogenase (313-618) U/L C-Reactive Protein (<10.0) mg/L Total Protein (6.3-8.2) g/dL Albumin (3.5-5.0) g/dL Diabetes panel 10/26/20 Range/Units 05:22 Sodium 136 L (137-145) mmol/L Potassium 4.7 (3.5-5.1) mmol/L Chloride 107 (98-107) mmol/L Carbon Dioxide 30 (22-30) mmol/L BUN 47 H (9-20) mg/dL Creatinine 0.57 L (0.66-1.25) mg/dL Glucose 128 H (74-99) mg/dL Calcium 8.0 L (8.4-10.2) mg/dL AST 52 (17-59) U/L ALT 149 H (4-49) U/L Alkaline Phosphatase 62 (38-126) U/L Total Protein 5.3 L (6.3-8.2) g/dL Albumin 2.3 L (3.5-5.0) g/dL Calcium panel 10/26/20 Range/Units 05:22 Calcium 8.0 L (8.4-10.2) mg/dL Albumin 2.3 L (3.5-5.0) g/dL Pituitary panel 10/26/20 Range/Units 05:22 Sodium 136 L (137-145) mmol/L Potassium 4.7 (3.5-5.1) mmol/L Chloride 107 (98-107) mmol/L Carbon Dioxide 30 (22-30) mmol/L BUN 47 H (9-20) mg/dL Creatinine 0.57 L (0.66-1.25) mg/dL Glucose 128 H (74-99) mg/dL Calcium 8.0 L (8.4-10.2) mg/dL Adrenal panel 10/26/20 Range/Units 05:22 Sodium 136 L (137-145) mmol/L Potassium 4.7 (3.5-5.1) mmol/L Chloride 107 (98-107) mmol/L Carbon Dioxide 30 (22-30) mmol/L BUN 47 H (9-20) mg/dL Creatinine 0.57 L (0.66-1.25) mg/dL Glucose 128 H (74-99) mg/dL Calcium 8.0 L (8.4-10.2) mg/dL Total Bilirubin 1.6 H (0.2-1.3) mg/dL AST 52 (17-59) U/L ALT 149 H (4-49) U/L Alkaline Phosphatase 62 (38-126) U/L Total Protein 5.3 L (6.3-8.2) g/dL Albumin 2.3 L (3.5-5.0) g/dL Assessment and Plan Assessment: Cool left lower extremity COVID pneumonia Plan: At this time I do not believe the patient has any significant arterial insufficiency to either lower extremity. He is motor sensory intact. ABIs appear relatively normal. Prior to discontinuation of the heparin drip I would like the patient to undergo a venous duplex although there is no evidence of significant swelling does not extremity. If the venous duplex is negative, he may return to his prophylactic doses of Lovenox in lieu of heparin.
[2020-10-26 16:53] LABS: Glucose,Whole Blood 137 mg/dL (75-99)
--- NOTE | 2020-10-26 17:23 | US ---
EXAMINATION TYPE: US venous doppler duplex LE LT DATE OF EXAM: 10/26/2020 5:12 PM COMPARISON: NONE CLINICAL HISTORY: cool foot. SIDE PERFORMED: Left TECHNIQUE: The lower extremity deep venous system is examined utilizing real time linear array sonog lori with graded compression, doppler sonography and color-flow sonography. VESSELS IMAGED: Common Femoral Vein Deep Femoral Vein Greater Saphenous Vein * Femoral Vein Popliteal Vein Small Saphenous Vein * Proximal Calf Veins (* superficial vessels) Left Leg: Negative for DVT IMPRESSION: No evidence of deep vein thrombosis in the left leg.
[2020-10-26 20:01] LABS: Glucose,Whole Blood 131 mg/dL (75-99)
[2020-10-26] MEDS: MELATONIN 5 MG TABLET PO SCH (20:08)
[2020-10-26] MEDS: FAMOTIDINE 20 MG TAB PO SCH (20:08)
[2020-10-26] MEDS: TEMAZEPAM 15 MG CAP PO SCH (20:08)
[2020-10-26 23:32] LABS: Glucose,Whole Blood 145 mg/dL (75-99)
[2020-10-27 04:50] LABS: C Reactive Protein 15.7 mg/L (<10.0)
[2020-10-27 05:23] LABS: Basophils % (A) 0 %; Eosinophils % (A) 0 %; HCT 42.3 % (39.0-53.0); HGB 13.6 gm/dL (13.0-17.5); Lymphocytes # (A) 0.5 k/uL (1.0-4.8); Lymphocytes % (A) 4 %; MCH 28.1 pg (25.0-35.0); MCHC 32.2 g/dL (31.0-37.0); MCV 87.3 fL (80.0-100.0); Mean Platelet Volume 8.7; Monocytes # (A) 0.4 k/uL (0-1.0); Monocytes % (A) 3 %; Neutrophils % (A) 92 %; Platelet Count 196 k/uL (150-450); RBC 4.85 m/uL (4.30-5.90); RDW 12.9 % (11.5-15.5); WBC 11.9 k/uL (3.8-10.6)
[2020-10-27 05:48] LABS: ALT 174 U/L (4-49); AST 49 U/L (17-59); African American GFR (CKD) >90 (>60 ml/min/1.73 sqM); Albumin 2.2 g/dL (3.5-5.0); Alkaline Phosphatase 61 U/L (38-126); Blood Urea Nitrogen 45 mg/dL (9-20); Calcium 8.2 mg/dL (8.4-10.2); Carbon Dioxide 28 mmol/L (22-30); Glucose 149 mg/dL (74-99); Non-African American GFR(CKD) >90 (>60 ml/min/1.73 sqM); Sodium 136 mmol/L (137-145); Total Bilirubin 1.3 mg/dL (0.2-1.3); Total Protein 5.2 g/dL (6.3-8.2)
[2020-10-27 05:50] LABS: Chloride 107 mmol/L (98-107); Potassium 4.6 mmol/L (3.5-5.1)
[2020-10-27] MEDS: methylPREDNISolone SOD SUCCI 125 MG/2 ML VIAL IV SCH (06:40)
[2020-10-27 06:49] LABS: Glucose,Whole Blood 124 mg/dL (75-99)
[2020-10-27] MEDS: INSULIN ASPART (NovoLOG) 100 UNIT/ML VIAL SQ SCH ×4 (06:49→20:56)
[2020-10-27] MEDS: ALBUTEROL HFA INHALER INHALATION PRN ×4 (07:26→21:11)
[2020-10-27 07:47] LABS: Anion Gap 1 mmol/L
[2020-10-27] MEDS: ASCORBIC ACID 500 MG TAB PO SCH ×2 (07:48→20:56)
[2020-10-27] MEDS: ENOXAPARIN 30 MG/0.3 ML SYRINGE SQ SCH ×2 (07:48→20:55)
[2020-10-27] MEDS: ALPRAZolam 0.5 MG TAB PO PRN (07:48)
[2020-10-27] MEDS: CHOLECALCIFEROL 25 MCG (1000 IU) TABLET PO SCH (07:49)
[2020-10-27] MEDS: amLODIPine 5 MG TAB PO SCH (07:49)
[2020-10-27] MEDS: ZINC SULFATE 220 MG CAP PO SCH (07:49)
[2020-10-27] MEDS: ATORVASTATIN 40 MG TAB PO SCH (07:49)
[2020-10-27] MEDS: FAMOTIDINE 20 MG TAB PO SCH ×2 (07:49→20:56)
--- NOTE | 2020-10-27 07:54 | XR ---
EXAMINATION TYPE: XR chest 1V DATE OF EXAM: 10/27/2020 COMPARISON: 10/26/2020 INDICATION: Covid TECHNIQUE: Single frontal view of the chest is obtained. FINDINGS: The heart size is mildly prominent. The pulmonary vasculature is normal. Diffuse patchy infiltrates are present bilaterally can be compatible with atypical pneumonia. Left-si ded catheter is been removed. No pneumothorax is evident. IMPRESSION: 1. Stable patchy bilateral lung infiltrates can be compatible with atypical pneumonia
--- NOTE | 2020-10-27 08:31 | P.PN ---
Subjective Progress Note Date: 10/27/20 55-year-old male who was admitted to the ICU yesterday. He came down to the ICU for acute hypoxemic respiratory failure secondary to COVID 19 pneumonia. Initially, we attempted to maintain him on BiPAP, but unfortunately, the patient's respiratory failure worsened and he required intubation and mechanical ventilation. He was intubated on 10/15/2020.. He is on the volume assist control modality, rate 24, tidal volume 450, FiO2 50%, and PEEP of 12. His blood gases show a pO2 of 81, PaCO2 of 42, and a pH of 7.46. He is getting saline at 40 mL an hour, a fentanyl drip at 0.5 mcg/kg/h, propofol at 60 mcg/kg/m, and vital high protein at 64 mL an hour which is goal. He was also paralyzed and is currently off paralytics.. He received 1 dose of, convalescent plasma, and 1 dose of remdesivir. He is receiving Solumedrol at 60 mg IV q 6 hours. On today's evaluation, the patient is being seen on follow-up. The patient's peak airway pressures around 30 on the above-mentioned ventilator setting. The patient is afebrile. The white cell count today is 13.6 with a hemoglobin of 12. Rest of the blood work and electrodes are all within normal limits. The chest x-ray from today still showing diffuse bilateral pulmonary infiltrates ET tube is in a good location. The patient also has a left IJ triple-lumen catheter in place. The patient's hemodynamically stable. He is on no pressors. He is producing adequate amount of urine output. He is on Lovenox 80 mg subcu every 12 hours.A d-dimer level is up to 2 and this is essentially gone compared to few days back with a d-dimer was up to 34.. On today's evaluation of 10/23/2020 seeing the patient for a follow-up. The patient remains sedated and the patient is on propofol running at 50 mcg/kg per minute and the patient is also on fentanyl at 1.0 mcg/kg/h. She remains on a mechanical ventilator and essentially the ventilator settings currently is at a rate of 24 with a tidal volume of 450, an FiO2 of 50% with a PEEP of 8. His is improved compared to yesterday. The blood gases from today shows a pH of 7.49 with a pCO2 of 40 and pO2 of 74. Chest x-ray stable, probably some improvement in the right lower lobe area. ET tube is in a good location. NG tube is in also good location. He is afebrile. Note that the patient has received convalescent plasma, Larissaivir is also on IV Solu Medrol 60 mg every 6 hours. His inflammatory markers show a drop in his CRP down to 28 and his LDH is also dropping down to 1179. His net fluid balance has been -68 mL and the patient is receiving Lasix 40 mg IV on a daily basis. His triglyceride level is at 300. Is tolerating enteral feeding for nutritional support. The d-dimer today is at X.2 from yesterday and the repeat levels are pending for today. Meanwhile, the patient remains on therapeutic dose of Lovenox at a dose of 80 mg subcu every 12 hours. On 10/24/2020, the patient is extubated. The patient is currently on high flow oxygen at 60 L. His pulse ox is ranging between 90-94%. He is hemodynamically stable on no pressors. His blood pressure was running on the higher side and the patient was given side effects and is currently on 2 mg an hour and he has an adequate blood pressure control. D-dimer remains elevated at 6.67, his CRP is at 28 from yesterday, his LDH was 1179 from yesterday and inflammatory markers are not obtained from today. He is awake. He is following simple commands and answering questions. He is on IV Solu Medrol 60 mg every 6 hours. He is on Lovenox therapeutic doses of 80 mg subcu every 12 hours. He is afebrile. Cultures are all negative other than some Kay and his sputum. As mentioned, the patient was extubated successfully yesterday. He is a week. He has a weak cough. He has generalized motor weakness in all 4 extremities. No other significant events overnight. Neurologically intact and currently on no s edation. The chest x-ray from today showed essentially stable bilateral pulmonary infiltrates, probably slightly worse compared to yesterday, nevertheless this can be an effective positive pressure delivered by the mechanical ventilator. He does have a triple lumen catheter in his left IJ which is still in place. Left hemidiaphragm is slightly elevated. The patient will be encouraged to use incentive spirometer. The patient is in a negative fluid balance of 2.6 hours and the patient remains on IV Lasix 40 mg every 24 hours. On 10/25/2020 patient remains extubated. He currently on the AirVo 60 L and 65% FiO2 also says just above 90% and the patient is also utilizing 100% on a beta facemasks. A chest x-ray from today shows some limited improvement on the right. There is still dense bilateral pulmonary infiltrates. The patient was extubated on 10/23/2020. He remains on IV Solu-Medrol 60 mg every 6 hours. Inflammatory markers from today show a d-dimer of 4.5 which is lower compared to yesterday, he also had a LDH level of 1924, higher and his CRP level is 44, higher. He is afebrile. He is hemodynamically stable. He is taking some limited oral intake mainly in the form of clear liquids. He is weak. He is anxious. He has a decent cough. He remains on IV Lasix every 24 hours in the neck fluid balance has been in the order of 3.1 L. He remains on Lovenox 80 mg subcutaneous every 12 hours. No sedatives. No delirium. No confusion. Family has been updated. He is on Celebrex 100 mg an hour On 10/26/2020, the patient remains extubated. The patient remains on high flow oxygen 60 L and the FiO2 is at 70%. The pulse is currently is ranging between 88 and 91%. He remains in high spirits 50 once recovered. On and off is also utilizing 100% nonrebreather facemask. Nevertheless, for the most part, he is using the high flow oxygen. He is on IV fluids with normal saline at the rate of 20 mL an hour. The patient is being diuresis and a daily basis of a negative fluid balance is in the order of -2.060 liters over the past 24 hours. The patient is is otherwise doing well. LDH level is at 1676 which is lower compared to yesterday. CRP is also 24.5 which is essentially lower than yesterday. The BUN is at 47 with a creatinine of 0.57. He remains on Lovenox 80 mg subcu every 12 hours. The d-dimer is still elevated at 5.63. On today's evaluation, it was noted that the patient has a cold left foot. Doppler pulses will be also obtained and vascular surgery will be involved in the case and there are no pulses. The right lower extremity and the right foot is within normal limits. The patient denies having any pain in his left foot. No other s ignificant events otherwise for now. Is tolerating his diet. He is gradually increasing his oral intake. 10/27/2020, the patient is on 60 L with an FiO2 of 65%. He is recovering from his acute hypoxic respiratory failure and diffuse pneumonia related to covid 19. He is in good spirits. His chest x-ray from today and gradual improvement in diffuse pulmonary infiltrates. As compared to the earlier chest x-ray from a few days back. Meanwhile, the patient's white cell count is 11.9. LDH is dropping from 1676 down to 1397 and the CRP is down from 24.9-15.7. His d-dimer is also down to 4.15. Obviously the patient is showing ongoing clinical response and improvement for now. As for the lower extremity, Doppler signals are back and the patient is currently is off IV heparin. We are going back on Lovenox 30 mg subcu every 12 hours. The patient remained on IV Solu Medrol 60 mg every 6 hours. Objective - Vital Signs Vital signs: Vital Signs Temp 97.9 F 10/27/20 04:00 Pulse 64 10/27/20 07:00 Resp 22 10/27/20 07:00 BP 114/85 10/27/20 07:00 Pulse Ox 93 L 10/27/20 07:26 Intake & Output 10/26/20 10/27/20 10/27/20 18:59 06:59 18:59 Intake Total 765.134 240 20 Output Total 1984 715 75 Balance -1219.866 -475 -55 Weight 74.5 kg 71 kg Intake: IV 240 240 20 Sodium Chloride 0.9% 1, 240 240 20 000 ml @ 20 mls/hr IV . Q24H [facility] Rx#:[id number] Intake, IV Titration 85.134 Amount Heparin Sod,Pork in 0.45% 85.134 NaCl 25,000 unit In 0.45 % NaCl 1 250ml.bag @ 18 UNITS/KG/HR 13.41 mls/hr IV .[id number] [facility] Rx#: [id number] Oral 440 Output: Urine 1984 715 75 Other: Voiding Method Indwelling Catheter Indwelling Catheter ABP, PAP, CO, CI - Last Documented Arterial Blood Pressure 103/93 - Exam No acute distress, sedated, with an orally placed endotracheal tube and NG tube. HEENT examination is grossly unremarkable. Mucous membranes are moist. The patient is extubated to high flow oxygen at 60 L per minute cannula His communicating. He is awake. He is profoundly weak. His voice is somewhat muffled and he does have areas of dry crust from previous skin aberrations. Neck supple. Full range of motion. No adenopathy thyromegaly or neck vein distention. A left internal jugular triple-lumen catheter is noted. Cardiovascular examination reveals regular rhythm rate. S1-S2 normal. No S3 or S4. No discernible murmur noted. Heart rate is 56 bpm and heart sounds are distant. Lungs reveal diminished breath sounds bilaterally. Breath sounds are coarse. Crackles are noted. Breath sounds are equal bilaterally. No wheezes are appreciated.. Abdomen is soft without bowel sounds. No masses are noted. Extremities are intact. No cyanosis clubbing or edema. He now has a left radial arterial line.The left foot is warmer compared to yesterday with adequate pulses palpable. Skin is without rash or lesion. Neurologic examination reveals global generalized weakness, and the patient is awake and oriented 3 and is moving all 4 extremities without any limitation. - Labs CBC & Chem 7: 10/27/20 04:04 10/27/20 04:04 Labs: Abnormal Lab Results - Last 24 Hours (Table) 10/26/20 10/26/20 10/26/20 Range/Units 05:22 12:09 13:41 WBC (3.8-10.6) k/uL Neutrophils # (1.3-7.7) k/uL Lymphocytes # (1.0-4.8) k/uL APTT 21.2 L (22.0-30.0) sec D-Dimer (<0.60) mg/L FEU Sodium (137-145) mmol/L BUN (9-20) mg/dL Creatinine (0.66-1.25) mg/dL Glucose (74-99) mg/dL POC Glucose (mg/dL) 131 H (75-99) mg/dL Calcium (8.4-10.2) mg/dL Ferritin 968.7 H (22.0-322.0) ng/mL ALT (4-49) U/L Lactate Dehydrogenase (313-618) U/L C-Reactive Protein (<10.0) mg/L Total Protein (6.3-8.2) g/dL Albumin (3.5-5.0) g/dL 10/26/20 10/26/20 10/26/20 Range/Units 16:52 19:59 23:30 WBC (3.8-10.6) k/uL Neutrophils # (1.3-7.7) k/uL Lymphocytes # (1.0-4.8) k/uL APTT (22.0-30.0) sec D-Dimer (<0.60) mg/L FEU Sodium (137-145) mmol/L BUN (9-20) mg/dL Creatinine (0.66-1.25) mg/dL Glucose (74-99) mg/dL POC Glucose (mg/dL) 137 H 131 H 145 H (75-99) mg/dL Calcium (8.4-10.2) mg/dL Ferritin (22.0-322.0) ng/mL ALT (4-49) U/L Lactate Dehydrogenase (313-618) U/L C-Reactive Protein (<10.0) mg/L Total Protein (6.3-8.2) g/dL Albumin (3.5-5.0) g/dL 10/27/20 10/27/20 10/27/20 Range/Units 04:04 04:04 04:04 WBC 11.9 H (3.8-10.6) k/uL Neutrophils # 11.0 H (1.3-7.7) k/uL Lymphocytes # 0.5 L (1.0-4.8) k/uL APTT (22.0-30.0) sec D-Dimer 4.15 H (<0.60) mg/L FEU Sodium 136 L (137-145) mmol/L BUN 45 H (9-20) mg/dL Creatinine 0.57 L (0.66-1.25) mg/dL Glucose 149 H (74-99) mg/dL POC Glucose (mg/dL) (75-99) mg/dL Calcium 8.2 L (8.4-10.2) mg/dL Ferritin (22.0-322.0) ng/mL ALT 174 H (4-49) U/L Lactate Dehydrogenase (313-618) U/L C-Reactive Protein (<10.0) mg/L Total Protein 5.2 L (6.3-8.2) g/dL Albumin 2.2 L (3.5-5.0) g/dL 10/27/20 10/27/20 Range/Units 04:05 06:45 WBC (3.8-10.6) k/uL Neutrophils # (1.3-7.7) k/uL Lymphocytes # (1.0-4.8) k/uL APTT (22.0-30.0) sec D-Dimer (<0.60) mg/L FEU Sodium (137-145) mmol/L BUN (9-20) mg/dL Creatinine (0.66-1.25) mg/dL Glucose (74-99) mg/dL POC Glucose (mg/dL) 124 H (75-99) mg/dL Calcium (8.4-10.2) mg/dL Ferritin (22.0-322.0) ng/mL ALT (4-49) U/L Lactate Dehydrogenase 1397 H (313-618) U/L C-Reactive Protein 15.7 H (<10.0) mg/L Total Protein (6.3-8.2) g/dL Albumin (3.5-5.0) g/dL Assessment and Plan Plan: 1 Acute hypoxemic respiratory failure secondary to COVID 19 pneumonia, Intubation and mechanical ventilation on 10/15/2020. The patient received convalescent plasma. The patient received Remdesivir the patient is also on IV Solu Medrol 60 mg every 6 hours. The patient was extubated on 10/23/2020 and he is currently on high flow oxygen at 60 L per nasal cannula, the patient is also on 100% nonrebreather facemask in addition to the high flow oxygen. Chest x-ray essentially stable, probably slightly improved compared to yesterday. Clinically, the patient is still looking well and he seems to be slightly improved compared to yesterday. The chest x-rays also improving and there is ongoing steady improvement in the bilateral pulmonary infiltrates especially on today's chest x-ray. He remains on IV Solu-Medrol. He remains on zinc. He remains on vitamin C and vitamin D and Pepcid for now. He is also on melatonin. We are doing daily chest x-ray and inflammatory markers. Noted the markers including LDH and CRP are lower. D-dimer is still elevated. Overall, the d- dimer is lower. 2 Acute respiratory distress syndrome (ARDS) secondary to above , extubated and a chest x-ray findings are essentially stable 3 History of hyperlipidemia. The triglyceride level is at 300, and the patient is currently off propofol 4 History of chronic bronchial asthma. 5 History of gastroesophageal reflux disease. 6 elevated d-dimer, currently on therapeutic dose of Lovenox in 30 milligrams subcu every 12 hours 7 Deep tissue injury to her left cheek related to Roselia and pronating. Similarly, tissue injury is also present on the tip of his 8 generalized motor weakness, muscle weakness secondary to prolonged intubation mechanical ventilation use of steroids and paralytics. 9 hypertension and patient is currently on clevidipine drip1 mg an hour 10 left foot, cold, likely ischemic. She was evaluated by vascular surgery. The pulses in the left foot have recovered and the patient is currently off the IV heparin and back on Lovenox 30 mg subcutaneous every 12 hours. Plan: Encourage deep breathing and coughing, provide incentive spirometry This continued IV Solu-Medrol and put the patient on Decadron 6 mg by mouth daily Continue vitamin C, vitamin D3, zinc, and high-dose corticosteroids. Inflammatory markers are improving, and Lovenox dose to 30 mg subcu every 12 h ours which is half a therapeutic dose Obtain follow-up inflammatory markers tomorrow and We'll monitor the inflammatory markers. Gradually advance diet as tolerated Norvasc 5 mg by mouth daily and the BP is under better control and the clevidipine drip has been discontinued Consulted vascular surgery on the case regarding the left foot and the pulses of improved Prognosis is guarded. We will continue to follow. ICU for another 24 hours. Attempts to wean down the oxygen flow.
--- NOTE | 2020-10-27 08:43 | P.PN ---
Subjective Progress Note Date: 10/27/20 Pt s/e. no acute changes, no issues overnight Objective - Vital Signs Vital signs: Vital Signs Temp 98.0 F 10/27/20 08:00 Pulse 77 10/27/20 08:00 Resp 23 10/27/20 08:00 BP 124/77 10/27/20 08:00 Pulse Ox 91 L 10/27/20 08:00 Intake & Output 10/26/20 10/27/20 10/27/20 18:59 06:59 18:59 Intake Total 765.134 240 20 Output Total 1984 715 75 Balance -1219.866 -475 -55 Weight 74.5 kg 71 kg Intake: IV 240 240 20 Sodium Chloride 0.9% 1, 240 240 20 000 ml @ 20 mls/hr IV . Q24H [facility] Rx#:[id number] Intake, IV Titration 85.134 Amount Heparin Sod,Pork in 0.45% 85.134 NaCl 25,000 unit In 0.45 % NaCl 1 250ml.bag @ 18 UNITS/KG/HR 13.41 mls/hr IV .[id number] [facility] Rx#: [id number] Oral 440 Output: Urine 19845 75 Other: Voiding Method Indwelling Catheter Indwelling Catheter ABP, PAP, CO, CI - Last Documented Arterial Blood Pressure 103/93 - Exam NAD, RRR, lungs coarse BS, abd soft. BLE warm and dry no clubbing cyanosis or edema. Normal mood and affect - Labs CBC & Chem 7: 10/27/20 04:04 10/27/20 04:04 Labs: Abnormal Lab Results - Last 24 Hours (Table) 10/26/20 10/26/20 10/26/20 Range/Units 05:22 12:09 13:41 WBC (3.8-10.6) k/uL Neutrophils # (1.3-7.7) k/uL Lymphocytes # (1.0-4.8) k/uL APTT 21.2 L (22.0-30.0) sec D-Dimer (<0.60) mg/L FEU Sodium (137-145) mmol/L BUN (9-20) mg/dL Creatinine (0.66-1.25) mg/dL Glucose (74-99) mg/dL POC Glucose (mg/dL) 131 H (75-99) mg/dL Calcium (8.4-10.2) mg/dL Ferritin 968.7 H (22.0-322.0) ng/mL ALT (4-49) U/L Lactate Dehydrogenase (313-618) U/L C-Reactive Protein (<10.0) mg/L Total Protein (6.3-8.2) g/dL Albumin (3.5-5.0) g/dL 10/26/20 10/26/20 10/26/20 Range/Units 16:52 19:59 23:30 WBC (3.8-10.6) k/uL Neutrophils # (1.3-7.7) k/uL Lymphocytes # (1.0-4.8) k/uL APTT (22.0-30.0) sec D-Dimer (<0.60) mg/L FEU Sodium (137-145) mmol/L BUN (9-20) mg/dL Creatinine (0.66-1.25) mg/dL Glucose (74-99) mg/dL POC Glucose (mg/dL) 137 H 131 H 145 H (75-99) mg/dL Calcium (8.4-10.2) mg/dL Ferritin (22.0-322.0) ng/mL ALT (4-49) U/L Lactate Dehydrogenase (313-618) U/L C-Reactive Protein (<10.0) mg/L Total Protein (6.3-8.2) g/dL Albumin (3.5-5.0) g/dL 10/27/20 10/27/20 10/27/20 Range/Units 04:04 04:04 04:04 WBC 11.9 H (3.8-10.6) k/uL Neutrophils # 11.0 H (1.3-7.7) k/uL Lymphocytes # 0.5 L (1.0-4.8) k/uL APTT (22.0-30.0) sec D-Dimer 4.15 H (<0.60) mg/L FEU Sodium 136 L (137-145) mmol/L BUN 45 H (9-20) mg/dL Creatinine 0.57 L (0.66-1.25) mg/dL Glucose 149 H (74-99) mg/dL POC Glucose (mg/dL) (75-99) mg/dL Calcium 8.2 L (8.4-10.2) mg/dL Ferritin (22.0-322.0) ng/mL ALT 174 H (4-49) U/L Lactate Dehydrogenase (313-618) U/L C-Reactive Protein (<10.0) mg/L Total Protein 5.2 L (6.3-8.2) g/dL Albumin 2.2 L (3.5-5.0) g/dL 10/27/20 10/27/20 Range/Units 04:05 06:45 WBC (3.8-10.6) k/uL Neutrophils # (1.3-7.7) k/uL Lymphocytes # (1.0-4.8) k/uL APTT (22.0-30.0) sec D-Dimer (<0.60) mg/L FEU Sodium (137-145) mmol/L BUN (9-20) mg/dL Creatinine (0.66-1.25) mg/dL Glucose (74-99) mg/dL POC Glucose (mg/dL) 124 H (75-99) mg/dL Calcium (8.4-10.2) mg/dL Ferritin (22.0-322.0) ng/mL ALT (4-49) U/L Lactate Dehydrogenase 1397 H (313-618) U/L C-Reactive Protein 15.7 H (<10.0) mg/L Total Protein (6.3-8.2) g/dL Albumin (3.5-5.0) g/dL Assessment and Plan Assessment: Cool left lower extremity - improved COVID pneumonia Plan: At this time I do not believe the patient has any significant arterial insufficiency to either lower extremity. He is motor sensory intact. Venous duplex no evidence of dvt. Continue supportive care.
[2020-10-27 11:29] LABS: Glucose,Whole Blood 129 mg/dL (75-99)
[2020-10-27 16:31] LABS: Glucose,Whole Blood 116 mg/dL (75-99)
[2020-10-27] MEDS: SODIUM CHLORIDE 0.9% 1,000 ML IV SCH (18:08)
--- NOTE | 2020-10-27 18:43 | P.PN ---
Subjective HPI - Patient is a 55-year-old male came in with complaints of increasing shortness of breath over the past week. Patient was diagnosed with Covid 6 days ago. He has completed a course of steroids as well as Z-Douglas. Patient states over the past week he's been fighting fevers, body aches, chills and nausea. Patient states his shortness of breath has been steadily increasing. He gets winded with just walking around his house. He does admit to some chest pain when he is coughing. He does have some production with his cough. He does admit to history of asthma, denies heart disease. He states his last dose of Tylenol was last night. He denies any vomiting, no dysuria. Patient is febrile 100.4, pulse is 96, he is satting 88% on room air. Patient had a chest x-ray which showed diffuse bilateral infiltrates. Patient is presently on 2 L of oxygen saturating 93% patient was having fevers at home patient had a low-grade fever here. Patient has elevated inflammatory markers along with the low sodium. On 10/15/2020 - last night patient became more short of breath, so he was shifted to the ICU. Initially the patient was placed on BiPAP, patient was staffed neck and saturating in the high 80s and so eventually he had to be intu bated around noon. Currently he is mechanically ventilated and sedated. Reviewing the vitals patient is tachycardic between 100-110, saturating in the low 80s on 100% FiO2, blood pressure 1 50 x 92. Patient has been started on Solu-Medrol, Remdesivir, Lovenox and breathing treatments. On reviewing the labs white count of 6.1, hemoglobin 14.7, platelets 162. Sodium 133, potassium 4.2, chloride 102, bicarb 28, BUN 17, creatinine 0.79. Ferritin 624, magnesium 1.5, albumin 2.9. 10/16/2020 Patient is seen and examined in the ICU. He was admitted for Covid bilateral pneumonia. These with acute hypoxic respiratory failure needing intubation and mechanical ventilation with pulmonary/critical care team following the patient closely. He's undergoing prone position for 16 hours per day. Also he is getting Remidsivir and he is a status post convalescent plasma . Patient does not need pressors as his vitals are stable. And he is on tube feeding. Patient is currently sedated. Labs reviewed 10/17/2020 Patient remains in the ICU sedated and intubated. He is undergoing prone position with the goal 16 hours per day. He is febrile but tachypneic. Labs reviewed including CBC and BMP showing no significant changes. And sputum culture is growing Kay albicans. Chest x-ray showing the same bilateral infiltrates with right more than left related to his covid pneumonia. And he remains on Solu-Medrol 60 mg, remdisvir and normal saline at 75 mL/h. Pulmonary/critical care team R following the patient closely and the recommend to continue the current management and keep monitoring 10/18/2020 pt jana in ICU intubated sedated , with critical care team following him closely and adjusting his vent setting, he is currently needing high doseo f PEEP at 15 cxr from today showing small new bilateral pleural effusion , with basilar consolidation consistent wiht known covid 19 infection tomorrow is last dose of Remdisvir he remains on solumedrol 60 mg and gentl hydration 10/20/2020 Patient in ICU intubated on mechanical ventilation for several days now with pulmonary/critical care team managing the patient and monitoring him closely. Patient under going weaning for his PEEP and FiO2 down to 8 cm and 50% Chest x-ray showing stable findings consistent with edema versus pneumonia Patient on the same treatment of submental 60 mg normal saline at 50 mg and Lovenox 80 mg twice daily 10/21/2020 Patient remains in the ICU intubated and sedated, distal and a critical condition. Pulmonary/critical team R following the case closely and managing his vent. His PEEP was increased today to 12 from 8 because was desaturating during the night. FiO2 was kept at 50%. Blood pressure is 133/74, oxygen saturation is 90%, breathing rates 24 and is still slightly bradycardic at 56. Creatinine is normal at 0.5, magnesium 2.6, inflammatory markers including ferritin, LDH, C-reactive protein are slightly trending down He is on therapeutic dose of Lovenox for high d-dimer i called the and discussed the case her and all her question were answered and tried to explain the situation for her in a language she can understand 10/22/2020 Patient remains in the ICU intubated and sedated, today his PEEP was lowered to 10 in the morning, he remains on FiO2 of 50% He is hemodynamically stable. Sugar is controlled. WBC stable at 13.6 K results of CBC is unremarkable. Creatinine is normal at 0.5. Repeat chest x- ray today showing continued bilateral diffuse interstitial infiltrates and retrocardiac opacity. Development consolidation in the right lower lobe suggestive overall worsening Medications salmeterol 60 mg of normal saline at 40, continue with Lovenox with the same dose Prognosis remains guarded 10/23/2020 This is a pleasant 74 years old male who presents with bilateral: With pneumonia and his been in the ICU intubated and sedated, pulmonary/critical care team helped with vent management, it looks like his respiratory function is improving as there is a troponin PEEP down to 67 and he's undergoing sedation holiday and possible when in a trial with the call to get him extubated. WBC count 13,000, creatinine normal 0.500 glucose control. Elevated inflammatory markers Patient remains on Solu-Medrol, normocephalic 40 mL/h and Lovenox 80 mg twice daily, he was started on Lasix 40 mg daily 10/24/2020 Patient is a status post extubation and is currently on high flow nasal cannula with an FiO2 of 60-63% saturated on the low 90s. Patient looks dyspneic and could not provide information because of his dyspnea. Chest x-ray showing worsening bilateral middle and lower infiltrates WBC is stable at 13.5 K. BMP is unremarkable. Zinc and vitamin C were added, patient continue on some epidural 60 mg, at 40 and lasix 40 mg daily and lovenox 80 mg twice daily. Physical therapy evaluation is warranted as well as a swallow evaluation 10/25/2020 Patient is monitored in the ICU currently is status post extubation 2 days ago. He is quite dyspneic and on airvo at 60 L and 65% FiO2. Chest x-ray showing scattered infiltrates but stable. CBC is unremarkable. Creatinine 0.6. But all inflammatory markers including ferritin, LDH and C-reactive protein are increased. His sugar is controlled Medication-lewis he remains on Solu-Medrol 60 mg #40 mg and Lasix 40 mg daily. Lasix was lowered today to 30 mg twice daily as there is trending down and his d-dimer from 6.6 down to 4.5. 10/26/2020 Patient is seen and evaluated and follow-up continues to be closely monitored in the ICU. Patient currently working with physical therapy as he continues to be quite weak and attempts to sit at the bedside and possibility of in the chair. Patient is a 2 person assist due to weakness. Patient continues to be short of breath and dyspneic with exertion and is maintained on airvo at 60 L with an FiO2 of 70%. No real improvement on chest x-ray and infiltrates remain stable. D-dimer elevated at 5.63, sodium is 136, potassium is 4.7, current creatinine is 0.57. Inflammatory markers elevated as well. Patient is maintained on IV Solu-Medrol, vitamin C and D supplements along with zinc and Lovenox and will continue. Patient's blood sugars on the lower end and will continue with Accu- Cheks and every 6 hours sliding scale as needed. Patient is on a full liquid diet and tolerating. 10/27/20 He is remains in the ICU and it looks very weak and tired vitals are stable but remains needing high flow nasal cannula at 60 L and FiO2 of 55 with oxygen saturation 92-93%. He has mild leukocytosis of 11 K, BMP is unremarkable and inflammatory markers including LDH and C-reactive protein are trending down Chest x-ray: Stable bilateral patchy infiltrates compatible with atypical pneumonia. No critical limb ischemia per vascular surgery team Today 10 cm was stopped and switched to dexamethasone 6 mg daily, normal saline was stopped as well as Lasix. However he remains on Lovenox 30 mg twice daily. Review of systems: N/a, patient looks tired and could not provide information although he is extubated today Active Medications Generic Name Dose Route Start Last Admin Trade Name Freq PRN Reason Stop Dose Admin Albuterol Sulfate 2 puff 10/14/20 11:44 10/27/20 14:41 Albuterol Hfa Inhaler INHALATION 2 puff RT-QID PRN Administration Shortness Of Breath Alprazolam 0.5 mg 10/24/20 08:32 10/27/20 07:48 Alprazolam 0.5 Mg Tab PO 0.5 mg TID PRN Administration Anxiety Amlodipine Besylate 5 mg 10/25/20 09:00 10/27/20 07:49 Amlodipine 5 Mg Tab PO 5 mg DAILY VINNY Administration Ascorbic Acid 500 mg 10/24/20 09:00 10/27/20 07:48 Ascorbic Acid 500 Mg Tab PO 500 mg BID VINNY Administration Atorvastatin Calcium 40 mg 10/15/20 09:00 10/27/20 07:49 Atorvastatin 40 Mg Tab PO 40 mg DAILY VINNY Administration Cholecalciferol 50 mcg 10/24/20 09:00 10/27/20 07:49 Cholecalciferol 25 Mcg (1000 Iu) Tablet PO 50 mcg DAILY VINNY Administration Dexamethasone 6 mg 10/28/20 09:00 Dexamethasone 2 Mg Tab PO DAILY VINNY Enoxaparin Sodium 30 mg 10/26/20 21:00 10/27/20 07:48 Enoxaparin 30 Mg/0.3 Ml Syringe SQ 30 mg Q12HR VINNY Administration Famotidine 20 mg 10/26/20 21:00 10/27/20 07:49 Famotidine 20 Mg Tab PO 20 mg Q12HR VINNY Administration Sodium Chloride 1,000 mls @ 20 mls/hr 10/18/20 07:58 10/25/20 21:35 Saline 0.9% IV 40 mls/hr .Q24H VINNY Administration Insulin Aspart 0 unit 10/26/20 21:00 10/27/20 11:35 Insulin Aspart (Novolog) 100 Unit/Ml Vial SQ Not Given ACHS [facility] Protocol Melatonin 5 mg 10/24/20 21:00 10/26/20 20:08 Melatonin 5 Mg Tablet PO 5 mg HS VINNY Administration Naloxone HCl 0.2 mg 10/14/20 11:40 Naloxone 0.4 Mg/Ml 1 Ml Vial IV Q2M PRN Opioid Reversal Ondansetron HCl 4 mg 10/14/20 11:40 Ondansetron 4 Mg/2 Ml Vial IVP Q8HR PRN Nausea And Vomiting Temazepam 15 mg 10/24/20 21:00 10/26/20 20:08 Temazepam 15 Mg Cap PO 15 mg HS VINNY Administration Zinc Sulfate 220 mg 10/24/20 09:00 10/27/20 07:49 Zinc Sulfate 220 Mg Cap PO 220 mg DAILY VINNY Administration Objective - Vital Signs Vital signs: Vital Signs Temp 97.7 F 10/27/20 12:00 Pulse 69 10/27/20 15:00 Resp 22 10/27/20 15:00 BP 126/82 10/27/20 15:00 Pulse Ox 92 L 10/27/20 15:00 Intake & Output 10/26/20 10/27/20 10/27/20 18:59 06:59 18:59 Intake Total 765.134 240 80 Output Total 1984 715 225 Balance -1219.866 -475 -145 Weight 74.5 kg 71 kg Intake: IV 240 240 80 Sodium Chloride 0.9% 1, 240 240 80 000 ml @ 20 mls/hr IV . Q24H VINNY Rx#:[id number] Intake, IV Titration 85.134 Amount Heparin Sod,Pork in 0.45% 85.134 NaCl 25,000 unit In 0.45 % NaCl 1 250ml.bag @ 18 UNITS/KG/HR 13.41 mls/hr IV .[id number] VINNY Rx#: [id number] Oral 440 Output: Urine 1984 715 225 Other: Voiding Method Indwelling Catheter Indwelling Catheter Indwelling Catheter ABP, PAP, CO, CI - Last Documented Arterial Blood Pressure 103/93 - Labs CBC & Chem 7: 10/27/20 04:04 10/27/20 04:04 Labs: Abnormal Lab Results - Last 24 Hours (Table) 10/26/20 10/26/20 10/26/20 Range/Units 16:52 19:59 23:30 WBC (3.8-10.6) k/uL Neutrophils # (1.3-7.7) k/uL Lymphocytes # (1.0-4.8) k/uL D-Dimer (<0.60) mg/L FEU Sodium (137-145) mmol/L BUN (9-20) mg/dL Creatinine (0.66-1.25) mg/dL Glucose (74-99) mg/dL POC Glucose (mg/dL) 137 H 131 H 145 H (75-99) mg/dL Calcium (8.4-10.2) mg/dL ALT (4-49) U/L Lactate Dehydrogenase (313-618) U/L C-Reactive Protein (<10.0) mg/L Total Protein (6.3-8.2) g/dL Albumin (3.5-5.0) g/dL 10/27/20 10/27/20 10/27/20 Range/Units 04:04 04:04 04:04 WBC 11.9 H (3.8-10.6) k/uL Neutrophils # 11.0 H (1.3-7.7) k/uL Lymphocytes # 0.5 L (1.0-4.8) k/uL D-Dimer 4.15 H (<0.60) mg/L FEU Sodium 136 L (137-145) mmol/L BUN 45 H (9-20) mg/dL Creatinine 0.57 L (0.66-1.25) mg/dL Glucose 149 H (74-99) mg/dL POC Glucose (mg/dL) (75-99) mg/dL Calcium 8.2 L (8.4-10.2) mg/dL ALT 174 H (4-49) U/L Lactate Dehydrogenase (313-618) U/L C-Reactive Protein (<10.0) mg/L Total Protein 5.2 L (6.3-8.2) g/dL Albumin 2.2 L (3.5-5.0) g/dL 10/27/20 10/27/20 10/27/20 Range/Units 04:05 06:45 11:26 WBC (3.8-10.6) k/uL Neutrophils # (1.3-7.7) k/uL Lymphocytes # (1.0-4.8) k/uL D-Dimer (<0.60) mg/L FEU Sodium (137-145) mmol/L BUN (9-20) mg/dL Creatinine (0.66-1.25) mg/dL Glucose (74-99) mg/dL POC Glucose (mg/dL) 124 H 129 H (75-99) mg/dL Calcium (8.4-10.2) mg/dL ALT (4-49) U/L Lactate Dehydrogenase 1397 H (313-618) U/L C-Reactive Protein 15.7 H (<10.0) mg/L Total Protein (6.3-8.2) g/dL Albumin (3.5-5.0) g/dL Assessment and Plan Assessment: Acute hypoxic respiratory failure secondary to COVID pneumonia possible acute respiratory distress syndrome ARDS, per pulmonary team Acute hypoxic respiratory failure needing Mechanically ventilated, status post extubation on 10/23 Hyperlipidemia History of asthma GERD Plan: This is a pleasant 55 years old male admitted with bilateral covid pneumonia. Continue with recommendation of pulmonary/critical care team. Continue with steroids, discontinue IV fluids and continue with Lovenox as per pulmonary team consultation and recommendation . He finished remdesivir therapy Check swallow evaluation Labs and medication were reviewed.. Continue same treatment. Continue with symptomatic treatment. Resume home medication. Monitor lytes and vitals. DVT and GI prophylaxis. Further recommendations as per clinical course of the patient DVT prophylaxis: Subcutaneous Lovenox GI Prophylaxis: Pepcid Physical therapy rehabilitation recommended subacute rehab versus inpatient rehab Prognosis is guarded
[2020-10-27 20:34] LABS: Glucose,Whole Blood 149 mg/dL (75-99)
[2020-10-27] MEDS: MELATONIN 5 MG TABLET PO SCH (20:56)
[2020-10-27] MEDS: TEMAZEPAM 15 MG CAP PO SCH (20:56)
[2020-10-28 04:01] LABS: Basophils % (A) 0 %; Eosinophils # (A) 0.1 k/uL (0-0.7); Eosinophils % (A) 1 %; HGB 13.3 gm/dL (13.0-17.5); Lymphocytes # (A) 1.3 k/uL (1.0-4.8); Lymphocytes % (A) 11 %; MCH 28.4 pg (25.0-35.0); MCHC 32.4 g/dL (31.0-37.0); MCV 87.5 fL (80.0-100.0); Mean Platelet Volume 8.5; Monocytes # (A) 0.5 k/uL (0-1.0); Monocytes % (A) 4 %; Neutrophils # (A) 10.1 k/uL (1.3-7.7); Neutrophils % (A) 83 %; Platelet Count 180 k/uL (150-450); RBC 4.68 m/uL (4.30-5.90); RDW 12.9 % (11.5-15.5); WBC 12.1 k/uL (3.8-10.6)
[2020-10-28 04:16] LABS: ALT 269 U/L (4-49); AST 71 U/L (17-59); African American GFR (CKD) >90 (>60 ml/min/1.73 sqM); Albumin 2.2 g/dL (3.5-5.0); Alkaline Phosphatase 63 U/L (38-126); Anion Gap -2 mmol/L; Blood Urea Nitrogen 39 mg/dL (9-20); Calcium 8.1 mg/dL (8.4-10.2); Carbon Dioxide 30 mmol/L (22-30); Chloride 107 mmol/L (98-107); Glucose 83 mg/dL (74-99); Non-African American GFR(CKD) >90 (>60 ml/min/1.73 sqM); Potassium 4.6 mmol/L (3.5-5.1); Sodium 135 mmol/L (137-145)
[2020-10-28 06:39] LABS: Glucose,Whole Blood 81 mg/dL (75-99)
[2020-10-28] MEDS: INSULIN ASPART (NovoLOG) 100 UNIT/ML VIAL SQ SCH ×4 (06:39→20:24)
[2020-10-28] MEDS: SODIUM CHLORIDE 0.9% 1,000 ML IV SCH (06:40)
--- NOTE | 2020-10-28 07:50 | XR ---
EXAMINATION TYPE: XR chest 1V DATE OF EXAM: 10/28/2020 COMPARISON: 10/27/2020 INDICATION: Covid TECHNIQUE: Single frontal view of the chest is obtained. FINDINGS: The heart size is normal. The pulmonary vasculature is prominent. Patchy none specific infiltrates are present bilaterally. This may be more focal in the right lower l obe. IMPRESSION: 1. Patchy bilateral lung infiltrates which are nonspecific. Findings can be compatible with Covid pne [place].
[2020-10-28] MEDS: ALBUTEROL HFA INHALER INHALATION PRN ×4 (08:04→20:10)
--- NOTE | 2020-10-28 08:13 | P.PN ---
Subjective Progress Note Date: 10/28/20 55-year-old male who was admitted to the ICU yesterday. He came down to the ICU for acute hypoxemic respiratory failure secondary to COVID 19 pneumonia. Initially, we attempted to maintain him on BiPAP, but unfortunately, the patient's respiratory failure worsened and he required intubation and mechanical ventilation. He was intubated on 10/15/2020.. He is on the volume assist control modality, rate 24, tidal volume 450, FiO2 50%, and PEEP of 12. His blood gases show a pO2 of 81, PaCO2 of 42, and a pH of 7.46. He is getting saline at 40 mL an hour, a fentanyl drip at 0.5 mcg/kg/h, propofol at 60 mcg/kg/m, and vital high protein at 64 mL an hour which is goal. He was also paralyzed and is currently off paralytics.. He received 1 dose of, convalescent plasma, and 1 dose of remdesivir. He is receiving Solumedrol at 60 mg IV q 6 hours. On today's evaluation, the patient is being seen on follow-up. The patient's peak airway pressures around 30 on the above-mentioned ventilator setting. The patient is afebrile. The white cell count today is 13.6 with a hemoglobin of 12. Rest of the blood work and electrodes are all within normal limits. The chest x-ray from today still showing diffuse bilateral pulmonary infiltrates ET tube is in a good location. The patient also has a left IJ triple-lumen catheter in place. The patient's hemodynamically stable. He is on no pressors. He is producing adequate amount of urine output. He is on Lovenox 80 mg subcu every 12 hours.A d-dimer level is up to 2 and this is essentially gone compared to few days back with a d-dimer was up to 34.. On today's evaluation of 10/23/2020 seeing the patient for a follow-up. The patient remains sedated and the patient is on propofol running at 50 mcg/kg per minute and the patient is also on fentanyl at 1.0 mcg/kg/h. She remains on a mechanical ventilator and essentially the ventilator settings currently is at a rate of 24 with a tidal volume of 450, an FiO2 of 50% with a PEEP of 8. His is improved compared to yesterday. The blood gases from today shows a pH of 7.49 with a pCO2 of 40 and pO2 of 74. Chest x-ray stable, probably some improvement in the right lower lobe area. ET tube is in a good location. NG tube is in also good location. He is afebrile. Note that the patient has received convalescent plasma, Larissaivir is also on IV Solu Medrol 60 mg every 6 hours. His inflammatory markers show a drop in his CRP down to 28 and his LDH is also dropping down to 1179. His net fluid balance has been -68 mL and the patient is receiving Lasix 40 mg IV on a daily basis. His triglyceride level is at 300. Is tolerating enteral feeding for nutritional support. The d-dimer today is at X.2 from yesterday and the repeat levels are pending for today. Meanwhile, the patient remains on therapeutic dose of Lovenox at a dose of 80 mg subcu every 12 hours. On 10/24/2020, the patient is extubated. The patient is currently on high flow oxygen at 60 L. His pulse ox is ranging between 90-94%. He is hemodynamically stable on no pressors. His blood pressure was running on the higher side and the patient was given side effects and is currently on 2 mg an hour and he has an adequate blood pressure control. D-dimer remains elevated at 6.67, his CRP is at 28 from yesterday, his LDH was 1179 from yesterday and inflammatory markers are not obtained from today. He is awake. He is following simple commands and answering questions. He is on IV Solu Medrol 60 mg every 6 hours. He is on Lovenox therapeutic doses of 80 mg subcu every 12 hours. He is afebrile. Cultures are all negative other than some Kay and his sputum. As mentioned, the patient was extubated successfully yesterday. He is a week. He has a weak cough. He has generalized motor weakness in all 4 extremities. No other significant events overnight. Neurologically intact and currently on no s edation. The chest x-ray from today showed essentially stable bilateral pulmonary infiltrates, probably slightly worse compared to yesterday, nevertheless this can be an effective positive pressure delivered by the mechanical ventilator. He does have a triple lumen catheter in his left IJ which is still in place. Left hemidiaphragm is slightly elevated. The patient will be encouraged to use incentive spirometer. The patient is in a negative fluid balance of 2.6 hours and the patient remains on IV Lasix 40 mg every 24 hours. On 10/25/2020 patient remains extubated. He currently on the AirVo 60 L and 65% FiO2 also says just above 90% and the patient is also utilizing 100% on a beta facemasks. A chest x-ray from today shows some limited improvement on the right. There is still dense bilateral pulmonary infiltrates. The patient was extubated on 10/23/2020. He remains on IV Solu-Medrol 60 mg every 6 hours. Inflammatory markers from today show a d-dimer of 4.5 which is lower compared to yesterday, he also had a LDH level of 1924, higher and his CRP level is 44, higher. He is afebrile. He is hemodynamically stable. He is taking some limited oral intake mainly in the form of clear liquids. He is weak. He is anxious. He has a decent cough. He remains on IV Lasix every 24 hours in the neck fluid balance has been in the order of 3.1 L. He remains on Lovenox 80 mg subcutaneous every 12 hours. No sedatives. No delirium. No confusion. Family has been updated. He is on Celebrex 100 mg an hour On 10/26/2020, the patient remains extubated. The patient remains on high flow oxygen 60 L and the FiO2 is at 70%. The pulse is currently is ranging between 88 and 91%. He remains in high spirits 50 once recovered. On and off is also utilizing 100% nonrebreather facemask. Nevertheless, for the most part, he is using the high flow oxygen. He is on IV fluids with normal saline at the rate of 20 mL an hour. The patient is being diuresis and a daily basis of a negative fluid balance is in the order of -2.060 liters over the past 24 hours. The patient is is otherwise doing well. LDH level is at 1676 which is lower compared to yesterday. CRP is also 24.5 which is essentially lower than yesterday. The BUN is at 47 with a creatinine of 0.57. He remains on Lovenox 80 mg subcu every 12 hours. The d-dimer is still elevated at 5.63. On today's evaluation, it was noted that the patient has a cold left foot. Doppler pulses will be also obtained and vascular surgery will be involved in the case and there are no pulses. The right lower extremity and the right foot is within normal limits. The patient denies having any pain in his left foot. No other s ignificant events otherwise for now. Is tolerating his diet. He is gradually increasing his oral intake. 10/27/2020, the patient is on 60 L with an FiO2 of 65%. He is recovering from his acute hypoxic respiratory failure and diffuse pneumonia related to covid 19. He is in good spirits. His chest x-ray from today and gradual improvement in diffuse pulmonary infiltrates. As compared to the earlier chest x-ray from a few days back. Meanwhile, the patient's white cell count is 11.9. LDH is dropping from 1676 down to 1397 and the CRP is down from 24.9-15.7. His d-dimer is also down to 4.15. Obviously the patient is showing ongoing clinical response and improvement for now. As for the lower extremity, Doppler signals are back and the patient is currently is off IV heparin. We are going back on Lovenox 30 mg subcu every 12 hours. The patient remained on IV Solu Medrol 60 mg every 6 hours. 10/28/2020, the patient is still on high flow oxygen. This morning, he is on 60 L with an FiO2 of 50%. Pulse ox is 91%. Chest x-ray is unchanged with diffuse bilateral airspace disease and interstitial and alveolar infiltrates. He inflammatory markers are not done today and this will be done tomorrow. Afebrile. Speech is better. Is able to speak longer sentences. No chest pain. He is able to sit up on the recliner. He is using incentive spirometer. No significant rest or secretions. No fever. He remains on Decadron 6 mg by mouth on a daily basis. He is Lovenox 30 mg subcu every 12 hours. BP is under good control and is on Norvasc 5 mg by mouth daily. Is on no pressors or antihypertensive wraps for now. He is drinking a short period he is eating adequately, approximately 50% of his food offered and the patient will be advanced on his diet to regular. He does have a mid line in his left upper extremity. He does have a Khan catheter. Objective - Vital Signs Vital signs: Vital Signs Temp 98.5 F 10/28/20 04:00 Pulse 75 10/28/20 07:00 Resp 15 10/28/20 07:00 BP 120/74 10/28/20 07:00 Pulse Ox 91 L 10/28/20 07:00 Intake & Output 10/27/20 10/28/20 10/28/20 18:59 06:59 18:59 Intake Total 100 570 20 Output Total 900 665 40 Balance -800 -95 -20 Weight 72.5 kg Intake: IV 100 220 20 Sodium Chloride 0.9% 1, 100 220 20 000 ml @ 20 mls/hr IV . Q24H [facility] Rx#:[id number] Tube Feeding 350 Output: Urine 900 665 40 Other: Voiding Method Indwelling Catheter Indwelling Catheter ABP, PAP, CO, CI - Last Documented Arterial Blood Pressure 103/93 - Exam No acute distress, sedated, with an orally placed endotracheal tube and NG tube. HEENT examination is grossly unremarkable. Mucous membranes are moist. The patient is extubated to high flow oxygen at 60 L per minute cannula His communicating. He is awake. He is profoundly weak. His voice is somewhat muffled and he does have areas of dry crust from previous skin aberrations. Neck supple. Full range of motion. No adenopathy thyromegaly or neck vein distention. A left internal jugular triple-lumen catheter is noted. Cardiovascular examination reveals regular rhythm rate. S1-S2 normal. No S3 or S4. No discernible murmur noted. Heart rate is 56 bpm and heart sounds are distant. Lungs reveal diminished breath sounds bilaterally. Breath sounds are coarse. Crackles are noted. Breath sounds are equal bilaterally. No wheezes are appreciated.. Abdomen is soft without bowel sounds. No masses are noted. Extremities are intact. No cyanosis clubbing or edema. He now has a left radial arterial line.The left foot is warmer compared to yesterday with adequate pulses palpable. Skin is without rash or lesion. Neurologic examination reveals global generalized weakness, and the patient is awake and oriented 3 and is moving all 4 extremities without any limitation. - Labs CBC & Chem 7: 10/28/20 03:19 10/28/20 03:19 Labs: Abnormal Lab Results - Last 24 Hours (Table) 10/27/20 10/27/20 10/27/20 Range/Units 11:26 16:30 20:32 WBC (3.8-10.6) k/uL Neutrophils # (1.3-7.7) k/uL Sodium (137-145) mmol/L BUN (9-20) mg/dL Creatinine (0.66-1.25) mg/dL POC Glucose (mg/dL) 129 H 116 H 149 H (75-99) mg/dL Calcium (8.4-10.2) mg/dL AST (17-59) U/L ALT (4-49) U/L Total Protein (6.3-8.2) g/dL Albumin (3.5-5.0) g/dL 10/28/20 10/28/20 Range/Units 03:19 03:19 WBC 12.1 H (3.8-10.6) k/uL Neutrophils # 10.1 H (1.3-7.7) k/uL Sodium 135 L (137-145) mmol/L BUN 39 H (9-20) mg/dL Creatinine 0.53 L (0.66-1.25) mg/dL POC Glucose (mg/dL) (75-99) mg/dL Calcium 8.1 L (8.4-10.2) mg/dL AST 71 H (17-59) U/L ALT 269 H (4-49) U/L Total Protein 5.0 L (6.3-8.2) g/dL Albumin 2.2 L (3.5-5.0) g/dL Assessment and Plan Plan: 1 Acute hypoxemic respiratory failure secondary to COVID 19 pneumonia, Intubation and mechanical ventilation on 10/15/2020. The patient received convalescent plasma. The patient received Remdesivir the patient is also on IV Solu Medrol 60 mg every 6 hours. The patient was extubated on 10/23/2020 and he is currently on high flow oxygen at 60 L per nasal cannula, the patient is also on 100% nonrebreather facemask in addition to the high flow oxygen. Chest x-ray essentially stable, probably slightly improved compared to yesterday. Clinically, the patient is still looking well and he seems to be slightly improved compared to yesterday. He is doing slow progress and he is much more awake and active on today's evaluation pH chest x-ray still abnormal with alveolar and interstitial infiltrates. He is currently on high flow oxygen and I am considering gradually wean off his oxygen flow. He is on 50% FiO2 with 60 L of high flow oxygen for now. 2 Acute respiratory distress syndrome (ARDS) secondary to above , extubated and a chest x-ray findings are essentially stable 3 History of hyperlipidemia. The triglyceride level is at 300, and the patient is currently off propofol 4 History of chronic bronchial asthma. 5 History of gastroesophageal reflux disease. 6 elevated d-dimer, currently on therapeutic dose of Lovenox in 30 milligrams subcu every 12 hours 7 Deep tissue injury to her left cheek related to Roselia and pronating. Similarly, tissue injury is also present on the tip of his 8 generalized motor weakness, muscle weakness secondary to prolonged intubation mechanical ventilation use of steroids and paralytics. 9 hypertension and patient is currently on clevidipine drip1 mg an hour 10 left foot, cold, likely ischemic. She was evaluated by vascular surgery. The pulses in the left foot have recovered and the patient is currently off the IV heparin and back on Lovenox 30 mg subcutaneous every 12 hours. Plan: Encourage deep breathing and coughing, provide incentive spirometry Decadron 6 mg by mouth daily Continue vitamin C, vitamin D3, zinc, and high-dose corticosteroids. Inflammatory markers are improving, and Lovenox dose to 30 mg subcu every 12 hours which is half a therapeutic dose Obtain follow-up inflammatory markers tomorrow and We'll monitor the inflammatory markers. Gradually advance diet as tolerated, she is getting a sure the patient is also being advanced to regular diet Norvasc 5 mg by mouth daily and the BP is under better control and the clevidipine drip has been discontinued Khan catheter in place Advance diet and activity and work with physical therapy Prognosis is guarded. We will continue to follow. ICU for another 24 hours. Attempts to wean down the oxygen flow. Will drop the oxygen flow down to 55 L for now and possibly down to 50 L it is able to tolerate.
[2020-10-28] MEDS: ENOXAPARIN 30 MG/0.3 ML SYRINGE SQ SCH ×2 (08:30→21:07)
[2020-10-28] MEDS: dexAMETHasone 2 MG TAB PO SCH (08:30)
[2020-10-28] MEDS: ASCORBIC ACID 500 MG TAB PO SCH ×2 (08:30→21:07)
[2020-10-28] MEDS: amLODIPine 5 MG TAB PO SCH (08:30)
[2020-10-28] MEDS: ALPRAZolam 0.5 MG TAB PO PRN (08:31)
[2020-10-28] MEDS: FAMOTIDINE 20 MG TAB PO SCH ×2 (08:31→21:07)
[2020-10-28] MEDS: CHOLECALCIFEROL 25 MCG (1000 IU) TABLET PO SCH (08:33)
[2020-10-28] MEDS: ZINC SULFATE 220 MG CAP PO SCH (08:33)
[2020-10-28] MEDS: ATORVASTATIN 40 MG TAB PO SCH (08:33)
[2020-10-28 11:59] LABS: Glucose,Whole Blood 95 mg/dL (75-99)
[2020-10-28 16:40] LABS: Glucose,Whole Blood 105 mg/dL (75-99)
[2020-10-28 20:05] LABS: Glucose,Whole Blood 101 mg/dL (75-99)
[2020-10-28] MEDS: TEMAZEPAM 15 MG CAP PO SCH (21:07)
[2020-10-28] MEDS: MELATONIN 5 MG TABLET PO SCH (21:07)
[2020-10-29 03:45] LABS: HCT 39.1 % (39.0-53.0); HGB 12.9 gm/dL (13.0-17.5); MCH 28.9 pg (25.0-35.0); MCV 87.6 fL (80.0-100.0); Mean Platelet Volume 8.2; Platelet Count 167 k/uL (150-450); RBC 4.47 m/uL (4.30-5.90); RDW 13.1 % (11.5-15.5); WBC 11.5 k/uL (3.8-10.6)
[2020-10-29 04:03] LABS: Potassium 4.8 mmol/L (3.5-5.1)
[2020-10-29 04:06] LABS: ALT 207 U/L (4-49); AST 37 U/L (17-59); African American GFR (CKD) >90 (>60 ml/min/1.73 sqM); Albumin 2.1 g/dL (3.5-5.0); Alkaline Phosphatase 64 U/L (38-126); Anion Gap -2 mmol/L; Blood Urea Nitrogen 25 mg/dL (9-20); C Reactive Protein 43.6 mg/L (<10.0); Calcium 8.1 mg/dL (8.4-10.2); Carbon Dioxide 32 mmol/L (22-30); Chloride 104 mmol/L (98-107); Glucose 94 mg/dL (74-99); LDH 925 U/L (313-618); Non-African American GFR(CKD) >90 (>60 ml/min/1.73 sqM); Sodium 134 mmol/L (137-145); Total Bilirubin 0.8 mg/dL (0.2-1.3); Total Protein 4.8 g/dL (6.3-8.2)
--- NOTE | 2020-10-29 06:10 | P.CONS ---
History of Present Illness - Chief Complaint Medical debility - History of Present Illness I had the opportunity to see patient for inpatient rehab consultation with regard to medical debility. Patient admitted to [facility] October 14 with shortness of breath, Covid positive pneumonia. Chest x-rays followed for stable patchy infiltrates. Lower extremity Doppler negative left leg DVT. Seen by pulmonary and vascular. PT reports two-person maximal assistance for bed mobility two-person total assistance for transfer. OT reports grooming is total assistance and transferred to person total assistance. Previous functional history as elicited from patient: 55-year-old right-handed white male who is lives in one floor home with . Patient works full-time in previously independent. PMD Dr. Valero. Review of Systems Review of systems: ENT: Denies sneezes or discharge. Eyes: Denies discharge or photophobia. Cardiac: Denies chest pain or palpitation. Pulmonary: shortness of breath. Gastrointestinal: Denies nausea, emesis, constipation, diarrhea. Genitourinary: Denies discharge or frequency. Musculoskeletal: Denies muscle or bone aches. Neurologic: Generalized weakness. Endocrine: Denies shakes or sweats. Oncology: Denies cancers. Dermatologic: Denies rash, itching, pruritus. ALLERGY/immunology: Denies sneezes, rashes. Past Medical History Past Medical History: Asthma, GERD/Reflux History of Any Multi-Drug Resistant Organisms: None Reported Past Surgical History: Orthopedic Surgery Past Anesthesia/Blood Transfusion Reactions: No Reported Reaction Past Psychological History: No Psychological Hx Reported Smoking Status: Never smoker Past Alcohol Use History: None Reported Past Drug Use History: None Reported Medications and Allergies Home Medications Medication Instructions Recorded Confirmed Type Fluticasone Propionate [Flovent 2 puff INHALATION RT-BID 12/31/17 10/14/20 Hi story Hfa 220MCG] Albuterol Inhaler [Ventolin Hfa 2 puff INHALATION RT-QID PRN 10/14/20 10/14/20 History Inhaler] Albuterol Nebulized [Ventolin 2.5 mg INHALATION RT-QID PRN 10/14/20 10/14/20 History Nebulized] Atorvastatin [Lipitor] 40 mg PO DAILY 10/14/20 10/14/20 History Azithromycin [Zithromax Z-pack (6 See Taper PO DIRECTED 10/14/20 10/14/20 History tabs)] Cholecalciferol [Vitamin D3 (25 2,000 unit PO DAILY 10/14/20 10/14/20 History Mcg = 1000 Iu)] Meloxicam 7.5 mg PO DAILY 10/14/20 10/14/20 History Montelukast Sodium [Singulair] 10 mg PO HS 10/14/20 10/14/20 History Omeprazole 20 mg PO BID 10/14/20 10/14/20 History predniSONE See Taper PO DAILY 10/14/20 10/15/20 History Allergies Allergy/AdvReac Type Severity Reaction Status Date / Time codeine Allergy Unknown Verified 10/14/20 11:24 Physical Exam Vitals: Vital Signs Temp Pulse Resp BP Pulse Ox 10/29/20 05:00 69 25 H 123/85 94 L 10/29/20 04:46 94 L 10/29/20 04:00 97.5 F L 78 20 113/75 91 L 10/29/20 03:00 71 12 95/69 92 L 10/29/20 02:00 71 24 102/67 95 10/29/20 01:00 74 16 107/71 93 L 10/29/20 00:43 95 10/29/20 00:00 97.9 F 80 23 112/67 96 10/28/20 23:00 82 24 105/67 97 10/28/20 22:00 79 22 113/70 95 10/28/20 21:00 82 18 124/79 93 L 10/28/20 20:25 94 L 10/28/20 20:00 97.7 F 68 15 104/74 94 L 10/28/20 19:00 75 16 113/72 90 L 10/28/20 18:00 76 29 H 111/76 94 L 10/28/20 17:00 81 15 130/78 92 L 10/28/20 16:00 97.6 F 89 16 103/69 91 L 10/28/20 15:00 82 23 101/63 92 L 10/28/20 14:00 69 16 104/64 91 L 10/28/20 13:00 75 16 121/81 90 L 10/28/20 12:35 90 L 10/28/20 12:00 98.1 F 74 16 108/74 90 L 10/28/20 11:00 75 16 101/70 90 L 10/28/20 10:00 74 24 113/68 93 L 10/28/20 09:00 80 14 115/73 92 L 10/28/20 08:05 91 L 10/28/20 08:00 97.8 F 90 18 115/70 91 L 10/28/20 07:00 75 15 120/74 91 L Intake and Output 10/28/20 10/28/20 10/29/20 14:59 22:59 06:59 Intake Total 160 250 220 Output Total 595 894 600 Balance -435 -644 -380 Intake: IV 160 250 120 Sodium Chloride 0.9% 1, 160 250 120 000 ml @ 20 mls/hr IV . Q24H [facility] Rx#:[id number] Tube Feeding 100 Output: Urine 595 894 600 Other: Voiding Method Indwelling Catheter Indwelling Catheter Indwelling Catheter Weight 72 kg Skin: Good color, texture, turgor. General: Medium build and comfortable appearance. Head: Normocephalic, atraumatic. Eyes: Symmetric. Pupils equal round. Ears: Symmetric. Hearing within normal limits. Mouth: Clear. Neck: Supple. Carotid without bruit. Cardiac: Regular rate and rhythm. Lungs: Clear anteriorly and posteriorly. Abdomen: Soft active nontender. Extremities: Normal tone. Neurological: Mental status: Alert, cooperative, pleasant. Cranial nerves: Symmetric facial tone and trapezius. Motor: Active movement all 4 limbs but at best antigravity. Sensation: Intact throughout. DTRs: Symmetric and equal throughout. Mobility: Did not attempt to sit or stand this early a.m. Results CBC & Chem 7: 10/29/20 03:21 10/29/20 03:21 Labs: Abnormal Lab Results - Last 24 Hours (Table) 10/28/20 10/28/20 10/29/20 Range/Units 16:39 20:04 03:21 WBC (3.8-10.6) k/uL Hgb (13.0-17.5) gm/dL D-Dimer 3.13 H (<0.60) mg/L FEU Sodium (137-145) mmol/L Carbon Dioxide (22-30) mmol/L BUN (9-20) mg/dL Creatinine (0.66-1.25) mg/dL POC Glucose (mg/dL) 105 H 101 H (75-99) mg/dL Calcium (8.4-10.2) mg/dL ALT (4-49) U/L Lactate Dehydrogenase (313-618) U/L C-Reactive Protein (<10.0) mg/L Total Protein (6.3-8.2) g/dL Albumin (3.5-5.0) g/dL 10/29/20 10/29/20 Range/Units 03:21 03:21 WBC 11.5 H (3.8-10.6) k/uL Hgb 12.9 L (13.0-17.5) gm/dL D-Dimer (<0.60) mg/L FEU Sodium 134 L (137-145) mmol/L Carbon Dioxide 32 H (22-30) mmol/L BUN 25 H (9-20) mg/dL Creatinine 0.51 L (0.66-1.25) mg/dL POC Glucose (mg/dL) (75-99) mg/dL Calcium 8.1 L (8.4-10.2) mg/dL ALT 207 H (4-49) U/L Lactate Dehydrogenase 925 H (313-618) U/L C-Reactive Protein 43.6 H (<10.0) mg/L Total Protein 4.8 L (6.3-8.2) g/dL Albumin 2.1 L (3.5-5.0) g/dL Assessment and Plan (1) Pneumonia due to COVID-19 virus Current Visit: Yes Status: Acute Code(s): U07.1 - COVID-19; J12.82 - Pneumonia due to coronavirus disease 2018 SNOMED Code(s): 193078714965533733 Plan: Impression: 1. Medical debility. 2. Covid positive pneumonia with acute hypoxic respiratory failure. 3. Asthma. 4. GERD. Comments and plan: At this time PT and OT are ongoing. Patient currently two- person assistance for any mobility and unable to participate with self care currently. Not quite ready for inpatient rehab but note really in ICU and still requiring ICU care.
[2020-10-29 06:34] LABS: Glucose,Whole Blood 90 mg/dL (75-99)
[2020-10-29] MEDS: INSULIN ASPART (NovoLOG) 100 UNIT/ML VIAL SQ SCH ×4 (06:36→20:49)
[2020-10-29] MEDS: ALBUTEROL HFA INHALER INHALATION PRN ×3 (07:06→20:21)
--- NOTE | 2020-10-29 07:16 | XR ---
EXAMINATION TYPE: XR chest 1V portable DATE OF EXAM: 10/29/2020 Comparison: 10/28/2020 Clinical History: 55-year-old male shortness of breath Findings: Heart upper limits of normal in size. Leftward patient rotation ultrasound and normal cardiac mediast inal contour. Patchy and confluent bilateral airspace opacities relatively unchanged. No sizable effu panda. Impression: Continued patchy and confluent bilateral airspace disease.
[2020-10-29] MEDS ORDERED: ACETAMINOPHEN TAB 325 MG TAB PO PRN (08:43)
--- NOTE | 2020-10-29 09:03 | P.PN ---
Subjective HPI - Patient is a 55-year-old male came in with complaints of increasing shortness of breath over the past week. Patient was diagnosed with Covid 6 days ago. He has completed a course of steroids as well as Z-Douglas. Patient states over the past week he's been fighting fevers, body aches, chills and nausea. Patient states his shortness of breath has been steadily increasing. He gets winded with just walking around his house. He does admit to some chest pain when he is coughing. He does have some production with his cough. He does admit to history of asthma, denies heart disease. He states his last dose of Tylenol was last night. He denies any vomiting, no dysuria. Patient is febrile 100.4, pulse is 96, he is satting 88% on room air. Patient had a chest x-ray which showed diffuse bilateral infiltrates. Patient is presently on 2 L of oxygen saturating 93% patient was having fevers at home patient had a low-grade fever here. Patient has elevated inflammatory markers along with the low sodium. On 10/15/2020 - last night patient became more short of breath, so he was shifted to the ICU. Initially the patient was placed on BiPAP, patient was staffed neck and saturating in the high 80s and so eventually he had to be intu bated around noon. Currently he is mechanically ventilated and sedated. Reviewing the vitals patient is tachycardic between 100-110, saturating in the low 80s on 100% FiO2, blood pressure 1 50 x 92. Patient has been started on Solu-Medrol, Remdesivir, Lovenox and breathing treatments. On reviewing the labs white count of 6.1, hemoglobin 14.7, platelets 162. Sodium 133, potassium 4.2, chloride 102, bicarb 28, BUN 17, creatinine 0.79. Ferritin 624, magnesium 1.5, albumin 2.9. 10/16/2020 Patient is seen and examined in the ICU. He was admitted for Covid bilateral pneumonia. These with acute hypoxic respiratory failure needing intubation and mechanical ventilation with pulmonary/critical care team following the patient closely. He's undergoing prone position for 16 hours per day. Also he is getting Remidsivir and he is a status post convalescent plasma . Patient does not need pressors as his vitals are stable. And he is on tube feeding. Patient is currently sedated. Labs reviewed 10/17/2020 Patient remains in the ICU sedated and intubated. He is undergoing prone position with the goal 16 hours per day. He is febrile but tachypneic. Labs reviewed including CBC and BMP showing no significant changes. And sputum culture is growing Kay albicans. Chest x-ray showing the same bilateral infiltrates with right more than left related to his covid pneumonia. And he remains on Solu-Medrol 60 mg, remdisvir and normal saline at 75 mL/h. Pulmonary/critical care team R following the patient closely and the recommend to continue the current management and keep monitoring 10/18/2020 pt jana in ICU intubated sedated , with critical care team following him closely and adjusting his vent setting, he is currently needing high doseo f PEEP at 15 cxr from today showing small new bilateral pleural effusion , with basilar consolidation consistent wiht known covid 19 infection tomorrow is last dose of Remdisvir he remains on solumedrol 60 mg and gentl hydration 10/20/2020 Patient in ICU intubated on mechanical ventilation for several days now with pulmonary/critical care team managing the patient and monitoring him closely. Patient under going weaning for his PEEP and FiO2 down to 8 cm and 50% Chest x-ray showing stable findings consistent with edema versus pneumonia Patient on the same treatment of submental 60 mg normal saline at 50 mg and Lovenox 80 mg twice daily 10/21/2020 Patient remains in the ICU intubated and sedated, distal and a critical condition. Pulmonary/critical team R following the case closely and managing his vent. His PEEP was increased today to 12 from 8 because was desaturating during the night. FiO2 was kept at 50%. Blood pressure is 133/74, oxygen saturation is 90%, breathing rates 24 and is still slightly bradycardic at 56. Creatinine is normal at 0.5, magnesium 2.6, inflammatory markers including ferritin, LDH, C-reactive protein are slightly trending down He is on therapeutic dose of Lovenox for high d-dimer i called the and discussed the case her and all her question were answered and tried to explain the situation for her in a language she can understand 10/22/2020 Patient remains in the ICU intubated and sedated, today his PEEP was lowered to 10 in the morning, he remains on FiO2 of 50% He is hemodynamically stable. Sugar is controlled. WBC stable at 13.6 K results of CBC is unremarkable. Creatinine is normal at 0.5. Repeat chest x- ray today showing continued bilateral diffuse interstitial infiltrates and retrocardiac opacity. Development consolidation in the right lower lobe suggestive overall worsening Medications salmeterol 60 mg of normal saline at 40, continue with Lovenox with the same dose Prognosis remains guarded 10/23/2020 This is a pleasant 74 years old male who presents with bilateral: With pneumonia and his been in the ICU intubated and sedated, pulmonary/critical care team helped with vent management, it looks like his respiratory function is improving as there is a troponin PEEP down to 67 and he's undergoing sedation holiday and possible when in a trial with the call to get him extubated. WBC count 13,000, creatinine normal 0.500 glucose control. Elevated inflammatory markers Patient remains on Solu-Medrol, normocephalic 40 mL/h and Lovenox 80 mg twice daily, he was started on Lasix 40 mg daily 10/24/2020 Patient is a status post extubation and is currently on high flow nasal cannula with an FiO2 of 60-63% saturated on the low 90s. Patient looks dyspneic and could not provide information because of his dyspnea. Chest x-ray showing worsening bilateral middle and lower infiltrates WBC is stable at 13.5 K. BMP is unremarkable. Zinc and vitamin C were added, patient continue on some epidural 60 mg, at 40 and lasix 40 mg daily and lovenox 80 mg twice daily. Physical therapy evaluation is warranted as well as a swallow evaluation 10/25/2020 Patient is monitored in the ICU currently is status post extubation 2 days ago. He is quite dyspneic and on airvo at 60 L and 65% FiO2. Chest x-ray showing scattered infiltrates but stable. CBC is unremarkable. Creatinine 0.6. But all inflammatory markers including ferritin, LDH and C-reactive protein are increased. His sugar is controlled Medication-lewis he remains on Solu-Medrol 60 mg #40 mg and Lasix 40 mg daily. Lasix was lowered today to 30 mg twice daily as there is trending down and his d-dimer from 6.6 down to 4.5. 10/26/2020 Patient is seen and evaluated and follow-up continues to be closely monitored in the ICU. Patient currently working with physical therapy as he continues to be quite weak and attempts to sit at the bedside and possibility of in the chair. Patient is a 2 person assist due to weakness. Patient continues to be short of breath and dyspneic with exertion and is maintained on airvo at 60 L with an FiO2 of 70%. No real improvement on chest x-ray and infiltrates remain stable. D-dimer elevated at 5.63, sodium is 136, potassium is 4.7, current creatinine is 0.57. Inflammatory markers elevated as well. Patient is maintained on IV Solu-Medrol, vitamin C and D supplements along with zinc and Lovenox and will continue. Patient's blood sugars on the lower end and will continue with Accu- Cheks and every 6 hours sliding scale as needed. Patient is on a full liquid diet and tolerating. 10/27/20 He is remains in the ICU and it looks very weak and tired vitals are stable but remains needing high flow nasal cannula at 60 L and FiO2 of 55 with oxygen saturation 92-93%. He has mild leukocytosis of 11 K, BMP is unremarkable and inflammatory markers including LDH and C-reactive protein are trending down Chest x-ray: Stable bilateral patchy infiltrates compatible with atypical pneumonia. No critical limb ischemia per vascular surgery team Today 10 cm was stopped and switched to dexamethasone 6 mg daily, normal saline was stopped as well as Lasix. However he remains on Lovenox 30 mg twice daily. 10/28/2020 Patient remains in the ICU for his bilateral: With pneumonia is a status post extubation few days ago, He is currently saturating 91 on high flow nasal cannula with 60 L and FiO2 of 50%. Most labs show no change from before and it looks stable. He has mild leukocytosis. Inflammatory markers are trending down slowly. Chest x-ray showing patchy inflammatory infiltrate on both sides, mainly in the middle and lower areas, and change from previous x-ray Most of his medications were stopped blood including Solu-Medrol, Lasix, normal saline and he finishes remdesivir, currently he is on Lovenox 30 mg twice daily and dexamethasone 6 mg daily. Patient is found closely by pulmonary/critical care team Review of systems: N/a, patient looks tired Active Medications Generic Name Dose Route Start Last Admin Trade Name Freq PRN Reason Stop Dose Admin Albuterol Sulfate 2 puff 10/14/20 11:44 10/28/20 12:34 Albuterol Hfa Inhaler INHALATION 2 puff RT-QID PRN Administration Shortness Of Breath Alprazolam 0.5 mg 10/24/20 08:32 10/28/20 08:31 Alprazolam 0.5 Mg Tab PO 0.5 mg TID PRN Administration Anxiety Amlodipine Besylate 5 mg 10/25/20 09:00 10/28/20 08:30 Amlodipine 5 Mg Tab PO 5 mg DAILY VINNY Administration Ascorbic Acid 500 mg 10/24/20 09:00 10/28/20 08:30 Ascorbic Acid 500 Mg Tab PO 500 mg BID VINNY Administration Atorvastatin Calcium 40 mg 10/15/20 09:00 10/28/20 08:33 Atorvastatin 40 Mg Tab PO 40 mg DAILY VINNY Administration Cholecalciferol 50 mcg 10/24/20 09:00 10/28/20 08:33 Cholecalciferol 25 Mcg (1000 Iu) Tablet PO 50 mcg DAILY VINNY Administration Dexamethasone 6 mg 10/28/20 09:00 10/28/20 08:30 Dexamethasone 2 Mg Tab PO 6 mg DAILY VINNY Administration Enoxaparin Sodium 30 mg 10/26/20 21:00 10/28/20 08:30 Enoxaparin 30 Mg/0.3 Ml Syringe SQ 30 mg Q12HR VINNY Administration Famotidine 20 mg 10/26/20 21:00 10/28/20 08:31 Famotidine 20 Mg Tab PO 20 mg Q12HR VINNY Administration Sodium Chloride 1,000 mls @ 20 mls/hr 10/18/20 07:58 10/28/20 06:40 Saline 0.9% IV 20 mls/hr .Q24H VINNY Administration Insulin Aspart 0 unit 10/26/20 21:00 10/28/20 12:14 Insulin Aspart (Novolog) 100 Unit/Ml Vial SQ Not Given ACHS VINNY Protocol Melatonin 5 mg 10/24/20 21:00 10/27/20 20:56 Melatonin 5 Mg Tablet PO 5 mg HS VINNY Administration Naloxone HCl 0.2 mg 10/14/20 11:40 Naloxone 0.4 Mg/Ml 1 Ml Vial IV Q2M PRN Opioid Reversal Ondansetron HCl 4 mg 10/14/20 11:40 Ondansetron 4 Mg/2 Ml Vial IVP Q8HR PRN Nausea And Vomiting Temazepam 15 mg 10/24/20 21:00 10/27/20 20:56 Temazepam 15 Mg Cap PO 15 mg HS VINNY Administration Zinc Sulfate 220 mg 10/24/20 09:00 10/28/20 08:33 Zinc Sulfate 220 Mg Cap PO 220 mg DAILY VINNY Administration Objective - Vital Signs Vital signs: Vital Signs Temp 98.1 F 10/28/20 12:00 Pulse 69 10/28/20 14:00 Resp 16 10/28/20 14:00 BP 104/64 10/28/20 14:00 Pulse Ox 91 L 10/28/20 14:00 Intake & Output 10/27/20 10/28/20 10/28/20 18:59 06:59 18:59 Intake Total 100 570 160 Output Total 900 665 595 Balance -800 -95 -435 Weight 72.5 kg Intake: IV 100 220 160 Sodium Chloride 0.9% 1, 100 220 160 000 ml @ 20 mls/hr IV . Q24H VINNY Rx#:[id number] Tube Feeding 350 Output: Urine 900 665 595 Other: Voiding Method Indwelling Catheter Indwelling Catheter Indwelling Catheter ABP, PAP, CO, CI - Last Documented Arterial Blood Pressure 103/93 - Exam -GENERAL: The patient is awake, he is in respiratory distress and could not provide information HEENT: Pupils are round and equally reacting to light. EOMI. No scleral icterus. No conjunctival pallor. Normocephalic, atraumatic. No pharyngeal erythema. No thyromegaly. CARDIOVASCULAR: S1 and S2 present. No murmurs, rubs, or gallops. -PULMONARY: Chest is clear to auscultation, no wheezing or crackles. Bilateral coarse crepitation ABDOMEN: Soft, nontender, nondistended, normoactive bowel sounds. No palpable organomegaly. MUSCULOSKELETAL: No joint swelling or deformity. EXTREMITIES: No cyanosis, clubbing, or pedal edema. NEUROLOGICAL: Gross neurological examination did not reveal any focal deficits. SKIN: No rashes. no petechiae. - Labs CBC & Chem 7: 10/29/20 03:21 10/29/20 03:21 Labs: Abnormal Lab Results - Last 24 Hours (Table) 10/27/20 10/27/20 10/28/20 Range/Units 16:30 20:32 03:19 WBC 12.1 H (3.8-10.6) k/uL Neutrophils # 10.1 H (1.3-7.7) k/uL Sodium (137-145) mmol/L BUN (9-20) mg/dL Creatinine (0.66-1.25) mg/dL POC Glucose (mg/dL) 116 H 149 H (75-99) mg/dL Calcium (8.4-10.2) mg/dL AST (17-59) U/L ALT (4-49) U/L Total Protein (6.3-8.2) g/dL Albumin (3.5-5.0) g/dL 10/28/20 Range/Units 03:19 WBC (3.8-10.6) k/uL Neutrophils # (1.3-7.7) k/uL Sodium 135 L (137-145) mmol/L BUN 39 H (9-20) mg/dL Creatinine 0.53 L (0.66-1.25) mg/dL POC Glucose (mg/dL) (75-99) mg/dL Calcium 8.1 L (8.4-10.2) mg/dL AST 71 H (17-59) U/L ALT 269 H (4-49) U/L Total Protein 5.0 L (6.3-8.2) g/dL Albumin 2.2 L (3.5-5.0) g/dL Assessment and Plan Assessment: Acute hypoxic respiratory failure secondary to COVID pneumonia possible acute respiratory distress syndrome ARDS, per pulmonary team . Her swallowing Acute hypoxic respiratory failure needing Mechanically ventilated, status post extubation on 10/23 Hyperlipidemia History of asthma GERD Plan: This is a pleasant 55 years old male admitted with bilateral covid pneumonia. Continue with recommendation of pulmonary/critical care team. Continue with steroids, discontinue IV fluids and continue with Lovenox as per pulmonary team consultation and recommendation . He finished remdesivir therapy Check swallow evaluation Labs and medication were reviewed.. Continue same treatment. Continue with s ymptomatic treatment. Resume home medication. Monitor lytes and vitals. DVT and GI prophylaxis. Further recommendations as per clinical course of the patient DVT prophylaxis: Subcutaneous Lovenox GI Prophylaxis: Pepcid Physical therapy rehabilitation recommended subacute rehab versus inpatient r ehab Prognosis is guarded
[2020-10-29] MEDS: ZINC SULFATE 220 MG CAP PO SCH (09:09)
[2020-10-29] MEDS: ENOXAPARIN 30 MG/0.3 ML SYRINGE SQ SCH ×2 (09:09→20:27)
[2020-10-29] MEDS: FAMOTIDINE 20 MG TAB PO SCH ×2 (09:09→20:28)
[2020-10-29] MEDS: amLODIPine 5 MG TAB PO SCH (09:09)
[2020-10-29] MEDS: ATORVASTATIN 40 MG TAB PO SCH (09:09)
[2020-10-29] MEDS: ASCORBIC ACID 500 MG TAB PO SCH ×2 (09:10→20:28)
[2020-10-29] MEDS: CHOLECALCIFEROL 25 MCG (1000 IU) TABLET PO SCH (09:10)
[2020-10-29] MEDS: dexAMETHasone 2 MG TAB PO SCH (09:10)
[2020-10-29] MEDS: SODIUM CHLORIDE 0.9% 1,000 ML IV SCH (09:11)
[2020-10-29] MEDS: COLCHICINE 0.6 MG EACH PO SCH ×2 (10:43→20:28)
[2020-10-29 11:44] LABS: Glucose,Whole Blood 95 mg/dL (75-99)
--- NOTE | 2020-10-29 11:50 | P.PN ---
Subjective Progress Note Date: 10/29/20 HPI - Patient is a 55-year-old male came in with complaints of increasing shortness of breath over the past week. Patient was diagnosed with Covid 6 days ago. He has completed a course of steroids as well as Z-Douglas. Patient states over the past week he's been fighting fevers, body aches, chills and nausea. Patient states his shortness of breath has been steadily increasing. He gets winded with just walking around his house. He does admit to some chest pain when he is coughing. He does have some production with his cough. He does admit to history of asthma, denies heart disease. He states his last dose of Tylenol was last night. He denies any vomiting, no dysuria. Patient is febrile 100.4, pulse is 96, he is satting 88% on room air. Patient had a chest x-ray which showed diffuse bilateral infiltrates. Patient is presently on 2 L of oxygen saturating 93% patient was having fevers at home patient had a low-grade fever here. Patient has elevated inflammatory markers along with the low sodium. On 10/15/2020 - last night patient became more short of breath, so he was shifted to the ICU. Initially the patient was placed on BiPAP, patient was staffed neck and saturating in the high 80s and so eventually he had to be intubated around noon. Currently he is mechanically ventilated and sedated. Reviewing the vitals patient is tachycardic between 100-110, saturating in the low 80s on 100% FiO2, blood pressure 1 50 x 92. Patient has been started on Solu-Medrol, Remdesivir, Lovenox and breathing treatments. On reviewing the labs white count of 6.1, hemoglobin 14.7, platelets 162. Sodium 133, potassium 4.2, chloride 102, bicarb 28, BUN 17, creatinine 0.79. Ferritin 624, magnesium 1.5, albumin 2.9. 10/16/2020 Patient is seen and examined in the ICU. He was admitted for Covid bilateral pneumonia. These with acute hypoxic respiratory failure needing intubation and mechanical ventilation with pulmonary/critical care team following the patient closely. He's undergoing prone position for 16 hours per day. Also he is getting Remidsivir and he is a status post convalescent plasma . Patient does not need pressors as his vitals are stable. And he is on tube feeding. Patient is currently sedated. Labs reviewed 10/17/2020 Patient remains in the ICU sedated and intubated. He is undergoing prone position with the goal 16 hours per day. He is febrile but tachypneic. Labs reviewed including CBC and BMP showing no significant changes. And sputum culture is growing Aky albicans. Chest x-ray showing the same bilateral infiltrates with right more than left related to his covid pneumonia. And he remains on Solu-Medrol 60 mg, remdisvir and normal saline at 75 mL/h. Pulmonary/critical care team R following the patient closely and the recommend to continue the current management and keep monitoring 10/18/2020 pt jana in ICU intubated sedated , with critical care team following him closely and adjusting his vent setting, he is currently needing high doseo f PEEP at 15 cxr from today showing small new bilateral pleural effusion , with basilar c onsolidation consistent wiht known covid 19 infection tomorrow is last dose of Remdisvir he remains on solumedrol 60 mg and gentl hydration 10/20/2020 Patient in ICU intubated on mechanical ventilation for several days now with pulmonary/critical care team managing the patient and monitoring him closely. Patient under going weaning for his PEEP and FiO2 down to 8 cm and 50% Chest x-ray showing stable findings consistent with edema versus pneumonia Patient on the same treatment of submental 60 mg normal saline at 50 mg and Lovenox 80 mg twice daily 10/21/2020 Patient remains in the ICU intubated and sedated, distal and a critical condition. Pulmonary/critical team R following the case closely and managing his vent. His PEEP was increased today to 12 from 8 because was desaturating d uring the night. FiO2 was kept at 50%. Blood pressure is 133/74, oxygen saturation is 90%, breathing rates 24 and is still slightly bradycardic at 56. Creatinine is normal at 0.5, magnesium 2.6, inflammatory markers including ferritin, LDH, C-reactive protein are slightly trending down He is on therapeutic dose of Lovenox for high d-dimer i called the and discussed the case her and all her question were answered and tried to explain the situation for her in a language she can un derstand 10/22/2020 Patient remains in the ICU intubated and sedated, today his PEEP was lowered to 10 in the morning, he remains on FiO2 of 50% He is hemodynamically stable. Sugar is controlled. WBC stable at 13.6 K results of CBC is unremarkable. Creatinine is normal at 0.5. Repeat chest x-ray today showing continued bilateral diffuse interstitial infiltrates and retrocardiac opacity. Development consolidation in the right lower lobe suggestive overall worsening Medications salmeterol 60 mg of normal saline at 40, continue with Lovenox with the same dose Prognosis remains guarded 10/23/2020 This is a pleasant 74 years old male who presents with bilateral: With pneumonia and his been in the ICU intubated and sedated, pulmonary/critical care team helped with vent management, it looks like his respiratory function is improving as there is a troponin PEEP down to 67 and he's undergoing sedation holiday and possible when in a trial with the call to get him extubated. WBC count 13,000, creatinine normal 0.500 glucose control. Elevated inflammatory markers Patient remains on Solu-Medrol, normocephalic 40 mL/h and Lovenox 80 mg twice daily, he was started on Lasix 40 mg daily 10/24/2020 Patient is a status post extubation and is currently on high flow nasal cannula with an FiO2 of 60-63% saturated on the low 90s. Patient looks dyspneic and could not provide information because of his dyspnea. Chest x-ray showing worsening bilateral middle and lower infiltrates WBC is stable at 13.5 K. BMP is unremarkable. Zinc and vitamin C were added, patient continue on some epidural 60 mg, at 40 and lasix 40 mg daily and lovenox 80 mg twice daily. Physical therapy evaluation is warranted as well as a swallow evaluation 10/25/2020 Patient is monitored in the ICU currently is status post extubation 2 days ago. He is quite dyspneic and on airvo at 60 L and 65% FiO2. Chest x-ray showing scattered infiltrates but stable. CBC is unremarkable. Creatinine 0.6. But all inflammatory markers including ferritin, LDH and C-reactive protein are increased. His sugar is controlled Medication-leiws he remains on Solu-Medrol 60 mg #40 mg and Lasix 40 mg daily. Lasix was lowered today to 30 mg twice daily as there is trending down and his d-dimer from 6.6 down to 4.5. 10/26/2020 Patient is seen and evaluated and follow-up continues to be closely monitored in the ICU. Patient currently working with physical therapy as he continues to be quite weak and attempts to sit at the bedside and possibility of in the chair. Patient is a 2 person assist due to weakness. Patient continues to be short of breath and dyspneic with exertion and is maintained on airvo at 60 L with an F iO2 of 70%. No real improvement on chest x-ray and infiltrates remain stable. D-dimer elevated at 5.63, sodium is 136, potassium is 4.7, current creatinine is 0.57. Inflammatory markers elevated as well. Patient is maintained on IV Solu- Medrol, vitamin C and D supplements along with zinc and Lovenox and will continue. Patient's blood sugars on the lower end and will continue with Accu- Cheks and every 6 hours sliding scale as needed. Patient is on a full liquid diet and tolerating. 10/27/20 He is remains in the ICU and it looks very weak and tired vitals are stable but remains needing high flow nasal cannula at 60 L and FiO2 of 55 with oxygen saturation 92-93%. He has mild leukocytosis of 11 K, BMP is unremarkable and inflammatory markers including LDH and C-reactive protein are trending down Chest x-ray: Stable bilateral patchy infiltrates compatible with atypical pneumonia. No critical limb ischemia per vascular surgery team Today 10 cm was stopped and switched to dexamethasone 6 mg daily, normal saline was stopped as well as Lasix. However he remains on Lovenox 30 mg twice daily. 10/28/2020 Patient remains in the ICU for his bilateral: With pneumonia is a status post extubation few days ago, He is currently saturating 91 on high flow nasal cannula with 60 L and FiO2 of 50%. Most labs show no change from before and it looks stable. He has mild leukocytosis. Inflammatory markers are trending down slowly. Chest x-ray showing patchy inflammatory infiltrate on both sides, mainly in the middle and lower areas, and change from previous x-ray Most of his medications were stopped blood including Solu-Medrol, Lasix, normal saline and he finishes remdesivir, currently he is on Lovenox 30 mg twice daily and dexamethasone 6 mg daily. Patient is being followed closely by pulmonary/critical care team 10/29/2020 Patient is seen and evaluated and follow-up continues to remain in the ICU continues to be on Airvo although was found to be on the side of his face and not in his nostrils on exam. Patient states it is difficult to keep in the nostrils all the time. Oxygen saturation was 89-90%. Discussed with nursing staff about weaning FiO2 as tolerated. Patient continues to be weak and was seen and evaluated for possible inpatient rehab at [facility] by Dr. Hughes. Patient is working with physical therapy and is currently sitting up in the chair. X-ray today shows continued patchy and confluent bilateral airspace disease with no changes from previous. Instructed patient to continue with incentive spirometer at least 10 times every hour while awake. Patient is tolerating diet with no reports of nausea or vomiting noted. Patient is maintained on dexamethasone along with Lovenox and vitamin supplements and will continue. Review of systems: Constitutional: No reports of, no reports of fever, or chills Cardiovascular: No reports of chest pain or palpitations Respiratory: Reports continued shortness of breath with minimal exertion although feels slightly improved, reports nasal irritation from the cannula GI: No reports of nausea, vomiting, or diarrhea : No reports of dysuria or retention Neurovascular: Reports weakness although feels somewhat improved All medications have been reviewed Objective - Vital Signs Vital signs: Vital Signs Temp 98.5 F 10/29/20 09:00 Pulse 77 10/29/20 09:00 Resp 21 10/29/20 09:00 BP 124/77 10/29/20 09:00 Pulse Ox 92 L 10/29/20 09:00 Intake & Output 10/28/20 10/29/20 10/29/20 18:59 06:59 18:59 Intake Total 350 320 Output Total 964 1325 Balance -614 -1005 Weight 72 kg 72 kg Intake: IV 350 220 Sodium Chloride 0.9% 1, 350 220 000 ml @ 20 mls/hr IV . Q24H [facility] Rx#:[id number] Tube Feeding 100 Output: Urine 964 1325 Other: Voiding Method Indwelling Catheter Indwelling Catheter ABP, PAP, CO, CI - Last Documented Arterial Blood Pressure 103/93 - Exam GENERAL: The patient is awake, anxious, alert and oriented 3, well-developed, well-nourished, sitting up in the chair HEENT: Pupils are round and equally reacting to light. EOMI. No scleral icterus. No conjunctival pallor. Normocephalic, atraumatic. No pharyngeal erythema. No thyromegaly. Airvo nasal cannula noted on exam on the side of his face and not in his nares CARDIOVASCULAR: S1 and S2 present. No murmurs, rubs, or gallops. PULMONARY: Decreased breath sounds bilaterally, no wheezing or crackles. Bilateral coarse crepitation noted ABDOMEN: Soft, nontender, nondistended, normoactive bowel sounds. No palpable organomegaly. MUSCULOSKELETAL: No joint swelling or deformity. EXTREMITIES: No cyanosis, clubbing, or pedal edema. NEUROLOGICAL: Gross neurological examination did not reveal any focal deficits. Diffuse weakness SKIN: No rashes. no petechiae. - Labs CBC & Chem 7: 10/29/20 03:21 10/29/20 03:21 Labs: Abnormal Lab Results - Last 24 Hours (Table) 10/28/20 10/28/20 10/29/20 Range/Units 16:39 20:04 03:21 WBC (3.8-10.6) k/uL Hgb (13.0-17.5) gm/dL D-Dimer 3.13 H (<0.60) mg/L FEU Sodium (137-145) mmol/L Carbon Dioxide (22-30) mmol/L BUN (9-20) mg/dL Creatinine (0.66-1.25) mg/dL POC Glucose (mg/dL) 105 H 101 H (75-99) mg/dL Calcium (8.4-10.2) mg/dL ALT (4-49) U/L Lactate Dehydrogenase (313-618) U/L C-Reactive Protein (<10.0) mg/L Total Protein (6.3-8.2) g/dL Albumin (3.5-5.0) g/dL 10/29/20 10/29/20 Range/Units 03:21 03:21 WBC 11.5 H (3.8-10.6) k/uL Hgb 12.9 L (13.0-17.5) gm/dL D-Dimer (<0.60) mg/L FEU Sodium 134 L (137-145) mmol/L Carbon Dioxide 32 H (22-30) mmol/L BUN 25 H (9-20) mg/dL Creatinine 0.51 L (0.66-1.25) mg/dL POC Glucose (mg/dL) (75-99) mg/dL Calcium 8.1 L (8.4-10.2) mg/dL ALT 207 H (4-49) U/L Lactate Dehydrogenase 925 H (313-618) U/L C-Reactive Protein 43.6 H (<10.0) mg/L Total Protein 4.8 L (6.3-8.2) g/dL Albumin 2.1 L (3.5-5.0) g/dL Assessment and Plan Assessment: Acute hypoxic respiratory failure secondary to COVID pneumonia possible acute respiratory distress syndrome ARDS, per pulmonary team Acute hypoxic respiratory failure needing mechanical ventilation, status post extubation on 10/23 Hyperlipidemia History of asthma GERD DVT prophylaxis: Subcutaneous Lovenox GI prophylaxis: Pepcid Full code Plan: This is a pleasant 55 years old male admitted with bilateral covid pneumonia. Patient continues to be closely monitored in the ICU and being followed closely by pulmonary/critical care team. Patient is currently on dexamethasone along with Lovenox, vitamin C and E supplements, and zinc supplements and will continue at this time. Patient has completed the Remdesivir treatment and currently remains on Airvo with a flow rate of 45 and an FiO2 of 40%. Airvo was on the side of his face as he states it is very difficult to wear continuously and is painful to his nostrils. Discussed with nursing staff about weaning FiO2 as tolerated. Incentive spirometer at the bedside and instructed the patient to continue using at least 10 times every hour while awake and increasing activity as tolerated. Will continue to monitor vital signs and labs closely and con tinue to follow along closely with pulmonary. Further recommendations to follow based on the clinical course of the patient. PT/OT following. Patient was seen and evaluated by Dr. Hughes or possible rehab at [facility]. Case management and social work is following. Prognosis remains guarded.
--- NOTE | 2020-10-29 13:38 | P.PN ---
Subjective Progress Note Date: 10/29/20 Principal diagnosis: Acute hypoxic respiratory failure secondary to covid 19 pneumonia 55-year-old male who was admitted to the ICU yesterday. He came down to the ICU for acute hypoxemic respiratory failure secondary to COVID 19 pneumonia. Initially, we attempted to maintain him on BiPAP, but unfortunately, the patient's respiratory failure worsened and he required intubation and mechanical ventilation. He was intubated on 10/15/2020.. He is on the volume assist control modality, rate 24, tidal volume 450, FiO2 50%, and PEEP of 12. His blood gases show a pO2 of 81, PaCO2 of 42, and a pH of 7.46. He is getting saline at 40 mL an hour, a fentanyl drip at 0.5 mcg/kg/h, propofol at 60 mcg/kg/m, and vital high protein at 64 mL an hour which is goal. He was also pa ralyzed and is currently off paralytics.. He received 1 dose of, convalescent plasma, and 1 dose of remdesivir. He is receiving Solumedrol at 60 mg IV q 6 hours. On today's evaluation, the patient is being seen on follow-up. The patient's peak airway pressures around 30 on the above-mentioned ventilator setting. The patient is afebrile. The white cell count today is 13.6 with a hemoglobin of 12. Rest of the blood work and electrodes are all within normal limits. The chest x-ray from today still showing diffuse bilateral pulmonary infiltrates ET tube is in a good location. The patient also has a left IJ triple-lumen catheter in place. The patient's hemodynamically stable. He is on no pressors. He is producing adequate amount of urine output. He is on Lovenox 80 mg subcu every 12 hours.A d-dimer level is up to 2 and this is essentially gone compared to few days back with a d-dimer was up to 34.. On today's evaluation of 10/23/2020 seeing the patient for a follow-up. The leon marcello remains sedated and the patient is on propofol running at 50 mcg/kg per minute and the patient is also on fentanyl at 1.0 mcg/kg/h. She remains on a mechanical ventilator and essentially the ventilator settings currently is at a rate of 24 with a tidal volume of 450, an FiO2 of 50% with a PEEP of 8. His is improved compared to yesterday. The blood gases from today shows a pH of 7.49 with a pCO2 of 40 and pO2 of 74. Chest x-ray stable, probably some improvement in the right lower lobe area. ET tube is in a good location. NG tube is in also good location. He is afebrile. Note that the patient has received convalescent plasma, Larissaivir is also on IV Solu Medrol 60 mg every 6 hours. His inflammatory markers show a drop in his CRP down to 28 and his LDH is also dropping down to 1179. His net fluid balance has been -68 mL and the patient is receiving Lasix 40 mg IV on a daily basis. His triglyceride level is at 300. Is tolerating enteral feeding for nutritional support. The d-dimer today is at X.2 from yesterday and the repeat levels are pending for today. Meanwhile, the patient remains on therapeutic dose of Lovenox at a dose of 80 mg subcu every 12 hours. On 10/24/2020, the patient is extubated. The patient is currently on high flow oxygen at 60 L. His pulse ox is ranging between 90-94%. He is hemodynamically stable on no pressors. His blood pressure was running on the higher side and the patient was given side effects and is currently on 2 mg an hour and he has an adequate blood pressure control. D-dimer remains elevated at 6.67, his CRP is at 28 from yesterday, his LDH was 1179 from yesterday and inflammatory markers are not obtained from today. He is awake. He is following simple commands and answering questions. He is on IV Solu Medrol 60 mg every 6 hours. He is on Lovenox therapeutic doses of 80 mg subcu every 12 hours. He is afebril e. Cultures are all negative other than some Kay and his sputum. As mentioned, the patient was extubated successfully yesterday. He is a week. He has a weak cough. He has generalized motor weakness in all 4 extremities. No other significant events overnight. Neurologically intact and currently on no sedation. The chest x-ray from today showed essentially stable bilateral pulmonary infiltrates, probably slightly worse compared to yesterday, nevertheless this can be an effective positive pressure delivered by the mechanical ventilator. He does have a triple lumen catheter in his left IJ which is still in place. Left hemidiaphragm is slightly elevated. The patient will be encouraged to use incentive spirometer. The patient is in a negative fluid balance of 2.6 hours and the patient remains on IV Lasix 40 mg every 24 hours. On 10/25/2020 patient remains extubated. He currently on the AirVo 60 L and 65% FiO2 also says just above 90% and the patient is also utilizing 100% on a beta facemasks. A chest x-ray from today shows some limited improvement on the right. There is still dense bilateral pulmonary infiltrates. The patient was extubated on 10/23/2020. He remains on IV Solu-Medrol 60 mg every 6 hours. Inflammatory markers from today show a d-dimer of 4.5 which is lower compared to yesterday, he also had a LDH level of 1924, higher and his CRP level is 44, hig her. He is afebrile. He is hemodynamically stable. He is taking some limited oral intake mainly in the form of clear liquids. He is weak. He is anxious. He has a decent cough. He remains on IV Lasix every 24 hours in the neck fluid balance has been in the order of 3.1 L. He remains on Lovenox 80 mg subcutaneous every 12 hours. No sedatives. No delirium. No confusion. Family has been updated. He is on Celebrex 100 mg an hour On 10/26/2020, the patient remains extubated. The patient remains on high flow oxygen 60 L and the FiO2 is at 70%. The pulse is currently is ranging between 88 and 91%. He remains in high spirits 50 once recovered. On and off is also utilizing 100% nonrebreather facemask. Nevertheless, for the most part, he is using the high flow oxygen. He is on IV fluids with normal saline at the rate of 20 mL an hour. The patient is being diuresis and a daily basis of a negative fluid balance is in the order of -2.060 liters over the past 24 hours. The patient is is otherwise doing well. LDH level is at 1676 which is lower compared to yesterday. CRP is also 24.5 which is essentially lower than yesterday. The BUN is at 47 with a creatinine of 0.57. He remains on Lovenox 80 mg subcu every 12 hours. The d-dimer is still elevated at 5.63. On today's evaluation, it was noted that the patient has a cold left foot. Doppler pulses will be also obtained and vascular surgery will be involved in the case and there are no pulses. The right lower extremity and the right foot is within normal limits. The patient denies having any pain in his left foot. No other significant events otherwise for now. Is tolerating his diet. He is gradually increasing his oral intake. 10/27/2020, the patient is on 60 L with an FiO2 of 65%. He is recovering from his acute hypoxic respiratory failure and diffuse pneumonia related to covid 19. He is in good spirits. His chest x-ray from today and gradual improvement in diffuse pulmonary infiltrates. As compared to the earlier chest x-ray from a few days back. Meanwhile, the patient's white cell count is 11.9. LDH is dropping from 1676 down to 1397 and the CRP is down from 24.9-15.7. His d-dimer is also down to 4.15. Obviously the patient is showing ongoing clinical response and improvement for now. As for the lower extremity, Doppler signals are back and the patient is currently is off IV heparin. We are going back on Lovenox 30 mg subcu every 12 hours. The patient remained on IV Solu Medrol 60 mg every 6 hours. 10/28/2020, the patient is still on high flow oxygen. This morning, he is on 60 L with an FiO2 of 50%. Pulse ox is 91%. Chest x-ray is unchanged with diffuse bilateral airspace disease and interstitial and alveolar infiltrates. He inflammatory markers are not done today and this will be done tomorrow. Afebrile. Speech is better. Is able to speak longer sentences. No chest pain. He is able to sit up on the recliner. He is using incentive spirometer. No significant rest or secretions. No fever. He remains on Decadron 6 mg by mouth on a daily basis. He is Lovenox 30 mg subcu every 12 hours. BP is under good control and is on Norvasc 5 mg by mouth daily. Is on no pressors or antihypertensive wraps for now. He is drinking a short period he is eating adequately, approximately 50% of his food offered and the patient will be advanced on his diet to regular. He does have a mid line in his left upper extremity. He does have a Khan catheter. Reevaluated today on 10/29/2020, patient remains in the ICU, remains on airvo with FiO2 at 40%, and he is on 35 L high flow. Saturation is running in the low 90s. Patient seems to be comfortable, chest x-ray continues to show bilateral interstitial infiltrates. Patient was extubated last week, and so far he tolerated the extubation well. He is awake, alert, in no distress, tolerating oral diet, and today I went ahead and kept him on Decadron, and I added colchicine 0.6 mg by mouth twice a day. WBC count today is 11.7 hemoglobin is 12.9 inflammatory markers were noted, C-reactive protein is 43.6 and LDH is 925. Electrolytes and renal profile are normal. Objective - Vital Signs Vital signs: Vital Signs Temp 98.5 F 10/29/20 09:00 Pulse 76 10/29/20 10:00 Resp 16 10/29/20 10:00 BP 120/75 10/29/20 10:00 Pulse Ox 92 L 10/29/20 10:00 Intake & Output 10/28/20 10/29/20 10/29/20 18:59 06:59 18:59 Intake Total 350 320 60 Output Total 964 1325 250 Balance -614 -1005 -190 Weight 72 kg 72 kg Intake: IV 350 220 60 Sodium Chloride 0.9% 1, 350 220 60 000 ml @ 20 mls/hr IV . Q24H [facility] Rx#:[id number] Tube Feeding 100 Output: Urine 964 1325 250 Other: Voiding Method Indwelling Catheter Indwelling Catheter ABP, PAP, CO, CI - Last Documented Arterial Blood Pressure 103/93 - Exam GENERAL: The patient is awake,on airvo not in distress HEENT: Pupils are round and equally reacting to light. EOMI. No scleral icterus. No conjunctival pallor. Normocephalic, atraumatic. No pharyngeal erythema. No thyromegaly. CARDIOVASCULAR: Normal S1 and S2, no S3 gallop, no murmur. -PULMONARY: Coarse crackles at the bases bilaterally, symmetrical chest expansion. ABDOMEN: Soft, nontender, no megaly, no rebound, no guarding, positive bowel sounds. MUSCULOSKELETAL: No limitation in range of motion. No joint swelling or deformity. EXTREMITIES: No clubbing edema or cyanosis NEUROLOGICAL: Alert and oriented 3, no gross focal deficits. SKIN: No rashes. no petechiae. - Labs CBC & Chem 7: 10/29/20 03:21 10/29/20 03:21 Labs: Abnormal Lab Results - Last 24 Hours (Table) 10/28/20 10/28/20 10/29/20 Range/Units 16:39 20:04 03:21 WBC (3.8-10.6) k/uL Hgb (13.0-17.5) gm/dL D-Dimer 3.13 H (<0.60) mg/L FEU Sodium (137-145) mmol/L Carbon Dioxide (22-30) mmol/L BUN (9-20) mg/dL Creatinine (0.66-1.25) mg/dL POC Glucose (mg/dL) 105 H 101 H (75-99) mg/dL Calcium (8.4-10.2) mg/dL ALT (4-49) U/L Lactate Dehydrogenase (313-618) U/L C-Reactive Protein (<10.0) mg/L Total Protein (6.3-8.2) g/dL Albumin (3.5-5.0) g/dL 10/29/20 10/29/20 Range/Units 03:21 03:21 WBC 11.5 H (3.8-10.6) k/uL Hgb 12.9 L (13.0-17.5) gm/dL D-Dimer (<0.60) mg/L FEU Sodium 134 L (137-145) mmol/L Carbon Dioxide 32 H (22-30) mmol/L BUN 25 H (9-20) mg/dL Creatinine 0.51 L (0.66-1.25) mg/dL POC Glucose (mg/dL) (75-99) mg/dL Calcium 8.1 L (8.4-10.2) mg/dL ALT 207 H (4-49) U/L Lactate Dehydrogenase 925 H (313-618) U/L C-Reactive Protein 43.6 H (<10.0) mg/L Total Protein 4.8 L (6.3-8.2) g/dL Albumin 2.1 L (3.5-5.0) g/dL Assessment and Plan Assessment: Impression: Acute hypoxic respiratory failure secondary to covid 19 pneumonitis, ARDS secondary to above., Patient was extubated last week, and tolerated the extubation well so far. Dyslipidemia. History of chronic bronchial asthma presently stable. GERD without esophagitis. Elevated d-dimer, remains on Lovenox 30 mg subcu every 12 hours Critical illness polyneuropathy Hypertension. Recommendation: Continue supportive care measures. Titrate FiO2 and eventually transitioned to high flow nasal cannula Continue to monitor in the ICU. Continue Decadron. Continue Lovenox. Added colchicine 0.6 mg by mouth twice a day. Continue GI and DVT prophylaxis. We'll continue to follow. Time with Patient: Less than 30
[2020-10-29 16:58] LABS: Glucose,Whole Blood 154 mg/dL (75-99)
[2020-10-29] MEDS: TEMAZEPAM 15 MG CAP PO SCH (20:28)
[2020-10-29] MEDS: MELATONIN 5 MG TABLET PO SCH (20:28)
[2020-10-29 20:40] LABS: Glucose,Whole Blood 92 mg/dL (75-99)
[2020-10-30] MEDS ORDERED: CALCIUM CARBONATE 500 MG CHEWABLE PO PRN (03:36)
[2020-10-30 04:24] LABS: Basophils % (A) 0 %; Eosinophils % (A) 1 %; HCT 40.7 % (39.0-53.0); HGB 13.9 gm/dL (13.0-17.5); Lymphocytes # (A) 1.1 k/uL (1.0-4.8); Lymphocytes % (A) 12 %; MCH 29.4 pg (25.0-35.0); MCHC 34.2 g/dL (31.0-37.0); MCV 85.8 fL (80.0-100.0); Mean Platelet Volume 7.8; Monocytes # (A) 0.5 k/uL (0-1.0); Monocytes % (A) 5 %; Neutrophils % (A) 82 %; Platelet Count 199 k/uL (150-450); RBC 4.74 m/uL (4.30-5.90); RDW 12.8 % (11.5-15.5); WBC 9.8 k/uL (3.8-10.6)
[2020-10-30 04:38] LABS: ALT 182 U/L (4-49); AST 37 U/L (17-59); African American GFR (CKD) >90 (>60 ml/min/1.73 sqM); Albumin 2.4 g/dL (3.5-5.0); Alkaline Phosphatase 70 U/L (38-126); Anion Gap 2 mmol/L; Blood Urea Nitrogen 26 mg/dL (9-20); C Reactive Protein 50.1 mg/L (<10.0); Calcium 8.1 mg/dL (8.4-10.2); Carbon Dioxide 31 mmol/L (22-30); Chloride 101 mmol/L (98-107); Creatine Kinase 90 U/L (55-170); Glucose 99 mg/dL (74-99); LDH 894 U/L (313-618); Non-African American GFR(CKD) >90 (>60 ml/min/1.73 sqM); Potassium 4.9 mmol/L (3.5-5.1); Sodium 134 mmol/L (137-145); Total Bilirubin 1.2 mg/dL (0.2-1.3); Total Protein 5.3 g/dL (6.3-8.2)
[2020-10-30 06:30] LABS: Glucose,Whole Blood 125 mg/dL (75-99)
[2020-10-30] MEDS: INSULIN ASPART (NovoLOG) 100 UNIT/ML VIAL SQ SCH ×4 (06:31→20:28)
[2020-10-30] MEDS: ALBUTEROL HFA INHALER INHALATION PRN ×3 (07:19→19:43)
[2020-10-30 07:32] LABS: Glucose,Whole Blood 78 mg/dL (75-99)
--- NOTE | 2020-10-30 08:10 | XR ---
EXAMINATION TYPE: XR chest 1V DATE OF EXAM: 10/30/2020 HISTORY: Shortness of breath. COMPARISON: 10/29/2020 TECHNIQUE: Single view of the chest is submitted. FINDINGS: Demonstrated are scattered senescent parenchymal change. Patchy infiltrates are again noted throughout both lung werner with slight interval improvement sugge sted. The heart is stable. Hilar and mediastinal structures are within normal limits. Degenerative changes are seen of the dorsal spine. IMPRESSION: 1. Patchy infiltrates are again noted throughout both lung werner with slight interval improvement s uggested.
[2020-10-30] MEDS: ENOXAPARIN 30 MG/0.3 ML SYRINGE SQ SCH ×2 (08:24→20:28)
[2020-10-30] MEDS: FAMOTIDINE 20 MG TAB PO SCH ×2 (08:24→20:27)
[2020-10-30] MEDS: ZINC SULFATE 220 MG CAP PO SCH (08:24)
[2020-10-30] MEDS: COLCHICINE 0.6 MG EACH PO SCH ×2 (08:24→20:28)
[2020-10-30] MEDS: dexAMETHasone 2 MG TAB PO SCH (08:24)
[2020-10-30] MEDS: CHOLECALCIFEROL 25 MCG (1000 IU) TABLET PO SCH (08:25)
[2020-10-30] MEDS: ATORVASTATIN 40 MG TAB PO SCH (08:25)
[2020-10-30] MEDS: ASCORBIC ACID 500 MG TAB PO SCH ×2 (08:25→20:27)
[2020-10-30 09:41] LABS: Ferritin 902.2 ng/mL (22.0-322.0)
[2020-10-30] MEDS: amLODIPine 5 MG TAB PO SCH (10:21)
[2020-10-30 11:20] LABS: Glucose,Whole Blood 97 mg/dL (75-99)
--- NOTE | 2020-10-30 14:29 | P.PN ---
Subjective Progress Note Date: 10/30/20 Principal diagnosis: Acute hypoxic respiratory failure secondary to covid 19 pneumonia 55-year-old male who was admitted to the ICU yesterday. He came down to the ICU for acute hypoxemic respiratory failure secondary to COVID 19 pneumonia. Initially, we attempted to maintain him on BiPAP, but unfortunately, the patient's respiratory failure worsened and he required intubation and mechanical ventilation. He was intubated on 10/15/2020.. He is on the volume assist control modality, rate 24, tidal volume 450, FiO2 50%, and PEEP of 12. His blood gases show a pO2 of 81, PaCO2 of 42, and a pH of 7.46. He is getting saline at 40 mL an hour, a fentanyl drip at 0.5 mcg/kg/h, propofol at 60 mcg/kg/m, and vital high protein at 64 mL an hour which is goal. He was also pa ralyzed and is currently off paralytics.. He received 1 dose of, convalescent plasma, and 1 dose of remdesivir. He is receiving Solumedrol at 60 mg IV q 6 hours. On today's evaluation, the patient is being seen on follow-up. The patient's peak airway pressures around 30 on the above-mentioned ventilator setting. The patient is afebrile. The white cell count today is 13.6 with a hemoglobin of 12. Rest of the blood work and electrodes are all within normal limits. The chest x-ray from today still showing diffuse bilateral pulmonary infiltrates ET tube is in a good location. The patient also has a left IJ triple-lumen catheter in place. The patient's hemodynamically stable. He is on no pressors. He is producing adequate amount of urine output. He is on Lovenox 80 mg subcu every 12 hours.A d-dimer level is up to 2 and this is essentially gone compared to few days back with a d-dimer was up to 34.. On today's evaluation of 10/23/2020 seeing the patient for a follow-up. The leon marcello remains sedated and the patient is on propofol running at 50 mcg/kg per minute and the patient is also on fentanyl at 1.0 mcg/kg/h. She remains on a mechanical ventilator and essentially the ventilator settings currently is at a rate of 24 with a tidal volume of 450, an FiO2 of 50% with a PEEP of 8. His is improved compared to yesterday. The blood gases from today shows a pH of 7.49 with a pCO2 of 40 and pO2 of 74. Chest x-ray stable, probably some improvement in the right lower lobe area. ET tube is in a good location. NG tube is in also good location. He is afebrile. Note that the patient has received convalescent plasma, Larissaivir is also on IV Solu Medrol 60 mg every 6 hours. His inflammatory markers show a drop in his CRP down to 28 and his LDH is also dropping down to 1179. His net fluid balance has been -68 mL and the patient is receiving Lasix 40 mg IV on a daily basis. His triglyceride level is at 300. Is tolerating enteral feeding for nutritional support. The d-dimer today is at X.2 from yesterday and the repeat levels are pending for today. Meanwhile, the patient remains on therapeutic dose of Lovenox at a dose of 80 mg subcu every 12 hours. On 10/24/2020, the patient is extubated. The patient is currently on high flow oxygen at 60 L. His pulse ox is ranging between 90-94%. He is hemodynamically stable on no pressors. His blood pressure was running on the higher side and the patient was given side effects and is currently on 2 mg an hour and he has an adequate blood pressure control. D-dimer remains elevated at 6.67, his CRP is at 28 from yesterday, his LDH was 1179 from yesterday and inflammatory markers are not obtained from today. He is awake. He is following simple commands and answering questions. He is on IV Solu Medrol 60 mg every 6 hours. He is on Lovenox therapeutic doses of 80 mg subcu every 12 hours. He is afebril e. Cultures are all negative other than some Kay and his sputum. As mentioned, the patient was extubated successfully yesterday. He is a week. He has a weak cough. He has generalized motor weakness in all 4 extremities. No other significant events overnight. Neurologically intact and currently on no sedation. The chest x-ray from today showed essentially stable bilateral pulmonary infiltrates, probably slightly worse compared to yesterday, nevertheless this can be an effective positive pressure delivered by the mechanical ventilator. He does have a triple lumen catheter in his left IJ which is still in place. Left hemidiaphragm is slightly elevated. The patient will be encouraged to use incentive spirometer. The patient is in a negative fluid balance of 2.6 hours and the patient remains on IV Lasix 40 mg every 24 hours. On 10/25/2020 patient remains extubated. He currently on the AirVo 60 L and 65% FiO2 also says just above 90% and the patient is also utilizing 100% on a beta facemasks. A chest x-ray from today shows some limited improvement on the right. There is still dense bilateral pulmonary infiltrates. The patient was extubated on 10/23/2020. He remains on IV Solu-Medrol 60 mg every 6 hours. Inflammatory markers from today show a d-dimer of 4.5 which is lower compared to yesterday, he also had a LDH level of 1924, higher and his CRP level is 44, hig her. He is afebrile. He is hemodynamically stable. He is taking some limited oral intake mainly in the form of clear liquids. He is weak. He is anxious. He has a decent cough. He remains on IV Lasix every 24 hours in the neck fluid balance has been in the order of 3.1 L. He remains on Lovenox 80 mg subcutaneous every 12 hours. No sedatives. No delirium. No confusion. Family has been updated. He is on Celebrex 100 mg an hour On 10/26/2020, the patient remains extubated. The patient remains on high flow oxygen 60 L and the FiO2 is at 70%. The pulse is currently is ranging between 88 and 91%. He remains in high spirits 50 once recovered. On and off is also utilizing 100% nonrebreather facemask. Nevertheless, for the most part, he is using the high flow oxygen. He is on IV fluids with normal saline at the rate of 20 mL an hour. The patient is being diuresis and a daily basis of a negative fluid balance is in the order of -2.060 liters over the past 24 hours. The patient is is otherwise doing well. LDH level is at 1676 which is lower compared to yesterday. CRP is also 24.5 which is essentially lower than yesterday. The BUN is at 47 with a creatinine of 0.57. He remains on Lovenox 80 mg subcu every 12 hours. The d-dimer is still elevated at 5.63. On today's evaluation, it was noted that the patient has a cold left foot. Doppler pulses will be also obtained and vascular surgery will be involved in the case and there are no pulses. The right lower extremity and the right foot is within normal limits. The patient denies having any pain in his left foot. No other significant events otherwise for now. Is tolerating his diet. He is gradually increasing his oral intake. 10/27/2020, the patient is on 60 L with an FiO2 of 65%. He is recovering from his acute hypoxic respiratory failure and diffuse pneumonia related to covid 19. He is in good spirits. His chest x-ray from today and gradual improvement in diffuse pulmonary infiltrates. As compared to the earlier chest x-ray from a few days back. Meanwhile, the patient's white cell count is 11.9. LDH is dropping from 1676 down to 1397 and the CRP is down from 24.9-15.7. His d-dimer is also down to 4.15. Obviously the patient is showing ongoing clinical response and improvement for now. As for the lower extremity, Doppler signals are back and the patient is currently is off IV heparin. We are going back on Lovenox 30 mg subcu every 12 hours. The patient remained on IV Solu Medrol 60 mg every 6 hours. 10/28/2020, the patient is still on high flow oxygen. This morning, he is on 60 L with an FiO2 of 50%. Pulse ox is 91%. Chest x-ray is unchanged with diffuse bilateral airspace disease and interstitial and alveolar infiltrates. He inflammatory markers are not done today and this will be done tomorrow. Afebrile. Speech is better. Is able to speak longer sentences. No chest pain. He is able to sit up on the recliner. He is using incentive spirometer. No significant rest or secretions. No fever. He remains on Decadron 6 mg by mouth on a daily basis. He is Lovenox 30 mg subcu every 12 hours. BP is under good control and is on Norvasc 5 mg by mouth daily. Is on no pressors or antihypertensive wraps for now. He is drinking a short period he is eating adequately, approximately 50% of his food offered and the patient will be advanced on his diet to regular. He does have a mid line in his left upper extremity. He does have a Khan catheter. Reevaluated today on 10/29/2020, patient remains in the ICU, remains on airvo with FiO2 at 40%, and he is on 35 L high flow. Saturation is running in the low 90s. Patient seems to be comfortable, chest x-ray continues to show bilateral interstitial infiltrates. Patient was extubated last week, and so far he tolerated the extubation well. He is awake, alert, in no distress, tolerating oral diet, and today I went ahead and kept him on Decadron, and I added colchicine 0.6 mg by mouth twice a day. WBC count today is 11.7 hemoglobin is 12.9 inflammatory markers were noted, C-reactive protein is 43.6 and LDH is 925. Electrolytes and renal profile are normal. Reevaluated today on 10/30/2020, patient remains in the ICU, he is down to 3 L nasal cannula, and his O2 saturation is 92%. Patient is feeling much better, breathing a lot easier, he is not requiring any high flow oxygen, and he does not seem to be in any distress. Remains on Decadron. Remains on colchicine. And on Lovenox. My plan today is to transfer the patient out of the ICU to a regular medical floor since his O2 requirement is significantly improved. CBC today is relatively normal basic metabolic profile is normal d-dimer is 2.01. LDH is down to 894, and C-reactive protein is 50 Objective - Vital Signs Vital signs: Vital Signs Temp 97.8 F 10/30/20 12:00 Pulse 80 10/30/20 12:00 Resp 22 10/30/20 12:00 BP 109/72 10/30/20 12:00 Pulse Ox 92 L 10/30/20 12:00 Intake & Output 10/29/20 10/30/20 10/30/20 18:59 06:59 18:59 Intake Total 540 390 60 Output Total 1600 960 525 Balance -1060 -570 -465 Weight 72 kg 72.5 kg Intake: IV 240 240 60 Sodium Chloride 0.9% 1, 240 240 60 000 ml @ 20 mls/hr IV . Q24H [facility] Rx#:[id number] Oral 300 150 Output: Urine 1600 960 525 Other: Voiding Method Indwelling Catheter Indwelling Catheter Indwelling Catheter # Bowel Movements 1 ABP, PAP, CO, CI - Last Documented Arterial Blood Pressure 103/93 - Exam GENERAL: The patient is awake,on 3 L nasal cannula in no distress HEENT: Pupils are round and equally reacting to light. EOMI. No scleral icterus. No conjunctival pallor. Normocephalic, atraumatic. No pharyngeal erythema. No thyromegaly. CARDIOVASCULAR: Normal S1 and S2, no S3 gallop, no murmur. -PULMONARY: Coarse crackles at the bases bilaterally, symmetrical chest expansion. ABDOMEN: Soft, nontender, no megaly, no rebound, no guarding, positive bowel sounds. MUSCULOSKELETAL: No limitation in range of motion. No joint swelling or deformity. EXTREMITIES: No clubbing edema or cyanosis NEUROLOGICAL: Alert and oriented 3, no gross focal deficits. SKIN: Areas of contact dermatitis noted on the face from his nasal cannula and airvo - Labs CBC & Chem 7: 10/30/20 03:54 10/30/20 03:54 Labs: Abnormal Lab Results - Last 24 Hours (Table) 10/29/20 10/30/20 10/30/20 Range/Units 16:56 03:54 03:54 Neutrophils # (1.3-7.7) k/uL D-Dimer 2.01 H (<0.60) mg/L FEU Sodium 134 L (137-145) mmol/L Carbon Dioxide 31 H (22-30) mmol/L BUN 26 H (9-20) mg/dL Creatinine 0.57 L (0.66-1.25) mg/dL POC Glucose (mg/dL) 154 H (75-99) mg/dL Calcium 8.1 L (8.4-10.2) mg/dL Ferritin 902.2 H (22.0-322.0) ng/mL ALT 182 H (4-49) U/L Lactate Dehydrogenase 894 H (313-618) U/L C-Reactive Protein 50.1 H (<10.0) mg/L Total Protein 5.3 L (6.3-8.2) g/dL Albumin 2.4 L (3.5-5.0) g/dL 10/30/20 10/30/20 Range/Units 03:54 06:27 Neutrophils # 8.0 H (1.3-7.7) k/uL D-Dimer (<0.60) mg/L FEU Sodium (137-145) mmol/L Carbon Dioxide (22-30) mmol/L BUN (9-20) mg/dL Creatinine (0.66-1.25) mg/dL POC Glucose (mg/dL) 125 H (75-99) mg/dL Calcium (8.4-10.2) mg/dL Ferritin (22.0-322.0) ng/mL ALT (4-49) U/L Lactate Dehydrogenase (313-618) U/L C-Reactive Protein (<10.0) mg/L Total Protein (6.3-8.2) g/dL Albumin (3.5-5.0) g/dL Assessment and Plan Assessment: Impression: Acute hypoxic respiratory failure secondary to covid 19 pneumonitis, ARDS secondary to above., Patient was extubated last week, and tolerated the extubation well so far. Dyslipidemia. History of chronic bronchial asthma presently stable. GERD without esophagitis. Elevated d-dimer, remains on Lovenox 30 mg subcu every 12 hours Critical illness polyneuropathy Hypertension. Recommendation: Transfer patient out of the ICU to a regular medical floor. Continue supportive care measures. Titrate FiO2. Continue to monitor in the ICU. Continue Decadron. Continue Lovenox. Continue colchicine 0.6 mg by mouth twice a day. This was started yesterday Continue GI and DVT prophylaxis. We'll continue to follow. Time with Patient: Less than 30
--- NOTE | 2020-10-30 15:01 | P.PN ---
Subjective Progress Note Date: 10/30/20 HPI - Patient is a 55-year-old male came in with complaints of increasing shortness of breath over the past week. Patient was diagnosed with Covid 6 days ago. He has completed a course of steroids as well as Z-Douglas. Patient states over the past week he's been fighting fevers, body aches, chills and nausea. Patient states his shortness of breath has been steadily increasing. He gets winded with just walking around his house. He does admit to some chest pain when he is coughing. He does have some production with his cough. He does admit to history of asthma, denies heart disease. He states his last dose of Tylenol was last night. He denies any vomiting, no dysuria. Patient is febrile 100.4, pulse is 96, he is satting 88% on room air. Patient had a chest x-ray which showed diffuse bilateral infiltrates. Patient is presently on 2 L of oxygen saturating 93% patient was having fevers at home patient had a low-grade fever here. Patient has elevated inflammatory markers along with the low sodium. On 10/15/2020 - last night patient became more short of breath, so he was shifted to the ICU. Initially the patient was placed on BiPAP, patient was staffed neck and saturating in the high 80s and so eventually he had to be intubated around noon. Currently he is mechanically ventilated and sedated. Reviewing the vitals patient is tachycardic between 100-110, saturating in the low 80s on 100% FiO2, blood pressure 1 50 x 92. Patient has been started on Solu-Medrol, Remdesivir, Lovenox and breathing treatments. On reviewing the labs white count of 6.1, hemoglobin 14.7, platelets 162. Sodium 133, potassium 4.2, chloride 102, bicarb 28, BUN 17, creatinine 0.79. Ferritin 624, magnesium 1.5, albumin 2.9. 10/16/2020 Patient is seen and examined in the ICU. He was admitted for Covid bilateral pneumonia. These with acute hypoxic respiratory failure needing intubation and mechanical ventilation with pulmonary/critical care team following the patient closely. He's undergoing prone position for 16 hours per day. Also he is getting Remidsivir and he is a status post convalescent plasma . Patient does not need pressors as his vitals are stable. And he is on tube feeding. Patient is currently sedated. Labs reviewed 10/17/2020 Patient remains in the ICU sedated and intubated. He is undergoing prone position with the goal 16 hours per day. He is febrile but tachypneic. Labs reviewed including CBC and BMP showing no significant changes. And sputum culture is growing Kay albicans. Chest x-ray showing the same bilateral infiltrates with right more than left related to his covid pneumonia. And he remains on Solu-Medrol 60 mg, remdisvir and normal saline at 75 mL/h. Pulmonary/critical care team R following the patient closely and the recommend to continue the current management and keep monitoring 10/18/2020 pt jana in ICU intubated sedated , with critical care team following him closely and adjusting his vent setting, he is currently needing high doseo f PEEP at 15 cxr from today showing small new bilateral pleural effusion , with basilar c onsolidation consistent wiht known covid 19 infection tomorrow is last dose of Remdisvir he remains on solumedrol 60 mg and gentl hydration 10/20/2020 Patient in ICU intubated on mechanical ventilation for several days now with pulmonary/critical care team managing the patient and monitoring him closely. Patient under going weaning for his PEEP and FiO2 down to 8 cm and 50% Chest x-ray showing stable findings consistent with edema versus pneumonia Patient on the same treatment of submental 60 mg normal saline at 50 mg and Lovenox 80 mg twice daily 10/21/2020 Patient remains in the ICU intubated and sedated, distal and a critical condition. Pulmonary/critical team R following the case closely and managing his vent. His PEEP was increased today to 12 from 8 because was desaturating d uring the night. FiO2 was kept at 50%. Blood pressure is 133/74, oxygen saturation is 90%, breathing rates 24 and is still slightly bradycardic at 56. Creatinine is normal at 0.5, magnesium 2.6, inflammatory markers including ferritin, LDH, C-reactive protein are slightly trending down He is on therapeutic dose of Lovenox for high d-dimer i called the and discussed the case her and all her question were answered and tried to explain the situation for her in a language she can un derstand 10/22/2020 Patient remains in the ICU intubated and sedated, today his PEEP was lowered to 10 in the morning, he remains on FiO2 of 50% He is hemodynamically stable. Sugar is controlled. WBC stable at 13.6 K results of CBC is unremarkable. Creatinine is normal at 0.5. Repeat chest x-ray today showing continued bilateral diffuse interstitial infiltrates and retrocardiac opacity. Development consolidation in the right lower lobe suggestive overall worsening Medications salmeterol 60 mg of normal saline at 40, continue with Lovenox with the same dose Prognosis remains guarded 10/23/2020 This is a pleasant 74 years old male who presents with bilateral: With pneumonia and his been in the ICU intubated and sedated, pulmonary/critical care team helped with vent management, it looks like his respiratory function is improving as there is a troponin PEEP down to 67 and he's undergoing sedation holiday and possible when in a trial with the call to get him extubated. WBC count 13,000, creatinine normal 0.500 glucose control. Elevated inflammatory markers Patient remains on Solu-Medrol, normocephalic 40 mL/h and Lovenox 80 mg twice daily, he was started on Lasix 40 mg daily 10/24/2020 Patient is a status post extubation and is currently on high flow nasal cannula with an FiO2 of 60-63% saturated on the low 90s. Patient looks dyspneic and could not provide information because of his dyspnea. Chest x-ray showing worsening bilateral middle and lower infiltrates WBC is stable at 13.5 K. BMP is unremarkable. Zinc and vitamin C were added, patient continue on some epidural 60 mg, at 40 and lasix 40 mg daily and lovenox 80 mg twice daily. Physical therapy evaluation is warranted as well as a swallow evaluation 10/25/2020 Patient is monitored in the ICU currently is status post extubation 2 days ago. He is quite dyspneic and on airvo at 60 L and 65% FiO2. Chest x-ray showing scattered infiltrates but stable. CBC is unremarkable. Creatinine 0.6. But all inflammatory markers including ferritin, LDH and C-reactive protein are increased. His sugar is controlled Medication-lewis he remains on Solu-Medrol 60 mg #40 mg and Lasix 40 mg daily. Lasix was lowered today to 30 mg twice daily as there is trending down and his d-dimer from 6.6 down to 4.5. 10/26/2020 Patient is seen and evaluated and follow-up continues to be closely monitored in the ICU. Patient currently working with physical therapy as he continues to be quite weak and attempts to sit at the bedside and possibility of in the chair. Patient is a 2 person assist due to weakness. Patient continues to be short of breath and dyspneic with exertion and is maintained on airvo at 60 L with an F iO2 of 70%. No real improvement on chest x-ray and infiltrates remain stable. D-dimer elevated at 5.63, sodium is 136, potassium is 4.7, current creatinine is 0.57. Inflammatory markers elevated as well. Patient is maintained on IV Solu- Medrol, vitamin C and D supplements along with zinc and Lovenox and will continue. Patient's blood sugars on the lower end and will continue with Accu- Cheks and every 6 hours sliding scale as needed. Patient is on a full liquid diet and tolerating. 10/27/20 He is remains in the ICU and it looks very weak and tired vitals are stable but remains needing high flow nasal cannula at 60 L and FiO2 of 55 with oxygen saturation 92-93%. He has mild leukocytosis of 11 K, BMP is unremarkable and inflammatory markers including LDH and C-reactive protein are trending down Chest x-ray: Stable bilateral patchy infiltrates compatible with atypical pneumonia. No critical limb ischemia per vascular surgery team Today 10 cm was stopped and switched to dexamethasone 6 mg daily, normal saline was stopped as well as Lasix. However he remains on Lovenox 30 mg twice daily. 10/28/2020 Patient remains in the ICU for his bilateral: With pneumonia is a status post extubation few days ago, He is currently saturating 91 on high flow nasal cannula with 60 L and FiO2 of 50%. Most labs show no change from before and it looks stable. He has mild leukocytosis. Inflammatory markers are trending down slowly. Chest x-ray showing patchy inflammatory infiltrate on both sides, mainly in the middle and lower areas, and change from previous x-ray Most of his medications were stopped blood including Solu-Medrol, Lasix, normal saline and he finishes remdesivir, currently he is on Lovenox 30 mg twice daily and dexamethasone 6 mg daily. Patient is being followed closely by pulmonary/critical care team 10/29/2020 Patient is seen and evaluated and follow-up continues to remain in the ICU continues to be on Airvo although was found to be on the side of his face and not in his nostrils on exam. Patient states it is difficult to keep in the nostrils all the time. Oxygen saturation was 89-90%. Discussed with nursing staff about weaning FiO2 as tolerated. Patient continues to be weak and was seen and evaluated for possible inpatient rehab at [facility] by Dr. Hughes. Patient is working with physical therapy and is currently sitting up in the chair. X-ray today shows continued patchy and confluent bilateral airspace disease with no changes from previous. Instructed patient to continue with incentive spirometer at least 10 times every hour while awake. Patient is tolerating diet with no reports of nausea or vomiting noted. Patient is maintained on dexamethasone along with Lovenox and vitamin supplements and will continue. 10/30/2020 Patient is seen this morning continues to be in the ICU although currently waiting for transfer to the [facility] unit. Patient is currently on oxygen via nasal cannula from 2-4 L and tolerating well. Airvo is continued. Patient has been afebrile. Patient is eating although not much of an appetite but is maintaining regular diet. Patient continues to be quite weak and continues to work with physical therapy. Case management and social work following with the possibility of ECF versus inpatient rehab for continued PT/OT therapy. Incentive spirometer ordered and instructed the patient to continue using at [facility] 10 times every hour while awake. D-dimer trending down and 2.01. White blood count 9.8, hemoglobin 13.9, sodium is 134, potassium is 4.9 and current creatinine is 0.57. Inflammatory markers slowly trending down as well. Review of systems: Constitutional: No reports of, no reports of fever, or chills Cardiovascular: No reports of chest pain or palpitations Respiratory: Reports continued shortness of breath although states is improving slowly and less dyspneic with exertion GI: No reports of nausea, vomiting, or diarrhea : No reports of dysuria or retention Neurovascular: Reports weakness although feels somewhat improved All medications have been reviewed Objective - Vital Signs Vital signs: Vital Signs Temp 98.1 F 10/30/20 08:00 Pulse 80 10/30/20 08:00 Resp 16 10/30/20 08:00 BP 115/79 10/30/20 08:00 Pulse Ox 89 L 10/30/20 08:00 Intake & Output 10/29/20 10/30/20 10/30/20 18:59 06:59 18:59 Intake Total 540 390 40 Output Total 1600 960 325 Balance -1060 -570 -285 Weight 72 kg 72.5 kg Intake: IV 240 240 40 Sodium Chloride 0.9% 1, 240 240 40 000 ml @ 20 mls/hr IV . Q24H [facility] Rx#:[id number] Oral 300 150 Output: Urine 1600 960 325 Other: Voiding Method Indwelling Catheter Indwelling Catheter Indwelling Catheter ABP, PAP, CO, CI - Last Documented Arterial Blood Pressure 103/93 - Exam GENERAL: The patient is awake, alert and oriented 3, well-developed, well- nourished, sitting up in the chair HEENT: Pupils are round and equally reacting to light. EOMI. No scleral icterus. No conjunctival pallor. Normocephalic, atraumatic. No pharyngeal erythema. No thyromegaly. nasal cannula noted on exam and currently at 2-3 L CARDIOVASCULAR: S1 and S2 present. No murmurs, rubs, or gallops. PULMONARY: Decreased breath sounds bilaterally, no wheezing or crackles. Bilateral coarse crepitation noted ABDOMEN: Soft, nontender, nondistended, normoactive bowel sounds. No palpable organomegaly. MUSCULOSKELETAL: No joint swelling or deformity. EXTREMITIES: No cyanosis, clubbing, or pedal edema. NEUROLOGICAL: Gross neurological examination did not reveal any focal deficits. Diffuse weakness SKIN: No rashes. no petechiae. - Labs CBC & Chem 7: 10/30/20 03:54 10/30/20 03:54 Labs: Abnormal Lab Results - Last 24 Hours (Table) 10/29/20 10/30/20 10/30/20 Range/Units 16:56 03:54 03:54 Neutrophils # (1.3-7.7) k/uL D-Dimer 2.01 H (<0.60) mg/L FEU Sodium 134 L (137-145) mmol/L Carbon Dioxide 31 H (22-30) mmol/L BUN 26 H (9-20) mg/dL Creatinine 0.57 L (0.66-1.25) mg/dL POC Glucose (mg/dL) 154 H (75-99) mg/dL Calcium 8.1 L (8.4-10.2) mg/dL ALT 182 H (4-49) U/L Lactate Dehydrogenase 894 H (313-618) U/L C-Reactive Protein 50.1 H (<10.0) mg/L Total Protein 5.3 L (6.3-8.2) g/dL Albumin 2.4 L (3.5-5.0) g/dL 10/30/20 10/30/20 Range/Units 03:54 06:27 Neutrophils # 8.0 H (1.3-7.7) k/uL D-Dimer (<0.60) mg/L FEU Sodium (137-145) mmol/L Carbon Dioxide (22-30) mmol/L BUN (9-20) mg/dL Creatinine (0.66-1.25) mg/dL POC Glucose (mg/dL) 125 H (75-99) mg/dL Calcium (8.4-10.2) mg/dL ALT (4-49) U/L Lactate Dehydrogenase (313-618) U/L C-Reactive Protein (<10.0) mg/L Total Protein (6.3-8.2) g/dL Albumin (3.5-5.0) g/dL Assessment and Plan Assessment: Acute hypoxic respiratory failure secondary to COVID pneumonia possible acute respiratory distress syndrome ARDS, per pulmonary team Acute hypoxic respiratory failure needing mechanical ventilation, status post extubation on 10/23 Hyperlipidemia History of asthma GERD DVT prophylaxis: Subcutaneous Lovenox GI prophylaxis: Pepcid Full code Plan: Continue with current medications. Multiple medical consultations following. Patient weaning FiO2 as tolerated and currently on 2-3 L of oxygen via nasal cannula. Patient instructed and encouraged to increase activity as tolerated and continue using incentive spirometer. Encouraged oral intake as his appetite continues to be poor although is tolerating with no reports of nausea or vomiting noted. PT/OT following and working with the patient daily. Case management and social work also following for possible ECF versus inpatient rehab for continued strength and mobility. Patient currently in the ICU [facility]. Patient is cur rently on dexamethasone along with Lovenox, vitamin C and E supplements, and zinc supplements and will continue at this time. Will repeat a.m. labs and continue to monitor inflammatory markers.
[2020-10-30] MEDS: MELATONIN 5 MG TABLET PO SCH (20:27)
[2020-10-30] MEDS: TEMAZEPAM 15 MG CAP PO SCH (20:27)
[2020-10-30] MEDS: SODIUM CHLORIDE 0.9% 1,000 ML IV SCH (22:37)
[2020-10-31 06:20] LABS: Basophils % (A) 0 %; Eosinophils # (A) 0.1 k/uL (0-0.7); Eosinophils % (A) 1 %; HCT 40.6 % (39.0-53.0); HGB 14.3 gm/dL (13.0-17.5); Lymphocytes # (A) 1.8 k/uL (1.0-4.8); Lymphocytes % (A) 15 %; MCH 30.3 pg (25.0-35.0); MCHC 35.2 g/dL (31.0-37.0); MCV 86.1 fL (80.0-100.0); Mean Platelet Volume 7.8; Monocytes # (A) 0.5 k/uL (0-1.0); Monocytes % (A) 5 %; Neutrophils # (A) 8.9 k/uL (1.3-7.7); Neutrophils % (A) 77 %; Platelet Count 208 k/uL (150-450); RBC 4.72 m/uL (4.30-5.90); WBC 11.5 k/uL (3.8-10.6)
[2020-10-31] MEDS: INSULIN ASPART (NovoLOG) 100 UNIT/ML VIAL SQ SCH (06:37)
--- NOTE | 2020-10-31 07:42 | XR ---
EXAMINATION TYPE: XR chest 1V DATE OF EXAM: 10/31/2020 COMPARISON: 10/30/2020 INDICATION: Covid pneumonia TECHNIQUE: Single frontal view of the chest is obtained. FINDINGS: The heart size is normal. The pulmonary vasculature is normal. Patchy bilateral lung infiltrates are present can be compatible with atypical pneumonia. Findings maurice ear similar to comparison. IMPRESSION: 1. Stable bilateral lung infiltrates can be compatible with atypical pneumonia.
[2020-10-31] MEDS: dexAMETHasone 2 MG TAB PO SCH (08:10)
[2020-10-31] MEDS: FAMOTIDINE 20 MG TAB PO SCH ×2 (08:10→20:59)
[2020-10-31] MEDS: ZINC SULFATE 220 MG CAP PO SCH (08:10)
[2020-10-31] MEDS: CHOLECALCIFEROL 25 MCG (1000 IU) TABLET PO SCH (08:10)
[2020-10-31] MEDS: ATORVASTATIN 40 MG TAB PO SCH (08:10)
[2020-10-31] MEDS: ASCORBIC ACID 500 MG TAB PO SCH ×2 (08:10→20:59)
[2020-10-31] MEDS: amLODIPine 5 MG TAB PO SCH (08:11)
[2020-10-31] MEDS: COLCHICINE 0.6 MG EACH PO SCH ×2 (08:11→21:33)
[2020-10-31] MEDS: ENOXAPARIN 30 MG/0.3 ML SYRINGE SQ SCH (08:11)
[2020-10-31] MEDS: ALBUTEROL HFA INHALER INHALATION PRN ×4 (08:35→20:14)
[2020-10-31 10:47] LABS: African American GFR (CKD) 131.2 (60.0-200.0); Anion Gap -2.7 mmol/L (4.00-12.00); BUN/Creat Ratio 41.67 Ratio (12.00-20.00); C Reactive Protein 2.7 mg/dL (0.0-0.8); Calcium 8.5 mg/dL (8.7-10.3); Carbon Dioxide 29.7 mmol/L (21.6-31.8); Ferritin 803.2 ng/mL (22.0-322.0); Non-African American GFR(CKD) 113.2 (60.0-200.0)
--- NOTE | 2020-10-31 10:59 | P.ARTDOP ---
Arterial Doppler LOWER EXTREMITY ARTERIAL DOPPLER: DATE OF SERVICE: 10/26/2020 Reason for study: Cold feet. Doppler waveforms: Multiphasic bilaterally throughout. Toe waveforms somewhat blunted. Pulse volume recording: []. Pressure gradients: None significant. Ankle-brachial indices: . Elevated bilaterally. Toe brachial indices: 0.97 on the right, 0.90 on the left Impression: Suspect calcific wall disease. Suspect total perfusion actually adequate. Diminished waveforms probably related to vasospastic phenomenon. Perfusion probably adequate for healing..
[2020-10-31] MEDS ORDERED: HYDROCORTISONE 1% CREAM 30 GM TUBE TOPICAL PRN (11:34)
--- NOTE | 2020-10-31 14:05 | P.PN ---
Subjective Progress Note Date: 10/31/20 HPI - Patient is a 55-year-old male came in with complaints of increasing shortness of breath over the past week. Patient was diagnosed with Covid 6 days ago. He has completed a course of steroids as well as Z-Douglas. Patient states over the past week he's been fighting fevers, body aches, chills and nausea. Patient states his shortness of breath has been steadily increasing. He gets winded with just walking around his house. He does admit to some chest pain when he is coughing. He does have some production with his cough. He does admit to history of asthma, denies heart disease. He states his last dose of Tylenol was last night. He denies any vomiting, no dysuria. Patient is febrile 100.4, pulse is 96, he is satting 88% on room air. Patient had a chest x-ray which showed diffuse bilateral infiltrates. Patient is presently on 2 L of oxygen saturating 93% patient was having fevers at home patient had a low-grade fever here. Patient has elevated inflammatory markers along with the low sodium. On 10/15/2020 - last night patient became more short of breath, so he was shifted to the ICU. Initially the patient was placed on BiPAP, patient was staffed neck and saturating in the high 80s and so eventually he had to be intubated around noon. Currently he is mechanically ventilated and sedated. Reviewing the vitals patient is tachycardic between 100-110, saturating in the low 80s on 100% FiO2, blood pressure 1 50 x 92. Patient has been started on Solu-Medrol, Remdesivir, Lovenox and breathing treatments. On reviewing the labs white count of 6.1, hemoglobin 14.7, platelets 162. Sodium 133, potassium 4.2, chloride 102, bicarb 28, BUN 17, creatinine 0.79. Ferritin 624, magnesium 1.5, albumin 2.9. 10/16/2020 Patient is seen and examined in the ICU. He was admitted for Covid bilateral pneumonia. These with acute hypoxic respiratory failure needing intubation and mechanical ventilation with pulmonary/critical care team following the patient closely. He's undergoing prone position for 16 hours per day. Also he is getting Remidsivir and he is a status post convalescent plasma . Patient does not need pressors as his vitals are stable. And he is on tube feeding. Patient is currently sedated. Labs reviewed 10/17/2020 Patient remains in the ICU sedated and intubated. He is undergoing prone position with the goal 16 hours per day. He is febrile but tachypneic. Labs reviewed including CBC and BMP showing no significant changes. And sputum culture is growing Kay albicans. Chest x-ray showing the same bilateral infiltrates with right more than left related to his covid pneumonia. And he remains on Solu-Medrol 60 mg, remdisvir and normal saline at 75 mL/h. Pulmonary/critical care team R following the patient closely and the recommend to continue the current management and keep monitoring 10/18/2020 pt jana in ICU intubated sedated , with critical care team following him closely and adjusting his vent setting, he is currently needing high doseo f PEEP at 15 cxr from today showing small new bilateral pleural effusion , with basilar c onsolidation consistent wiht known covid 19 infection tomorrow is last dose of Remdisvir he remains on solumedrol 60 mg and gentl hydration 10/20/2020 Patient in ICU intubated on mechanical ventilation for several days now with pulmonary/critical care team managing the patient and monitoring him closely. Patient under going weaning for his PEEP and FiO2 down to 8 cm and 50% Chest x-ray showing stable findings consistent with edema versus pneumonia Patient on the same treatment of submental 60 mg normal saline at 50 mg and Lovenox 80 mg twice daily 10/21/2020 Patient remains in the ICU intubated and sedated, distal and a critical condition. Pulmonary/critical team R following the case closely and managing his vent. His PEEP was increased today to 12 from 8 because was desaturating d uring the night. FiO2 was kept at 50%. Blood pressure is 133/74, oxygen saturation is 90%, breathing rates 24 and is still slightly bradycardic at 56. Creatinine is normal at 0.5, magnesium 2.6, inflammatory markers including ferritin, LDH, C-reactive protein are slightly trending down He is on therapeutic dose of Lovenox for high d-dimer i called the and discussed the case her and all her question were answered and tried to explain the situation for her in a language she can un derstand 10/22/2020 Patient remains in the ICU intubated and sedated, today his PEEP was lowered to 10 in the morning, he remains on FiO2 of 50% He is hemodynamically stable. Sugar is controlled. WBC stable at 13.6 K results of CBC is unremarkable. Creatinine is normal at 0.5. Repeat chest x-ray today showing continued bilateral diffuse interstitial infiltrates and retrocardiac opacity. Development consolidation in the right lower lobe suggestive overall worsening Medications salmeterol 60 mg of normal saline at 40, continue with Lovenox with the same dose Prognosis remains guarded 10/23/2020 This is a pleasant 74 years old male who presents with bilateral: With pneumonia and his been in the ICU intubated and sedated, pulmonary/critical care team helped with vent management, it looks like his respiratory function is improving as there is a troponin PEEP down to 67 and he's undergoing sedation holiday and possible when in a trial with the call to get him extubated. WBC count 13,000, creatinine normal 0.500 glucose control. Elevated inflammatory markers Patient remains on Solu-Medrol, normocephalic 40 mL/h and Lovenox 80 mg twice daily, he was started on Lasix 40 mg daily 10/24/2020 Patient is a status post extubation and is currently on high flow nasal cannula with an FiO2 of 60-63% saturated on the low 90s. Patient looks dyspneic and could not provide information because of his dyspnea. Chest x-ray showing worsening bilateral middle and lower infiltrates WBC is stable at 13.5 K. BMP is unremarkable. Zinc and vitamin C were added, patient continue on some epidural 60 mg, at 40 and lasix 40 mg daily and lovenox 80 mg twice daily. Physical therapy evaluation is warranted as well as a swallow evaluation 10/25/2020 Patient is monitored in the ICU currently is status post extubation 2 days ago. He is quite dyspneic and on airvo at 60 L and 65% FiO2. Chest x-ray showing scattered infiltrates but stable. CBC is unremarkable. Creatinine 0.6. But all inflammatory markers including ferritin, LDH and C-reactive protein are increased. His sugar is controlled Medication-lewis he remains on Solu-Medrol 60 mg #40 mg and Lasix 40 mg daily. Lasix was lowered today to 30 mg twice daily as there is trending down and his d-dimer from 6.6 down to 4.5. 10/26/2020 Patient is seen and evaluated and follow-up continues to be closely monitored in the ICU. Patient currently working with physical therapy as he continues to be quite weak and attempts to sit at the bedside and possibility of in the chair. Patient is a 2 person assist due to weakness. Patient continues to be short of breath and dyspneic with exertion and is maintained on airvo at 60 L with an F iO2 of 70%. No real improvement on chest x-ray and infiltrates remain stable. D-dimer elevated at 5.63, sodium is 136, potassium is 4.7, current creatinine is 0.57. Inflammatory markers elevated as well. Patient is maintained on IV Solu- Medrol, vitamin C and D supplements along with zinc and Lovenox and will continue. Patient's blood sugars on the lower end and will continue with Accu- Cheks and every 6 hours sliding scale as needed. Patient is on a full liquid diet and tolerating. 10/27/20 He is remains in the ICU and it looks very weak and tired vitals are stable but remains needing high flow nasal cannula at 60 L and FiO2 of 55 with oxygen saturation 92-93%. He has mild leukocytosis of 11 K, BMP is unremarkable and inflammatory markers including LDH and C-reactive protein are trending down Chest x-ray: Stable bilateral patchy infiltrates compatible with atypical pneumonia. No critical limb ischemia per vascular surgery team Today 10 cm was stopped and switched to dexamethasone 6 mg daily, normal saline was stopped as well as Lasix. However he remains on Lovenox 30 mg twice daily. 10/28/2020 Patient remains in the ICU for his bilateral: With pneumonia is a status post extubation few days ago, He is currently saturating 91 on high flow nasal cannula with 60 L and FiO2 of 50%. Most labs show no change from before and it looks stable. He has mild leukocytosis. Inflammatory markers are trending down slowly. Chest x-ray showing patchy inflammatory infiltrate on both sides, mainly in the middle and lower areas, and change from previous x-ray Most of his medications were stopped blood including Solu-Medrol, Lasix, normal saline and he finishes remdesivir, currently he is on Lovenox 30 mg twice daily and dexamethasone 6 mg daily. Patient is being followed closely by pulmonary/critical care team 10/29/2020 Patient is seen and evaluated and follow-up continues to remain in the ICU continues to be on Airvo although was found to be on the side of his face and not in his nostrils on exam. Patient states it is difficult to keep in the nostrils all the time. Oxygen saturation was 89-90%. Discussed with nursing staff about weaning FiO2 as tolerated. Patient continues to be weak and was seen and evaluated for possible inpatient rehab at [facility] by Dr. Hughes. Patient is working with physical therapy and is currently sitting up in the chair. X-ray today shows continued patchy and confluent bilateral airspace disease with no changes from previous. Instructed patient to continue with incentive spirometer at least 10 times every hour while awake. Patient is tolerating diet with no reports of nausea or vomiting noted. Patient is maintained on dexamethasone along with Lovenox and vitamin supplements and will continue. 10/30/2020 Patient is seen this morning continues to be in the ICU although [facility] Patient is currently on oxygen via nasal cannula from 2-4 L and tolerating well. Airvo is continued. Patient has been afebrile. Patient is eating although not much of an appetite but is maintaining regular diet. Patient continues to be quite weak and continues to work with physical therapy. Case management and social work following with the possibility of ECF versus inpatient rehab for continued PT/OT therapy. Incentive spirometer ordered and instructed the patient to continue using at [facility] 10 times every hour while awake. D-dimer trending down and 2.01. White blood count 9.8, hemoglobin 13.9, sodium is 134, potassium is 4.9 and current creatinine is 0.57. Inflammatory markers slowly trending down as well. 10/31/2020 Patient is seen today and evaluated currently on a [facility] unit. Patient continues to work with physical therapy although continues to be weak. Patient will likely require subacute rehab or inpatient rehab for aggressive physical therapy. Patient is currently maintained on 4 L via nasal cannula at 94% oxygen saturation. Decadron dosing has been decreased along with Lovenox and patient is maintained on colchicine along with vitamin C and D and zinc supplements. Pulmonary is following. Currently awaiting for [facility] to evaluate most recent therapy notes for acceptance. Will discuss with patient's Una per the patient's wishes about treatment plan. Inflammatory markers trending down although d-dimer slightly elevated at 2.45 today. Sodium is 140 with a potassium of 5.0 and current creatinine is 0.6. White blood count is 11.5 and hemoglobin is stable at 14.3. Will repeat a.m. labs. Review of systems: Constitutional: No reports of, no reports of fever, or chills Cardiovascular: No reports of chest pain or palpitations Respiratory: Reports continued shortness of breath although states is improving slowly and less dyspneic with exertion GI: No reports of nausea, vomiting, or diarrhea : No reports of dysuria or retention Neurovascular: Reports weakness although feels somewhat improved All medications have been reviewed Objective - Vital Signs Vital signs: Vital Signs Temp 98.2 F 10/31/20 10:40 Pulse 75 10/31/20 10:40 Resp 19 10/31/20 10:40 BP 102/63 10/31/20 10:40 Pulse Ox 94 L 10/31/20 10:40 Intake & Output 10/30/20 10/31/20 10/31/20 18:59 06:59 18:59 Intake Total 60 Output Total 525 300 Balance -465 -300 Weight 70 kg Intake: IV 60 Sodium Chloride 0.9% 1, 60 000 ml @ 20 mls/hr IV . Q24H [facility] Rx#:[id number] Output: Urine 525 300 Other: Voiding Method Indwelling Catheter Bedside Commode # Voids 1 1 2 # Bowel Movements 1 ABP, PAP, CO, CI - Last Documented Arterial Blood Pressure 103/93 - Exam GENERAL: The patient is awake, alert and oriented 3, well-developed, well- nourished, sitting up in the chair HEENT: Pupils are round and equally reacting to light. EOMI. No scleral icterus. No conjunctival pallor. Normocephalic, atraumatic. No pharyngeal erythema. No thyromegaly. nasal cannula noted on exam and currently at 2-3 L CARDIOVASCULAR: S1 and S2 present. No murmurs, rubs, or gallops. PULMONARY: Decreased breath sounds bilaterally, no wheezing or crackles. Scattered rhonchi noted bilaterally ABDOMEN: Soft, nontender, nondistended, normoactive bowel sounds. No palpable organomegaly. MUSCULOSKELETAL: No joint swelling or deformity. EXTREMITIES: Mild cyanosis noted to bilateral feet, with no clubbing, or pedal edema. Arterial study was normal NEUROLOGICAL: Gross neurological examination did not reveal any focal deficits. Diffuse weakness SKIN: No rashes. no petechiae. - Labs CBC & Chem 7: 10/31/20 05:46 10/31/20 05:46 Labs: Abnormal Lab Results - Last 24 Hours (Table) 10/31/20 10/31/20 10/31/20 Range/Units 05:46 05:46 05:46 WBC 11.5 H (3.8-10.6) k/uL Neutrophils # 8.9 H (1.3-7.7) k/uL D-Dimer 2.45 H (<0.60) mg/L FEU Chloride 113 H (96-109) mmol/L Anion Gap -2.70 L (4.00-12.00) mmol/L BUN/Creatinine Ratio 41.67 H (12.00-20.00) Ratio Calcium 8.5 L (8.7-10.3) mg/dL Ferritin 803.2 H (22.0-322.0) ng/mL Lactate Dehydrogenase 372 H (120-246) U/L C-Reactive Protein 2.7 H (0.0-0.8) mg/dL Assessment and Plan Assessment: Acute hypoxic respiratory failure secondary to COVID pneumonia possible acute respiratory distress syndrome ARDS, per pulmonary team Acute hypoxic respiratory failure needing mechanical ventilation, status post extubation on 10/23 Hyperlipidemia History of asthma GERD DVT prophylaxis: Subcutaneous Lovenox GI prophylaxis: Pepcid Full code Plan: Continue with current medications. Multiple medical consultations following. Patient weaning FiO2 as tolerated and currently on 4 L of oxygen via nasal cannula. Patient instructed and encouraged to increase activity as tolerated and continue using incentive spirometer. PT/OT following and working with the patient daily. Case management and social work also following for possible ECF versus inpatient rehab for continued strength and mobility. [facility] inpatient rehab reviewing therapy notes. Patient is currently on dexamethasone and will decrease dose to taper along with Lovenox, vitamin C and E supplements, and zinc supplements and will continue at this time. Will repeat a.m. labs and continue to monitor inflammatory markers.
--- NOTE | 2020-10-31 15:48 | P.PN ---
Subjective Progress Note Date: 10/31/20 Principal diagnosis: Acute hypoxic resp failure, COVID 19 pneumonia 55-year-old male who was admitted to the ICU yesterday. He came down to the ICU for acute hypoxemic respiratory failure secondary to COVID 19 pneumonia. Initially, we attempted to maintain him on BiPAP, but unfortunately, the patient's respiratory failure worsened and he required intubation and mechanical ventilation. He was intubated on 10/15/2020.. He is on the volume assist control modality, rate 24, tidal volume 450, FiO2 50%, and PEEP of 12. His blood gases show a pO2 of 81, PaCO2 of 42, and a pH of 7.46. He is getting saline at 40 mL an hour, a fentanyl drip at 0.5 mcg/kg/h, propofol at 60 mcg/kg/m, and vital high protein at 64 mL an hour which is goal. He was also paralyzed and is currently off paralytics.. He received 1 dose of, convalescent plasma, and 1 dose of remdesivir. He is receiving Solumedrol at 60 mg IV q 6 hours. On today's evaluation, the patient is being seen on follow-up. The patient's peak airway pressures around 30 on the above-mentioned ventilator setting. The patient is afebrile. The white cell count today is 13.6 with a hemoglobin of 12. Rest of the blood work and electrodes are all within normal limits. The chest x-ray from today still showing diffuse bilateral pulmonary infiltrates ET tube is in a good location. The patient also has a left IJ t riple-lumen catheter in place. The patient's hemodynamically stable. He is on no pressors. He is producing adequate amount of urine output. He is on Lovenox 80 mg subcu every 12 hours.A d-dimer level is up to 2 and this is essentially gone compared to few days back with a d-dimer was up to 34.. On today's evaluation of 10/23/2020 seeing the patient for a follow-up. The patient remains sedated and the patient is on propofol running at 50 mcg/kg per minute and the patient is also on fentanyl at 1.0 mcg/kg/h. She remains on a mechanical ventilator and essentially the ventilator settings currently is at a rate of 24 with a tidal volume of 450, an FiO2 of 50% with a PEEP of 8. His is improved compared to yesterday. The blood gases from today shows a pH of 7.49 with a pCO2 of 40 and pO2 of 74. Chest x-ray stable, probably some improvement in the right lower lobe area. ET tube is in a good location. NG tube is in also good location. He is afebrile. Note that the patient has received convalescent plasma, Geremias is also on IV Solu Medrol 60 mg every 6 hours. His inflammatory markers show a drop in his CRP down to 28 and his LDH is also dropping down to 1179. His net fluid balance has been -68 mL and the patient is receiving Lasix 40 mg IV on a daily basis. His triglyceride level is at 300. Is tolerating enteral feeding for nutritional support. The d-dimer today is at X.2 from yesterday and the repeat levels are pending for today. Meanwhile, the patient remains on therapeutic dose of Lovenox at a dose of 80 mg subcu every 12 hours. On 10/24/2020, the patient is extubated. The patient is currently on high flow oxygen at 60 L. His pulse ox is ranging between 90-94%. He is hemodynamically stable on no pressors. His blood pressure was running on the higher side and the patient was given side effects and is currently on 2 mg an hour and he has an adequate blood pressure control. D-dimer remains elevated at 6.67, his CRP is at 28 from yesterday, his LDH was 1179 from yesterday and inflammatory markers are not obtained from today. He is awake. He is following simple commands and answering questions. He is on IV Solu Medrol 60 mg every 6 hours. He is on Lovenox therapeutic doses of 80 mg subcu every 12 hours. He is afebrile. Cultures are all negative other than some Kay and his sputum. As mentioned, the patient was extubated successfully yesterday. He is a week. He has a weak cough. He has generalized motor weakness in all 4 extremities. No other significant events overnight. Neurologically intact and currently on no sedation. The chest x-ray from today showed essentially stable bilateral pulmonary infiltrates, probably slightly worse compared to yesterday, nevertheless this can be an effective positive pressure delivered by the mechanical ventilator. He does have a triple lumen catheter in his left IJ which is still in place. Left hemidiaphragm is slightly elevated. The patient will be encouraged to use incentive spirometer. The patient is in a negative fluid balance of 2.6 hours and the patient remains on IV Lasix 40 mg every 24 hours. On 10/25/2020 patient remains extubated. He currently on the AirVo 60 L and 65% FiO2 also says just above 90% and the patient is also utilizing 100% on a beta facemasks. A chest x-ray from today shows some limited improvement on the right. There is still dense bilateral pulmonary infiltrates. The patient was extubated on 10/23/2020. He remains on IV Solu-Medrol 60 mg every 6 hours. Inflammatory markers from today show a d-dimer of 4.5 which is lower compared to yesterday, he also had a LDH level of 1924, higher and his CRP level is 44, higher. He is afebrile. He is hemodynamically stable. He is taking some limited oral intake mainly in the form of clear liquids. He is weak. He is anxious. He has a decent cough. He remains on IV Lasix every 24 hours in the neck fluid balance has been in the order of 3.1 L. He remains on Lovenox 80 mg subcutaneous every 12 hours. No sedatives. No delirium. No confusion. Family has been updated. He is on Celebrex 100 mg an hour On 10/26/2020, the patient remains extubated. The patient remains on high flow oxygen 60 L and the FiO2 is at 70%. The pulse is currently is ranging between 88 and 91%. He remains in high spirits 50 once recovered. On and off is also utilizing 100% nonrebreather facemask. Nevertheless, for the most part, he is using the high flow oxygen. He is on IV fluids with normal saline at the rate of 20 mL an hour. The patient is being diuresis and a daily basis of a negative fluid balance is in the order of -2.060 liters over the past 24 hours. The patient is is otherwise doing well. LDH level is at 1676 which is lower compared to yesterday. CRP is also 24.5 which is essentially lower than yesterday. The BUN is at 47 with a creatinine of 0.57. He remains on Lovenox 80 mg subcu every 12 hours. The d-dimer is still elevated at 5.63. On today's evaluation, it was noted that the patient has a cold left foot. Doppler pulses will be also obtained and vascular surgery will be involved in the case and there are no pulses. The right lower extremity and the right foot is within normal limits. The patient denies having any pain in his left foot. No other significant events otherwise for now. Is tolerating his diet. He is gradually increasing his oral intake. 10/27/2020, the patient is on 60 L with an FiO2 of 65%. He is recovering from his acute hypoxic respiratory failure and diffuse pneumonia related to covid 19. He is in good spirits. His chest x-ray from today and gradual improvement in diffuse pulmonary infiltrates. As compared to the earlier chest x-ray from a few days back. Meanwhile, the patient's white cell count is 11.9. LDH is dropping from 1676 down to 1397 and the CRP is down from 24.9-15.7. His d-dimer is also down to 4.15. Obviously the patient is showing ongoing clinical response and improvement for now. As for the lower extremity, Doppler signals are back and the patient is currently is off IV heparin. We are going back on Lovenox 30 mg subcu every 12 hours. The patient remained on IV Solu Medrol 60 mg every 6 hours. 10/28/2020, the patient is still on high flow oxygen. This morning, he is on 60 L with an FiO2 of 50%. Pulse ox is 91%. Chest x-ray is unchanged with diffuse bilateral airspace disease and interstitial and alveolar infiltrates. He inflammatory markers are not done today and this will be done tomorrow. Afebrile. Speech is better. Is able to speak longer sentences. No chest pain. He is able to sit up on the recliner. He is using incentive spirometer. No significant rest or secretions. No fever. He remains on Decadron 6 mg by mouth on a daily basis. He is Lovenox 30 mg subcu every 12 hours. BP is under good control and is on Norvasc 5 mg by mouth daily. Is on no pressors or a ntihypertensive wraps for now. He is drinking a short period he is eating adequately, approximately 50% of his food offered and the patient will be advanced on his diet to regular. He does have a mid line in his left upper extremity. He does have a Khan catheter. Reevaluated today on 10/29/2020, patient remains in the ICU, remains on airvo with FiO2 at 40%, and he is on 35 L high flow. Saturation is running in the low 90s. Patient seems to be comfortable, chest x-ray continues to show bilateral interstitial infiltrates. Patient was extubated last week, and so far he tolerated the extubation well. He is awake, alert, in no distress, tolerating oral diet, and today I went ahead and kept him on Decadron, and I added colchicine 0.6 mg by mouth twice a day. WBC count today is 11.7 hemoglobin is 12.9 inflammatory markers were noted, C-reactive protein is 43.6 and LDH is 925. Electrolytes and renal profile are normal. Reevaluated today on 10/30/2020, patient remains in the ICU, he is down to 3 L nasal cannula, and his O2 saturation is 92%. Patient is feeling much better, breathing a lot easier, he is not requiring any high flow oxygen, and he does not seem to be in any distress. Remains on Decadron. Remains on colchicine. And on Lovenox. My plan today is to transfer the patient out of the ICU to a regular medical floor since his O2 requirement is significantly improved. CBC today is relatively normal basic metabolic profile is normal d-dimer is 2.01. LDH is down to 894, and C-reactive protein is 50 On 10/31/2020 patient seen in follow-up on medical floor, yesterday she was transferred out of the intensive care unit, he has remained stable overnight, -7 stable, FiO2 is at 4-5 L, and her pulse ox is 94-96%, she has been afebrile, blood pressure is been stable. Mentation is appropriate, is awake and alert, answering questions appropriately, no worsening dyspnea, however he continues to be generally weak, he is working with physical therapy. She will likely need placement to subacute rehab after discharge, his Decadron dose has been decreased, his Lovenox has been at 30 mg twice daily for last several days, and his d-dimer is 2.45, inflammatory markers are improving. Reports no fever no chills, no chest discomfort or palpitations. Tolerating oral intake. Objective - Vital Signs Vital signs: Vital Signs Temp 98.5 F 10/31/20 15:04 Pulse 78 10/31/20 15:04 Resp 19 10/31/20 15:04 BP 108/65 10/31/20 15:04 Pulse Ox 96 10/31/20 15:04 Intake & Output 10/30/20 10/31/20 10/31/20 18:59 06:59 18:59 Intake Total 60 Output Total 525 300 Balance -465 -300 Weight 70 kg Intake: IV 60 Sodium Chloride 0.9% 1, 60 000 ml @ 20 mls/hr IV . Q24H [facility] Rx#:[id number] Output: Urine 525 300 Other: Voiding Method Indwelling Catheter Bedside Commode # Voids 1 1 2 # Bowel Movements 1 ABP, PAP, CO, CI - Last Documented Arterial Blood Pressure 103/93 - Exam GENERAL EXAM: Alert, very pleasant, 55-year-old male on 5 L of oxygen the pulse ox of 96% comfortable in no apparent distress. HEAD: Normocephalic/atraumatic. EYES: Normal reaction of pupils, equal size. Conjunctiva pink, sclera white. NOSE: Clear with pink turbinates. THROAT: No erythema or exudates. NECK: No masses, no JVD, no thyroid enlargement, no adenopathy. CHEST: No chest wall deformity. Symmetrical expansion. LUNGS: Equal air entry with no crackles, wheeze, rhonchi or dullness. CVS: Regular rate and rhythm, normal S1 and S2, no gallops, no murmurs, no rubs ABDOMEN: Soft, nontender. No hepatosplenomegaly, normal bowel sounds, no guarding or rigidity. EXTREMITIES: No clubbing, no edema, no cyanosis, 2+ pulses and upper and lower extremities. MUSCULOSKELETAL: Muscle strength and tone normal. SPINE: No scoliosis or deformity SKIN: No rashes CENTRAL NERVOUS SYSTEM: Alert and oriented -3. No focal deficits, tone is normal in all 4 extremities. PSYCHIATRIC: Alert and oriented -3. Appropriate affect. Intact judgment and insight. - Labs CBC & Chem 7: 10/31/20 05:46 10/31/20 05:46 Labs: Abnormal Lab Results - Last 24 Hours (Table) 10/31/20 10/31/20 10/31/20 Range/Units 05:46 05:46 05:46 WBC 11.5 H (3.8-10.6) k/uL Neutrophils # 8.9 H (1.3-7.7) k/uL D-Dimer 2.45 H (<0.60) mg/L FEU Chloride 113 H (96-109) mmol/L Anion Gap -2.70 L (4.00-12.00) mmol/L BUN/Creatinine Ratio 41.67 H (12.00-20.00) Ratio Calcium 8.5 L (8.7-10.3) mg/dL Ferritin 803.2 H (22.0-322.0) ng/mL Lactate Dehydrogenase 372 H (120-246) U/L C-Reactive Protein 2.7 H (0.0-0.8) mg/dL Assessment and Plan Plan: Assessment: #1. Acute hypoxic respiratory failure secondary to COVID 19 pneumonia, patient required intubation and placement on mechanical ventilator on 10/15/2020, patient completed his Remdesivir treatments in addition to high-dose IV Solu- Medrol for several days, convalescent plasma. Patient was successfully weaned and extubated and tolerating extubation very well thus far, currently FiO2 is down to 4-5 L per nasal cannula #2. Acute respiratory distress syndrome secondary to the above, successfully weaned and extubated, x-ray findings remain stable #3. History of hyper lipidemia #4. History of chronic bronchitis asthma #5. History of GERD/reflux #6. Elevated d-dimer, on Lovenox #7. Cold left foot, possibly ischemic, evaluated by vascular surgery, the pulses in the left foot has recovered, patient is off heparin drip and is back on Lovenox 30 mg subcutaneously every 12 hours. Today on 10/31/2020 his left foot is warm, and pulses are present, his arterial Doppler showed calcific wall disease, adequate renal perfusion adequate for healing #8. Critical illness polyneuropathy #9. Hypertension Plan: Patient is doing well, continue weaning FiO2, remains generally weak, will likely need subacute rehab placement after discharge, no acute events overnight, no fever or chills, no worsening dyspnea. Cut back the Lovenox to 30 mg once daily, arterial Doppler study results have been noted. Decadron dose has been adjusted, continue current medical treatment, antisipate discharge to subacute rehab possibly in the next 24-48 hours I performed a history & physical examination of the patient and discussed their management with my nurse practitioner, Alicia Buenrostro. I reviewed the nurse practitioner's note and agree with the documented findings and plan of care. Lung sounds are positive for diminished breath sounds. The findings and the impression was discussed with the patient. I attest to the documentation by the nurse practitioner. Time with Patient: Less than 30
[2020-10-31 20:12] LABS: Glucose,Whole Blood 119 mg/dL (75-99)
[2020-10-31] MEDS: MELATONIN 5 MG TABLET PO SCH (20:59)
[2020-10-31] MEDS: TEMAZEPAM 15 MG CAP PO SCH (20:59)
[2020-11-01 06:29] LABS: Basophils % (A) 0 %; Eosinophils # (A) 0.1 k/uL (0-0.7); Eosinophils % (A) 1 %; HCT 40.6 % (39.0-53.0); HGB 14.1 gm/dL (13.0-17.5); Lymphocytes # (A) 1.8 k/uL (1.0-4.8); Lymphocytes % (A) 14 %; MCH 29.9 pg (25.0-35.0); MCHC 34.7 g/dL (31.0-37.0); MCV 86.2 fL (80.0-100.0); Mean Platelet Volume 7.6; Monocytes # (A) 0.6 k/uL (0-1.0); Monocytes % (A) 5 %; Neutrophils # (A) 10.1 k/uL (1.3-7.7); Neutrophils % (A) 79 %; Platelet Count 215 k/uL (150-450); RBC 4.72 m/uL (4.30-5.90); RDW 12.9 % (11.5-15.5); WBC 12.8 k/uL (3.8-10.6)
[2020-11-01 07:06] LABS: Glucose,Whole Blood 75 mg/dL (75-99)
[2020-11-01] MEDS: ALBUTEROL HFA INHALER INHALATION PRN ×2 (07:16→11:41)
[2020-11-01] MEDS: ZINC SULFATE 220 MG CAP PO SCH (07:56)
[2020-11-01] MEDS: ENOXAPARIN 30 MG/0.3 ML SYRINGE SQ SCH (07:56)
[2020-11-01] MEDS: ASCORBIC ACID 500 MG TAB PO SCH ×2 (07:56→20:17)
[2020-11-01] MEDS: dexAMETHasone 2 MG TAB PO SCH (07:56)
[2020-11-01] MEDS: FAMOTIDINE 20 MG TAB PO SCH ×2 (07:56→20:18)
[2020-11-01] MEDS: ATORVASTATIN 40 MG TAB PO SCH (07:56)
[2020-11-01] MEDS: COLCHICINE 0.6 MG EACH PO SCH ×2 (07:57→20:18)
[2020-11-01] MEDS: CHOLECALCIFEROL 25 MCG (1000 IU) TABLET PO SCH (07:57)
[2020-11-01] MEDS: amLODIPine 5 MG TAB PO SCH (07:57)
--- NOTE | 2020-11-01 09:31 | XR ---
EXAMINATION TYPE: XR chest 1V DATE OF EXAM: 11/01/2020 COMPARISON: 10/31/2020 HISTORY: 55-year-old male, COVID pneumonia follow-up TECHNIQUE: Single frontal view of the chest is obtained. FINDINGS: Low lung volumes. Heart upper limits of normal in size. Bilateral patchy airspace opacities persist e specially in the mid and lower lungs. No pleural effusion. IMPRESSION: Hypoventilatory changes and similar bilateral patchy airspace disease.
[2020-11-01 10:12] LABS: Ferritin 773.9 ng/mL (22.0-322.0)
--- NOTE | 2020-11-01 13:00 | P.PN ---
Subjective Progress Note Date: 11/01/20 Principal diagnosis: Acute hypoxic resp failure, COVID 19 pneumonia 55-year-old male who was admitted to the ICU yesterday. He came down to the ICU for acute hypoxemic respiratory failure secondary to COVID 19 pneumonia. Initially, we attempted to maintain him on BiPAP, but unfortunately, the patient's respiratory failure worsened and he required intubation and mechanical ventilation. He was intubated on 10/15/2020.. He is on the volume assist control modality, rate 24, tidal volume 450, FiO2 50%, and PEEP of 12. His blood gases show a pO2 of 81, PaCO2 of 42, and a pH of 7.46. He is getting saline at 40 mL an hour, a fentanyl drip at 0.5 mcg/kg/h, propofol at 60 mcg/kg/m, and vital high protein at 64 mL an hour which is goal. He was also paralyzed and is currently off paralytics.. He received 1 dose of, convalescent plasma, and 1 dose of remdesivir. He is receiving Solumedrol at 60 mg IV q 6 hours. On today's evaluation, the patient is being seen on follow-up. The patient's peak airway pressures around 30 on the above-mentioned ventilator setting. The patient is afebrile. The white cell count today is 13.6 with a hemoglobin of 12. Rest of the blood work and electrodes are all within normal limits. The chest x-ray from today still showing diffuse bilateral pulmonary infiltrates ET tube is in a good location. The patient also has a left IJ t riple-lumen catheter in place. The patient's hemodynamically stable. He is on no pressors. He is producing adequate amount of urine output. He is on Lovenox 80 mg subcu every 12 hours.A d-dimer level is up to 2 and this is essentially gone compared to few days back with a d-dimer was up to 34.. On today's evaluation of 10/23/2020 seeing the patient for a follow-up. The patient remains sedated and the patient is on propofol running at 50 mcg/kg per minute and the patient is also on fentanyl at 1.0 mcg/kg/h. She remains on a mechanical ventilator and essentially the ventilator settings currently is at a rate of 24 with a tidal volume of 450, an FiO2 of 50% with a PEEP of 8. His is improved compared to yesterday. The blood gases from today shows a pH of 7.49 with a pCO2 of 40 and pO2 of 74. Chest x-ray stable, probably some improvement in the right lower lobe area. ET tube is in a good location. NG tube is in also good location. He is afebrile. Note that the patient has received convalescent plasma, Geremias is also on IV Solu Medrol 60 mg every 6 hours. His inflammatory markers show a drop in his CRP down to 28 and his LDH is also dropping down to 1179. His net fluid balance has been -68 mL and the patient is receiving Lasix 40 mg IV on a daily basis. His triglyceride level is at 300. Is tolerating enteral feeding for nutritional support. The d-dimer today is at X.2 from yesterday and the repeat levels are pending for today. Meanwhile, the patient remains on therapeutic dose of Lovenox at a dose of 80 mg subcu every 12 hours. On 10/24/2020, the patient is extubated. The patient is currently on high flow oxygen at 60 L. His pulse ox is ranging between 90-94%. He is hemodynamically stable on no pressors. His blood pressure was running on the higher side and the patient was given side effects and is currently on 2 mg an hour and he has an adequate blood pressure control. D-dimer remains elevated at 6.67, his CRP is at 28 from yesterday, his LDH was 1179 from yesterday and inflammatory markers are not obtained from today. He is awake. He is following simple commands and answering questions. He is on IV Solu Medrol 60 mg every 6 hours. He is on Lovenox therapeutic doses of 80 mg subcu every 12 hours. He is afebrile. Cultures are all negative other than some Kay and his sputum. As mentioned, the patient was extubated successfully yesterday. He is a week. He has a weak cough. He has generalized motor weakness in all 4 extremities. No other significant events overnight. Neurologically intact and currently on no sedation. The chest x-ray from today showed essentially stable bilateral pulmonary infiltrates, probably slightly worse compared to yesterday, nevertheless this can be an effective positive pressure delivered by the mechanical ventilator. He does have a triple lumen catheter in his left IJ which is still in place. Left hemidiaphragm is slightly elevated. The patient will be encouraged to use incentive spirometer. The patient is in a negative fluid balance of 2.6 hours and the patient remains on IV Lasix 40 mg every 24 hours. On 10/25/2020 patient remains extubated. He currently on the AirVo 60 L and 65% FiO2 also says just above 90% and the patient is also utilizing 100% on a beta facemasks. A chest x-ray from today shows some limited improvement on the right. There is still dense bilateral pulmonary infiltrates. The patient was extubated on 10/23/2020. He remains on IV Solu-Medrol 60 mg every 6 hours. Inflammatory markers from today show a d-dimer of 4.5 which is lower compared to yesterday, he also had a LDH level of 1924, higher and his CRP level is 44, higher. He is afebrile. He is hemodynamically stable. He is taking some limited oral intake mainly in the form of clear liquids. He is weak. He is anxious. He has a decent cough. He remains on IV Lasix every 24 hours in the neck fluid balance has been in the order of 3.1 L. He remains on Lovenox 80 mg subcutaneous every 12 hours. No sedatives. No delirium. No confusion. Family has been updated. He is on Celebrex 100 mg an hour On 10/26/2020, the patient remains extubated. The patient remains on high flow oxygen 60 L and the FiO2 is at 70%. The pulse is currently is ranging between 88 and 91%. He remains in high spirits 50 once recovered. On and off is also utilizing 100% nonrebreather facemask. Nevertheless, for the most part, he is using the high flow oxygen. He is on IV fluids with normal saline at the rate of 20 mL an hour. The patient is being diuresis and a daily basis of a negative fluid balance is in the order of -2.060 liters over the past 24 hours. The patient is is otherwise doing well. LDH level is at 1676 which is lower compared to yesterday. CRP is also 24.5 which is essentially lower than yesterday. The BUN is at 47 with a creatinine of 0.57. He remains on Lovenox 80 mg subcu every 12 hours. The d-dimer is still elevated at 5.63. On today's evaluation, it was noted that the patient has a cold left foot. Doppler pulses will be also obtained and vascular surgery will be involved in the case and there are no pulses. The right lower extremity and the right foot is within normal limits. The patient denies having any pain in his left foot. No other significant events otherwise for now. Is tolerating his diet. He is gradually increasing his oral intake. 10/27/2020, the patient is on 60 L with an FiO2 of 65%. He is recovering from his acute hypoxic respiratory failure and diffuse pneumonia related to covid 19. He is in good spirits. His chest x-ray from today and gradual improvement in diffuse pulmonary infiltrates. As compared to the earlier chest x-ray from a few days back. Meanwhile, the patient's white cell count is 11.9. LDH is dropping from 1676 down to 1397 and the CRP is down from 24.9-15.7. His d-dimer is also down to 4.15. Obviously the patient is showing ongoing clinical response and improvement for now. As for the lower extremity, Doppler signals are back and the patient is currently is off IV heparin. We are going back on Lovenox 30 mg subcu every 12 hours. The patient remained on IV Solu Medrol 60 mg every 6 hours. 10/28/2020, the patient is still on high flow oxygen. This morning, he is on 60 L with an FiO2 of 50%. Pulse ox is 91%. Chest x-ray is unchanged with diffuse bilateral airspace disease and interstitial and alveolar infiltrates. He inflammatory markers are not done today and this will be done tomorrow. Afebrile. Speech is better. Is able to speak longer sentences. No chest pain. He is able to sit up on the recliner. He is using incentive spirometer. No significant rest or secretions. No fever. He remains on Decadron 6 mg by mouth on a daily basis. He is Lovenox 30 mg subcu every 12 hours. BP is under good control and is on Norvasc 5 mg by mouth daily. Is on no pressors or a ntihypertensive wraps for now. He is drinking a short period he is eating adequately, approximately 50% of his food offered and the patient will be advanced on his diet to regular. He does have a mid line in his left upper extremity. He does have a Khan catheter. Reevaluated today on 10/29/2020, patient remains in the ICU, remains on airvo with FiO2 at 40%, and he is on 35 L high flow. Saturation is running in the low 90s. Patient seems to be comfortable, chest x-ray continues to show bilateral interstitial infiltrates. Patient was extubated last week, and so far he tolerated the extubation well. He is awake, alert, in no distress, tolerating oral diet, and today I went ahead and kept him on Decadron, and I added colchicine 0.6 mg by mouth twice a day. WBC count today is 11.7 hemoglobin is 12.9 inflammatory markers were noted, C-reactive protein is 43.6 and LDH is 925. Electrolytes and renal profile are normal. Reevaluated today on 10/30/2020, patient remains in the ICU, he is down to 3 L nasal cannula, and his O2 saturation is 92%. Patient is feeling much better, breathing a lot easier, he is not requiring any high flow oxygen, and he does not seem to be in any distress. Remains on Decadron. Remains on colchicine. And on Lovenox. My plan today is to transfer the patient out of the ICU to a regular medical floor since his O2 requirement is significantly improved. CBC today is relatively normal basic metabolic profile is normal d-dimer is 2.01. LDH is down to 894, and C-reactive protein is 50 On 10/31/2020 patient seen in follow-up on medical floor, yesterday she was transferred out of the intensive care unit, he has remained stable overnight, -7 stable, FiO2 is at 4-5 L, and her pulse ox is 94-96%, she has been afebrile, blood pressure is been stable. Mentation is appropriate, is awake and alert, answering questions appropriately, no worsening dyspnea, however he continues to be generally weak, he is working with physical therapy. She will likely need placement to subacute rehab after discharge, his Decadron dose has been decreased, his Lovenox has been at 30 mg twice daily for last several days, and his d-dimer is 2.45, inflammatory markers are improving. Reports no fever no chills, no chest discomfort or palpitations. Tolerating oral intake. On 11/01/2020 patient seen in follow-up on medical floor, looks and feels stronger on today's exam, he sitting up in a recliner, in no acute distress, breathing comfortably, currently down to 4 L, pulse ox is 92%, no fever or chills, no complaints of chest discomfort or palpitations. His chest x-ray showed low lung volumes, bilateral patchy airspace opacities in the mid and lower lungs related to Coumadin 19 pneumonitis. He remains on oral Decadron, currently on 4 mg daily, he is on Lovenox 30 mg daily, and colchicine 0.6 mg twice daily. His been evaluated by Dr. Hughes, and currently discharge planning is in progress for discharge to inpatient rehab at the [facility] possibly tomorrow Objective - Vital Signs Vital signs: Vital Signs Temp 97.2 F L 11/01/20 10:00 Pulse 84 11/01/20 10:00 Resp 18 11/01/20 10:00 BP 104/67 11/01/20 10:00 Pulse Ox 92 L 11/01/20 10:00 Intake & Output 10/31/20 11/01/20 11/01/20 18:59 06:59 18:59 Weight 70 kg Other: Voiding Method Bedside Commode # Voids 2 3 ABP, PAP, CO, CI - Last Documented Arterial Blood Pressure 103/93 - Exam GENERAL EXAM: Alert, very pleasant, 55-year-old male on 4 L of oxygen the pulse ox of 96% comfortable in no apparent distress. HEAD: Normocephalic/atraumatic. EYES: Normal reaction of pupils, equal size. Conjunctiva pink, sclera white. NOSE: Clear with pink turbinates. THROAT: No erythema or exudates. NECK: No masses, no JVD, no thyroid enlargement, no adenopathy. CHEST: No chest wall deformity. Symmetrical expansion. LUNGS: Equal air entry with no crackles, wheeze, rhonchi or dullness. CVS: Regular rate and rhythm, normal S1 and S2, no gallops, no murmurs, no rubs ABDOMEN: Soft, nontender. No hepatosplenomegaly, normal bowel sounds, no guarding or rigidity. EXTREMITIES: No clubbing, no edema, no cyanosis, 2+ pulses and upper and lower extremities. MUSCULOSKELETAL: Muscle strength and tone normal. SPINE: No scoliosis or deformity SKIN: No rashes CENTRAL NERVOUS SYSTEM: Alert and oriented -3. No focal deficits, tone is normal in all 4 extremities. PSYCHIATRIC: Alert and oriented -3. Appropriate affect. Intact judgment and insight. - Labs CBC & Chem 7: 11/01/20 05:33 10/31/20 05:46 Labs: Abnormal Lab Results - Last 24 Hours (Table) 10/31/20 11/01/20 11/01/20 Range/Units 20:11 05:33 05:33 WBC 12.8 H (3.8-10.6) k/uL Neutrophils # 10.1 H (1.3-7.7) k/uL POC Glucose (mg/dL) 119 H (75-99) mg/dL Ferritin 773.9 H (22.0-322.0) ng/mL Assessment and Plan Plan: Assessment: #1. Acute hypoxic respiratory failure secondary to COVID 19 pneumonia, patient required intubation and placement on mechanical ventilator on 10/15/2020, patient completed his Remdesivir treatments in addition to high-dose IV Solu- Medrol for several days, convalescent plasma. Patient was successfully weaned and extubated and tolerating extubation very well thus far, currently FiO2 is down to 4-5 L per nasal cannula #2. Acute respiratory distress syndrome secondary to the above, successfully weaned and extubated, x-ray findings remain stable #3. History of hyper lipidemia #4. History of chronic bronchitis asthma #5. History of GERD/reflux #6. Elevated d-dimer, on Lovenox #7. Cold left foot, possibly ischemic, evaluated by vascular surgery, the pulses in the left foot has recovered, patient is off heparin drip and is back on Lovenox 30 mg subcutaneously every 12 hours. Today on 10/31/2020 his left foot is warm, and pulses are present, his arterial Doppler showed calcific wall disease, adequate renal perfusion adequate for healing #8. Critical illness polyneuropathy #9. Hypertension Plan: Patient has remained stable, continue weaning FiO2, encourage deep breathing and coughing, encourage to sit up in the chair. Continue current dose of Decadron, Lovenox, vitamins, and colchicine. Patient has been approved for inpatient rehab at [facility], and discharge planning is anticipated in the next 24 hours. I performed a history & physical examination of the patient and discussed their management with my nurse practitioner, Alicia Buenrostro. I reviewed the nurse practitioner's note and agree with the documented findings and plan of care. Lung sounds are positive for diminished breath sounds. The findings and the impression was discussed with the patient. I attest to the documentation by the nurse practitioner. Time with Patient: Less than 30
[2020-11-01 13:03] VITALS: BMI 26.4
--- NOTE | 2020-11-01 14:21 | P.PN ---
Subjective Progress Note Date: 11/01/20 HPI - Patient is a 55-year-old male came in with complaints of increasing shortness of breath over the past week. Patient was diagnosed with Covid 6 days ago. He has completed a course of steroids as well as Z-Douglas. Patient states over the past week he's been fighting fevers, body aches, chills and nausea. Patient states his shortness of breath has been steadily increasing. He gets winded with just walking around his house. He does admit to some chest pain when he is coughing. He does have some production with his cough. He does admit to history of asthma, denies heart disease. He states his last dose of Tylenol was last night. He denies any vomiting, no dysuria. Patient is febrile 100.4, pulse is 96, he is satting 88% on room air. Patient had a chest x-ray which showed diffuse bilateral infiltrates. Patient is presently on 2 L of oxygen saturating 93% patient was having fevers at home patient had a low-grade fever here. Patient has elevated inflammatory markers along with the low sodium. On 10/15/2020 - last night patient became more short of breath, so he was shifted to the ICU. Initially the patient was placed on BiPAP, patient was staffed neck and saturating in the high 80s and so eventually he had to be intubated around noon. Currently he is mechanically ventilated and sedated. Reviewing the vitals patient is tachycardic between 100-110, saturating in the low 80s on 100% FiO2, blood pressure 1 50 x 92. Patient has been started on Solu-Medrol, Remdesivir, Lovenox and breathing treatments. On reviewing the labs white count of 6.1, hemoglobin 14.7, platelets 162. Sodium 133, potassium 4.2, chloride 102, bicarb 28, BUN 17, creatinine 0.79. Ferritin 624, magnesium 1.5, albumin 2.9. 10/16/2020 Patient is seen and examined in the ICU. He was admitted for Covid bilateral pneumonia. These with acute hypoxic respiratory failure needing intubation and mechanical ventilation with pulmonary/critical care team following the patient closely. He's undergoing prone position for 16 hours per day. Also he is getting Remidsivir and he is a status post convalescent plasma . Patient does not need pressors as his vitals are stable. And he is on tube feeding. Patient is currently sedated. Labs reviewed 10/17/2020 Patient remains in the ICU sedated and intubated. He is undergoing prone position with the goal 16 hours per day. He is febrile but tachypneic. Labs reviewed including CBC and BMP showing no significant changes. And sputum culture is growing Kay albicans. Chest x-ray showing the same bilateral infiltrates with right more than left related to his covid pneumonia. And he remains on Solu-Medrol 60 mg, remdisvir and normal saline at 75 mL/h. Pulmonary/critical care team R following the patient closely and the recommend to continue the current management and keep monitoring 10/18/2020 pt jana in ICU intubated sedated , with critical care team following him closely and adjusting his vent setting, he is currently needing high doseo f PEEP at 15 cxr from today showing small new bilateral pleural effusion , with basilar c onsolidation consistent wiht known covid 19 infection tomorrow is last dose of Remdisvir he remains on solumedrol 60 mg and gentl hydration 10/20/2020 Patient in ICU intubated on mechanical ventilation for several days now with pulmonary/critical care team managing the patient and monitoring him closely. Patient under going weaning for his PEEP and FiO2 down to 8 cm and 50% Chest x-ray showing stable findings consistent with edema versus pneumonia Patient on the same treatment of submental 60 mg normal saline at 50 mg and Lovenox 80 mg twice daily 10/21/2020 Patient remains in the ICU intubated and sedated, distal and a critical condition. Pulmonary/critical team R following the case closely and managing his vent. His PEEP was increased today to 12 from 8 because was desaturating d uring the night. FiO2 was kept at 50%. Blood pressure is 133/74, oxygen saturation is 90%, breathing rates 24 and is still slightly bradycardic at 56. Creatinine is normal at 0.5, magnesium 2.6, inflammatory markers including ferritin, LDH, C-reactive protein are slightly trending down He is on therapeutic dose of Lovenox for high d-dimer i called the and discussed the case her and all her question were answered and tried to explain the situation for her in a language she can un derstand 10/22/2020 Patient remains in the ICU intubated and sedated, today his PEEP was lowered to 10 in the morning, he remains on FiO2 of 50% He is hemodynamically stable. Sugar is controlled. WBC stable at 13.6 K results of CBC is unremarkable. Creatinine is normal at 0.5. Repeat chest x-ray today showing continued bilateral diffuse interstitial infiltrates and retrocardiac opacity. Development consolidation in the right lower lobe suggestive overall worsening Medications salmeterol 60 mg of normal saline at 40, continue with Lovenox with the same dose Prognosis remains guarded 10/23/2020 This is a pleasant 74 years old male who presents with bilateral: With pneumonia and his been in the ICU intubated and sedated, pulmonary/critical care team helped with vent management, it looks like his respiratory function is improving as there is a troponin PEEP down to 67 and he's undergoing sedation holiday and possible when in a trial with the call to get him extubated. WBC count 13,000, creatinine normal 0.500 glucose control. Elevated inflammatory markers Patient remains on Solu-Medrol, normocephalic 40 mL/h and Lovenox 80 mg twice daily, he was started on Lasix 40 mg daily 10/24/2020 Patient is a status post extubation and is currently on high flow nasal cannula with an FiO2 of 60-63% saturated on the low 90s. Patient looks dyspneic and could not provide information because of his dyspnea. Chest x-ray showing worsening bilateral middle and lower infiltrates WBC is stable at 13.5 K. BMP is unremarkable. Zinc and vitamin C were added, patient continue on some epidural 60 mg, at 40 and lasix 40 mg daily and lovenox 80 mg twice daily. Physical therapy evaluation is warranted as well as a swallow evaluation 10/25/2020 Patient is monitored in the ICU currently is status post extubation 2 days ago. He is quite dyspneic and on airvo at 60 L and 65% FiO2. Chest x-ray showing scattered infiltrates but stable. CBC is unremarkable. Creatinine 0.6. But all inflammatory markers including ferritin, LDH and C-reactive protein are increased. His sugar is controlled Medication-lewis he remains on Solu-Medrol 60 mg #40 mg and Lasix 40 mg daily. Lasix was lowered today to 30 mg twice daily as there is trending down and his d-dimer from 6.6 down to 4.5. 10/26/2020 Patient is seen and evaluated and follow-up continues to be closely monitored in the ICU. Patient currently working with physical therapy as he continues to be quite weak and attempts to sit at the bedside and possibility of in the chair. Patient is a 2 person assist due to weakness. Patient continues to be short of breath and dyspneic with exertion and is maintained on airvo at 60 L with an F iO2 of 70%. No real improvement on chest x-ray and infiltrates remain stable. D-dimer elevated at 5.63, sodium is 136, potassium is 4.7, current creatinine is 0.57. Inflammatory markers elevated as well. Patient is maintained on IV Solu- Medrol, vitamin C and D supplements along with zinc and Lovenox and will continue. Patient's blood sugars on the lower end and will continue with Accu- Cheks and every 6 hours sliding scale as needed. Patient is on a full liquid diet and tolerating. 10/27/20 He is remains in the ICU and it looks very weak and tired vitals are stable but remains needing high flow nasal cannula at 60 L and FiO2 of 55 with oxygen saturation 92-93%. He has mild leukocytosis of 11 K, BMP is unremarkable and inflammatory markers including LDH and C-reactive protein are trending down Chest x-ray: Stable bilateral patchy infiltrates compatible with atypical pneumonia. No critical limb ischemia per vascular surgery team Today 10 cm was stopped and switched to dexamethasone 6 mg daily, normal saline was stopped as well as Lasix. However he remains on Lovenox 30 mg twice daily. 10/28/2020 Patient remains in the ICU for his bilateral: With pneumonia is a status post extubation few days ago, He is currently saturating 91 on high flow nasal cannula with 60 L and FiO2 of 50%. Most labs show no change from before and it looks stable. He has mild leukocytosis. Inflammatory markers are trending down slowly. Chest x-ray showing patchy inflammatory infiltrate on both sides, mainly in the middle and lower areas, and change from previous x-ray Most of his medications were stopped blood including Solu-Medrol, Lasix, normal saline and he finishes remdesivir, currently he is on Lovenox 30 mg twice daily and dexamethasone 6 mg daily. Patient is being followed closely by pulmonary/critical care team 10/29/2020 Patient is seen and evaluated and follow-up continues to remain in the ICU continues to be on Airvo although was found to be on the side of his face and not in his nostrils on exam. Patient states it is difficult to keep in the nostrils all the time. Oxygen saturation was 89-90%. Discussed with nursing staff about weaning FiO2 as tolerated. Patient continues to be weak and was seen and evaluated for possible inpatient rehab at [facility] by Dr. Hughes. Patient is working with physical therapy and is currently sitting up in the chair. X-ray today shows continued patchy and confluent bilateral airspace disease with no changes from previous. Instructed patient to continue with incentive spirometer at least 10 times every hour while awake. Patient is tolerating diet with no reports of nausea or vomiting noted. Patient is maintained on dexamethasone along with Lovenox and vitamin supplements and will continue. 10/30/2020 Patient is seen this morning continues to be in the ICU although currently [facility]. Patient is currently on oxygen via nasal cannula from 2-4 L and tolerating well. Airvo is continued. Patient has been afebrile. Patient is eating although not much of an appetite but is maintaining regular diet. Patient continues to be quite weak and continues to work with physical therapy. Case management and social work following with the possibility of ECF versus inpatient rehab for continued PT/OT therapy. Incentive spirometer ordered and instructed the patient to continue using at [facility] 10 times every hour while awake. D-dimer trending down and 2.01. White blood count 9.8, hemoglobin 13.9, sodium is 134, potassium is 4.9 and current creatinine is 0.57. Inflammatory markers slowly trending down as well. 10/31/2020 Patient is seen today and evaluated currently on a [facility] unit. Patient continues to work with physical therapy although continues to be weak. Patient will likely require subacute rehab or inpatient rehab for aggressive physical therapy. Patient is currently maintained on 4 L via nasal cannula at 94% oxygen saturation. Decadron dosing has been decreased along with Lovenox and patient is maintained on colchicine along with vitamin C and D and zinc supplements. Pulmonary is following. Currently awaiting for [facility] to evaluate most recent therapy notes for acceptance. Will discuss with patient's Una per the patient's wishes about treatment plan. Inflammatory markers trending down although d-dimer slightly elevated at 2.45 today. Sodium is 140 with a potassium of 5.0 and current creatinine is 0.6. White blood count is 11.5 and hemoglobin is stable at 14.3. Will repeat a.m. labs. 11/01/2020 Patient is seen this morning currently awaiting to work with physical therapy and has been daily. Had a lengthy discussion with patient's about treatment plan and possible inpatient rehab at [facility] and social work is following and working on placement there. Patient is maintained on 4 L of oxygen and 92% saturations and tolerating well. Patient has been afebrile. Patient's oral intake continues to improve. Patient is looking forward to a possible shower today. Patient continues to have extreme weakness although is slowly improving each day. Will discuss with social work about the possibility of inpatient rehab. Review of systems: Constitutional: No reports of, no reports of fever, or chills Cardiovascular: No reports of chest pain or palpitations Respiratory: No reports of worsening shortness of breath GI: No reports of nausea, vomiting, or diarrhea : No reports of dysuria or retention Neurovascular: Reports weakness although feels somewhat improved each day All medications have been reviewed Objective - Vital Signs Vital signs: Vital Signs Temp 97.2 F L 11/01/20 10:00 Pulse 84 11/01/20 10:00 Resp 18 11/01/20 10:00 BP 104/67 11/01/20 10:00 Pulse Ox 92 L 11/01/20 10:00 Intake & Output 10/31/20 11/01/20 11/01/20 18:59 06:59 18:59 Weight 70 kg Other: Voiding Method Bedside Commode # Voids 2 3 ABP, PAP, CO, CI - Last Documented Arterial Blood Pressure 103/93 - Exam GENERAL: The patient is awake, alert and oriented 3, well-developed, well- nourished, sitting up in the chair HEENT: Pupils are round and equally reacting to light. EOMI. No scleral icterus. No conjunctival pallor. Normocephalic, atraumatic. No pharyngeal erythema. No thyromegaly. nasal cannula noted on exam and currently at 4 L CARDIOVASCULAR: S1 and S2 present. No murmurs, rubs, or gallops. PULMONARY: Decreased breath sounds bilaterally, no wheezing or crackles. ABDOMEN: Soft, nontender, nondistended, normoactive bowel sounds. No palpable organomegaly. MUSCULOSKELETAL: No joint swelling or deformity. EXTREMITIES: Mild cyanosis noted to bilateral feet cool to the touch, with no cl ubbing, or pedal edema. Arterial study was normal NEUROLOGICAL: Gross neurological examination did not reveal any focal deficits. Diffuse weakness SKIN: No rashes. no petechiae. - Labs CBC & Chem 7: 11/01/20 05:33 10/31/20 05:46 Labs: Abnormal Lab Results - Last 24 Hours (Table) 10/31/20 11/01/20 11/01/20 Range/Units 20:11 05:33 05:33 WBC 12.8 H (3.8-10.6) k/uL Neutrophils # 10.1 H (1.3-7.7) k/uL POC Glucose (mg/dL) 119 H (75-99) mg/dL Ferritin 773.9 H (22.0-322.0) ng/mL Assessment and Plan Assessment: Acute hypoxic respiratory failure secondary to COVID pneumonia possible acute respiratory distress syndrome ARDS, per pulmonary team Acute hypoxic respiratory failure needing mechanical ventilation, status post extubation on 10/23 Hyperlipidemia History of asthma GERD DVT prophylaxis: Subcutaneous Lovenox GI prophylaxis: Pepcid Full code Plan: Continue with current medications. Multiple medical consultations following. Patient weaning FiO2 as tolerated and currently on 4 L of oxygen via nasal cannula. Patient instructed and encouraged to increase activity as tolerated and continue using incentive spirometer. PT/OT following and working with the patient daily. Case management and social work also following for possible inpatient rehab for continued strength and mobility at [facility] and awaiting acceptance with updated PT/OT therapy notes. Patient is currently on dexamethasone and will decrease dose to taper along with Lovenox, vitamin C and E supplements, and zinc supplements and will continue at this time. Possible discharge in 24-48 hours.
[2020-11-01] MEDS: TEMAZEPAM 15 MG CAP PO SCH (20:17)
[2020-11-01] MEDS: MELATONIN 5 MG TABLET PO SCH (20:17)
[2020-11-01 20:40] LABS: Glucose,Whole Blood 98 mg/dL (75-99)
[2020-11-02 06:44] LABS: Glucose,Whole Blood 85 mg/dL (75-99)
[2020-11-02] MEDS: FAMOTIDINE 20 MG TAB PO SCH (09:10)
[2020-11-02] MEDS: CHOLECALCIFEROL 25 MCG (1000 IU) TABLET PO SCH (09:10)
[2020-11-02] MEDS: ZINC SULFATE 220 MG CAP PO SCH (09:10)
[2020-11-02] MEDS: ENOXAPARIN 30 MG/0.3 ML SYRINGE SQ SCH (09:10)
[2020-11-02] MEDS: ATORVASTATIN 40 MG TAB PO SCH (09:10)
[2020-11-02] MEDS: amLODIPine 5 MG TAB PO SCH (09:10)
[2020-11-02] MEDS: dexAMETHasone 2 MG TAB PO SCH (09:10)
[2020-11-02] MEDS: ASCORBIC ACID 500 MG TAB PO SCH (09:10)
[2020-11-02] MEDS: COLCHICINE 0.6 MG EACH PO SCH (09:11)
[2020-11-02] MEDS: ALBUTEROL HFA INHALER INHALATION PRN (11:03)
--- NOTE | 2020-11-02 12:48 | P.PN ---
Subjective Progress Note Date: 11/02/20 Principal diagnosis: Acute hypoxic resp failure, COVID 19 pneumonia 55-year-old male who was admitted to the ICU yesterday. He came down to the ICU for acute hypoxemic respiratory failure secondary to COVID 19 pneumonia. Initially, we attempted to maintain him on BiPAP, but unfortunately, the patient's respiratory failure worsened and he required intubation and mechanical ventilation. He was intubated on 10/15/2020.. He is on the volume assist control modality, rate 24, tidal volume 450, FiO2 50%, and PEEP of 12. His blood gases show a pO2 of 81, PaCO2 of 42, and a pH of 7.46. He is getting saline at 40 mL an hour, a fentanyl drip at 0.5 mcg/kg/h, propofol at 60 mcg/kg/m, and vital high protein at 64 mL an hour which is goal. He was also paralyzed and is currently off paralytics.. He received 1 dose of, convalescent plasma, and 1 dose of remdesivir. He is receiving Solumedrol at 60 mg IV q 6 hours. On today's evaluation, the patient is being seen on follow-up. The patient's peak airway pressures around 30 on the above-mentioned ventilator setting. The patient is afebrile. The white cell count today is 13.6 with a hemoglobin of 12. Rest of the blood work and electrodes are all within normal limits. The chest x-ray from today still showing diffuse bilateral pulmonary infiltrates ET tube is in a good location. The patient also has a left IJ t riple-lumen catheter in place. The patient's hemodynamically stable. He is on no pressors. He is producing adequate amount of urine output. He is on Lovenox 80 mg subcu every 12 hours.A d-dimer level is up to 2 and this is essentially gone compared to few days back with a d-dimer was up to 34.. On today's evaluation of 10/23/2020 seeing the patient for a follow-up. The patient remains sedated and the patient is on propofol running at 50 mcg/kg per minute and the patient is also on fentanyl at 1.0 mcg/kg/h. She remains on a mechanical ventilator and essentially the ventilator settings currently is at a rate of 24 with a tidal volume of 450, an FiO2 of 50% with a PEEP of 8. His is improved compared to yesterday. The blood gases from today shows a pH of 7.49 with a pCO2 of 40 and pO2 of 74. Chest x-ray stable, probably some improvement in the right lower lobe area. ET tube is in a good location. NG tube is in also good location. He is afebrile. Note that the patient has received convalescent plasma, Geremias is also on IV Solu Medrol 60 mg every 6 hours. His inflammatory markers show a drop in his CRP down to 28 and his LDH is also dropping down to 1179. His net fluid balance has been -68 mL and the patient is receiving Lasix 40 mg IV on a daily basis. His triglyceride level is at 300. Is tolerating enteral feeding for nutritional support. The d-dimer today is at X.2 from yesterday and the repeat levels are pending for today. Meanwhile, the patient remains on therapeutic dose of Lovenox at a dose of 80 mg subcu every 12 hours. On 10/24/2020, the patient is extubated. The patient is currently on high flow oxygen at 60 L. His pulse ox is ranging between 90-94%. He is hemodynamically stable on no pressors. His blood pressure was running on the higher side and the patient was given side effects and is currently on 2 mg an hour and he has an adequate blood pressure control. D-dimer remains elevated at 6.67, his CRP is at 28 from yesterday, his LDH was 1179 from yesterday and inflammatory markers are not obtained from today. He is awake. He is following simple commands and answering questions. He is on IV Solu Medrol 60 mg every 6 hours. He is on Lovenox therapeutic doses of 80 mg subcu every 12 hours. He is afebrile. Cultures are all negative other than some Kay and his sputum. As mentioned, the patient was extubated successfully yesterday. He is a week. He has a weak cough. He has generalized motor weakness in all 4 extremities. No other significant events overnight. Neurologically intact and currently on no sedation. The chest x-ray from today showed essentially stable bilateral pulmonary infiltrates, probably slightly worse compared to yesterday, nevertheless this can be an effective positive pressure delivered by the mechanical ventilator. He does have a triple lumen catheter in his left IJ which is still in place. Left hemidiaphragm is slightly elevated. The patient will be encouraged to use incentive spirometer. The patient is in a negative fluid balance of 2.6 hours and the patient remains on IV Lasix 40 mg every 24 hours. On 10/25/2020 patient remains extubated. He currently on the AirVo 60 L and 65% FiO2 also says just above 90% and the patient is also utilizing 100% on a beta facemasks. A chest x-ray from today shows some limited improvement on the right. There is still dense bilateral pulmonary infiltrates. The patient was extubated on 10/23/2020. He remains on IV Solu-Medrol 60 mg every 6 hours. Inflammatory markers from today show a d-dimer of 4.5 which is lower compared to yesterday, he also had a LDH level of 1924, higher and his CRP level is 44, higher. He is afebrile. He is hemodynamically stable. He is taking some limited oral intake mainly in the form of clear liquids. He is weak. He is anxious. He has a decent cough. He remains on IV Lasix every 24 hours in the neck fluid balance has been in the order of 3.1 L. He remains on Lovenox 80 mg subcutaneous every 12 hours. No sedatives. No delirium. No confusion. Family has been updated. He is on Celebrex 100 mg an hour On 10/26/2020, the patient remains extubated. The patient remains on high flow oxygen 60 L and the FiO2 is at 70%. The pulse is currently is ranging between 88 and 91%. He remains in high spirits 50 once recovered. On and off is also utilizing 100% nonrebreather facemask. Nevertheless, for the most part, he is using the high flow oxygen. He is on IV fluids with normal saline at the rate of 20 mL an hour. The patient is being diuresis and a daily basis of a negative fluid balance is in the order of -2.060 liters over the past 24 hours. The patient is is otherwise doing well. LDH level is at 1676 which is lower compared to yesterday. CRP is also 24.5 which is essentially lower than yesterday. The BUN is at 47 with a creatinine of 0.57. He remains on Lovenox 80 mg subcu every 12 hours. The d-dimer is still elevated at 5.63. On today's evaluation, it was noted that the patient has a cold left foot. Doppler pulses will be also obtained and vascular surgery will be involved in the case and there are no pulses. The right lower extremity and the right foot is within normal limits. The patient denies having any pain in his left foot. No other significant events otherwise for now. Is tolerating his diet. He is gradually increasing his oral intake. 10/27/2020, the patient is on 60 L with an FiO2 of 65%. He is recovering from his acute hypoxic respiratory failure and diffuse pneumonia related to covid 19. He is in good spirits. His chest x-ray from today and gradual improvement in diffuse pulmonary infiltrates. As compared to the earlier chest x-ray from a few days back. Meanwhile, the patient's white cell count is 11.9. LDH is dropping from 1676 down to 1397 and the CRP is down from 24.9-15.7. His d-dimer is also down to 4.15. Obviously the patient is showing ongoing clinical response and improvement for now. As for the lower extremity, Doppler signals are back and the patient is currently is off IV heparin. We are going back on Lovenox 30 mg subcu every 12 hours. The patient remained on IV Solu Medrol 60 mg every 6 hours. 10/28/2020, the patient is still on high flow oxygen. This morning, he is on 60 L with an FiO2 of 50%. Pulse ox is 91%. Chest x-ray is unchanged with diffuse bilateral airspace disease and interstitial and alveolar infiltrates. He inflammatory markers are not done today and this will be done tomorrow. Afebrile. Speech is better. Is able to speak longer sentences. No chest pain. He is able to sit up on the recliner. He is using incentive spirometer. No significant rest or secretions. No fever. He remains on Decadron 6 mg by mouth on a daily basis. He is Lovenox 30 mg subcu every 12 hours. BP is under good control and is on Norvasc 5 mg by mouth daily. Is on no pressors or a ntihypertensive wraps for now. He is drinking a short period he is eating adequately, approximately 50% of his food offered and the patient will be advanced on his diet to regular. He does have a mid line in his left upper extremity. He does have a Khan catheter. Reevaluated today on 10/29/2020, patient remains in the ICU, remains on airvo with FiO2 at 40%, and he is on 35 L high flow. Saturation is running in the low 90s. Patient seems to be comfortable, chest x-ray continues to show bilateral interstitial infiltrates. Patient was extubated last week, and so far he tolerated the extubation well. He is awake, alert, in no distress, tolerating oral diet, and today I went ahead and kept him on Decadron, and I added colchicine 0.6 mg by mouth twice a day. WBC count today is 11.7 hemoglobin is 12.9 inflammatory markers were noted, C-reactive protein is 43.6 and LDH is 925. Electrolytes and renal profile are normal. Reevaluated today on 10/30/2020, patient remains in the ICU, he is down to 3 L nasal cannula, and his O2 saturation is 92%. Patient is feeling much better, breathing a lot easier, he is not requiring any high flow oxygen, and he does not seem to be in any distress. Remains on Decadron. Remains on colchicine. And on Lovenox. My plan today is to transfer the patient out of the ICU to a regular medical floor since his O2 requirement is significantly improved. CBC today is relatively normal basic metabolic profile is normal d-dimer is 2.01. LDH is down to 894, and C-reactive protein is 50 On 10/31/2020 patient seen in follow-up on medical floor, yesterday she was transferred out of the intensive care unit, he has remained stable overnight, -7 stable, FiO2 is at 4-5 L, and her pulse ox is 94-96%, she has been afebrile, blood pressure is been stable. Mentation is appropriate, is awake and alert, answering questions appropriately, no worsening dyspnea, however he continues to be generally weak, he is working with physical therapy. She will likely need placement to subacute rehab after discharge, his Decadron dose has been decreased, his Lovenox has been at 30 mg twice daily for last several days, and his d-dimer is 2.45, inflammatory markers are improving. Reports no fever no chills, no chest discomfort or palpitations. Tolerating oral intake. On 11/01/2020 patient seen in follow-up on medical floor, looks and feels stronger on today's exam, he sitting up in a recliner, in no acute distress, breathing comfortably, currently down to 4 L, pulse ox is 92%, no fever or chills, no complaints of chest discomfort or palpitations. His chest x-ray showed low lung volumes, bilateral patchy airspace opacities in the mid and lower lungs related to Coumadin 19 pneumonitis. He remains on oral Decadron, currently on 4 mg daily, he is on Lovenox 30 mg daily, and colchicine 0.6 mg twice daily. His been evaluated by Dr. Hughes, and currently discharge planning is in progress for discharge to inpatient rehab at the [facility] possibly tomorrow On 11/02/2020 patient seen in follow-up on medical floor, patient is doing well, continues to get a little stronger, he is currently down to 4 L on oxygen, pulse ox is 94-97%, no fever or chills, he is breathing easier, his been working with physical therapy. His last chest x-ray yesterday showed hypoventilatory lungs with similar bilateral patchy airspace disease. Clinically patient has been stable, he is awake and alert, oriented 3, no new labs today, she remains on 4 mg daily Decadron, colchicine, he is on Lovenox 30 mg daily and vitamins, discharge planning is in progress for discharge to [facility] today Objective - Vital Signs Vital signs: Vital Signs Temp 98 F 11/02/20 09:06 Pulse 102 H 11/02/20 09:06 Resp 17 11/02/20 09:06 BP 110/75 11/02/20 09:06 Pulse Ox 94 L 11/02/20 09:06 Intake & Output 11/01/20 11/02/20 11/02/20 18:59 06:59 18:59 Output Total 450 Balance -450 Weight 70 kg 69.5 kg Output: Urine 450 Other: Voiding Method Bedside Commode Bedside Commode # Voids 1 ABP, PAP, CO, CI - Last Documented Arterial Blood Pressure 103/93 - Exam GENERAL EXAM: Alert, very pleasant, 55-year-old male on 4 L of oxygen the pulse ox of 97% comfortable in no apparent distress. HEAD: Normocephalic/atraumatic. EYES: Normal reaction of pupils, equal size. Conjunctiva pink, sclera white. NOSE: Clear with pink turbinates. THROAT: No erythema or exudates. NECK: No masses, no JVD, no thyroid enlargement, no adenopathy. CHEST: No chest wall deformity. Symmetrical expansion. LUNGS: Equal air entry with no crackles, wheeze, rhonchi or dullness. CVS: Regular rate and rhythm, normal S1 and S2, no gallops, no murmurs, no rubs ABDOMEN: Soft, nontender. No hepatosplenomegaly, normal bowel sounds, no guarding or rigidity. EXTREMITIES: No clubbing, no edema, no cyanosis, 2+ pulses and upper and lower extremities. MUSCULOSKELETAL: Muscle strength and tone normal. SPINE: No scoliosis or deformity SKIN: No rashes CENTRAL NERVOUS SYSTEM: Alert and oriented -3. No focal deficits, tone is normal in all 4 extremities. PSYCHIATRIC: Alert and oriented -3. Appropriate affect. Intact judgment and insight. - Labs CBC & Chem 7: 11/01/20 05:33 10/31/20 05:46 Assessment and Plan Plan: Assessment: #1. Acute hypoxic respiratory failure secondary to COVID 19 pneumonia, patient required intubation and placement on mechanical ventilator on 10/15/2020, patient completed his Remdesivir treatments in addition to high-dose IV Solu- Medrol for several days, convalescent plasma. Patient was successfully weaned and extubated and tolerating extubation very well thus far, currently FiO2 is down to 4-5 L per nasal cannula #2. Acute respiratory distress syndrome secondary to the above, successfully weaned and extubated, x-ray findings remain stable #3. History of hyper lipidemia #4. History of chronic bronchitis asthma #5. History of GERD/reflux #6. Elevated d-dimer, on Lovenox #7. Cold left foot, possibly ischemic, evaluated by vascular surgery, the pulses in the left foot has recovered, patient is off heparin drip and is back on Lovenox 30 mg subcutaneously every 12 hours. Today on 10/31/2020 his left foot is warm, and pulses are present, his arterial Doppler showed calcific wall disease, adequate renal perfusion adequate for healing #8. Critical illness polyneuropathy #9. Hypertension Plan: Patient is doing well, clinically stable, no fever or chills, but despite her with physical therapy, remains generally weak, no acute events overnight, no worsening dyspnea, continue current dose Decadron, continue anti-coagulation, and vitamins, discharge planning is in progress for discharge to [facility] today I performed a history & physical examination of the patient and discussed their management with my nurse practitioner, Alicia Buenrostro. I reviewed the nurse practitioner's note and agree with the documented findings and plan of care. Lung sounds are positive for diminished breath sounds. The findings and the impression was discussed with the patient. I attest to the documentation by the nurse practitioner. Time with Patient: Less than 30
--- NOTE | 2020-11-02 14:10 | P.DS ---
Providers Date of admission: 10/14/20 11:41 Expected date of discharge: 11/02/20 Attending physician: Qian Hauser Consults: 10/14/20 11:41 Consult Physician Urgent Consulting Provider: Catherine Brody Consult Reason/Comments: covid pneumonia, hypoxic Do you want consulting provider notified?: Yes 10/26/20 13:45 Consult Physician Routine Consulting Provider: Jayjay Hughes Consult Reason/Comments: possible IPR Do you want consulting provider notified?: Yes Primary care physician: Bryan Valero Hospital Course: Final diagnosis Acute hypoxic respiratory failure secondary to COVID pneumonia possible acute respiratory distress syndrome ARDS, per pulmonary team Acute hypoxic respiratory failure needing mechanical ventilation, status post extubation on 10/23 Hyperlipidemia History of asthma GERD DVT prophylaxis: Subcutaneous Lovenox GI prophylaxis: Pepcid Full code Discharge disposition Patient is being discharged in a stable condition with guarded prognosis to [facility] continued PT/OT therapy. Patient will follow-up with Dr. Valero in the outpatient setting upon discharge. Patient is to continue with colchicine along with dexamethasone taper and vitamin C & D, and zinc supplements. Patient to follow up with pulmonary outpatient. Total time taken is greater than 35 minutes. Hospital course This is a 55-year-old male who was recently admitted with increasing shortness of breath and recent Covid 19 diagnosis and was being closely monitored. Patient's breathing status deteriorated rapidly and initially started on 2 L of oxygen and then became more dyspneic requiring BiPAP and ultimately patient was placed on mechanical vent and sedated and intubated for a week. Patient has been extubated and currently on 4 L of oxygen via nasal cannula and will continue. Patient instructed to continue using incentive spirometer at least 10 times every hour while awake. Rehospitalization and due to prolonged hospitalization patient continued to be weak requiring physical therapy and continues to have weakness and gait dysfunction. Patient will be [facility] to [facility] for aggressive PT/OT therapy. Patient will continue on colchicine along with dexamethasone taper, vitamin C and d, and zinc supplements. Patient will need close follow-up outpatient with pulmonary in the next 2-3 weeks. Currently no reports of chest pain, worsening shortness of breath, or palpitations. Patient is afebrile. No reports of nausea or vomiting and patient is tolerating diet. Patient is being discharged to [facility] today. On exam vital signs are stable. Temp is 98.6F, pulse is 86, respirations are 17, blood pressure is 115/69, oxygen saturation is 97% on 4 L via nasal cannula. Cardio S1, S2 are muffled. Respiratory system shows diminished breath sounds at the bases with some scattered rhonchi noted. Abdomen is soft and nontender. Nervous system shows diffuse weakness. Please refer to medication reconciliation sheet for a list of medications. Patient Condition at Discharge: Stable Plan - Discharge Summary Discharge Rx Participant: No New Discharge Prescriptions: New Colchicine [Colcrys] 0.6 mg PO BID 7 Days #14 each dexAMETHasone [Hexadrol] 4 mg PO DAILY tab Hydrocortisone Cream [Hydrocortisone 1% Cream] 1 applic TOPICAL BID PRN applic PRN Reason: Skin Irritation Enoxaparin [Lovenox] 30 mg SQ DAILY syringe Melatonin 5 mg PO HS tablet amLODIPine [Norvasc] 5 mg PO DAILY tab Zinc Sulfate [Orazinc] 220 mg PO DAILY cap Temazepam [Restoril] 15 mg PO HS #3 cap Calcium Carbonate [Tums] 500 mg PO QID PRN chew PRN Reason: Heartburn Acetaminophen Tab [Tylenol] 650 mg PO Q6HR PRN tab PRN Reason: Fever And/ Or Pain Ascorbic Acid [Vitamin C] 500 mg PO BID tab Continue Fluticasone Propionate [Flovent Hfa 220 mcg] 2 puff INHALATION RT-BID Cholecalciferol [Vitamin D3 (25 Mcg = 1000 Iu)] 2,000 unit PO DAILY Atorvastatin [Lipitor] 40 mg PO DAILY Albuterol Nebulized [Ventolin Nebulized] 2.5 mg INHALATION RT-QID PRN PRN Reason: Shortness Of Breath Omeprazole 20 mg PO BID Montelukast Sodium [Singulair] 10 mg PO HS Albuterol Inhaler [Ventolin Hfa Inhaler] 2 puff INHALATION RT-QID PRN PRN Reason: Shortness Of Breath Discontinued predniSONE See Taper PO DAILY Azithromycin [Zithromax Z-pack (6 tabs)] See Taper PO DIRECTED Meloxicam 7.5 mg PO DAILY Discharge Medication List Fluticasone Propionate [Flovent Hfa 220 mcg] 2 puff INHALATION RT-BID 12/31/17 [History] Albuterol Inhaler [Ventolin Hfa Inhaler] 2 puff INHALATION RT-QID PRN 10/14/20 [History] Albuterol Nebulized [Ventolin Nebulized] 2.5 mg INHALATION RT-QID PRN 10/14/20 [History] Atorvastatin [Lipitor] 40 mg PO DAILY 10/14/20 [History] Cholecalciferol [Vitamin D3 (25 Mcg = 1000 Iu)] 2,000 unit PO DAILY 10/14/20 [History] Montelukast Sodium [Singulair] 10 mg PO HS 10/14/20 [History] Omeprazole 20 mg PO BID 10/14/20 [History] Acetaminophen Tab [Tylenol] 650 mg PO Q6HR PRN tab 11/02/20 [Rx] Ascorbic Acid [Vitamin C] 500 mg PO BID tab 11/02/20 [Rx] Calcium Carbonate [Tums] 500 mg PO QID PRN chew 11/02/20 [Rx] Colchicine [Colcrys] 0.6 mg PO BID 7 Days #14 each 11/02/20 [Rx] Enoxaparin [Lovenox] 30 mg SQ DAILY syringe 11/02/20 [Rx] Hydrocortisone Cream [Hydrocortisone 1% Cream] 1 applic TOPICAL BID PRN applic 11/02/20 [Rx] Melatonin 5 mg PO HS tablet 11/02/20 [Rx] Temazepam [Restoril] 15 mg PO HS #3 cap 11/02/20 [Rx] Zinc Sulfate [Orazinc] 220 mg PO DAILY cap 11/02/20 [Rx] amLODIPine [Norvasc] 5 mg PO DAILY tab 11/02/20 [Rx] dexAMETHasone [Hexadrol] 4 mg PO DAILY tab 11/02/20 [Rx] Follow up Appointment(s)/Referral(s): Catherine Brody MD [STAFF PHYSICIAN] - 2 Weeks Bryan Valero DO [Primary Care Provider] - 1-2 days Activity/Diet/Wound Care/Special Instructions: Patient is going to [facility] Activity as tolerated Continue with PT/OT therapy Continue with dexamethasone taper over the next 2-3 weeks Follow-up with pulmonary outpatient Follow Up with primary care provider upon discharge Continue with current diet Discharge Disposition: TRANSFER TO SNF/ECF
[2020-11-02 14:55] VITALS: BP 98/65; PULSE 98; RESP 18; TEMP 98.2
== END 2020-11-02 17:34 | DRG 207 ==
LOC: EC 09:48 → 6NMEDSUR 11:41 → 2SICU 10-15 08:38 → 4SSUR 10-30 14:27
PROVIDERS: ADMIT Internal Medicine; ATTEND Internal Medicine
DX: U07.1 COVID-19 (principal); J80 Acute respiratory distress syndrome; J12.82 Pneumonia due to coronavirus disease 2019; J90 Pleural effusion, not elsewhere classified; E87.1 Hypo-osmolality and hyponatremia; G62.81 Critical illness polyneuropathy; J45.909 Unspecified asthma, uncomplicated; K21.9 Gastro-esophageal reflux disease without esophagitis; E78.5 Hyperlipidemia, unspecified; I10 Essential (primary) hypertension; J42 Unspecified chronic bronchitis; Z79.1 Long term (current) use of non-steroidal anti-inflammatories (NSAID); Z79.899 Other long term (current) drug therapy; Z88.5 Allergy status to narcotic agent; R53.81 Other malaise
CPT/HCPCS: 36410; 36415; 36600; 71045; 76937; 80048; 80053; 81001; 82550; 82728; 82805; 83036; 83605; 83615; 83735; 83880; 84145; 84478; 84484; 85025; 85027; 85379; 85384; 85610; 85730; 86140; 86850; 86900; 86901; 87040; 87070; 87205; 93005; 93922; 94002; 94003; 94640; 94760; 96361; 96374; 99285

== ENCOUNTER 2022-02-13 12:24 | Emergency (ER) | payer OTHER ==
[2022-02-13 13:43] VITALS: BP 163/97; PULSE 88; RESP 16; TEMP 98.1
[2022-02-13 14:41] LABS: Appearance,Urine Clear (Clear); Bilirubin,Urine Negative (Negative); Blood,Urine Negative (Negative); Color,Urine Yellow; Glucose,Urine (UA) Negative (Negative); Ketones,Urine Negative (Negative); Leukocyte Esterase,Urine Negative (Negative); Nitrite,Urine Negative (Negative); PH, Urine 5.5 (5.0-8.0); Protein,Urine Negative (Negative); Specific Gravity,Urine 1.024 (1.001-1.035); Urobilinogen,Urine <2.0 mg/dL (<2.0)
[2022-02-13 14:44] LABS: Basophils # (A) 0.1 k/uL (0-0.2); Basophils % (A) 1 %; Eosinophils # (A) 0.2 k/uL (0-0.7); Eosinophils % (A) 2 %; HCT 46.7 % (39.0-53.0); HGB 15.4 gm/dL (13.0-17.5); Lymphocytes # (A) 2.1 k/uL (1.0-4.8); Lymphocytes % (A) 20 %; MCH 29.2 pg (25.0-35.0); MCHC 32.9 g/dL (31.0-37.0); MCV 88.8 fL (80.0-100.0); Mean Platelet Volume 7.4; Monocytes # (A) 0.6 k/uL (0-1.0); Monocytes % (A) 6 %; Neutrophils # (A) 7.3 k/uL (1.3-7.7); Neutrophils % (A) 69 %; Platelet Count 256 k/uL (150-450); RBC 5.26 m/uL (4.30-5.90); RDW 12.7 % (11.5-15.5); WBC 10.6 k/uL (3.8-10.6)
[2022-02-13 14:52] LABS: ALT 30 U/L (4-49); AST 23 U/L (17-59); African American GFR (CKD) >90 (>60 ml/min/1.73 sqM); Albumin 3.9 g/dL (3.5-5.0); Alkaline Phosphatase 96 U/L (38-126); Amylase 49 U/L (30-110); Anion Gap 7 mmol/L; Blood Urea Nitrogen 14 mg/dL (9-20); Calcium 9.3 mg/dL (8.4-10.2); Carbon Dioxide 27 mmol/L (22-30); Chloride 106 mmol/L (98-107); Glucose 97 mg/dL (74-99); Lipase 22 U/L (23-300); Non-African American GFR(CKD) >90 (>60 ml/min/1.73 sqM); Potassium 4.6 mmol/L (3.5-5.1); Sodium 140 mmol/L (137-145); Total Bilirubin 0.9 mg/dL (0.2-1.3); Total Protein 6.8 g/dL (6.3-8.2)
--- NOTE | 2022-02-13 16:25 | ED ---
General Adult HPI - General Chief complaint: Abdominal Pain Stated complaint: pcp sent Time Seen by Provider: 02/13/22 16:18 Source: patient, RN notes reviewed, old records reviewed Mode of arrival: ambulatory Limitations: no limitations - History of Present Illness Initial comments: 56-year-old male who presented for evaluation of lower abdominal pain. Pain is been present for the past 3 days. Has been associated with some diarrhea. No vomiting. No fever. He was sent in by primary care physician for laboratory testing and CT of the abdomen and pelvis. He has a previous history of diverticulosis. No dysuria. - Related Data Home Medications Medication Instructions Recorded Confirmed Albuterol Inhaler [Ventolin Hfa 2 puff INHALATION RT-Q4H PRN 10/14/20 02/13/22 Inhaler] Atorvastatin [Lipitor] 40 mg PO DAILY@1200 10/14/20 02/13/22 Montelukast Sodium [Singulair] 10 mg PO HS 10/14/20 02/13/22 Lansoprazole 15 mg PO DAILY 02/13/22 02/13/22 Previous Rx's Medication Instructions Recorded Amoxic-Pot Clav 875-125Mg 1 tab PO BID 14 Days #28 tab 02/13/22 [Augmentin 875-125] Allergies Allergy/AdvReac Type Severity Reaction Status Date / Time codeine Allergy Unknown Verified 02/13/22 16:51 Review of Systems ROS Statement: Those systems with pertinent positive or pertinent negative responses have been documented in the HPI. ROS Other: All systems not noted in ROS Statement are negative. Past Medical History Past Medical History: Asthma, GERD/Reflux History of Any Multi-Drug Resistant Organisms: None Reported Past Surgical History: Orthopedic Surgery Past Anesthesia/Blood Transfusion Reactions: No Reported Reaction Past Psychological History: No Psychological Hx Reported Smoking Status: Never smoker Past Alcohol Use History: None Reported Past Drug Use History: None Reported General Exam Limitations: no limitations General appearance: alert, in no apparent distress Head exam: Present: atraumatic, normocephalic Eye exam: Present: normal appearance, PERRL ENT exam: Present: normal exam Neck exam: Present: normal inspection. Absent: tenderness, meningismus Respiratory exam: Present: normal lung sounds bilaterally. Absent: respiratory distress, wheezes Cardiovascular Exam: Present: regular rate, normal rhythm GI/Abdominal exam: Present: soft, tenderness (Bilateral lower abdominal t enderness). Absent: distended, guarding, rebound, rigid Extremities exam: Present: normal inspection, normal capillary refill. Absent: pedal edema Neurological exam: Present: alert, oriented X3, CN II-XII intact. Absent: motor sensory deficit Psychiatric exam: Present: normal affect, normal mood Skin exam: Present: warm, dry, intact. Absent: cyanosis, diaphoretic Course Vital Signs 02/13/22 13:41 Temperature 98.1 F Pulse Rate 88 Respiratory 16 Rate Blood Pressure 163/97 O2 Sat by Pulse 95 Oximetry Medical Decision Making - Medical Decision Making 56 yo male with lower abdominal pain, patient well-appearing with stable vitals. He has minimal lower abdominal tenderness on exam. Laboratories testing is unremarkable. He was sent in for computed tomography scan. This is performed, does show an acute uncomplicated diverticulitis. Antibiotics are initiated. Patient is given GI follow-up. He will follow-up with his primary care physician as well. - Lab Data Result diagrams: 02/13/22 14:24 02/13/22 14:24 Lab Results 02/13/22 02/13/22 02/13/22 Range/Units 14:00 14:24 14:24 WBC 10.6 (3.8-10.6) k/uL RBC 5.26 (4.30-5.90) m/uL Hgb 15.4 (13.0-17.5) gm/dL Hct 46.7 (39.0-53.0) % MCV 88.8 (80.0-100.0) fL MCH 29.2 (25.0-35.0) pg MCHC 32.9 (31.0-37.0) g/dL RDW 12.7 (11.5-15.5) % Plt Count 256 (150-450) k/uL MPV 7.4 Neutrophils % 69 % Lymphocytes % 20 % Monocytes % 6 % Eosinophils % 2 % Basophils % 1 % Neutrophils # 7.3 (1.3-7.7) k/uL Lymphocytes # 2.1 (1.0-4.8) k/uL Monocytes # 0.6 (0-1.0) k/uL Eosinophils # 0.2 (0-0.7) k/uL Basophils # 0.1 (0-0.2) k/uL Sodium 140 (137-145) mmol/L Potassium 4.6 (3.5-5.1) mmol/L Chloride 106 (98-107) mmol/L Carbon Dioxide 27 (22-30) mmol/L Anion Gap 7 mmol/L BUN 14 (9-20) mg/dL Creatinine 0.80 (0.66-1.25) mg/dL Est GFR (CKD-EPI)AfAm >90 (>60 ml/min/1.73 sqM) Est GFR (CKD-EPI)NonAf >90 (>60 ml/min/1.73 sqM) Glucose 97 (74-99) mg/dL Calcium 9.3 (8.4-10.2) mg/dL Total Bilirubin 0.9 (0.2-1.3) mg/dL AST 23 (17-59) U/L ALT 30 (4-49) U/L Alkaline Phosphatase 96 (38-126) U/L Total Protein 6.8 (6.3-8.2) g/dL Albumin 3.9 (3.5-5.0) g/dL Amylase 49 (30-110) U/L Lipase 22 L (23-300) U/L Urine Color Yellow Urine Appearance Clear (Clear) Urine pH 5.5 (5.0-8.0) Ur Specific [place] 1.024 (1.001-1.035) Urine Protein Negative (Negative) Urine Glucose (UA) Negative (Negative) Urine Ketones Negative (Negative) Urine Blood Negative (Negative) Urine Nitrite Negative (Negative) Urine Bilirubin Negative (Negative) Urine Urobilinogen <2.0 (<2.0) mg/dL Ur Leukocyte Esterase Negative (Negative) Disposition Clinical Impression: Diverticulitis Disposition: ADMITTED IP TO THIS HOSP Condition: Stable Prescriptions: Amoxic-Pot Clav 875-125Mg [Augmentin 875-125] 1 tab PO BID 14 Days #28 tab Is patient prescribed a controlled substance at d/c from ED?: No Referrals: Cata Amor MD [Primary Care Provider] - 1-2 days Shari Garcia MD [STAFF PHYSICIAN] - 1-2 days Time of Disposition: 18:02
[2022-02-13] MEDS ORDERED: SODIUM CHLORIDE 0.9% 1,000 ML IV ONE (16:26)
[2022-02-13] MEDS ORDERED: ACETAMINOPHEN TAB 500 MG TAB PO STA (16:50)
--- NOTE | 2022-02-13 17:44 | CT ---
EXAMINATION TYPE: CT abdomen pelvis w con CT DLP: 1047.1 mGycm, Automated exposure control for dose reduction was used. DATE OF EXAM: 02/13/2022 5:29 PM COMPARISON: CT abdomen pelvis most recent from 01/10/20202017 CLINICAL INDICATION:Male, 56 years old with history of lower ab pain; Lower pelvic pain TECHNIQUE: Standard CT of the abdomen and pelvis following the administration of 100 cc of Isovue 3 00 IV contrast material. Coronal and sagittal reformats were performed. FINDINGS: LOWER CHEST: Unremarkable ABDOMEN LIVER: Diffusely hypoattenuating parenchyma. GALLBLADDER AND BILE DUCTS: Focal narrowing in the mid gallbladder. PANCREAS: Unremarkable. SPLEEN: Unremarkable. ADRENAL GLANDS: Unremarkable. KIDNEYS AND URETERS: No evidence of hydronephrosis or renal calculus. The ureters are unremarkable. PELVIS BLADDER: Unremarkable REPRODUCTIVE: Unremarkable. ABDOMEN & PELVIS STOMACH AND BOWEL: Colonic diverticula are seen within the sigmoid colon with clinical attending patricia ortiz. There is a prominent bulging most pronounced on series 203 image 66. No evidence of bowel obstru ction. PERITONEUM: No evidence of pneumoperitoneum or free fluid. VASCULATURE: No evidence of aortic aneurysm. MUSCULOSKELETAL: Mild disc degeneration changes are present throughout the thoracolumbar spine.. LYMPH NODES: No gross evidence for lymphadenopathy. SOFT TISSUE/ABDOMINAL WALL: Unremarkable IMPRESSION: 1. Acute uncomplicated diverticulitis. Given the morphology of the colon in this region Follow-up co lonoscopy is recommended after medical therapy to rule out underlying malignancy if not recently perf ormed. 2. Findings suspicious for gallbladder adenomyomatosis. 3. Hepatic steatosis.
[2022-02-13] MEDS ORDERED: cefTRIAXone IN SWFI 1,000 MG/10 ML SYRINGE IVP STA (18:01)
== END 2022-02-13 18:35 | disposition other institution (70) ==
LOC: EC 12:24
DX: K57.92 Diverticulitis of intestine, part unspecified, without perforation or abscess without bleeding (principal); J45.909 Unspecified asthma, uncomplicated; K21.9 Gastro-esophageal reflux disease without esophagitis; Z79.899 Other long term (current) drug therapy; Z88.5 Allergy status to narcotic agent
CPT/HCPCS: 36415; 80053; 82150; 83690; 85025; 81003; 74177; 99284; 96374; 96361; J0696; Q9967

== ENCOUNTER 2022-02-23 22:28 | Emergency (ER) | payer OTHER ==
[2022-02-24] MEDS ORDERED: SODIUM CHLORIDE 0.9% 1,000 ML IV STA (00:54)
[2022-02-24] MEDS ORDERED: ONDANSETRON 4 MG/2 ML VIAL IVP STA (00:54)
[2022-02-24] MEDS ORDERED: HYDROmorphone 0.5 MG/0.5 ML SYRINGE IVP STA (00:54)
--- NOTE | 2022-02-24 01:04 | ED ---
General Adult HPI - General Chief complaint: Abdominal Pain Stated complaint: Abd pain Time Seen by Provider: 02/24/22 00:43 Source: patient, RN notes reviewed Mode of arrival: ambulatory - History of Present Illness Initial comments: 56-year-old male presents to the emergency department for evaluation of lower abdominal pain and cramping, onset 2 weeks ago. Patient states he was diagnosed with diverticulitis and has been on an antibiotic, though continues to have pain and diarrhea. Patient states he is having many liquid stools daily and has noticed blood in his stool recently. States he has not seen his PCP since his previous visit and has not made an appointment to follow up with the GI doctor. Reports decreased appetite. Denies fever, chills, dizziness, chest pain, shortness of breath, difficulty breathing, vomiting, dysuria, or hematuria. - Related Data Home Medications Medication Instructions Recorded Confirmed Albuterol Inhaler [Ventolin Hfa 2 puff INHALATION RT-Q4H PRN 10/14/20 02/13/22 Inhaler] Atorvastatin [Lipitor] 40 mg PO DAILY@1200 10/14/20 02/13/22 Montelukast Sodium [Singulair] 10 mg PO HS 10/14/20 02/13/22 Lansoprazole 15 mg PO DAILY 02/13/22 02/13/22 Previous Rx's Medication Instructions Recorded Amoxic-Pot Clav 875-125Mg 1 tab PO BID 14 Days #28 tab 02/13/22 [Augmentin 875-125] Ondansetron Odt [Zofran Odt] 4 mg PO Q8HR PRN #10 tab 02/24/22 Allergies Allergy/AdvReac Type Severity Reaction Status Date / Time codeine Allergy Unknown Verified 02/23/22 23:28 Review of Systems ROS Statement: Those systems with pertinent positive or pertinent negative responses have been documented in the HPI. ROS Other: All systems not noted in ROS Statement are negative. Past Medical History Past Medical History: Asthma, GERD/Reflux Additional Past Medical History / Comment(s): diverticulitis History of Any Multi-Drug Resistant Organisms: None Reported Past Surgical History: Orthopedic Surgery Past Anesthesia/Blood Transfusion Reactions: No Reported Reaction Past Psychological History: No Psychological Hx Reported Smoking Status: Never smoker Past Alcohol Use History: None Reported Past Drug Use History: None Reported General Exam Limitations: no limitations General appearance: alert (Well-developed, well-nourished male in moderate amount of pain. Initial temperature 98.9, pulse 97, respirations 17, blood pressure 131/84, pulse ox 96% on room air.) Eye exam: Present: normal appearance. Absent: scleral icterus, conjunctival injection ENT exam: Present: normal oropharynx, mucous membranes moist Respiratory exam: Present: normal lung sounds bilaterally. Absent: respiratory distress, wheezes, rales, rhonchi, stridor, chest wall tenderness Cardiovascular Exam: Present: regular rate, normal rhythm, normal heart sounds. Absent: systolic murmur, diastolic murmur, rubs, gallop, clicks GI/Abdominal exam: Present: soft, distended (Mild distention noted.), tenderness (Tenderness upon palpation of the entire lower abdomen), guarding (generalized guarding), normal bowel sounds. Absent: rigid Back exam: Absent: CVA tenderness (R), CVA tenderness (L) Neurological exam: Present: alert, oriented X3, CN II-XII intact Psychiatric exam: Present: normal affect, normal mood Skin exam: Present: warm, dry, intact, normal color. Absent: rash Course Vital Signs 02/23/22 02/24/22 02/24/22 23:25 01:14 02:29 Temperature 98.9 F Pulse Rate 97 93 79 Respiratory 17 18 18 Rate Blood Pressure 131/84 122/75 113/67 O2 Sat by Pulse 96 95 96 Oximetry 02/24/22 05:48 Temperature 98.3 F Pulse Rate 84 Respiratory 18 Rate Blood Pressure 110/62 O2 Sat by Pulse 93 L Oximetry Medical Decision Making - Medical Decision Making This is a 56-year-old male with recent diagnosis of diverticulitis who has been taking his Augmentin as prescribed. Presents to the emergency department today for ongoing diarrhea that is occasionally bloody. Upon exam, patient is well- appearing and in no acute distress. Vital signs stable. He does have diffuse lower abdominal tenderness upon palpation. Laboratory studies were reviewed showing leukocytosis likely secondary to ongoing diarrhea. Electrolytes are stable. Hemoglobin 16.6, hematocrit 49.4. CT shows findings consistent was some diffuse nonspecific colitis, though his diverticulitis is improved when compared with previous image. Patient was given IV fluids and pain medication with improvement. He is tolerating oral intake without difficulty. No episodes of diarrhea was present in the emergency department. Implored to follow up with his PCP for further evaluation and treatment. Discussed risks associated with antidiarrheals. Provided with Zofran for nausea. Encouraged to in some electrolyte solution. Return parameters discussed in detail. Patient verbalizes understanding and agrees with this plan. Attending: Ellie. - Lab Data Result diagrams: 02/24/22 01:06 02/24/22 01:06 Lab Results 02/24/22 02/24/22 02/24/22 Range/Units 01:06 01:06 01:06 WBC 16.0 H (3.8-10.6) k/uL RBC 5.64 (4.30-5.90) m/uL Hgb 16.6 (13.0-17.5) gm/dL Hct 49.4 (39.0-53.0) % MCV 87.6 (80.0-100.0) fL MCH 29.4 (25.0-35.0) pg MCHC 33.6 (31.0-37.0) g/dL RDW 12.7 (11.5-15.5) % Plt Count 280 (150-450) k/uL MPV 7.4 Neutrophils % 78 % Lymphocytes % 13 % Monocytes % 6 % Eosinophils % 1 % Basophils % 1 % Neutrophils # 12.5 H (1.3-7.7) k/uL Lymphocytes # 2.1 (1.0-4.8) k/uL Monocytes # 1.0 (0-1.0) k/uL Eosinophils # 0.1 (0-0.7) k/uL Basophils # 0.1 (0-0.2) k/uL PT 11.8 (9.0-12.0) sec INR 1.1 (<1.2) APTT 20.1 L (22.0-30.0) sec Sodium 136 L (137-145) mmol/L Potassium 3.7 (3.5-5.1) mmol/L Chloride 104 (98-107) mmol/L Carbon Dioxide 24 (22-30) mmol/L Anion Gap 8 mmol/L BUN 16 (9-20) mg/dL Creatinine 0.85 (0.66-1.25) mg/dL Est GFR (CKD-EPI)AfAm >90 (>60 ml/min/1.73 sqM) Est GFR (CKD-EPI)NonAf >90 (>60 ml/min/1.73 sqM) Glucose 120 H (74-99) mg/dL Plasma Lactic Acid Se (0.7-2.0) mmol/L Calcium 8.9 (8.4-10.2) mg/dL Total Bilirubin 0.6 (0.2-1.3) mg/dL AST 27 (17-59) U/L ALT 31 (4-49) U/L Alkaline Phosphatase 96 (38-126) U/L Total Protein 6.8 (6.3-8.2) g/dL Albumin 3.8 (3.5-5.0) g/dL Lipase 24 (23-300) U/L 02/24/22 Range/Units 01:06 WBC (3.8-10.6) k/uL RBC (4.30-5.90) m/uL Hgb (13.0-17.5) gm/dL Hct (39.0-53.0) % MCV (80.0-100.0) fL MCH (25.0-35.0) pg MCHC (31.0-37.0) g/dL RDW (11.5-15.5) % Plt Count (150-450) k/uL MPV Neutrophils % % Lymphocytes % % Monocytes % % Eosinophils % % Basophils % % Neutrophils # (1.3-7.7) k/uL Lymphocytes # (1.0-4.8) k/uL Monocytes # (0-1.0) k/uL Eosinophils # (0-0.7) k/uL Basophils # (0-0.2) k/uL PT (9.0-12.0) sec INR (<1.2) APTT (22.0-30.0) sec Sodium (137-145) mmol/L Potassium (3.5-5.1) mmol/L Chloride (98-107) mmol/L Carbon Dioxide (22-30) mmol/L Anion Gap mmol/L BUN (9-20) mg/dL Creatinine (0.66-1.25) mg/dL Est GFR (CKD-EPI)AfAm (>60 ml/min/1.73 sqM) Est GFR (CKD-EPI)NonAf (>60 ml/min/1.73 sqM) Glucose (74-99) mg/dL Plasma Lactic Acid Se 1.0 (0.7-2.0) mmol/L Calcium (8.4-10.2) mg/dL Total Bilirubin (0.2-1.3) mg/dL AST (17-59) U/L ALT (4-49) U/L Alkaline Phosphatase (38-126) U/L Total Protein (6.3-8.2) g/dL Albumin (3.5-5.0) g/dL Lipase (23-300) U/L - Radiology Data Radiology results: report reviewed, image reviewed CT of the abdomen and pelvis with contrast was obtained. Report was reviewed in its entirety. Impression per Dr. Rob is there is diffuse wall thickening of the large bowel which is a change compared to old exam consistent was some diffuse nonspecific colitis. There is improvement in the sigmoid diverticulitis compared to old exam. No drainable fluid collection. There is improvement in the pericolic edema around the sigmoid colon compared to old exam. Disposition Clinical Impression: Diarrhea, Nausea, Abdominal pain Disposition: HOME SELF-CARE Condition: Stable Instructions (If sedation given, give patient instructions): Colitis (ED) Additional Instructions: Increase intake of fluids. Consider adding an electrolyte solution such as Gatorade, Powerade, or Pedialyte. Consume a bland diet (bananas, rice, applesauce, and toast). Take Zofran as needed for nausea. Take Tylenol or Motrin if needed for pain. Avoid caffeine, greasy, spicy, and irritating foods. You must follow-up with your PCP for a recheck this week. Return to the emergency department with any new, worsening, or concerning symptoms. Prescriptions: Ondansetron Odt [Zofran Odt] 4 mg PO Q8HR PRN #10 tab PRN Reason: Nausea Is patient prescribed a controlled substance at d/c from ED?: No Referrals: Cata Amor MD [Primary Care Provider] - 1-2 days Time of Disposition: 02:58
[2022-02-24 01:15] VITALS: RESP 18
[2022-02-24 01:15] LABS: Basophils # (A) 0.1 k/uL (0-0.2); Basophils % (A) 1 %; Eosinophils # (A) 0.1 k/uL (0-0.7); Eosinophils % (A) 1 %; HCT 49.4 % (39.0-53.0); HGB 16.6 gm/dL (13.0-17.5); Lymphocytes # (A) 2.1 k/uL (1.0-4.8); Lymphocytes % (A) 13 %; MCH 29.4 pg (25.0-35.0); MCHC 33.6 g/dL (31.0-37.0); MCV 87.6 fL (80.0-100.0); Mean Platelet Volume 7.4; Monocytes % (A) 6 %; Neutrophils # (A) 12.5 k/uL (1.3-7.7); Neutrophils % (A) 78 %; Platelet Count 280 k/uL (150-450); RBC 5.64 m/uL (4.30-5.90); RDW 12.7 % (11.5-15.5)
[2022-02-24 01:38] LABS: ALT 31 U/L (4-49); AST 27 U/L (17-59); African American GFR (CKD) >90 (>60 ml/min/1.73 sqM); Albumin 3.8 g/dL (3.5-5.0); Alkaline Phosphatase 96 U/L (38-126); Anion Gap 8 mmol/L; Blood Urea Nitrogen 16 mg/dL (9-20); Calcium 8.9 mg/dL (8.4-10.2); Carbon Dioxide 24 mmol/L (22-30); Chloride 104 mmol/L (98-107); Glucose 120 mg/dL (74-99); Lipase 24 U/L (23-300); Non-African American GFR(CKD) >90 (>60 ml/min/1.73 sqM); Potassium 3.7 mmol/L (3.5-5.1); Sodium 136 mmol/L (137-145); Total Bilirubin 0.6 mg/dL (0.2-1.3); Total Protein 6.8 g/dL (6.3-8.2)
[2022-02-24 01:45] LABS: INR 1.1 (<1.2); Partial Thromboplastin Time 20.1 sec (22.0-30.0); Prothrombin Time 11.8 sec (9.0-12.0)
--- NOTE | 2022-02-24 02:32 | CT ---
EXAMINATION TYPE: CT abdomen pelvis w con DATE OF EXAM: 02/24/2022 COMPARISON: 02/13/2022 HISTORY: PAIN CT DLP: 1051.3 mGycm Automated exposure control for dose reduction was used. CONTRAST: Performed with IV Contrast, patient injected with 100 mL of Isovue 300. Images obtained from the diaphragm to the floor the pelvis with IV contrast. There is minimal subsegmental atelectasis at the lung bases. Heart size is normal. Stomach is intact. Liver and spleen are intact. There is no pancreatic mass. Gallbladder is intact. The bile ducts are not dilated. There is no adrenal mass. Kidneys show satisfactory contrast opacification. There is no hydronephrosi s. Delayed images show normal renal excretion. There is no retroperitoneal adenopathy. Ureters are no t dilated. Bladder distends smoothly. There is no free fluid in the pelvis. No inguinal hernia. There is some diffuse wall thickening of the large bowel. The appendix appears normal. Terminal ileum appears normal. There are some sigmoid diverticula. There is mild fat stranding around the proximal sigmoid colon. The lumbar vertebrae have normal alignment. No compression fracture. Bony pelvis is intact. The hip j oints are intact. Sacroiliac joints appear normal. IMPRESSION: There is diffuse wall thickening of the large bowel which is a change compared to old exam and consis tent with some diffuse nonspecific colitis. There is improvement in the sigmoid diverticulitis compared to old exam. No drainable fluid collecti on. There is improvement in the pericolic edema around the sigmoid colon compared to the old exam.
[2022-02-24 05:49] VITALS: BP 110/62; PULSE 84; TEMP 98.3
== END 2022-02-24 02:30 | disposition home or self-care (01) ==
LOC: EC 22:28
DX: R19.7 Diarrhea, unspecified (principal); R11.2 Nausea with vomiting, unspecified; K57.92 Diverticulitis of intestine, part unspecified, without perforation or abscess without bleeding; J45.909 Unspecified asthma, uncomplicated; K21.9 Gastro-esophageal reflux disease without esophagitis; Z79.83 Long term (current) use of bisphosphonates; Z88.5 Allergy status to narcotic agent
CPT/HCPCS: 99284 ×2; 96374 ×2; 96375 ×2; 36415; 80053; 83605; 83690; 85025; 85610; 85730; 74177; J2405; J1170; Q9967

== ENCOUNTER 2024-11-28 07:46 | Day surgery (SDC) | payer OTHER ==
[2024-11-25 11:03] VITALS: BMI 29.7
[~2024-11-28 07:46] MED LIST: LIDOCAINE 1% (10MG/ML) FOR IV START INTRADERMA PRN
[2024-11-28 08:01] VITALS: TEMP 97.7
[2024-11-28] MEDS: IV FLUID CONTINUATION 1,000 ML IV ONE (08:06)
[2024-11-28] MEDS: LACTATED RINGERS 1,000 ML IV SCH (08:06)
[2024-11-28] MEDS: ONDANSETRON 4 MG/2 ML VIAL IVP STA (08:11)
[2024-11-28] MEDS ORDERED: PROPOFOL 10 MG/ML 20 ML VIAL IV ONE (08:31)
--- NOTE | 2024-11-28 08:54 | P.PCN ---
Date of Procedure: 11/28/24 Preoperative Diagnosis: Screening for colon cancer Postoperative Diagnosis: Poor prep Sigmoid colon polyp Procedure(s) Performed: Flexible sigmoidoscopy with hot snare polypectomy Anesthesia: MAC Surgeon: Chirag Martinez Pathology: other (Sigmoid colon polyp) Condition: stable Disposition: same day Indications for Procedure: 59-year-old male presents for screening colonoscopy. Patient does not have any family history of colon cancer. Risks, benefits and alternatives were reviewed with the patient. All questions answered. Operative Findings: Patient found with poor prep and poor visibility secondary to poor prep. 1 sizable polyp visualized in sigmoid colon colon. Description of Procedure: The patient was brought to the endoscopy suite and placed in left lateral decubitus position and adequate sedation was achieved using conscious sedation. Digital rectal exam was performed and mild internal hemorrhoids were palpated. An endoscope was then placed in the rectum. The prep was very poor. Colonoscope was advanced to towards the sigmoid colon but visibility was quite poor. 1 sizable polyp was encountered and this was removed with hot snare polypectomy. Hemostasis was noted to be maintained. At this point, it was decided not to pus h the scope any further due to the poor visibility. The colonoscope was then slowly withdrawn, examining for any mucosal abnormalities. The visible portions of the sigmoid colon were visualized adequately. There were no large neoplastic lesions noted. Hemostasis was maintained. Repeat colonoscopy should be performed within the next 6 months as patient did have sizable polyp and further examination will be required..
[2024-11-28 09:20] VITALS: BP 154/66; PULSE 65; RESP 14
== END 2024-11-28 10:28 | disposition home or self-care (01) ==
LOC: ORWHC2ENDO 07:46
PROVIDERS: ATTEND Surgery
DX: Z12.11 Encounter for screening for malignant neoplasm of colon (principal); D12.5 Benign neoplasm of sigmoid colon; K57.30 Diverticulosis of large intestine without perforation or abscess without bleeding; J45.909 Unspecified asthma, uncomplicated; K21.9 Gastro-esophageal reflux disease without esophagitis; Z79.899 Other long term (current) drug therapy; Z85.828 Personal history of other malignant neoplasm of skin; Z79.51 Long term (current) use of inhaled steroids; Z88.5 Allergy status to narcotic agent
CPT/HCPCS: 88305; 45338; J2405; J2704; 45331

== ENCOUNTER 2024-11-28 16:08 | Observation (INO) | payer OTHER ==
[2024-11-28 17:11] LABS: Basophils # (A) 0.1 k/uL (0-0.2); Basophils % (A) 1 %; Eosinophils # (A) 0.2 k/uL (0-0.7); Eosinophils % (A) 3 %; HCT 45.9 % (39.0-53.0); HGB 14.5 gm/dL (13.0-17.5); Lymphocytes % (A) 26 %; MCH 27.8 pg (25.0-35.0); MCHC 31.5 g/dL (31.0-37.0); MCV 88.3 fL (80.0-100.0); Mean Platelet Volume 7.8; Monocytes # (A) 0.4 k/uL (0-1.0); Monocytes % (A) 6 %; Neutrophils # (A) 4.7 k/uL (1.3-7.7); Neutrophils % (A) 62 %; Platelet Count 259 k/uL (150-450); WBC 7.5 k/uL (3.8-10.6)
[2024-11-28 17:18] LABS: ALT 27 U/L (4-49); AST 22 U/L (17-59); African American GFR (CKD) >90 (>60 ml/min/1.73 sqM); Albumin 3.5 g/dL (3.5-5.0); Alkaline Phosphatase 60 U/L (38-126); Anion Gap 5 mmol/L; Blood Urea Nitrogen 20 mg/dL (9-20); Calcium 9.2 mg/dL (8.4-10.2); Carbon Dioxide 28 mmol/L (22-30); Chloride 104 mmol/L (98-107); Glucose 89 mg/dL (74-99); Non-African American GFR(CKD) >90 (>60 ml/min/1.73 sqM); Potassium 4.6 mmol/L (3.5-5.1); Sodium 137 mmol/L (137-145); Total Bilirubin 0.6 mg/dL (0.2-1.3)
[2024-11-28 17:20] LABS: Partial Thromboplastin Time 24.4 sec (22.0-30.0); Prothrombin Time 11.4 sec (10.0-12.5)
[2024-11-28] MEDS ORDERED: NALOXONE 0.4 MG/ML 1 ML VIAL IV PRN (18:45)
--- NOTE | 2024-11-28 18:45 | ED ---
GI Bleed HPI - General Chief complaint: GI Bleed Stated complaint: post surgical bleeding Time Seen by Provider: 11/28/24 16:15 Source: patient Mode of arrival: ambulatory Limitations: no limitations - History of Present Illness Initial comments: 59 year old male presents emergency department with several episodes of bright red blood per rectum. Patient had a flex sigmoidoscopy today with Dr. Martinez. States that since he has left the hospital he has had greater than 20 bowel movements of bright red blood. Patient has had 5 bowel movements just waiting to be seen. Patient is not on any blood thinners. He did have a polyp removed by hot snare. He does admit to some lightheadedness. Admits to some abdominal cramping. No other alleviating, precipitating or modifying factors - Related Data Home Medications Medication Instructions Recorded Confirmed Albuterol Inhaler [Ventolin Hfa 2 puff INHALATION RT-Q4H PRN 10/14/20 11/28/24 Inhaler] Montelukast Sodium [Singulair] 10 mg PO HS 10/14/20 11/28/24 Lansoprazole 15 mg PO DAILY 02/13/22 11/28/24 Fluticasone Propion/Salmeterol 1 puff INHALATION RT-BID PRN 11/25/24 11/28/24 [Advair 100-50 Diskus] Ibuprofen [Advil] 200 mg PO Q8HR PRN 11/25/24 11/28/24 Allergies Allergy/AdvReac Type Severity Reaction Status Date / Time codeine Allergy Unknown Verified 11/28/24 20:57 Review of Systems ROS Statement: Those systems with pertinent positive or pertinent negative responses have been documented in the HPI. ROS Other: All systems not noted in ROS Statement are negative. Past Medical History Past Medical History: Asthma, Cancer, GERD/Reflux Additional Past Medical History / Comment(s): diverticulitis, skin cancer- Basal cell History of Any Multi-Drug Resistant Organisms: None Reported Past Surgical History: Orthopedic Surgery Additional Past Surgical History / Comment(s): EGD's due to narrowing. R leg surgery. Past Anesthesia/Blood Transfusion Reactions: No Reported Reaction Past Psychological History: No Psychological Hx Reported Smoking Status: Never smoker - Past Family History Mother Family Medical History: No Reported History General Exam Limitations: no limitations General appearance: alert Head exam: Present: atraumatic, normocephalic, normal inspection Eye exam: Present: normal appearance, PERRL, EOMI. Absent: scleral icterus, conjunctival injection, periorbital swelling ENT exam: Present: normal exam, mucous membranes moist Neck exam: Present: normal inspection. Absent: tenderness, meningismus, lymphadenopathy Respiratory exam: Present: normal lung sounds bilaterally. Absent: respiratory distress, wheezes, rales, rhonchi, stridor Cardiovascular Exam: Present: regular rate, normal rhythm, normal heart sounds. Absent: systolic murmur, diastolic murmur, rubs, gallop, clicks GI/Abdominal exam: Present: soft, normal bowel sounds. Absent: distended, tenderness, guarding, rebound, rigid Rectal exam: Present: bloody stool Extremities exam: Present: normal inspection, full ROM, normal capillary refill. Absent: tenderness, pedal edema, joint swelling, calf tenderness Back exam: Present: normal inspection Neurological exam: Present: alert, oriented X3, CN II-XII intact Psychiatric exam: Present: normal affect, normal mood Skin exam: Present: warm, dry, intact, normal color. Absent: rash Course Vital Signs 11/28/24 11/28/24 11/28/24 16:10 16:40 18:10 Temperature 97.7 F Pulse Rate 80 86 68 Respiratory 20 18 16 Rate Blood Pressure 168/97 154/116 125/90 O2 Sat by Pulse 95 96 96 Oximetry 11/28/24 11/28/24 11/28/24 18:47 19:00 19:30 Temperature Pulse Rate 73 74 70 Respiratory 16 16 16 Rate Blood Pressure 142/95 127/87 149/91 O2 Sat by Pulse 97 95 97 Oximetry 11/28/24 11/28/24 11/28/24 20:00 20:15 20:28 Temperature 97.9 F Pulse Rate 39 L 72 64 Respiratory 12 20 15 Rate Blood Pressure 98/60 97/65 97/65 O2 Sat by Pulse 95 98 98 Oximetry 11/28/24 11/28/24 11/28/24 20:37 20:51 20:58 Temperature 98.0 F 98.0 F Pulse Rate 60 68 69 Respiratory 16 18 16 Rate Blood Pressure 130/83 133/78 128/74 O2 Sat by Pulse 99 99 99 Oximetry 11/28/24 11/28/24 21:13 21:34 Temperature 97.9 F 98.0 F Pulse Rate 66 67 Respiratory 18 18 Rate Blood Pressure 131/81 125/80 O2 Sat by Pulse 100 98 Oximetry - Reevaluation(s) Reevaluation #1: Patient had a syncopal episode getting up to the bathroom. Blood pressure d ropped to 65/31. Heart rate of 39. Patient is placed back in the bed. He does have a copious amount of bright red blood underneath him. At this time 2 units of blood is ordered and the patient is transfused. I did call and speak with Dr. Martinez about the amount of bleeding that the patient is having. Patient will be switched to an ICU admission. Spoke with Dr. Singer who agreed to the admission 11/28/24 20:52 Medical Decision Making - Medical Decision Making Was pt. sent in by a medical professional or institution (, PA, CONTENT ADMINISTRATOR, urgent care, hospital, or residential...) When possible be specific @ -No Did you speak to anyone other than the patient for history (EMS, parent, family, police, friend...)? What history was obtained from this source @ -No Did you review nursing and triage notes (agree or disagree)? Why? @ -I reviewed and agree with nursing and triage notes Were old charts reviewed (outside hosp., previous admission, EMS record, old EKG, old radiological studies, urgent care reports/EKG's, residential records)? Report findings @ -I reviewed the procedure note from Dr. Martinez Differential Diagnosis (chest pain, altered mental status, abdominal pain women, abdominal pain men, vaginal bleeding, weakness, fever, dyspnea, syncope, headache, dizziness, GI bleed, back pain, seizure, CVA, palpatations, mental h ealth, musculoskeletal)? @ -Differential GI Bleed: Esophageal varices, aortoenteric fistula, [place], gastritis, peptic ulcer disease, diverticulosis, inflammatory bowel disease, hemorrhoids, fissure, colitis, malignancy, Meckel's diverticulum, this is not meant to be an all- inclusive list. EKG interpreted by me (3pts min.). @ -Not done X-rays interpreted by me (1pt min.). @ -None done CT interpreted by me (1pt min.). @ -None done U/S interpreted by me (1pt. min.). @ -None done What testing was considered but not performed or refused? (CT, X-rays, U/S, labs)? Why? @ -None What meds were considered but not given or refused? Why? @ -None Did you discuss the management of the patient with other professionals (professionals i.e. , PA, CONTENT ADMINISTRATOR, lab, RT, psych nurse, social media analyst, tombstone carver, teacher, chief quality officer, telephonic case manager)? Give summary @ -spoke with dr. ang for the admission Was smoking cessation discussed for >3mins.? @ -No Was critical care preformed (if so, how long)? @ -35 minutes for blood product transfusion Were there social determinants of health that impacted care today? How? (Homelessness, low income, unemployed, alcoholism, drug addiction, transportatio n, low edu. Level, literacy, decrease access to med. care, longterm, rehab)? @ -No Was there de-escalation of care discussed even if they declined (Discuss DNR or withdrawal of care, Hospice)? DNR status @ -No What co-morbidities impacted this encounter? (DM, HTN, Smoking, COPD, CAD, Cancer, CVA, ARF, Chemo, Hep., AIDS, mental health diagnosis, sleep apnea, morbid obesity)? @ -None Was patient admitted / discharged? Hospital course, mention meds given and route, prescriptions, significant lab abnormalities, going to OR and other pertinent info. @ -Upon arrival patient was seen and evaluated in bed 3. Thorough history and physical exam was performed. Patient does have 4 bowel movements before I am even able to see the patient. Patient does save the last bowel movement which fills a hat with clotted blood. Patient feels weak, short of breath. IV is established and laboratory studies are conducted. I did discuss the case with Dr. Martinez. He recommends repeat hemoglobin. Patient will be admitted to him with Dr. Hammer on consult. He is aware of the extent of the bleeding. Repeat hemoglobin was ordered for 8 PM. Patient has had 4 additional bowel movements with thick, clotted blood each producing approximately 100 cc. Patient does get up to the bathroom and ends up having an unresponsive episode. Patient is pale, diaphoretic, bradycardic. He is immediately placed on the Z OLL monitor. Accu-Chek is obtained. As patient has had numerous episodes of rectal bleeding 2 units of blood is then transfused at this time. Patient's blood pressure was 60/30. I did call and speak with Dr. Martinez to let him know of the change in status of the patient. He has remained n.p.o. throughout his hospitalization. I did upgrade the patient to the ICU for closer monitoring. I did speak with Dr. Brody Undiagnosed new problem with uncertain prognosis? @ -No Drug Therapy requiring intensive monitoring for toxicity (Heparin, Nitro, Insulin, Cardizem)? @ -No Were any procedures done? @ -No Diagnosis/symptom? @ -Acute lower GI bleed status post polypectomy, syncopal episode, hypotension due to blood loss anemia, transfusion 2 units PRBCs Acute, or Chronic, or Acute on Chronic? @ -acute Uncomplicated (without systemic symptoms) or Complicated (systemic symptoms)? @ -Complicated Side effects of treatment? @ -No Exacerbation, Progression, or Severe Exacerbation? @ -No Poses a threat to life or bodily function? How? (Chest pain, [place], CA, pneumonia, PE, COPD, DKA, ARF, appy, cholecystitis, CVA, Diverticulitis, Homicidal, Suicidal, threat to staff... and all critical care pts) @ -Yes this patient does have copious lower GI bleeding with hypotension and syncope - Lab Data Result diagrams: 11/29/24 07:56 11/29/24 05:30 Lab Results 11/28/24 11/28/24 11/28/24 Range/Units 16:10 17:03 17:03 WBC 7.5 (3.8-10.6) k/uL RBC 5.20 (4.30-5.90) m/uL Hgb 14.5 (13.0-17.5) gm/dL Hct 45.9 (39.0-53.0) % MCV 88.3 (80.0-100.0) fL MCH 27.8 (25.0-35.0) pg MCHC 31.5 (31.0-37.0) g/dL RDW 13.0 (11.5-15.5) % Plt Count 259 (150-450) k/uL MPV 7.8 Neutrophils % 62 % Lymphocytes % 26 % Monocytes % 6 % Eosinophils % 3 % Basophils % 1 % Neutrophils # 4.7 (1.3-7.7) k/uL Lymphocytes # 2.0 (1.0-4.8) k/uL Monocytes # 0.4 (0-1.0) k/uL Eosinophils # 0.2 (0-0.7) k/uL Basophils # 0.1 (0-0.2) k/uL PT 11.4 (10.0-12.5) sec INR 1.0 (<1.2) APTT 24.4 (22.0-30.0) sec Sodium (137-145) mmol/L Potassium (3.5-5.1) mmol/L Chloride (98-107) mmol/L Carbon Dioxide (22-30) mmol/L Anion Gap mmol/L BUN (9-20) mg/dL Creatinine (0.66-1.25) mg/dL Est GFR (CKD-EPI)AfAm (>60 ml/min/1.73 sqM) Est GFR (CKD-EPI)NonAf (>60 ml/min/1.73 sqM) Glucose (74-99) mg/dL Plasma Lactic Acid Se (0.7-2.0) mmol/L Calcium (8.4-10.2) mg/dL Total Bilirubin (0.2-1.3) mg/dL AST (17-59) U/L ALT (4-49) U/L Alkaline Phosphatase (38-126) U/L Troponin I (0.000-0.034) ng/mL Total Protein (6.3-8.2) g/dL Albumin (3.5-5.0) g/dL Blood Type O Positive Blood Type Recheck O Pos Bld Type Recheck Status No Antibody Screen NEGATIVE Crossmatch See Detail Spec Expiration Date 12/01/2024 - 230211/28/24 11/28/24 11/28/24 Range/Units 17:03 17:03 17:14 WBC (3.8-10.6) k/uL RBC (4.30-5.90) m/uL Hgb (13.0-17.5) gm/dL Hct (39.0-53.0) % MCV (80.0-100.0) fL MCH (25.0-35.0) pg MCHC (31.0-37.0) g/dL RDW (11.5-15.5) % Plt Count (150-450) k/uL MPV Neutrophils % % Lymphocytes % % Monocytes % % Eosinophils % % Basophils % % Neutrophils # (1.3-7.7) k/uL Lymphocytes # (1.0-4.8) k/uL Monocytes # (0-1.0) k/uL Eosinophils # (0-0.7) k/uL Basophils # (0-0.2) k/uL PT (10.0-12.5) sec INR (<1.2) APTT (22.0-30.0) sec Sodium 137 (137-145) mmol/L Potassium 4.6 (3.5-5.1) mmol/L Chloride 104 (98-107) mmol/L Carbon Dioxide 28 (22-30) mmol/L Anion Gap 5 mmol/L BUN 20 (9-20) mg/dL Creatinine 0.83 (0.66-1.25) mg/dL Est GFR (CKD-EPI)AfAm >90 (>60 ml/min/1.73 sqM) Est GFR (CKD-EPI)NonAf >90 (>60 ml/min/1.73 sqM) Glucose 89 (74-99) mg/dL Plasma Lactic Acid Se 0.7 (0.7-2.0) mmol/L Calcium 9.2 (8.4-10.2) mg/dL Total Bilirubin 0.6 (0.2-1.3) mg/dL AST 22 (17-59) U/L ALT 27 (4-49) U/L Alkaline Phosphatase 60 (38-126) U/L Troponin I <0.012 (0.000-0.034) ng/mL Total Protein 6.0 L (6.3-8.2) g/dL Albumin 3.5 (3.5-5.0) g/dL Blood Type Blood Type Recheck Bld Type Recheck Status Antibody Screen Crossmatch Spec Expiration Date Disposition Clinical Impression: Hematochezia, S/P colon polypectomy Disposition: ADMITTED IP TO THIS [facility] Condition: Serious Is patient prescribed a controlled substance at d/c from ED?: No Time of Disposition: 18:44 Decision to Admit Reason: Admit from EC
[2024-11-28 20:43] LABS: HCT 39.8 % (39.0-53.0); MCHC 32.6 g/dL (31.0-37.0); MCV 89.2 fL (80.0-100.0); Mean Platelet Volume 7.6; Platelet Count 278 k/uL (150-450); RBC 4.46 m/uL (4.30-5.90); RDW 12.7 % (11.5-15.5); WBC 14.5 k/uL (3.8-10.6)
[2024-11-28] MEDS: SODIUM CHLORIDE 0.9% 1,000 ML IV ONE (21:30)
[2024-11-28] MEDS: ALBUMIN HUMAN 5% 500 ML in EMPTY BAG 1 BAG IVPB STA (21:45)
[2024-11-28] MEDS ORDERED: PROPOFOL 10 MG/ML 20 ML VIAL IV ONE (21:51)
[2024-11-28] MEDS ORDERED: fentaNYL (PF) 50 MCG/ML 2 ML AMP ONE (21:51)
[2024-11-28] MEDS ORDERED: MIDAZOLAM 2 MG/2 ML VIAL ONE (21:51)
[2024-11-28] MEDS ORDERED: ALBUMIN HUMAN 5% (25gm) 500 ML VIAL IVPB ONE (21:51)
[2024-11-28] MEDS: IV FLUID CONTINUATION 1,000 ML IV ONE (22:15)
[2024-11-28] MEDS ORDERED: ALBUTEROL NEBULIZED 2.5 MG/3 ML INHALATION PRN (22:30)
[2024-11-28 22:32] LABS: Glucose,Whole Blood 85 mg/dL (70-110)
[2024-11-28 22:58] LABS: HCT 41.4 % (39.0-53.0); Hypochromasia Slight; MCHC 31.3 g/dL (31.0-37.0); MCV 89.4 fL (80.0-100.0); Mean Platelet Volume 7.7; Platelet Count 219 k/uL (150-450); RBC 4.63 m/uL (4.30-5.90); RDW 13.7 % (11.5-15.5); WBC 14.3 k/uL (3.8-10.6)
[2024-11-28] MEDS: SODIUM CHLORIDE 0.9% 1,000 ML IV SCH (23:21)
[2024-11-28] MEDS: IPRATROPIUM-ALBUTEROL 3 ML NEB INHALATION SCH (23:32)
[2024-11-28] MEDS ORDERED: ONDANSETRON 4 MG/2 ML VIAL IVP PRN (23:49)
[2024-11-29] MEDS: [UNRECOGNIZED DRUG - OTHER] INHALATION SCH (00:33)
--- NOTE | 2024-11-29 00:38 | P.CNPUL ---
History of Present Illness Consult date: 11/29/24 Requesting physician: Jennifer Mathis Reason for consult: other (GI bleed) Chief complaint: Hematochezia History of present illness: Patient is a 59-year-old male with past medical history significant for chronic bronchial asthma, diverticulosis, GERD. Brought in yesterday morning for screening colonoscopy, underwent sigmoidoscopy with hot snare polypectomy. After leaving the hospital, had more than 20 bright red bowel movements. He did come to the emergency department, and continued to have large amounts of bright red blood per rectum. Did get up to use the bathroom, and had a near syncopal event. Blood pressure was hypotensive at 65/31 mmHg, and the patient was also noted to be bradycardic. Patient reportedly underwent subsequent colonoscopy, clipping x 2 at the previous polypectomy site. I am evaluating this patient in room 261 in the intensive care unit following the procedure. education instructor reports at least 1 L EBL. Patient did receive 2 units PRBCs, 400 crystalloid, and 500 of albumin perioperatively. Blood pressures currently normotensive. Heart rate is normal sinus on bedside monitor, rate 73 bpm. Normal saline continuous at 75 mL/h. Not requiring vasopressors. Patient is currently alert and oriented. Generalized pallor noted. Does endorse some nausea without emesis. Intermittent abdominal cramping. Continues to have bright red bowel movements, smaller in amount and frequency. Repeat hemoglobin following the procedure is stable at 13 g/dL. Denies any history of anticoagulant use. Denies lightheadedness, shortness of breath, chest pain. CBC: WBC count 14.3, hemoglobin 13, platelets 219. CMP on arrival: Sodium 137, potassium 4.6, chloride 104, serum bicarb 28, BUN 20, creatinine 0.83, glucose 89. LFTs unremarkable. Troponin less than 0.012. Current vital signs: Temperature 98.6 F, heart rate 73 bpm, blood pressure 141/81 mmHg, SpO2 reading 96% on 2 L/min nasal cannula. Patient does have history of chronic bronchial asthma, normally uses Wixela inhaler twice a day and as needed albuterol rescue inhaler. States he requires his rescue inhaler approximately 2-3 times per week. Does not use daily. No recent hospitalizations within the last year for asthma. Review of Systems Constitutional: Denies chills, Denies fever, Denies night sweats, Denies poor appetite, Denies weight gain, Denies weight loss Ears, nose, mouth and throat: Denies headache, Denies nasal congestion, Denies nasal discharge, Denies post-nasal drip, Denies sinus pain, Denies sinus pressure, Denies sore throat Cardiovascular: Denies chest pain, Denies leg edema, Denies orthopnea, Denies palpitations, Denies paroxysmal nocturnal dyspnea, Denies syncope Respiratory: Reports dyspnea, Denies congestion, Denies cough, Denies home oxygen, Denies wheezing Gastrointestinal: Reports as per HPI Genitourinary: Denies dysuria Musculoskeletal: Denies limitation of motion Integumentary: Denies rash Neurological: Denies seizures, Denies syncope Psychiatric: Denies anxiety, Denies depression Past Medical History Past Medical History: Asthma, Cancer, GERD/Reflux Additional Past Medical History / Comment(s): diverticulitis, skin cancer- Basal cell History of Any Multi-Drug Resistant Organisms: None Reported Past Surgical History: Orthopedic Surgery Additional Past Surgical History / Comment(s): EGD's due to narrowing. R leg surgery. Past Anesthesia/Blood Transfusion Reactions: No Reported Reaction Past Psychological History: No Psychological Hx Reported Smoking Status: Never smoker - Past Family History Mother Family Medical History: No Reported History Additional Family Medical History / Comment(s): collitis Medications and Allergies Home Medications Medication Instructions Recorded Confirmed Type Albuterol Inhaler [Ventolin Hfa 2 puff INHALATION RT-Q4H PRN 10/14/20 11/28/24 History Inhaler] Montelukast Sodium [Singulair] 10 mg PO HS 10/14/20 11/28/24 History Lansoprazole 15 mg PO DAILY 02/13/22 11/28/24 History Fluticasone Propion/Salmeterol 1 puff INHALATION RT-BID PRN 11/25/24 11/28/24 History [Advair 100-50 Diskus] Ibuprofen [Advil] 200 mg PO Q8HR PRN 11/25/24 11/28/24 History Allergies Allergy/AdvReac Type Severity Reaction Status Date / Time codeine Allergy Unknown Verified 11/28/24 20:57 Physical Exam Vitals: Vital Signs Temp Pulse Resp BP Pulse Ox 11/28/24 23:44 69 11/28/24 23:36 67 11/28/24 21:34 98.0 F 67 18 125/80 98 11/28/24 21:13 97.9 F 66 18 131/81 100 11/28/24 20:58 98.0 F 69 16 128/74 99 11/28/24 20:51 98.0 F 68 18 133/78 99 11/28/24 20:37 60 16 130/83 99 11/28/24 20:28 97.9 F 64 15 97/65 98 11/28/24 20:15 72 20 97/65 98 11/28/24 20:00 39 L 12 98/60 95 11/28/24 19:30 70 16 149/91 97 11/28/24 19:00 74 16 127/87 95 11/28/24 18:47 73 16 142/95 97 11/28/24 18:10 68 16 125/90 96 11/28/24 16:40 86 18 154/116 96 11/28/24 16:10 97.7 F 80 20 168/97 95 Intake and Output 11/28/24 11/28/24 11/29/24 14:59 22:59 06:59 Intake Total 663 75 Balance 663 75 Intake: IV 100 Intake, IV Titration 75 Amount Sodium Chloride 0.9% 1, 75 000 ml @ 75 mls/hr IV . [id number] [facility] Rx#:[id number] Blood Product 563 Rc Pheresis 2 As3 Unit 281 [id number] Rc Pheresis As-3 Unit 282 [id number] Other: Voiding Method Urinal Weight 80.286 kg GENERAL EXAM: Alert, 59-year-old white male, generalized pallor, fairly comfortable in no apparent distress. HEAD: Normocephalic and atraumatic EYES: Normal reaction of pupils, equal size. NOSE: Clear with pink turbinates. THROAT: No erythema or exudates. NECK: No masses, no JVD. CHEST: No chest wall deformity. LUNGS: Equal air entry with no crackles, wheeze, rhonchi or dullness. On 2 L/min nasal cannula. No conversational dyspnea or accessory muscle use.. CVS: S1 and S2 normal with no audible murmur, regular rhythm. No extra heart sounds ABDOMEN: No hepatosplenomegaly, active bowel sounds, no guarding or rigidity. SPINE: No scoliosis or deformity SKIN: No rashes CENTRAL NERVOUS SYSTEM: No focal deficits, tone is normal in all 4 extremities. EXTREMITIES: There is no peripheral edema, clubbing, or cyanosis. Peripheral pulses are intact. Results - Laboratory Findings CBC and BMP: 11/28/24 22:35 11/28/24 17:03 PT/INR, D-dimer PT 11.4 sec (10.0-12.5) 11/28/24 17:03 INR 1.0 (<1.2) 11/28/24 17:03 Abnormal lab findings: Abnormal Labs 11/28/24 11/28/24 11/28/24 16:10 17:03 20:00 WBC 14.5 H Total Protein 6.0 L Crossmatch See Detail 11/28/24 22:35 WBC 14.3 H Total Protein Crossmatch Assessment and Plan Assessment: Acute lower GI bleed, status postoperative day #1 following repeat colonoscopy and clipping x 2 of previous polypectomy site Postoperative day #1 following flexible sigmoidoscopy with hot snare polypectomy Acute blood loss anemia, status 2 units PRBC transfusion, hemoglobin stable at 13 g/dL Acute leukocytosis, reactive to above Chronic bronchial asthma, stable and inactive History of diverticulosis History of GERD Obesity, with a BMI of 31.4 kg/m Plan: Continue to monitor H&H every 4 hours overnight Transfuse PRBC for hemoglobin less than 7 g/dL Currently n.p.o., advance diet per GI Continue IV maintenance fluids GI prophylaxis: Protonix IV push Resume asthma maintenance inhalers including Wixela and bronchodilators. Patient will remain in the intensive care unit to be monitored at least overnight I have personally seen and examined the patient, performed the documentation and the assessment and plan as written. Number of minutes spent on the visit:20 Time with Patient: Greater than 30
[2024-11-29 05:08] LABS: Basophils % (A) 0 %; Eosinophils % (A) 0 %; HCT 40.4 % (39.0-53.0); HGB 12.9 gm/dL (13.0-17.5); Lymphocytes # (A) 1.1 k/uL (1.0-4.8); Lymphocytes % (A) 7 %; MCH 27.9 pg (25.0-35.0); MCHC 31.9 g/dL (31.0-37.0); MCV 87.4 fL (80.0-100.0); Mean Platelet Volume 7.3; Monocytes # (A) 0.7 k/uL (0-1.0); Monocytes % (A) 4 %; Neutrophils # (A) 14.5 k/uL (1.3-7.7); Neutrophils % (A) 88 %; Platelet Count 202 k/uL (150-450); RBC 4.62 m/uL (4.30-5.90); RDW 13.8 % (11.5-15.5); WBC 16.4 k/uL (3.8-10.6)
--- NOTE | 2024-11-29 05:45 | P.GSHP ---
History of Present Illness H&P Date: 11/28/24 59-year-old male presented to the emergency department with multiple bloody bowel movements after flexible sigmoidoscopy performed this morning. Colonoscopy was not able to be performed secondary to poor preparation, however 1 sigmoid colon polyp was removed. Per , patient had about 12 bloody bowel movements at home and continued to have bloody bowel movements in the emergency department. On arrival, hemoglobin of 14. Patient initially with stable vital signs, however about 4 or 5 hours into his emergency department stay he did become hypotensive. 2 units of packed red blood cells were given and recommendation was made for endoscopy for clipping of the previous polypectomy site. - Review of Systems All systems: negative Past Medical History Past Medical History: Asthma, Cancer, GERD/Reflux Additional Past Medical History / Comment(s): diverticulitis, skin cancer- Basal cell History of Any Multi-Drug Resistant Organisms: None Reported Past Surgical History: Orthopedic Surgery Additional Past Surgical History / Comment(s): EGD's due to narrowing. R leg surgery. Past Anesthesia/Blood Transfusion Reactions: No Reported Reaction Past Psychological History: No Psychological Hx Reported Smoking Status: Never smoker - Past Family History Mother Family Medical History: No Reported History Additional Family Medical History / Comment(s): collitis Medications and Allergies Home Medications Medication Instructions Recorded Confirmed Type Albuterol Inhaler [Ventolin Hfa 2 puff INHALATION RT-Q4H PRN 10/14/20 11/28/24 History Inhaler] Montelukast Sodium [Singulair] 10 mg PO HS 10/14/20 11/28/24 History Lansoprazole 15 mg PO DAILY 02/13/22 11/28/24 History Fluticasone Propion/Salmeterol 1 puff INHALATION RT-BID PRN 11/25/24 11/28/24 History [Advair 100-50 Diskus] Ibuprofen [Advil] 200 mg PO Q8HR PRN 11/25/24 11/28/24 History Allergies Allergy/AdvReac Type Severity Reaction Status Date / Time codeine Allergy Unknown Verified 11/28/24 20:57 Surgical - Exam Osteopathic Statement: *. No significant issues noted on an osteopathic structural exam other than those noted in the History and Physical/Consult. Vital Signs Temp Pulse Resp BP Pulse Ox 97.7 F 80 20 168/97 95 11/28/24 16:10 11/28/24 16:10 11/28/24 16:10 11/28/24 16:10 11/28/24 16:10 - General moderate distress - Eyes normal ocular movement - Neck trachea midline - Respiratory normal respiratory effort - Abdomen Abdomen: soft, non tender - Rectum Bleeding per rectum Results - Labs 11/29/24 04:41 11/28/24 17:03 Abnormal Lab Results - Last 24 Hours (Table) 11/28/24 11/28/24 11/28/24 Range/Units 16:10 17:03 20:00 WBC 14.5 H (3.8-10.6) k/uL Hgb (13.0-17.5) gm/dL Neutrophils # (1.3-7.7) k/uL Total Protein 6.0 L (6.3-8.2) g/dL Crossmatch See Detail 11/28/24 11/29/24 Range/Units 22:35 04:41 WBC 14.3 H 16.4 H (3.8-10.6) k/uL Hgb 12.9 L (13.0-17.5) gm/dL Neutrophils # 14.5 H (1.3-7.7) k/uL Total Protein (6.3-8.2) g/dL Crossmatch Diabetes panel 11/28/24 Range/Units 17:03 Sodium 137 (137-145) mmol/L Potassium 4.6 (3.5-5.1) mmol/L Chloride 104 (98-107) mmol/L Carbon Dioxide 28 (22-30) mmol/L BUN 20 (9-20) mg/dL Creatinine 0.83 (0.66-1.25) mg/dL Glucose 89 (74-99) mg/dL Calcium 9.2 (8.4-10.2) mg/dL AST 22 (17-59) U/L ALT 27 (4-49) U/L Alkaline Phosphatase 60 (38-126) U/L Total Protein 6.0 L (6.3-8.2) g/dL Albumin 3.5 (3.5-5.0) g/dL Calcium panel 11/28/24 Range/Units 17:03 Calcium 9.2 (8.4-10.2) mg/dL Albumin 3.5 (3.5-5.0) g/dL Pituitary panel 11/28/24 Range/Units 17:03 Sodium 137 (137-145) mmol/L Potassium 4.6 (3.5-5.1) mmol/L Chloride 104 (98-107) mmol/L Carbon Dioxide 28 (22-30) mmol/L BUN 20 (9-20) mg/dL Creatinine 0.83 (0.66-1.25) mg/dL Glucose 89 (74-99) mg/dL Calcium 9.2 (8.4-10.2) mg/dL Adrenal panel 11/28/24 Range/Units 17:03 Sodium 137 (137-145) mmol/L Potassium 4.6 (3.5-5.1) mmol/L Chloride 104 (98-107) mmol/L Carbon Dioxide 28 (22-30) mmol/L BUN 20 (9-20) mg/dL Creatinine 0.83 (0.66-1.25) mg/dL Glucose 89 (74-99) mg/dL Calcium 9.2 (8.4-10.2) mg/dL Total Bilirubin 0.6 (0.2-1.3) mg/dL AST 22 (17-59) U/L ALT 27 (4-49) U/L Alkaline Phosphatase 60 (38-126) U/L Total Protein 6.0 L (6.3-8.2) g/dL Albumin 3.5 (3.5-5.0) g/dL Assessment and Plan Plan: 59-year-old male with GI bleed. Hemoglobin of 14, however with continued bloody bowel movements, patient is becoming hypotensive. Recommendation was made for emergent endoscopy with likely clipping of polypectomy site. Risks, benefits and alternatives were discussed. Case discussed in depth with patient's family. Further recommendations after procedure is completed. Transfuse as needed.
--- NOTE | 2024-11-29 05:51 | P.PCN ---
Date of Procedure: 11/28/24 Preoperative Diagnosis: Rectal bleeding, suspected post polypectomy bleed Postoperative Diagnosis: Post polypectomy bleed Procedure(s) Performed: Flexible sigmoidoscopy with clipping of previous polypectomy site Anesthesia: MAC Surgeon: Chirag Martienz Him Assistant #1: Shari Garcia Pathology: none sent Condition: stable Disposition: ICU Indications for Procedure: 59-year-old male presented to the emergency department approximately 8 hours after flexible sigmoidoscopy with finding of continuous rectal bleeding. He did have polypectomy performed. Concern is for post polypectomy bleed. He did have hypotensive episode. Operative Findings: Colon full of old blood with clots present Previous polypectomy site with possible small oozing Description of Procedure: The patient was brought to the endoscopy suite and placed in left lateral decubitus position and adequate sedation was achieved using conscious sedation. An endoscope was then placed in the rectum and immediate old clotted blood was noted. Scope was then advanced to approximately the 30 cm julio and the previous polypectomy site was noted. Copious amounts of irrigation was placed in suction. The previous polypectomy site was closely examined with no significant active bleeding, possible small oozing. It did appear that the area had already clotted off. Scope was then advanced further with no evidence of further active bleeding. Decision was made to place clips over the previous polypectomy site. 2 clips were placed, 1 at the base of the stalk and 1 at the distal end. Area was observed and no bleeding was noted. Copious amounts of irrigation was once again placed and suctioned with no active signs of bleeding. At this point, scope was retrieved and procedure terminated. Patient tolerated the procedure well with no hypotension or tachycardia.
[2024-11-29 06:56] LABS: African American GFR (CKD) >90 (>60 ml/min/1.73 sqM); Anion Gap 9 mmol/L; Blood Urea Nitrogen 19 mg/dL (9-20); Calcium 8.4 mg/dL (8.4-10.2); Carbon Dioxide 22 mmol/L (22-30); Chloride 104 mmol/L (98-107); Glucose 97 mg/dL (74-99); Non-African American GFR(CKD) >90 (>60 ml/min/1.73 sqM); Potassium 4.2 mmol/L (3.5-5.1); Sodium 135 mmol/L (137-145)
[2024-11-29] MEDS ORDERED: SYMBICORT 80-4.5 MCG INHALER INHALATION SCH (08:00)
[2024-11-29 08:11] LABS: Basophils % (A) 0 %; Eosinophils % (A) 0 %; HCT 39.2 % (39.0-53.0); HGB 12.7 gm/dL (13.0-17.5); Lymphocytes # (A) 1.3 k/uL (1.0-4.8); Lymphocytes % (A) 8 %; MCH 28.5 pg (25.0-35.0); MCHC 32.4 g/dL (31.0-37.0); MCV 87.7 fL (80.0-100.0); Mean Platelet Volume 7.5; Monocytes # (A) 0.6 k/uL (0-1.0); Monocytes % (A) 4 %; Neutrophils # (A) 13.3 k/uL (1.3-7.7); Neutrophils % (A) 87 %; Platelet Count 194 k/uL (150-450); RBC 4.47 m/uL (4.30-5.90); RDW 13.8 % (11.5-15.5); WBC 15.4 k/uL (3.8-10.6)
[2024-11-29] MEDS: PANTOPRAZOLE 40 MG/10 ML VIAL IVP SCH (08:42)
--- NOTE | 2024-11-29 08:48 | P.CONS ---
History of Present Illness - Reason for Consult Consult date: 11/29/24 Acute hematochezia status post sigmoidoscopy Requesting physician: Jennifer Mathis - Chief Complaint Rectal bleeding post polypectomy - History of Present Illness Pleasant 59-year-old male who was scheduled for outpatient colonoscopy yesterday with Dr. Martinez for screening for colon cancer. Due to poor prep patient colonoscopy was not able to be completed and he underwent flexible sigmoidoscopy with hot snare polypectomy. Apparently following the procedure at home he s tarted having rectal bleeding. He had multiple bowel movements with blood in it. He came to the emergency department for further evaluation. He continued to have rectal bleeding with initial hemoglobin on admission 14.5 with a by symptom score nine 1.5 drop in his hemoglobin within 5 hours. Patient was found to be hypotensive he was admitted to surgical services and went to the the ICU. Gastroenterology was consulted to assist for lower GI bleed. Today he is seen in the ICU status post repeat flexible sigmoidoscopy status post Endo Clip placement with good hemostasis. He has some mild left lower abdominal discomfort. Pass gas with no bleeding. He has not had any further rectal bleeding no bowel movement. He denies any nausea or vomiting. Repeat hemoglobin this morning is 12.7. Review of Systems REVIEW OF SYSTEMS: CARDIOPULMONARY: No chest pain or shortness of breath. Gastrointestinal: No abdominal pain. No nausea or vomiting. No hematemesis, coffee-ground emesis. Rectal bleeding, multiple episodes. GENITOURINARY: No dysuria or hematuria. MUSCULOSKELETAL: Reports normal range of motion. SKIN: No rashes. No jaundice. ENDOCRINE: No chills, fevers. No excessive weight gain or loss. No polydipsia or polyuria. PSYCHIATRIC: Unremarkable. NEUROLOGY: No change in mental status. Denies dizziness, headache. ENT: Vision unremarkable. CONSTITUTIONAL: No recent weight loss. No fever, chills, night sweats. Past Medical History Past Medical History: Asthma, Cancer, GERD/Reflux Additional Past Medical History / Comment(s): diverticulitis, skin cancer- Basal cell History of Any Multi-Drug Resistant Organisms: None Reported Past Surgical History: Orthopedic Surgery Additional Past Surgical History / Comment(s): EGD's due to narrowing. R leg surgery. Past Anesthesia/Blood Transfusion Reactions: No Reported Reaction Past Psychological History: No Psychological Hx Reported Smoking Status: Never smoker - Past Family History Mother Family Medical History: No Reported History Additional Family Medical History / Comment(s): collitis Medications and Allergies Home Medications Medication Instructions Recorded Confirmed Type Albuterol Inhaler [Ventolin Hfa 2 puff INHALATION RT-Q4H PRN 10/14/20 11/28/24 History Inhaler] Montelukast Sodium [Singulair] 10 mg PO HS 10/14/20 11/28/24 History Lansoprazole 15 mg PO DAILY 02/13/22 11/28/24 History Fluticasone Propion/Salmeterol 1 puff INHALATION RT-BID PRN 11/25/24 11/28/24 History [Advair 100-50 Diskus] Ibuprofen [Advil] 200 mg PO Q8HR PRN 11/25/24 11/28/24 History Allergies Allergy/AdvReac Type Severity Reaction Status Date / Time codeine Allergy Unknown Verified 11/28/24 20:57 Physical Exam Vitals: Vital Signs Temp Pulse Resp BP BP Pulse Ox 11/29/24 08:07 88 11/29/24 07:55 86 95 11/29/24 07:00 89 7 L 145/80 96 11/29/24 06:00 87 139/83 95 11/29/24 05:00 96 11 L 159/120 96 11/29/24 04:00 98.6 F 80 23 131/74 95 11/29/24 03:00 103 H 20 131/84 94 L 11/29/24 02:00 77 130/84 94 L 11/29/24 01:41 74 130/82 94 L 11/29/24 01:00 17 137/82 94 L 11/29/24 00:00 98.6 F 73 19 141/81 96 11/28/24 23:44 69 11/28/24 23:36 67 11/28/24 23:00 72 24 132/86 97 11/28/24 22:31 85 L 11/28/24 21:34 98.0 F 67 18 125/80 98 11/28/24 21:13 97.9 F 66 18 131/81 100 11/28/24 20:58 98.0 F 69 16 128/74 99 11/28/24 20:51 98.0 F 68 18 133/78 99 11/28/24 20:37 60 16 130/83 99 11/28/24 20:28 97.9 F 64 15 97/65 98 11/28/24 20:15 72 20 97/65 98 11/28/24 20:00 39 L 12 98/60 95 11/28/24 19:30 70 16 149/91 97 11/28/24 19:00 74 16 127/87 95 11/28/24 18:47 73 16 142/95 97 11/28/24 18:10 68 16 125/90 96 11/28/24 16:40 86 18 154/116 96 11/28/24 16:10 97.7 F 80 20 168/97 95 Intake and Output 11/28/24 11/29/24 11/29/24 22:59 06:59 14:59 Intake Total 663 600 Output Total 750 Balance 663 -150 Intake: IV 100 Intake, IV Titration 600 Amount Sodium Chloride 0.9% 1, 600 000 ml @ 75 mls/hr IV . [id number] [facility] Rx#:[id number] Blood Product 563 Rc Pheresis 2 As3 Unit 281 [id number] Rc Pheresis As-3 Unit 282 [id number] Output: Urine 750 Other: Voiding Method Urinal Weight 80.286 kg 80.2 kg General appearance: The patient is alert, oriented, appears in no acute distress. HET: Head is normocephalic and atraumatic. Conjunctiva pink. Sclera anicteric. Neck: Supple without lymphadenopathy. Abdomen: Soft, nontender, nondistended. Extremities: Normal skin color and turgor. No pedal edema Skin: No rashes, no jaundice Neurological: No focal deficits. Alert and oriented. Results CBC & Chem 7: 11/29/24 07:56 11/29/24 05:30 Labs: Abnormal Lab Results - Last 24 Hours (Table) 11/28/24 11/28/24 11/28/24 Range/Units 16:10 17:03 20:00 WBC 14.5 H (3.8-10.6) k/uL Hgb (13.0-17.5) gm/dL Neutrophils # (1.3-7.7) k/uL Sodium (137-145) mmol/L Total Protein 6.0 L (6.3-8.2) g/dL Crossmatch See Detail 11/28/24 11/29/2425 Range/Units 22:35 04:41 05:30 WBC 14.3 H 16.4 H (3.8-10.6) k/uL Hgb 12.9 L (13.0-17.5) gm/dL Neutrophils # 14.5 H (1.3-7.7) k/uL Sodium 135 L (137-145) mmol/L Total Protein (6.3-8.2) g/dL Crossmatch 11/29/24 Range/Units 07:56 WBC 15.4 H (3.8-10.6) k/uL Hgb 12.7 L (13.0-17.5) gm/dL Neutrophils # 13.3 H (1.3-7.7) k/uL Sodium (137-145) mmol/L Total Protein (6.3-8.2) g/dL Crossmatch Assessment and Plan (1) Hematochezia Narrative/Plan: 59-year-old male scheduled for colonoscopy for colon cancer screening with Dr. Martinez. He had a poor prep and underwent flex sigmoidoscopy status post hot snare polypectomy returning to the emergency department following several episodes of rectal bleeding. The decision was made to admit patient to the ICU secondary to hypotension and active GI bleed. Concern was for post polypectomy bleed. Gastroenterology was consulted to assist with flexible sigmoidoscopy with Dr. Martinez. Previous polypectomy site was examined with no significant active bleeding possible small oozing. Appeared that area had clotted off. Scope was advanced no further evidence of active bleeding and 2 endoclips were placed. Current Visit: Yes Status: Acute Code(s): K92.1 - MELENA SNOMED Code(s): 484171196 (2) S/P colon polypectomy Current Visit: Yes Status: Acute Code(s): Z98.890 - OTHER SPECIFIED POSTPROCEDURAL STATES; Z86.0100 - PERSONAL HISTORY OF COLON POLYPS, UNSPECIFIED SNOMED Code(s): 788435177 Plan: 1. Continue symptomatic and supportive care 2. Advance to clear liquid diet if cleared by general surgery 3. Continue to monitor CBC and transfuse for hemoglobin less than 7 4. Continue with recommendations from general surgery 5. Continue to monitor for rectal bleeding Thank you for this consultation, we will continue to follow. Dr. Emery Garcia I agree with the dictator's note, documented as a scribe by Rylie Kilpatrick.
--- NOTE | 2024-11-29 12:24 | P.PN ---
Subjective Progress Note Date: 11/29/24 SURGICAL PROGRESS NOTE CHIEF COMPLAINT: Blood per rectum HISTORY OF PRESENT ILLNESS: Patient is postop day 1 status post flexible sigmoidoscopy with clipping of previous polypectomy site. Patient has had no further rectal bleeding. Denies any rectal pain. He reports being hungry. Vitals are stable. His hypotension has resolved. He did receive 2 units of blood yesterday hemoglobin stable at 12.7. He reports feeling hungry. He reports passing flatus with no blood. He is currently in the ICU. PHYSICAL EXAM: VITAL SIGNS: Reviewed. GENERAL: Well-developed in no acute distress. ABDOMEN: Soft. Nondistended. Nontender. NEUROLOGIC: Alert and oriented. Cranial nerves II through XII grossly intact. ASSESSMENT: 1. Rectal bleeding with post polypectomy bleed status post flexible sigmoidos copy with clipping of previous polypectomy site PLAN: -Patient has had no further rectal bleeding -Advance diet to clear liquids -Okay to transfer out of ICU to regular medical floor -Discontinue IV fluids -Continue to monitor hemoglobin -Continue to monitor for any signs or symptoms of bleeding Physician Senior Mechanical Project Manager note has been reviewed by physician. Signing provider agrees with the documented findings, assessment, and plan of care. Objective - Vital Signs Vital signs: Vital Signs Temp 98.7 F 11/29/24 08:00 Pulse 80 11/29/24 11:32 Resp 18 11/29/24 08:00 BP 130/71 11/29/24 08:00 Pulse Ox 97 11/29/24 08:00 FiO2 Intake & Output 11/28/24 11/29/24 11/29/24 18:59 06:59 18:59 Intake Total 1263 660 Output Total 750 700 Balance 513 -40 Weight 80.286 kg 80.2 kg Intake: IV 100 Intake, IV Titration 600 300 Amount Sodium Chloride 0.9% 1, 600 300 000 ml @ 75 mls/hr IV . [id number] [facility] Rx#:[id number] Oral 360 Blood Product 563 Rc Pheresis 2 As3 Unit 281 [id number] Rc Pheresis As-3 Unit 282 [id number] Output: Urine 750 700 Other: Voiding Method Urinal Urinal - Labs CBC & Chem 7: 11/29/24 07:56 11/29/24 05:30 Labs: Abnormal Lab Results - Last 24 Hours (Table) 11/28/24 11/28/24 11/28/24 Range/Units 16:10 17:03 20:00 WBC 14.5 H (3.8-10.6) k/uL Hgb (13.0-17.5) gm/dL Neutrophils # (1.3-7.7) k/uL Sodium (137-145) mmol/L Total Protein 6.0 L (6.3-8.2) g/dL Crossmatch See Detail 11/28/24 11/29/24 11/29/24 Range/Units 22:35 04:41 05:30 WBC 14.3 H 16.4 H (3.8-10.6) k/uL Hgb 12.9 L (13.0-17.5) gm/dL Neutrophils # 14.5 H (1.3-7.7) k/uL Sodium 135 L (137-145) mmol/L Total Protein (6.3-8.2) g/dL Crossmatch 11/29/24 Range/Units 07:56 WBC 15.4 H (3.8-10.6) k/uL Hgb 12.7 L (13.0-17.5) gm/dL Neutrophils # 13.3 H (1.3-7.7) k/uL Sodium (137-145) mmol/L Total Protein (6.3-8.2) g/dL Crossmatch
[2024-11-30 07:08] VITALS: RESP 18; TEMP 97.6
--- NOTE | 2024-11-30 13:03 | P.PN ---
Subjective Progress Note Date: 11/30/24 Principal diagnosis: Post polypectomy bleed 59-year-old male seen as a follow-up status post post polypectomy bleed with reevaluation flexible sigmoidoscopy status post clip placement. He states he has no abdominal pain, no nausea or vomiting. He has not had any bowel movement . He is not having any rectal bleeding. He has been tolerating a clear liquid diet. Objective - Vital Signs Vital signs: Vital Signs Temp 97.6 F 11/30/24 07:06 Pulse 70 11/30/24 12:16 Resp 18 11/30/24 07:06 BP 147/87 11/30/24 07:06 Pulse Ox 94 L 11/30/24 07:06 FiO2 Intake & Output 11/29/24 11/30/24 11/30/24 18:59 06:59 18:59 Intake Total 1280 Output Total 700 Balance 580 Intake: Intake, IV Titration 300 Amount Sodium Chloride 0.9% 1, 300 000 ml @ 75 mls/hr IV . [id number] [facility] Rx#:[id number] Oral 980 Output: Urine 700 Other: Voiding Method Urinal Toilet # Voids 3 2 - Exam General appearance: The patient is alert, oriented, appears in no acute distress. HET: Head is normocephalic and atraumatic. Conjunctiva pink. Sclera anicteric. Neck: Supple without lymphadenopathy. Abdomen: Soft, nontender, nondistended. Extremities: Normal skin color and turgor. No pedal edema Skin: No rashes, no jaundice Neurological: No focal deficits. Alert and oriented. - Labs CBC & Chem 7: 11/29/24 07:56 11/29/24 05:30 Assessment and Plan (1) Hematochezia Narrative/Plan: 59-year-old male scheduled for colonoscopy for colon cancer screening with Dr. Martinez. He had a poor prep and underwent flex sigmoidoscopy status post hot snare polypectomy returning to the emergency department following several episodes of rectal bleeding. The decision was made to admit patient to the ICU secondary to hypotension and active GI bleed. Concern was for post polypectomy bleed. Gastroenterology was consulted to assist with flexible sigmoidoscopy with Dr. Martinez. Previous polypectomy site was examined with no significant active bleeding possible small oozing. Appeared that area had clotted off. Scope was advanced no further evidence of active bleeding and 2 endoclips were placed. Current Visit: Yes Status: Acute Code(s): K92.1 - MELENA SNOMED Code(s): 204190884 (2) S/P colon polypectomy Current Visit: Yes Status: Acute Code(s): Z98.890 - OTHER SPECIFIED POSTPROCEDURAL STATES; Z86.0100 - PERSONAL HISTORY OF COLON POLYPS, UNSPECIFIED SNOMED Code(s): 652026656 Plan: 1. Continue symptomatic and supportive care 2. Advance to regular diet 3. Continue with recommendations from general surgery 4. No further workup from gastroenterology Thank you for this consultation, patient is cleared from gastroenterology for discharge. We will sign off at this time. Dr. Emery Garcia I agree with the dictator's note, documented as a scribe by Rylie Kilpatrick.
--- NOTE | 2024-11-30 13:41 | P.PN ---
Subjective Progress Note Date: 11/30/24 Patient is a 59-year-old male with past medical history significant for chronic bronchial asthma, diverticulosis, GERD. Brought in yesterday morning for screening colonoscopy, underwent sigmoidoscopy with hot snare polypectomy. After leaving the hospital, had more than 20 bright red bowel movements. He did come to the emergency department, and continued to have large amounts of bright red blood per rectum. Did get up to use the bathroom, and had a near syncopal event. Blood pressure was hypotensive at 65/31 mmHg, and the patient was also noted to be bradycardic. Patient reportedly underwent subsequent colonoscopy, clipping x 2 at the previous polypectomy site. I am evaluating this patient in room 261 in the intensive care unit following the procedure. document design specialist reports at least 1 L EBL. Patient did receive 2 units PRBCs, 400 crystalloid, and 500 of albumin perioperatively. Blood pressures currently normotensive. Heart rate is normal sinus on bedside monitor, rate 73 bpm. Normal saline continuous at 75 mL/h. Not requiring vasopressors. Patient is currently alert and oriented. Generalized pallor noted. Does endorse some nausea without emesis. Intermittent abdominal cramping. Continues to have bright red bowel movements, smaller in amount and frequency. Repeat hemoglobin following the procedure is stable at 13 g/dL. Denies any history of anticoagulant use. Denies lighthe adedness, shortness of breath, chest pain. CBC: WBC count 14.3, hemoglobin 13, platelets 219. CMP on arrival: Sodium 137, potassium 4.6, chloride 104, serum bicarb 28, BUN 20, creatinine 0.83, glucose 89. LFTs unremarkable. Troponin less than 0.012. Current vital signs: Temperature 98.6 F, heart rate 73 bpm, blood pressure 141/81 mmHg, SpO2 reading 96% on 2 L/min nasal cannula. Patient does have history of chronic bronchial asthma, normally uses Wixela inhaler twice a day and as needed albuterol rescue inhaler. States he requires his rescue inhaler approximately 2-3 times per week. Does not use daily. No recent hospitalizations within the last year for asthma. The patient is seen today November 30, 2024 in follow-up on the regular medical floor. He is currently sitting up in a chair at the bedside. Awake and alert in no acute distress. He denies any shortness of breath, cough or congestion. Maintaining good O2 saturations in the 90s on room air. He is afebrile. Hemodynamically stable. He is status post 2 units of packed red blood cells this admission. Hemoglobin 12.7. No bowel movement today. He is continued on IV Protonix. Continued on his Wixela and DuoNeb inhalations. Objective - Vital Signs Vital signs: Vital Signs Temp 97.6 F 11/30/24 07:06 Pulse 70 11/30/24 12:16 Resp 18 11/30/24 07:06 BP 147/87 11/30/24 07:06 Pulse Ox 94 L 11/30/24 07:06 FiO2 Intake & Output 11/29/24 11/30/24 11/30/24 18:59 06:59 18:59 Intake Total 1280 Output Total 700 Balance 580 Intake: Intake, IV Titration 300 Amount Sodium Chloride 0.9% 1, 300 000 ml @ 75 mls/hr IV . [id number] VINNY Rx#:[id number] Oral 980 Output: Urine 700 Other: Voiding Method Urinal Toilet # Voids 3 2 - Exam GENERAL EXAM: Alert, active, pleasant 59-year-old male, on room air, comfortable in no apparent distress. HEAD: Normocephalic. EYES: Normal reaction of pupils, equal size. NOSE: Clear with pink turbinates. THROAT: No erythema or exudates. NECK: No masses, no JVD. CHEST: No chest wall deformity. LUNGS: Equal air entry with no crackles, wheeze, rhonchi or dullness. CVS: S1 and S2 normal with no audible murmur, regular rhythm. ABDOMEN: No hepatosplenomegaly, normal bowel sounds, no guarding or rigidity. SPINE: No scoliosis or deformity SKIN: No rashes CENTRAL NERVOUS SYSTEM: No focal deficits, tone is normal in all 4 extremities. EXTREMITIES: There is no peripheral edema. No clubbing, no cyanosis. Peripheral pulses are intact. - Labs CBC & Chem 7: 11/29/24 07:56 11/29/24 05:30 Assessment and Plan Assessment: Acute lower GI bleed, status postoperative day #2 following repeat colonoscopy and clipping x 2 of previous polypectomy site Postoperative day #2 following flexible sigmoidoscopy with hot snare polypectomy Acute blood loss anemia, status 2 units PRBC transfusion, hemoglobin stable at 12.7 g/dL Acute leukocytosis, reactive to above Chronic bronchial asthma, stable and inactive History of diverticulosis History of GERD Obesity, with a BMI of 31.4 kg/m Plan: The patient was seen and evaluated Labs and medications reviewed Hemoglobin stable at 12.7 Remains on IV Protonix Continued on his Wixela and DuoNeb inhalations Remains stable and on room air Home once cleared by GI service This patient was seen independently by the pulmonary nurse practitioner ad dressing pulmonary issues I have personally seen and examined the patient, performed the documentation and the assessment and plan as written. Number of minutes spent on the visit: 24 Dictation was produced using [employer] dictation software. Please excuse any grammatical, word or spelling errors.
[2024-11-30 14:02] VITALS: BP 126/75; PULSE 85
--- NOTE | 2024-11-30 14:30 | P.DS ---
Providers Date of admission: 11/28/24 18:48 Expected date of discharge: 11/30/24 Attending physician: Chirag Martinez DO Consults: 11/28/24 18:45 Consult Physician Urgent Consulting Provider: Shari Garcia Consult Reason/Comments: acute hematochezia s/p sigmoidoscopy Do you want consulting provider notified?: Yes 11/28/24 20:47 Consult Physician Stat Consulting Provider: Catherine Brody Consult Reason/Comments: acute gi bleed Do you want consulting provider notified?: Yes Primary care physician: Cata Amor Hospital Course: Discharge diagnosis 1. Rectal bleeding with post polypectomy bleed status post flexible sigmoidoscopy with clipping of previous polypectomy site Hospital course This is a 59-year-old male who had a rectal bleeding after polypectomy. Patient also was hypotensive and did require admission to ICU. He is status post flexible sigmoidoscopy with clipping of previous polypectomy site. He has had no further active bleeding. Hemoglobins remained stable. Hypotension resolved. He is tolerating diet. He has been up and ambulating. He is having bowel movements with no evidence of acute bleeding. He is stable for discharge. Please refer to chart for any further details. Physician [employer] Specialist note has been reviewed by physician. Signing provider agrees with the documented findings, assessment, and plan of care. Attestation Patient seen and examined at bedside. Presented with chief complaint of rectal bleeding status post polypectomy for flexible sigmoidoscopy. He was taken back to endoscopy with clips placed on previous polypectomy site. He has had no further active bleeding. Hemoglobin has remained stable over multiple draws. He feels comfortable and is requesting discharge. He did have bowel movement prior to discharge with no evidence of bleeding. Based on evaluation of colonoscopy unable to be completed secondary to poor prep and visualization of additional polyps, recommendation is for repeat colonoscopy in 3 to 6 months. As he has had this bleeding episode, he is stating he may hold off on this. I did recommend returning to the emergency department should he have any additional significant bleeding per rectum. Chirag Martinez DO Patient Condition at Discharge: Stable Plan - Discharge Summary Discharge Rx Participant: No New Discharge Prescriptions: Continue Montelukast Sodium [Singulair] 10 mg PO HS Albuterol Inhaler [Ventolin Hfa Inhaler] 2 puff INHALATION RT-Q4H PRN PRN Reason: Shortness Of Breath Lansoprazole 15 mg PO DAILY Fluticasone Propion/Salmeterol [Advair 100-50 Diskus] 1 puff INHALATION RT- BID PRN PRN Reason: Wheezing Discontinued Ibuprofen [Advil] 200 mg PO Q8HR PRN PRN Reason: Pain Discharge Medication List Albuterol Inhaler [Ventolin Hfa Inhaler] 2 puff INHALATION RT-Q4H PRN 10/14/20 [History] Montelukast Sodium [Singulair] 10 mg PO HS 10/14/20 [History] Lansoprazole 15 mg PO DAILY 02/13/22 [History] Fluticasone Propion/Salmeterol [Advair 100-50 Diskus] 1 puff INHALATION RT-BID PRN 11/25/24 [History] Follow up Appointment(s)/Referral(s): Shari Garcia MD [STAFF PHYSICIAN] - As Needed Cata Amor MD [Primary Care Provider] - 12/05/24 11:20 am Chirag Martinez DO [Doctor of Osteopathic Medicine] - 1 Week (office not answering Please call to schedule appointment ) Discharge Disposition: HOME SELF-CARE
== END 2024-11-30 16:47 | disposition home or self-care (01) ==
LOC: EC 16:08 → 3SCARD 18:48 → INTOOBSV 18:48 → OBSVTOIN 18:48 → 2SICU 20:37 → 4SSUR 11-29 20:43
PROVIDERS: ADMIT Surgery; ATTEND Surgery
DX: K91.840 Postprocedural hemorrhage of a digestive system organ or structure following a digestive system procedure (principal); K92.1 Melena; D62 Acute posthemorrhagic anemia; D72.829 Elevated white blood cell count, unspecified; J44.89 Other specified chronic obstructive pulmonary disease; K21.9 Gastro-esophageal reflux disease without esophagitis; E66.9 Obesity, unspecified; Z68.31 Body mass index [BMI] 31.0-31.9, adult; Z85.828 Personal history of other malignant neoplasm of skin; Z79.51 Long term (current) use of inhaled steroids; Z79.899 Other long term (current) drug therapy; Z88.5 Allergy status to narcotic agent
CPT/HCPCS: 96376; 96374; 36430; 96365; 99291; 36415; 94640 ×5; 94760; 86900; 86901; 80053; 80048; 83605; 84484; 85025 ×2; 85027; 85610; 85730; 86850; 86920; 45382; G0378 ×3; P9016; J2250; J3010; P9045; J2704; J2470 ×2